=== PATIENT | male | born 1970 | race Caucasian/White ===

== ENCOUNTER 2017-05-27 19:12 | Emergency (ER) | payer OTHER ==
[2017-05-27 19:51] VITALS: BMI 44.9
--- NOTE | 2017-05-27 20:15 | PDOC ---
History of Present Illness - General History Source: Care Provider Exam Limitations: No Limitations - History of Present Illness Initial Comments: 05/27/17 23:15 The patient is a 46 year old male (patient from [facility]), with a significant past medical history of Profound MR, Cerebral palsy spastic quadriplegia, Epilepsy, G tube, GERD, Paraesophageal hernia, Diabetes Insipidus , Asthma who presents to the emergency department with L wrist and L hand blister. Patient brought in by hand packer/packager who states she noticed the blister today when bathing the patient. Patients hand packer/packager is unsure when the blister began and presents to the ED for further evaluation. Allergies: NKA Past surgical history: g tube Social history: None <Alina Hodges - Last Filed: 05/27/17 23:15> - General History Source: Care Provider, Group Home Records Exam Limitations: Clinical Condition, Physical Impairment - History of Present Illness Initial Comments: 05/27/17 21:45 EXAMINATION CONSTITUTIONAL: Awake; nonverbal; in no apparent distress HEAD: Microcephalic, atraumatic EYES: PERRL; ENMT: + Dysmorphic features NECK: Supple; + torticollis CARD: Normal S1, S2; no murmurs, rubs, or gallops RESP: Shallow chest excursion with respiration; breath sounds coarse and equal bilaterally; ABD: Soft, non-distended; non-tender; G-tube in place; no palpable organomegaly , no palpable hernias EXT: Upper and lower extremities are noted to be in flexion contraction; distal pulses intact SKIN: Warm, several large areas of well-demarcated erythema and denuded skin to the dorsolateral and dorsomedial aspect of the left forearm with several small fluid-filled vesicles to the dorsum of the left hand, and a large fluid-filled vesicle to the volar aspect of the wrist overlying the wrist joint. Painless extension of the MCP joints of the left hand; there is no enlarged proximal lymphadenopathy. Patient is wheelchair-bound. <Justino Adler - Last Filed: 05/28/17 02:24> - General Chief Complaint: Wound Infection Stated Complaint: SWOLLEN ARM, BITE Time Seen by Provider: 05/27/17 20:14 Past History <Alina Hodges - Last Filed: 05/27/17 23:15> - Past Medical History Seizures: Yes Other medical history: profound MR - Surgical History Abdominal Surgery: Yes (gtube) - Immunization History Immunization Up to Date: Yes - Psycho/Social/Smoking Cessation Hx Anxiety: (n/a) Suicidal Ideation: No Smoking History: Never smoked Have you smoked in the past 12 months: No Number of Cigarettes Smoked Daily: 0 Hx Alcohol Use: No Drug/Substance Use Hx: No Substance Use Type: None <Justino Adler - Last Filed: 05/28/17 02:24> - Past Medical History Allergies/Adverse Reactions: Allergies Allergy/AdvReac Type Severity Reaction Status Date / Time No Known Allergies Allergy Verified 05/27/17 19:38 Home Medications: Ambulatory Orders Albuterol 0.083% Nebulizer Margarita [Ventolin 0.083% Nebulizer Soln -] 1 neb NEB BID 03/16/15 Ascorbic Acid [Vitamin C Oral Solution -] 500 mg GT BID 03/16/15 Lactose-Reduced Food/Fiber [Jevity 1.5 Nabor Liquid] 800 ml GT BID 03/16/15 Levetiracetam [Keppra Oral Solution -] 250 mg GT BID 03/16/15 Magnesium Hydroxide [Milk of Magnesia] 30 ml GT DAILY 03/16/15 Multivitamins *Pediatric Liq* [Poly--Margarita Drops -] 15 ml GT DAILY 03/16/15 Phenobarbital 16.2 mg GT BID 03/16/15 Phenobarbital 64.8 mg GT BID 03/16/15 Ranitidine HCl [Deprizine] 150 mg GT BID 03/16/15 Bisacodyl Suppository [Dulcolax Suppository -] 10 mg RC ASDIR PRN 05/27/17 Calcium Citrate/Vitamin D3 [Calcium Cit 200-Vit D3 250 Tab] 2 tab GT BID Diazepam [Diastat] 2.5 mg RC ASDIR PRN 05/27/17 Diphenhydramine [Benadryl Capsule -] 50 mg GT ONCE 05/27/17 Silver Sulfadiazine 1% Top Cr [Silvadene -] 1 applic TP BID #1 jar 05/27/17 Teriparatide [Forteo] 2.4 ml SQ DAILY 05/27/17 Review of Systems - Review of Systems Able to Perform ROS?: Yes Comments:: 05/27/17 23:15 Unable to obtain ROS due to patients clinical condition. <Alina Hodges - Last Filed: 05/27/17 23:15> *Physical Exam - Vital Signs Last Vital Signs Temp Pulse Resp BP Pulse Ox 114 H 22 119/84 95 05/27/17 19:45 05/27/17 19:45 05/27/17 19:45 05/27/17 19:45 <Alina Hodges - Last Filed: 05/27/17 23:15> - Vital Signs Last Vital Signs Temp Pulse Resp BP Pulse Ox 114 H 22 119/84 95 05/27/17 19:45 05/27/17 19:45 05/27/17 19:45 05/27/17 19:45 <Justino Adler - Last Filed: 05/28/17 02:24> ED Treatment Course - LABORATORY CBC & Chemistry Diagram: 05/27/17 21:28 05/27/17 21:28 - ADDITIONAL ORDERS Additional order review: Laboratory Results 05/27/17 05/27/17 05/27/17 21:28 21:28 21:00 INR 1.07 Sodium 133 L Potassium 4.5 Chloride 99 Carbon Dioxide 26 Anion Gap 8 BUN 15 Creatinine 0.5 L Creat Clearance w eGFR > 60 Random Glucose 93 Calcium 8.8 Total Bilirubin < 0.1 L D AST 90 H D ALT 54 D Alkaline Phosphatase 157 H C-Reactive Protein 9.0 H Total Protein 7.8 Albumin 3.0 L Phenobarbital 33.9 05/27/17 21:28 RBC 4.80 MCV 101.5 H MCHC 34.2 RDW 13.4 MPV 8.6 Neutrophils % 70.7 Lymphocytes % 12.2 D Monocytes % 15.8 H Eosinophils % 0.7 D Basophils % 0.6 <Alina Hodges - Last Filed: 05/27/17 23:15> - LABORATORY CBC & Chemistry Diagram: 05/27/17 21:28 05/27/17 21:28 <Justino Adler - Last Filed: 05/28/17 02:24> Medical Decision Making - Medical Decision Making 05/27/17 23:31 Patient is a 46-year-old male with history of severe MR, spastic CP, seizure disorder who presents to the ER with several large fluid-filled bullae and well demarcated areas of erythema to the left wrist and hand which were noticed by the staff members on the day of arrival. Patient's had similar episodes in the past treated with topical bacitracin. In the ER, patient is awake and alert, afebrile, in no distress. Patient is nonverbal, wheelchair bound with flexion contraction of upper and lower extremities. Evaluation of the upper extremity reveals several well-demarcated areas of erythema and denuded skin consistent with recently ruptured fluid-filled bullae; there is a large approximately 4 cm fluid-filled bullae to the volar aspect of the wrist over the distal wrist crease. Differential diagnoses includes phenobarbital rash versus bullous pemphigus versus pemphigus vulgaris. CBC is within normal limit. CMP reveals moderately elevated CRP of 9. I discussed the case with Dr. Bolivar from [facility]. Will apply topical Silvadene at this time with a bulky gauze dressing. Patient will follow-up with dermatology for a possible biopsy and steroid treatment as needed. Phenobarbital rash is unlikely given the patient's had it before and it has been limited to the left wrist only. Silvadene and a bulky gauze dressing applied. We'll discharge. <Justino Adler - Last Filed: 05/28/17 02:24> *DC/Admit/Observation/Transfer - Attestations Scribe Attestion: 05/27/17 23:15 Documentation prepared by Alina Hodges, acting as medical records analyst for Justino Adler MD <Alina Hodges - Last Filed: 05/27/17 23:15> - Attestations Physician Attestion: 05/27/17 23:31 The documentation was prepared by the scribe under my direct supervision. I have reviewed the documentation which correctly represents the findings, medical decision-making and critical action taken by me. <Justino Adler - Last Filed: 05/28/17 02:24> Diagnosis at time of Disposition: Bullous dermatitis - Discharge Dispostion Disposition: HOME Condition at time of disposition: Stable - Prescriptions Prescriptions: Silver Sulfadiazine 1% Top Cr [Silvadene -] 1 applic TP BID #1 jar - Referrals Referrals: Dominique Abraham MD [Staff Physician] - - Patient Instructions Printed Discharge Instructions: Blisters
[2017-05-27 21:38] LABS: BASOPHIL 0.6 % (0-2.0); EOSINOPHIL 0.7 % (0-4.5); MCH 34.7 pg (25.7-33.7); MCHC 34.2 g/dl (32.0-35.9); MEAN CELL VOLUME 101.5 fl (80-96); MEAN PLT VOLUME 8.6 fl (7.5-11.1); NEUTROPHILS 70.7 % (42.8-82.8); PLATELET COUNT 447 K/MM3 (134-434); RDW 13.4 % (11.9-15.9); WHITE BLOOD COUNT 11.9 K/mm3 (4.0-10.0)
[2017-05-27 22:01] LABS: PLATELET ESTIMATE SLT INCREASED (NORMAL)
[2017-05-27 22:02] LABS: ALK PHOS 157 U/L (45-117); ANION GAP 8 (8-16); BILIRUBIN,TOTAL < 0.1 mg/dL (0.2-1.0); CALCIUM 8.8 mg/dL (8.5-10.1); CO2 26 mmol/L (21-32); CREATININE 0.5 mg/dL (0.7-1.3); GLUCOSE,RANDOM 93 mg/dL (74-106); SGOT/AST 90 U/L (15-37); SGPT/ALT 54 U/L (12-78); TOT PROT 7.8 g/dl (6.4-8.2)
[2017-05-27] MEDS ORDERED: SILVER SULFADIAZINE 1% TOP CREAM 50 GM JAR TP ONE (22:30)
[2017-05-27 22:36] LABS: INR 1.07 (0.82-1.09); PROTHROMBIN TIME (PATIENT) 11.8 SEC (9.98-11.88)
[2017-05-27 23:20] VITALS: BP 137/108; PULSE 100
[2017-05-27 23:25] LABS: ERYTHROCYTE SEDIMENTATION RATE 35 mm/hr (0-10)
== END 2017-05-27 23:44 | disposition home or self-care (01) ==
LOC: JER 19:12
DX: L13.9 Bullous disorder, unspecified (principal); F73 Profound intellectual disabilities; G80.0 Spastic quadriplegic cerebral palsy; G40.909 Epilepsy, unspecified, not intractable, without status epilepticus; Z99.3 Dependence on wheelchair; E23.2 Diabetes insipidus; J45.909 Unspecified asthma, uncomplicated; K21.9 Gastro-esophageal reflux disease without esophagitis
CPT/HCPCS: 36415; 80053; 80184; 85025; 85610; 85651; 86140; 99282-25

== ENCOUNTER 2019-10-12 16:21 | Inpatient (IN) | payer OTHER ==
--- NOTE | 2019-10-12 17:02 | PDOC ---
History of Present Illness - General Chief Complaint: Respiratory Distress Stated Complaint: RESPIRATORY DISTRESS Time Seen by Provider: 10/12/19 17:02 History Source: Correction Records Exam Limitations: Language Barrier - History of Present Illness Initial Comments: 10/12/19 17:21 49yM w PMHx multiple intellectual disabilities, seizure, cerebral palsy, asthma , diaphragmatic hernia, diabetes insipidus, gastrostomy tube presenting from [facility] w hypoxia. Pt cannot communicate at baseline. Earlier today, nurses endorsed pt having increased secretions, productive cough, hypoxia on RA, and increasing lethargy. Past History - Past Medical History Allergies/Adverse Reactions: Allergies Allergy/AdvReac Type Severity Reaction Status Date / Time No Known Allergies Allergy Verified 05/27/17 19:38 Home Medications: Ambulatory Orders Albuterol 0.083% Nebulizer Margarita [Ventolin 0.083% Nebulizer Soln -] 1 neb NEB BID 03/16/15 Lactose-Reduced Food/Fiber [Jevity 1.5 Nabor Liquid] 80 ml GT BID 03/16/15 Magnesium Hydroxide [Milk of Magnesia] 30 ml GT DAILY 03/16/15 Phenobarbital 16.2 mg GT BID 03/16/15 Phenobarbital 64.8 mg GT BID 03/16/15 levETIRAcetam [Keppra Oral Solution -] 2.5 ml GT BID 03/16/15 Calcium Citrate/Vitamin D3 [Calcium Cit 200-Vit D3 250 Tab] 2 tab GT BID Diazepam [Diastat] 10 mg RC ASDIR PRN 05/27/17 Amox-Tr/K Cl [Augmentin 875-125mg Tablet -] 1 tab GT BID 08/23/19 Famotidine [Pepcid] 40 mg GT HS 08/23/19 Multivitamin/Iron/Folic Acid [Centrum Adults Tablet] 1 tab GT DAILY 08/23/19 Amoxicillin/Potassium Clav [Augmentin 875-125 Tablet] 1 each GT BID 10/12/19 Asthma: Yes Diabetes: Yes (Diabetes Insipidus) GI Disorders: Yes (G-Tube in place) Seizures: Yes - Surgical History Abdominal Surgery: Yes (gtube) - Immunization History Immunization Up to Date: Yes - Psycho Social/Smoking Cessation Hx Smoking History: Never smoked Have you smoked in the past 12 months: No Number of Cigarettes Smoked Daily: 0 Hx Alcohol Use: No Drug/Substance Use Hx: No Substance Use Type: None Review of Systems - Review of Systems Able to Perform ROS?: No (pt non verbal) *Physical Exam - Physical Exam General Appearance: Yes: Nourished, Appropriately Dressed. No: Apparent Distress HEENT: positive: OLLIE (opens eyes intermittedly). negative: Normal Voice, Scleral Icterus (R), Scleral Icterus (L), Nasal Congestion Respiratory/Chest: positive: Rhonchi. negative: Chest Tender, Respiratory Distress, Accessory Muscle Use, Labored Respiration, Wheezing Cardiovascular: positive: Regular Rhythm, S1, S2, Tachycardia. negative: Edema , Murmur Gastrointestinal/Abdominal: positive: Normal Bowel Sounds, Flat, Soft. negative : Tender, Organomegaly Musculoskeletal: positive: Other (curved spine, cerebral palsy extremity deformities) Integumentary: positive: Normal Color, Dry Neurologic: positive: Respond to painful stimul. negative: rip tailer II-XII NML intact (unable to assess), Alert, Facial Droop ED Treatment Course - LABORATORY CBC & Chemistry Diagram: 10/12/19 17:57 10/12/19 17:57 Medical Decision Making - Medical Decision Making 10/12/19 19:53 Sepsis labs 30mL/kg NS, vancomycin, zosyn --- 49yM w PMHx multiple intellectual disabilities, seizure, cerebral palsy, asthma , diaphragmatic hernia, diabetes insipidus, gastrostomy tube presenting from [facility] hypoxia d/t sepsis Sepsis may be 2/2 PNA (crackles, hypoxic) vs UTI (needs straight cath). Low concern for asthma (no wheezing on exam) On non rebreather O2. Pending sepsis labs/CXR/EKG. Given 30mL/kg NS, vancomycin , zosyn, rosa maria hugger for hypothermia Signed out to night team - pending workup - anticipate admit for sepsis Discharge - Discharge Information Problems reviewed: Yes Clinical Impression/Diagnosis: Sepsis Qualifiers: Sepsis type: sepsis due to unspecified organism Sepsis acute organ dysfunction status: unspecified Qualified Code(s): A41.9 - Sepsis, unspecified organism Condition: Stable - Follow up/Referral - Patient Discharge Instructions - Post Discharge Activity
[2019-10-12 17:13] VITALS: BMI 26.2
[2019-10-12] MEDS ORDERED: SODIUM CHLORIDE 1,429 ML IV ONE (17:14)
[2019-10-12] MEDS ORDERED: VANCOMYCIN 1 GM in D5W (PRE-DOCKED) 1,000 MG/250 ML IVPB ONE (17:48)
[2019-10-12] MEDS ORDERED: PIPERACILLIN/TAZOB 4.5 GM 4.5 GM in DEXTROSE 5%-WATER 100 ML IVPB ONE (17:48)
[2019-10-12 18:09] LABS: BASO % 0.3 % (0-2.0); EOS % 2.1 % (0-4.5); HEMOGLOBIN 15.5 GM/dL (11.7-16.9); LYMPH % 7.9 % (8-40); MCH 35.6 pg (25.7-33.7); MCHC 33.7 g/dl (32.0-35.9); MEAN CELL VOLUME 105.6 fl (80-96); MEAN PLT VOLUME 10.9 fl (7.5-11.1); MONO % 6.7 % (3.8-10.2); RBC 4.35 M/mm3 (4.00-5.60); RDW 14.4 % (11.9-15.9); WHITE BLOOD COUNT 19.2 K/mm3 (4.0-10.0)
[2019-10-12 18:40] LABS: ALBUMIN 3.2 g/dl (3.4-5.0); ALK PHOS 155 U/L (45-117); ANION GAP 6 MMOL/L (8-16); BILIRUBIN,TOTAL < 0.1 mg/dL (0.2-1); BLOOD UREA NITROGEN 13.9 mg/dL (7-18); CALCIUM 9.1 mg/dL (8.5-10.1); CHLORIDE 104 mmol/L (98-107); CO2 25 mmol/L (21-32); CREATININE 0.4 mg/dL (0.55-1.3); GLUCOSE,RANDOM 86 mg/dL (74-106); POTASSIUM 4.8 mmol/L (3.5-5.1); SGOT/AST 20 U/L (15-37); SGPT/ALT 35 U/L (13-61); SODIUM 135 mmol/L (136-145); TOT PROT 7.3 g/dl (6.4-8.2)
--- NOTE | 2019-10-12 19:03 | PDOC ---
Documentation entered by Noreen Bravo SCRIBE, acting as scribe for Nicho Valdes MD. Nicho Valdes MD: This documentation has been prepared by the Lawrence smith Xhesika, SCRIBE, under my direction and personally reviewed by me in its entirety. I confirm that the documentation accurately reflects all work, treatment, procedures, and medical decision making performed by me. Attending Attestation - Resident Resident Name: Luigi Ritter - ED Attending Attestation I have performed the following: I have examined & evaluated the patient, The case was reviewed & discussed with the resident, I agree w/resident's findings & plan, Exceptions are as noted - HPI HPI: 10/12/19 17:20 The patient is a 49 year old male with a significant PMH of Profound MR, Cerebral palsy spastic quadriplegia, Epilepsy, G tube, GERD, Paraesophageal hernia, Diabetes Insipidus, Asthma who presents to the emergency department [facility] for Hypoxia, respiratory distress and lethargy. Pt is unable to contribute to history due to his condition. Allergies: NKDA Past surgical history: g tube - Physicial Exam PE: 10/12/19 17:24 See resident exam - Medical Decision Making 10/12/19 19:04 49 M with respiratory distress and lethargy. Has h/o PNA. - Labs - CXR - Abx
[2019-10-12 19:08] LABS: MACROCYTOSIS 1+; PLATELET ESTIMATE ADEQUATE; TARGET CELLS 1+; TEAR DROP CELLS 1+
[2019-10-12 19:24] LABS: VENOUS PH 7.36 (7.31-7.41); VENOUS PO2 54.1 mmHg (28-48)
--- NOTE | 2019-10-12 19:30 | PDOC ---
*Physical Exam - Vital Signs Last Vital Signs Temp Pulse Resp BP Pulse Ox 96.4 F L 93 H 18 131/81 100 10/12/19 17:00 10/12/19 17:14 10/12/19 17:00 10/12/19 17:00 10/12/19 17:14 ED Treatment Course - LABORATORY CBC & Chemistry Diagram: 10/14/19 07:52 10/14/19 06:40 - ADDITIONAL ORDERS Additional order review: Laboratory Results 10/12/19 17:57 Sodium 135 L Potassium 4.8 Chloride 104 Carbon Dioxide 25 Anion Gap 6 L BUN 13.9 Creatinine 0.4 L Est GFR (CKD-EPI)AfAm 162.79 Est GFR (CKD-EPI)NonAf 140.45 Random Glucose 86 Calcium 9.1 Total Bilirubin < 0.1 L AST 20 ALT 35 Alkaline Phosphatase 155 H Troponin I < 0.02 Total Protein 7.3 Albumin 3.2 L 10/12/19 17:57 RBC 4.35 MCV 105.6 H MCHC 33.7 RDW 14.4 MPV 10.9 D Neutrophils % 83.0 H Lymphocytes % 7.9 L D Monocytes % 6.7 Eosinophils % 2.1 D Basophils % 0.3 - Medications Given in the ED: ED Medications Discontinued Medications Generic Name Dose Route Start Last Admin Trade Name Freq PRN Reason Stop Dose Admin Sodium Chloride 1,429 mls @ 714.5 mls/hr 10/12/19 17:14 10/12/19 18:59 Normal Saline - 30 ml/kg infuse over 2 hr (1429 ml) 10/12/19 19:13 714.5 mls/hr IV Administration ONCE ONE Medical Decision Making - Medical Decision Making 10/12/19 19:29 - Admission for sepsis with likely pulmonary source - Hypoxic, secretions, lethargy, rhonchi, cough - NRB, nonverbal at baseline - Vanc / Zosyn / Fluids ordered - UA pending s/p straight cath - F/u CXR, labs Dispo: Admission Med/Surg 10/12/19 20:22 - Leukocytosis 19.2 - Pt hypothermic, Cuco hugger ordered - No anemia, mild hyponatremia, negative troponin - 7.36 VBG pH - PT/INR wnl - CXR extremely poor quality film, difficult to assess, clinical correlation appears as a PNA picture 10/12/19 22:32 - Still no straight catheters available in the ED, 4x calls to central supply, admit for PNA sepsis, coverage adequate for possible concurrent UTI - S/p sepsis IVF, Vanc / Zosyn - MBMD sent for Med/Surg admission 10/12/19 23:37 -Sign-out given, admitted med/surg under Dr. Rodas Discharge - Discharge Information Problems reviewed: Yes Clinical Impression/Diagnosis: Sepsis Qualifiers: Sepsis type: sepsis due to unspecified organism Sepsis acute organ dysfunction status: unspecified Qualified Code(s): A41.9 - Sepsis, unspecified organism Condition: Stable - Follow up/Referral - Patient Discharge Instructions - Post Discharge Activity
[2019-10-12 19:34] LABS: INR 0.97 (0.83-1.09); PROTHROMBIN TIME (PATIENT) 11.4 SEC (9.7-13.0)
[2019-10-12 19:36] LABS: ACTIVATED PTT 43.7 SECONDS (25.2-36.5)
[2019-10-12] MEDS ORDERED: PIPERACILLIN/TAZOB 4.5 GM 4.5 GM/100 ML BAG IVPB ONE (20:10)
[2019-10-12] MEDS ORDERED: VANCOMYCIN 1 GRAM (PRE-DOCKED) 1,000 MG/250 ML BAG IVPB ONE (20:10)
[2019-10-12 23:11] LABS: EPI CELLS 1.3 /HPF (0-5/HPF); HYALINE CASTS 1 /lpf (0-8); PH,URINE >= 9.0 (5.0-8.0); URINE APPEARANCE CLOUDY; URINE BACTERIA 5.3 /hpf (NEGATIVE); URINE BILIRUBIN NEGATIVE (NEGATIVE); URINE COLOR YELLOW; URINE GLUCOSE (UA) NEGATIVE (NEGATIVE); URINE KETONE TRACE (NEGATIVE); URINE LEUK ESTERASE TRACE (NEGATIVE); URINE NITRITE NEGATIVE (NEGATIVE); URINE PROTEIN NEGATIVE (NEGATIVE); URINE RBC 2 /hpf (0-4); URINE UROBILINOGEN 0.2 mg/dL (0.2-1.0); URINE WBC 1 /hpf (0-5)
--- NOTE | 2019-10-12 23:41 | PN ---
<Kaitlin Rodas - Last Filed: 10/13/19 00:48> Teaching Attending Note Name of Resident: Mariely Toledo ATTENDING PHYSICIAN STATEMENT I saw and evaluated the patient. I reviewed the resident's note and discussed the case with the resident. I agree with the resident's findings and plan as documented. SUBJECTIVE: Patient is a 49 year old man with a PMH of Profound Mental retardation, Cerebral palsy, Spastic quadriplegia, Epilepsy, G tube placement, GERD, Paraesophageal hernia, Diabetes insipidus and Asthma who presents to the ER from [place] for hypoxia, respiratory distress and lethargy. Patient is unable to contribute to history due to his condition. Patient is nonverbal at baseline. Reportedly was having increased secretions, productive cough, hypoxia on RA and increasing lethargy. No history of tobacco, alcohol or illicit drug use. Was noted to be hypothermic and tachycardic on arrival in the ER. OBJECTIVE: Lethargic Vital Signs Period Temp Pulse Resp BP Sys/Harrison Pulse Ox Last 24 Hr 96.4 F-96.8 F 93-93 18 131/81 100-100 HEENT: No Jaundice, eye redness or discharge, PERRLA, Normocephalic, atraumatic. External ears are normal. No nasal discharge. Neck: Supple, nontender. No palpable adenopathy or thyromegaly. No JVD Chest: Good effort. Clear to auscultation and percussion. Heart: Regular. No S3, rub or murmur Abdomen: Not distended, soft, nontender and no HSM. G tube in place. No rebound or guarding. Normal bowel sounds. Ext: Peripheral pulses intact. No leg edema. Limb contracture with elbow patches. Skin: Warm and dry. No petechiae, rash or ecchymosis. Neuro: Lethargic. Nonverbal. Severe limb contractures. Psych: Unable to assess. Home Medications Medication Instructions Recorded Albuterol 0.083% Nebulizer Margarita 1 neb NEB BID 03/16/15 [Ventolin 0.083% Nebulizer Soln -] Lactose-Reduced Food/Fiber [Jevity 80 ml GT BID 03/16/15 1.5 Nabor Liquid] Magnesium Hydroxide [Milk of 30 ml GT DAILY 03/16/15 Magnesia] Phenobarbital 16.2 mg GT BID 03/16/15 Phenobarbital 64.8 mg GT BID 03/16/15 levETIRAcetam [Keppra Oral 2.5 ml GT BID 03/16/15 Solution -] Calcium Citrate/Vitamin D3 2 tab GT BID 05/27/17 [Calcium Cit 200-Vit D3 250 Tab] Diazepam [Diastat] 10 mg RC ASDIR PRN 05/27/17 Amox-Tr/K Cl [Augmentin 875-125mg 1 tab GT BID 08/23/19 Tablet -] Famotidine [Pepcid] 40 mg GT HS 08/23/19 Multivitamin/Iron/Folic Acid 1 tab GT DAILY 08/23/19 [Centrum Adults Tablet] Amoxicillin/Potassium Clav 1 each GT BID 10/12/19 [Augmentin 875-125 Tablet] Abnormal Lab Results 10/12/19 10/12/19 10/12/19 17:57 17:57 18:50 WBC 19.2 H MCV 105.6 H MCH 35.6 H Absolute Neuts (auto) 16.0 H Neutrophils % 83.0 H Lymphocytes % 7.9 L D PTT (Actin FS) 43.7 H POC VBG pO2 VBG O2 Sat (Lauren) Sodium 135 L Anion Gap 6 L Creatinine 0.4 L Total Bilirubin < 0.1 L Alkaline Phosphatase 155 H Albumin 3.2 L Urine pH Urine Ketones 10/12/19 10/12/19 18:50 23:00 WBC MCV MCH Absolute Neuts (auto) Neutrophils % Lymphocytes % PTT (Actin FS) POC VBG pO2 54.1 H VBG O2 Sat (Lauren) 85.9 H Sodium Anion Gap Creatinine Total Bilirubin Alkaline Phosphatase Albumin Urine pH >= 9.0 H Urine Ketones Trace H ASSESSMENT AND PLAN: 1. Sepsis likely due to chest infection - CXR is poor quality with scoliosis and rotation - no obvious infiltrate noted. Will get chest CT. Sepsis workup done and will continue IV vancomycin and zosyn, IV NS according to sepsis protocol, hold G-tube feeding, consult ID and Pulmonary. EKG shows NSR with no significant ST-T wave changes. Implement seizure and aspiration precautions. Macrocytosis likely due to platelet clumping. Continue warming blanket. Will continue comprehensive care for all of patients comorbid conditions including frequent repositioning to prevent decubitus ulcers. 2. Hypoalbuminemia - Possibly due to combined effects of malnutrition and inflammation associated with comorbid chronic conditions. Will ensure adequate dietary protein intake and also consult plasterer spray gun. 3. DVT prophylaxis - Lovenox 40 mg SQ q 24 hours. 4. Advance directives - Full code <Fatmata Willis - Last Filed: 10/13/19 03:19> Teaching Attending Note ATTENDING PHYSICIAN STATEMENT I saw and evaluated the patient. I reviewed the resident's note and discussed the case with the resident. I agree with the resident's findings and plan as documented. SUBJECTIVE: OBJECTIVE: ASSESSMENT AND PLAN:
[2019-10-13] MEDS ORDERED: SODIUM CHLORIDE 1,000 ML IV SCH (00:45)
[2019-10-13] MEDS ORDERED: PIPERACILLIN/TAZOB 3.375 GM 3.375 GM/50 ML BAG IVPB ONE ×3 (02:13→19:10)
[2019-10-13] MEDS: PIPERACILLIN/TAZOB 3.375 GM 3.375 GM in DEXTROSE 5%-WATER - 50 ML IVPB SCH ×4 (02:24→21:56)
--- NOTE | 2019-10-13 03:33 | HP ---
CHIEF COMPLAINT: HISTORY OF PRESENT ILLNESS: 49 y/o/m with PMHx of multiple intellectual disabilities, seizure, cerebral palsy, asthma, diaphragmatic hernia, diabetes insipidus, gastrostomy tube presenting from [facility] with hypoxia. Earlier today patient was noted to have increased secretions and a productive cough. Patient nonverbal at baseline , aide at bedside stating that he does not know anything about the patient. Patient tracks movement in room, unable to follow commands. ER course was notable for: (1) Leukocytosis 19.2 (2) UA negative for UTI Recent Travel: none PAST MEDICAL HISTORY: multiple intellectual disabilities, seizure, cerebral palsy, asthma, diaphragmatic hernia, diabetes insipidus, gastrostomy tube PAST SURGICAL HISTORY: PEG tube Social History: Smoking: no Alcohol: no Drugs: no Allergies No Known Allergies Allergy (Verified 05/27/17 19:38) HOME MEDICATIONS: Home Medications Medication Instructions Recorded Albuterol 0.083% Nebulizer Margarita 1 neb NEB BID 03/16/15 [Ventolin 0.083% Nebulizer Soln -] Lactose-Reduced Food/Fiber [Jevity 80 ml GT BID 03/16/15 1.5 Nabor Liquid] Magnesium Hydroxide [Milk of 30 ml GT DAILY 03/16/15 Magnesia] Phenobarbital 16.2 mg GT BID 03/16/15 Phenobarbital 64.8 mg GT BID 03/16/15 levETIRAcetam [Keppra Oral 2.5 ml GT BID 03/16/15 Solution -] Calcium Citrate/Vitamin D3 2 tab GT BID 05/27/17 [Calcium Cit 200-Vit D3 250 Tab] Diazepam [Diastat] 10 mg RC ASDIR PRN 05/27/17 Amox-Tr/K Cl [Augmentin 875-125mg 1 tab GT BID 08/23/19 Tablet -] Famotidine [Pepcid] 40 mg GT HS 08/23/19 Multivitamin/Iron/Folic Acid 1 tab GT DAILY 08/23/19 [Centrum Adults Tablet] Amoxicillin/Potassium Clav 1 each GT BID 10/12/19 [Augmentin 875-125 Tablet] REVIEW OF SYSTEMS unable to assess PHYSICAL EXAMINATION Vital Signs - 24 hr 10/12/19 10/12/19 10/12/19 17:00 17:14 23:02 Temperature 96.4 F L 96.8 F L Pulse Rate 93 H 93 H Pulse Rate [ Radial] Respiratory 18 Rate Blood Pressure 131/81 Blood Pressure [Left Arm] O2 Sat by Pulse 100 100 Oximetry (%) 10/13/19 10/13/19 00:39 01:41 Temperature 96.8 F L Pulse Rate Pulse Rate [ 88 Radial] Respiratory 18 Rate Blood Pressure Blood Pressure 132/80 [Left Arm] O2 Sat by Pulse 100 100 Oximetry (%) GENERAL: lethargic, arousable to verbal stimuli HEAD: Normal with no signs of trauma. EYES: PERRL, EOMI, no scleral icterus EARS, NOSE, THROAT: Dry mucous membranes NECK: supple. trachea midline LUNGS: crackles at the bases bilaterally, no accessory muscle use HEART: Regular rate and rhythm, normal S1 and S2 without murmur, rub or gallop. ABDOMEN: Soft, nontender, not distended, normoactive bowel sounds. PEG tube in place with dressing covering opening MUSCULOSKELETAL: contracted upper and lower extremities EXTREMITIES: 2+ pulses, warm, well-perfused. No calf tenderness. No peripheral edema. NEUROLOGICAL: arousable to verbal stimuli, does not follow commands SKIN: Warm, dry Laboratory Results - last 24 hr 10/12/19 10/12/19 10/12/19 17:57 17:57 18:50 WBC 19.2 H RBC 4.35 Hgb 15.5 Hct 46.0 MCV 105.6 H MCH 35.6 H MCHC 33.7 RDW 14.4 Plt Count No Result Required. MPV 10.9 D Absolute Neuts (auto) 16.0 H Neutrophils % 83.0 H Lymphocytes % 7.9 L D Monocytes % 6.7 Eosinophils % 2.1 D Basophils % 0.3 Nucleated RBC % 0 Platelet Estimate Adequate Platelet Comment Slt plt clumping Poikilocytosis 1+ Macrocytosis 1+ Target Cells 1+ Tear Drop Cells 1+ PT with INR 11.40 INR 0.97 PTT (Actin FS) 43.7 H VBG pH POC VBG pCO2 POC VBG pO2 VBG HCO3 VBG O2 Sat (Lauren) VBG Base Excess Sodium 135 L Potassium 4.8 Chloride 104 Carbon Dioxide 25 Anion Gap 6 L BUN 13.9 Creatinine 0.4 L Est GFR (CKD-EPI)AfAm 162.79 Est GFR (CKD-EPI)NonAf 140.45 Random Glucose 86 Lactic Acid Calcium 9.1 Total Bilirubin < 0.1 L AST 20 ALT 35 Alkaline Phosphatase 155 H Troponin I < 0.02 Total Protein 7.3 Albumin 3.2 L Urine Color Urine Appearance Urine pH Ur Specific [place] Urine Protein Urine Glucose (UA) Urine Ketones Urine Blood Urine Nitrite Urine Bilirubin Urine Urobilinogen Ur Leukocyte Esterase Urine WBC (Auto) Urine RBC (Auto) Urine Casts (Auto) U Epithel Cells (Auto) Urine Bacteria (Auto) Influenza A (Rapid) Influenza B (Rapid) 10/12/19 10/12/19 10/12/19 18:50 18:50 23:00 WBC RBC Hgb Hct MCV MCH MCHC RDW Plt Count MPV Absolute Neuts (auto) Neutrophils % Lymphocytes % Monocytes % Eosinophils % Basophils % Nucleated RBC % Platelet Estimate Platelet Comment Poikilocytosis Macrocytosis Target Cells Tear Drop Cells PT with INR INR PTT (Actin FS) VBG pH 7.36 POC VBG pCO2 48.0 POC VBG pO2 54.1 H VBG HCO3 26.6 VBG O2 Sat (Lauren) 85.9 H VBG Base Excess 1.0 Sodium Potassium Chloride Carbon Dioxide Anion Gap BUN Creatinine Est GFR (CKD-EPI)AfAm Est GFR (CKD-EPI)NonAf Random Glucose Lactic Acid 1.3 Calcium Total Bilirubin AST ALT Alkaline Phosphatase Troponin I Total Protein Albumin Urine Color Yellow Urine Appearance Cloudy Urine pH >= 9.0 H Ur Specific [place] 1.017 Urine Protein Negative Urine Glucose (UA) Negative Urine Ketones Trace H Urine Blood Negative Urine Nitrite Negative Urine Bilirubin Negative Urine Urobilinogen 0.2 Ur Leukocyte Esterase Trace Urine WBC (Auto) 1 Urine RBC (Auto) 2 Urine Casts (Auto) 1 U Epithel Cells (Auto) 1.3 Urine Bacteria (Auto) 5.3 Influenza A (Rapid) Influenza B (Rapid) 10/13/19 00:15 WBC RBC Hgb Hct MCV MCH MCHC RDW Plt Count MPV Absolute Neuts (auto) Neutrophils % Lymphocytes % Monocytes % Eosinophils % Basophils % Nucleated RBC % Platelet Estimate Platelet Comment Poikilocytosis Macrocytosis Target Cells Tear Drop Cells PT with INR INR PTT (Actin FS) VBG pH POC VBG pCO2 POC VBG pO2 VBG HCO3 VBG O2 Sat (Lauren) VBG Base Excess Sodium Potassium Chloride Carbon Dioxide Anion Gap BUN Creatinine Est GFR (CKD-EPI)AfAm Est GFR (CKD-EPI)NonAf Random Glucose Lactic Acid Calcium Total Bilirubin AST ALT Alkaline Phosphatase Troponin I Total Protein Albumin Urine Color Urine Appearance Urine pH Ur Specific [place] Urine Protein Urine Glucose (UA) Urine Ketones Urine Blood Urine Nitrite Urine Bilirubin Urine Urobilinogen Ur Leukocyte Esterase Urine WBC (Auto) Urine RBC (Auto) Urine Casts (Auto) U Epithel Cells (Auto) Urine Bacteria (Auto) Influenza A (Rapid) Negative Influenza B (Rapid) Negative ASSESSMENT/PLAN: 49 y/o/m with PMHx of multiple intellectual disabilities, seizure, cerebral palsy, asthma, diaphragmatic hernia, diabetes insipidus, gastrostomy tube presenting from [facility] with hypoxia. Admitted for sepsis likely 2/2 pneumonia. #Sepsis 2/2 PNA - concern for aspiration pnuemonia - Leukocytosis at 19.2. continue to monitor - CXR film poor quality, difficulty to interpret - CT chest ordered for better assessment of possible PNA - Vanc, Zosyn given in ED - Continue Vanc/Zosyn - Tylenol for fevers as needed - IVF - NPO due to concern for aspiration #Hypothermic 2/2 sepsis - continue warm blanket as needed until temperature improvees #Hypoalbuminemia likely 2/2 malnutrition - Patient with PEG tube in place - consult Dietary for proper feeding recommendations #Prophylaxis - Heparin #FEN - monitor and replace fluids as needed - NS @100mls/hr - NPO for now #Disposition - admitted to med surg Visit type - Emergency Visit Emergency Visit: Yes ED Registration Date: 10/12/19 Care time: The patient presented to the Emergency Department on the above date and was hospitalized for further evaluation of their emergent condition. - New Patient This patient is new to me today: Yes Date on this admission: 10/13/19 - Critical Care Critical Care patient: No ATTENDING PHYSICIAN STATEMENT I saw and evaluated the patient. I reviewed the resident's note and discussed the case with the resident. I agree with the resident's findings and plan as documented. SUBJECTIVE: OBJECTIVE: ASSESSMENT AND PLAN:
[2019-10-13 06:12] LABS: HEMATOCRIT 40.8 % (35.4-49); HEMOGLOBIN 13.5 GM/dL (11.7-16.9); MCH 34.7 pg (25.7-33.7); MCHC 33.2 g/dl (32.0-35.9); MEAN CELL VOLUME 104.5 fl (80-96); PLATELET COUNT 320 K/MM3 (134-434); RDW 14.3 % (11.9-15.9)
[2019-10-13 06:46] LABS: BLOOD UREA NITROGEN 12.5 mg/dL (7-18); CALCIUM 8.5 mg/dL (8.5-10.1); CREATININE 0.4 mg/dL (0.55-1.3); PHOSPHOROUS 2.8 mg/dL (2.5-4.9); POTASSIUM 4.7 mmol/L (3.5-5.1)
[2019-10-13] MEDS ORDERED: HEPARIN NA (PORCINE) 5,000 UNITS/ML 1ML VIAL ONE (06:49)
[2019-10-13] MEDS: HEPARIN NA (PORCINE) 5,000 UNITS/ML 1ML VIAL SQ SCH ×3 (06:50→23:09)
[2019-10-13] MEDS ORDERED: VANCOMYCIN 1 GRAM (PRE-DOCKED) 1,000 MG/250 ML BAG IVPB ONE ×2 (09:28→10:00)
[2019-10-13] MEDS ORDERED: VANCOMYCIN 1 GM in D5W (PRE-DOCKED) 1,000 MG/250 ML IVPB SCH (10:00)
--- NOTE | 2019-10-13 13:54 | CON.PULM ---
Consult Consult Specialty:: PULMONARY Referred by:: Dr Mejia Reason for Consultation:: pneumonia - History of Present Illness Chief Complaint: hypoxia History of Present Illness: 49yo male with h/o cerebral palsy, mental retardation, seizure disorder who was admitted from [facility] for hypoxia. Pt unable to provide further history at this time but per chart, was noted to have increased secretions and a productive cough. CXR and CT chest showing a right sided infiltrate. Initially hypothermic and hypoxic in the ER. - History Source History Provided By: Medical Record Limitations to Obtaining History: Clinical Condition - Past Medical History [employer]INE [employer]ATOR: Yes: Seizure, Other (profound mental retardation, cerebral palsy, spastic quadraparesis) Pulmonary: Yes: Asthma Gastrointestinal: Yes: Hiatal Hernia (paraesphageal hernia) Endocrine: Yes: Diabetes Insipidus - Alcohol/Substance Use Hx Alcohol Use: No History of Substance Use: reports: None - Smoking History Smoking history: Never smoked Have you smoked in the past 12 months: No Aproximately how many cigarettes per day: 0 - Social History ADL: Support Services Home Medications - Allergies Allergies/Adverse Reactions: Allergies Allergy/AdvReac Type Severity Reaction Status Date / Time No Known Allergies Allergy Verified 05/27/17 19:38 - Home Medications Home Medications: Ambulatory Orders Albuterol 0.083% Nebulizer Margarita [Ventolin 0.083% Nebulizer Soln -] 1 neb NEB BID 03/16/15 Lactose-Reduced Food/Fiber [Jevity 1.5 Nabor Liquid] 80 ml GT BID 03/16/15 Magnesium Hydroxide [Milk of Magnesia] 30 ml GT DAILY 03/16/15 Phenobarbital 16.2 mg GT BID 03/16/15 Phenobarbital 64.8 mg GT BID 03/16/15 levETIRAcetam [Keppra Oral Solution -] 2.5 ml GT BID 03/16/15 Calcium Citrate/Vitamin D3 [Calcium Cit 200-Vit D3 250 Tab] 2 tab GT BID Diazepam [Diastat] 10 mg RC ASDIR PRN 05/27/17 Amox-Tr/K Cl [Augmentin 875-125mg Tablet -] 1 tab GT BID 08/23/19 Famotidine [Pepcid] 40 mg GT HS 08/23/19 Multivitamin/Iron/Folic Acid [Centrum Adults Tablet] 1 tab GT DAILY 08/23/19 Amoxicillin/Potassium Clav [Augmentin 875-125 Tablet] 1 each GT BID 10/12/19 Review of Systems Unable to obtain ROS, reason: pt nonverbal Physical Exam Vital Sings: Vital Signs Temperature 99 F 10/13/19 13:42 Pulse Rate 75 10/13/19 13:42 Respiratory Rate 18 10/13/19 13:42 Blood Pressure 137/81 10/13/19 13:42 O2 Sat by Pulse Oximetry (%) 94 L 10/13/19 13:42 Constitutional: Yes: Calm Eyes: Yes: Conjunctiva Clear, EOM Intact HENT: Yes: Atraumatic, Normocephalic Neck: Yes: Supple, Trachea Midline Cardiovascular: Yes: Regular Rate and Rhythm Respiratory: Yes: Rhonchi ...Clubbing: No Gastrointestinal: Yes: Normal Bowel Sounds, Soft. No: Tenderness Edema: No Labs: CBC, BMP 10/13/19 05:25 10/13/19 05:25 Imaging - Results Chest X-ray: Report Reviewed, Image Reviewed Cat Scan: Report Reviewed, Image Reviewed (right sided infiltrates) Problem List - Problems (1) Pneumonia Code(s): J18.9 - PNEUMONIA, UNSPECIFIED ORGANISM Assessment/Plan Acute Hypoxic Respiratory Failure Pneumonia likely Aspiration Asthma Cerebral Palsy Mental Retardation Seizure Disorder - IV antibiotics - f/u cultures - O2 to keep SpO2 >90% - inhaled bronchodilators - short course of medrol - aspiration precautions - DVT prophylaxis Thank you for this consult Edu Novak MD
[2019-10-13] MEDS: ALBUTEROL SO4 2.5/IPRATROPIUM 0.5 INH SOL 3 ML VIAL.NEB. NEB SCH (14:22)
[2019-10-13] MEDS: methylPREDNISolone NA SUCC 40 MG/1 ML VIAL IVPUSH SCH ×2 (14:23→19:19)
--- NOTE | 2019-10-13 18:06 | PN ---
Physical Exam: SUBJECTIVE: Patient seen and examined, non verbal, unable to do ROS. OBJECTIVE: Vital Signs Period Temp Pulse Resp BP Sys/Harrison Pulse Ox Last 24 Hr 96.8 F-99 F 75-104 17-18 114-137/74-114 87-100 Intake & Output 10/10/19 10/11/19 10/12/19 10/13/19 23:59 23:59 23:59 23:59 Weight 105 lb GENERAL: lying in bed, on VM, no use of accessory muscles noted Neck contracted Chest: limited exam due to lack of co-operation, scattered rales R>L, occasional scattered wheezing Abdomen:PEG In place, soft, No guarding or rigidity Extremities: contracts CVS:S1S2 regular Laboratory Results - last 24 hr 10/12/19 10/12/19 10/12/19 17:57 17:57 18:50 WBC 19.2 H RBC 4.35 Hgb 15.5 Hct 46.0 MCV 105.6 H MCH 35.6 H MCHC 33.7 RDW 14.4 Plt Count No Result Required. MPV 10.9 D Absolute Neuts (auto) 16.0 H Neutrophils % 83.0 H Lymphocytes % 7.9 L D Monocytes % 6.7 Eosinophils % 2.1 D Basophils % 0.3 Nucleated RBC % 0 Platelet Estimate Adequate Platelet Comment Slt plt clumping Poikilocytosis 1+ Macrocytosis 1+ Target Cells 1+ Tear Drop Cells 1+ PT with INR 11.40 INR 0.97 PTT (Actin FS) 43.7 H VBG pH POC VBG pCO2 POC VBG pO2 VBG HCO3 VBG O2 Sat (Lauren) VBG Base Excess Sodium 135 L Potassium 4.8 Chloride 104 Carbon Dioxide 25 Anion Gap 6 L BUN 13.9 Creatinine 0.4 L Est GFR (CKD-EPI)AfAm 162.79 Est GFR (CKD-EPI)NonAf 140.45 Random Glucose 86 Lactic Acid Calcium 9.1 Phosphorus Total Bilirubin < 0.1 L AST 20 ALT 35 Alkaline Phosphatase 155 H Troponin I < 0.02 Total Protein 7.3 Albumin 3.2 L Urine Color Urine Appearance Urine pH Ur Specific [place] Urine Protein Urine Glucose (UA) Urine Ketones Urine Blood Urine Nitrite Urine Bilirubin Urine Urobilinogen Ur Leukocyte Esterase Urine WBC (Auto) Urine RBC (Auto) Urine Casts (Auto) U Epithel Cells (Auto) Urine Bacteria (Auto) Influenza A (Rapid) Influenza B (Rapid) 10/12/19 10/12/19 10/12/19 18:50 18:50 23:00 WBC RBC Hgb Hct MCV MCH MCHC RDW Plt Count MPV Absolute Neuts (auto) Neutrophils % Lymphocytes % Monocytes % Eosinophils % Basophils % Nucleated RBC % Platelet Estimate Platelet Comment Poikilocytosis Macrocytosis Target Cells Tear Drop Cells PT with INR INR PTT (Actin FS) VBG pH 7.36 POC VBG pCO2 48.0 POC VBG pO2 54.1 H VBG HCO3 26.6 VBG O2 Sat (Lauren) 85.9 H VBG Base Excess 1.0 Sodium Potassium Chloride Carbon Dioxide Anion Gap BUN Creatinine Est GFR (CKD-EPI)AfAm Est GFR (CKD-EPI)NonAf Random Glucose Lactic Acid 1.3 Calcium Phosphorus Total Bilirubin AST ALT Alkaline Phosphatase Troponin I Total Protein Albumin Urine Color Yellow Urine Appearance Cloudy Urine pH >= 9.0 H Ur Specific [place] 1.017 Urine Protein Negative Urine Glucose (UA) Negative Urine Ketones Trace H Urine Blood Negative Urine Nitrite Negative Urine Bilirubin Negative Urine Urobilinogen 0.2 Ur Leukocyte Esterase Trace Urine WBC (Auto) 1 Urine RBC (Auto) 2 Urine Casts (Auto) 1 U Epithel Cells (Auto) 1.3 Urine Bacteria (Auto) 5.3 Influenza A (Rapid) Influenza B (Rapid) 10/13/19 10/13/19 10/13/19 00:15 05:25 05:25 WBC 12.0 H RBC 3.90 L Hgb 13.5 Hct 40.8 MCV 104.5 H MCH 34.7 H MCHC 33.2 RDW 14.3 Plt Count 320 D MPV 10.0 Absolute Neuts (auto) Neutrophils % Lymphocytes % Monocytes % Eosinophils % Basophils % Nucleated RBC % Platelet Estimate Platelet Comment Poikilocytosis Macrocytosis Target Cells Tear Drop Cells PT with INR INR PTT (Actin FS) VBG pH POC VBG pCO2 POC VBG pO2 VBG HCO3 VBG O2 Sat (Lauren) VBG Base Excess Sodium 136 Potassium 4.7 Chloride 106 Carbon Dioxide 22 Anion Gap 7 L BUN 12.5 Creatinine 0.4 L Est GFR (CKD-EPI)AfAm 162.79 Est GFR (CKD-EPI)NonAf 140.45 Random Glucose 84 Lactic Acid Calcium 8.5 Phosphorus 2.8 Total Bilirubin AST ALT Alkaline Phosphatase Troponin I Total Protein Albumin Urine Color Urine Appearance Urine pH Ur Specific [place] Urine Protein Urine Glucose (UA) Urine Ketones Urine Blood Urine Nitrite Urine Bilirubin Urine Urobilinogen Ur Leukocyte Esterase Urine WBC (Auto) Urine RBC (Auto) Urine Casts (Auto) U Epithel Cells (Auto) Urine Bacteria (Auto) Influenza A (Rapid) Negative Influenza B (Rapid) Negative 10/13/19 05:33 WBC RBC Hgb Hct MCV MCH MCHC RDW Plt Count MPV Absolute Neuts (auto) Neutrophils % Lymphocytes % Monocytes % Eosinophils % Basophils % Nucleated RBC % Platelet Estimate Platelet Comment Poikilocytosis Macrocytosis Target Cells Tear Drop Cells PT with INR INR PTT (Actin FS) VBG pH POC VBG pCO2 POC VBG pO2 VBG HCO3 VBG O2 Sat (Lauren) VBG Base Excess Sodium Potassium Chloride Carbon Dioxide Anion Gap BUN Creatinine Est GFR (CKD-EPI)AfAm Est GFR (CKD-EPI)NonAf Random Glucose Lactic Acid 0.6 Calcium Phosphorus Total Bilirubin AST ALT Alkaline Phosphatase Troponin I Total Protein Albumin Urine Color Urine Appearance Urine pH Ur Specific [place] Urine Protein Urine Glucose (UA) Urine Ketones Urine Blood Urine Nitrite Urine Bilirubin Urine Urobilinogen Ur Leukocyte Esterase Urine WBC (Auto) Urine RBC (Auto) Urine Casts (Auto) U Epithel Cells (Auto) Urine Bacteria (Auto) Influenza A (Rapid) Influenza B (Rapid) Active Medications Generic Name Dose Route Start Last Admin Trade Name Freq PRN Reason Stop Dose Admin Albuterol/Ipratropium 1 amp 10/13/19 14:00 10/13/19 14:22 Duoneb - NEB 1 amp RTID JOSE ENRIQUE Administration Heparin Sodium (Porcine) 5,000 unit 10/13/19 06:00 10/13/19 14:23 Heparin - SQ 5,000 unit TID JOSE ENRIQUE Administration Piperacillin Sod/Tazobactam 50 mls @ 100 mls/hr 10/13/19 02:00 Sod 3.375 gm/ Dextrose IVPB Q8H-IV JOSE ENRIQUE Protocol Piperacillin Sod/Tazobactam 50 mls @ 100 mls/hr 10/13/19 02:00 10/13/19 09:35 Sod 3.375 gm/ Dextrose IVPB 10/13/19 18:29 100 mls/hr Q8H-IV JOSE ENRIQUE Administration Dextrose/Sodium Chloride 1,000 mls @ 100 mls/hr 10/13/19 18:15 D5-Ns - IV ASDIR JOSE ENRIQUE Methylprednisolone Sodium Succinate 40 mg 10/13/19 14:00 10/13/19 14:23 Solu-Medrol - IVPUSH 10/15/19 02:01 40 mg Q8H-IV JOSE ENRIQUE Administration Vancomycin HCl 1,000 mg 10/13/19 10:00 Vancomycin (Pre-Docked) IVPB DAILY JOSE ENRIQUE Protocol CT chest prelim result reviewed ASSESSMENT/PLAN: 49 yom with PMHx of multiple intellectual disabilities, seizure, cerebral palsy , asthma, diaphragmatic hernia, diabetes insipidus, gastrostomy tube admitted with right multifocal pna and sepsis -Acute Right multifocal Pneumonia, suspect aspiration -Acute hypoxic respiratory failure -Sepsis -Cerebral palsy -Seizure disorder -Asthma -Diaphragmatic hernia -Diabetes Insipidus Plan: zosyn/vancomcyin, Blood cx. ID input Pulmonary input noted. IV solumedrol,. Standing and prn nebs. Hold tube feeds. Change IVF to D5-NS at 100 ml/hr. Monitor Na levels Aspiration precautions, frequent suctioning. Seizure precautions. resume home keppra/phenobarbital. DVTPPX heparin dispo pending clinical improvement. Visit type - Emergency Visit Emergency Visit: Yes ED Registration Date: 10/12/19 Care time: The patient presented to the Emergency Department on the above date and was hospitalized for further evaluation of their emergent condition. - New Patient This patient is new to me today: Yes Date on this admission: 10/13/19 - Critical Care Critical Care patient: No - Discharge Referral Referred to [facility] Med [facility] No
--- NOTE | 2019-10-13 18:35 | EKG ---
Test Reason : Blood Pressure : / mmHG Vent. Rate : 067 BPM Atrial Rate : 067 BPM P-R Int : 168 ms QRS Dur : 066 ms QT Int : 376 ms P-R-T Axes : 018 013 017 degrees QTc Int : 397 ms NORMAL SINUS RHYTHM NONSPECIFIC ST AND T WAVE ABNORMALITY NO PREVIOUS ECGS AVAILABLE Confirmed by RACHEL PATTERSON MD ([id number]) on 10/13/2019 6:35:03 PM Referred By: Confirmed By:RACHEL PATTERSON MD
[2019-10-13] MEDS ORDERED: methylPREDNISolone NA SUCC 40 MG/1 ML VIAL ONE (19:10)
[2019-10-13] MEDS: DEXTROSE 5%-NORMAL SALINE 1,000 ML IV SCH (19:19)
[2019-10-13] MEDS: PHENobarbital 30 MG TABLET GT SCH ×2 (23:08→23:09)
[2019-10-13] MEDS: levETIRAcetam 500 MG/5 ML ORAL SOLUTION (UNIT-DOSE CUPS) GT SCH (23:09)
[2019-10-13] MEDS: SCOPOLAMINE HYDROBROMIDE 1 PATCH PATCH.TD72 TD SCH (23:11)
[2019-10-13] MEDS: FAMOTIDINE 40 MG/5 ML ORAL SUSPENSION PEG SCH (23:11)
[2019-10-14] MEDS: ALBUTEROL SO4 2.5/IPRATROPIUM 0.5 INH SOL 3 ML VIAL.NEB. NEB SCH ×4 (00:37→20:30)
[2019-10-14] MEDS ORDERED: PIPERACILLIN/TAZOBACTAM 3.375 GM VIAL IVPB ONE ×3 (01:41→18:49)
[2019-10-14] MEDS ORDERED: DEXTROSE 5%-WATER - 50 ML IVPB ONE ×3 (01:41→18:49)
[2019-10-14] MEDS: PIPERACILLIN/TAZOB 3.375 GM 3.375 GM in DEXTROSE 5%-WATER - 50 ML IVPB SCH ×3 (01:53→18:58)
[2019-10-14] MEDS: methylPREDNISolone NA SUCC 40 MG/1 ML VIAL IVPUSH SCH ×3 (01:54→21:42)
[2019-10-14] MEDS: HEPARIN NA (PORCINE) 5,000 UNITS/ML 1ML VIAL SQ SCH ×3 (05:40→21:43)
[2019-10-14] MEDS: DEXTROSE 5%-NORMAL SALINE 1,000 ML IV SCH ×2 (05:40→18:58)
[2019-10-14 08:12] LABS: HEMATOCRIT 42.2 % (35.4-49); HEMOGLOBIN 14.3 GM/dL (11.7-16.9); MCH 35.5 pg (25.7-33.7); MEAN CELL VOLUME 104.4 fl (80-96); MEAN PLT VOLUME 9.6 fl (7.5-11.1); PLATELET COUNT 327 K/MM3 (134-434); RBC 4.04 M/mm3 (4.00-5.60); RDW 14.6 % (11.9-15.9); WHITE BLOOD COUNT 7.9 K/mm3 (4.0-10.0)
[2019-10-14 08:30] LABS: BLOOD UREA NITROGEN 14.1 mg/dL (7-18); CALCIUM 8.6 mg/dL (8.5-10.1); CREATININE 0.5 mg/dL (0.55-1.3); POTASSIUM 4.6 mmol/L (3.5-5.1)
--- NOTE | 2019-10-14 10:21 | PN ---
Teaching Attending Note Name of Resident: Fatmata Willis ATTENDING PHYSICIAN STATEMENT I saw and evaluated the patient. I reviewed the resident's note and discussed the case with the resident. I agree with the resident's findings and plan as documented with exceptions below. SUBJECTIVE: Patient seen and examined. nonverbal, unable to do ROS. OBJECTIVE: Vital Signs Period Temp Pulse Resp BP Sys/Harrison Pulse Ox Last 24 Hr 98.0 F-99 F 56-95 17-22 107-140/50-87 91-96 Intake & Output 10/11/19 10/12/19 10/13/19 10/14/19 23:59 23:59 23:59 23:59 Intake Total 610 700 Balance 610 700 Weight 105 lb 105 lb General: lying in bed, comfortable, more awake today, no acute distress Neck: soft Chest: limited exam, bilteral coarse rales R>L, occasional wheezing, pos air entry Abdomen;soft, PEG in place, no guarding or rigidity, pos bowel sounds Extremities: contractures Home Medications Medication Instructions Recorded Albuterol 0.083% Nebulizer Margarita 1 neb NEB BID 10/13/19 [Ventolin 0.083%] Albuterol 2.5/Ipratropium 0.5 1 neb NEB Q4H 10/13/19 [Duoneb -] Bisacodyl Suppository [Dulcolax 10 mg RC PRN PRN 10/13/19 Suppository -] Calcium Citrate/Vitamin D3 2 tab GT BID 10/13/19 [Calcium Cit 315-Vit D3 250 Cpt] Clotrimazole [Lotrimin 1% Solution 1 applic TP BID 10/13/19 -] Diazepam Rectal Gel [Diastat 10 mg RC PRN PRN 10/13/19 *Rectal Gel*] Famotidine [Pepcid -] 40 mg PO HS 10/13/19 Magnesium Hydrox 2400MG/30Ml [Milk 30 ml PO ACDIN 10/13/19 of Magnesia -] Multivit-Min/Ferrous Gluconate 15 ml GT DAILY 10/13/19 [Centrum Multivit-Mineral Liq] Phenobarbital 16.2 mg GT BID 10/13/19 Phenobarbital 64.8 mg GT BID 10/13/19 Selenium Sulfide/Aloe Vera [Selsun 207 ml TP WEEKLY 10/13/19 Blue Moist 1% Shampoo] levETIRAcetam [levETIRAcetam ORAL 2.5 ml GT BID 10/13/19 SUSPENSION] Active Medications Albuterol/Ipratropium (Duoneb -) 1 amp NEB RTID [facility] Last Admin: 10/14/19 07:25 Dose: 1 amp Calcium Carbonate/Cholecalciferol (Os-Nabor 500+D -) 1 tab PO BID [facility] Famotidine (Pepcid) 40 mg PEG HS [facility] Last Admin: 10/13/19 23:11 Dose: 40 mg Heparin Sodium (Porcine) (Heparin -) 5,000 unit SQ TID [facility] Last Admin: 10/14/19 05:40 Dose: 5,000 unit Dextrose/Sodium Chloride (D5-Ns -) 1,000 mls @ 100 mls/hr IV ASDIR [facility] Last Admin: 10/14/19 05:40 Dose: 100 mls/hr Piperacillin Sod/Tazobactam (Sod 3.375 gm/ Dextrose) 50 mls @ 100 mls/hr IVPB Q8H-IV JOSE ENRIQUE; Protocol Last Admin: 10/14/19 01:53 Dose: 100 mls/hr Vancomycin HCl (Vancomycin (Pre-Docked)) 1,000 mg in 250 mls @ 166.667 mls/hr IVPB Q24H [facility]; Protocol Levetiracetam (Keppra Oral Solution -) 250 mg GT BID [facility] Last Admin: 10/13/19 23:09 Dose: 250 mg Magnesium Hydroxide (Milk Of Magnesia -) 30 ml GT DAILY [facility] Methylprednisolone Sodium Succinate (Solu-Medrol -) 40 mg IVPUSH Q12H [facility] Stop: 10/15/19 09:01 Phenobarbital (Phenobarbital -) 15 mg GT BID [facility] Last Admin: 10/13/19 23:08 Dose: 15 mg Phenobarbital (Phenobarbital -) 60 mg GT BID [facility] Last Admin: 10/13/19 23:09 Dose: 60 mg Scopolamine HBr (Transderm-Scop -) 1 patch TD Q72H [facility] Last Admin: 10/13/19 23:11 Dose: 1 patch Laboratory Results - last 24 hr 10/14/19 10/14/19 10/14/19 00:55 05:49 06:40 WBC RBC Hgb Hct MCV MCH MCHC RDW Plt Count MPV Sodium 138 Potassium 4.6 Chloride 107 Carbon Dioxide 23 Anion Gap 9 BUN 14.1 Creatinine 0.5 L Est GFR (CKD-EPI)AfAm 148.52 Est GFR (CKD-EPI)NonAf 128.14 POC Glucometer 139 142 Random Glucose 139 H Calcium 8.6 10/14/19 07:52 WBC 7.9 RBC 4.04 Hgb 14.3 Hct 42.2 MCV 104.4 H MCH 35.5 H MCHC 34.0 RDW 14.6 Plt Count 327 MPV 9.6 Sodium Potassium Chloride Carbon Dioxide Anion Gap BUN Creatinine Est GFR (CKD-EPI)AfAm Est GFR (CKD-EPI)NonAf POC Glucometer Random Glucose Calcium Microbiology 10/12/19 17:17 Blood - Peripheral Venous Blood Culture - Preliminary Staphylococcus Coagulase Neg 10/12/19 23:00 Urine - Urine Clean Catch Urine Culture - Final NO GROWTH OBTAINED 10/12/19 17:57 Blood - Peripheral Venous Blood Culture - Preliminary NO GROWTH OBTAINED AFTER 24 HOURS, INCUBATION TO CONTINUE FOR 4 DAYS. ASSESSMENT AND PLAN: 49 yom with PMHx of multiple intellectual disabilities, seizure, cerebral palsy , asthma, diaphragmatic hernia, diabetes insipidus, gastrostomy tube admitted with right multifocal pna and sepsis -Acute Right multifocal Pneumonia, suspect aspiration -Acute hypoxic respiratory failure -Sepsis -Cerebral palsy -Seizure disorder -Asthma -Diaphragmatic hernia -Diabetes Insipidus Plan: Clinically improved, Afebrile. ID/Pulmonary input noted. Blood cx noted, suspect contaminant, send repeat blood cx. Zosyn/vancomycin day 2, taper in 24 hours based on clinical course Taper solumedrol, standing nebs. Chest PT as able. Frequent suctioning, aspiration precautions. resume tube feeds in 24 hours if continues to improve. D5NS. Monitor Na levels. Seizure precautions. Continue home keppra/phenobarbital. DVTPPX heparin dispo back to [place] in 3-4 days if continues to improve.
--- NOTE | 2019-10-14 11:01 | CONSULT ---
Admitting History and Physical - Primary Care Physician PCP: Adryan Mejia - Admission History of Present Illness: 49yo male with PMH of Profound MR, Cerebral palsy spastic quadriplegia, Epilepsy, G tube, GERD, Paraesophageal hernia, Diabetes Insipidu who was admitted from [place] for hypoxia, increased secretions and a productive cough, hypothermic and hypoxic. CXR and CT chest showing a right sided infiltrate. Chart reviewed and pt examined History Source: Medical Record - Past Medical History [employer]: Yes: Seizure, Other (profound mental retardation, cerebral palsy, spastic quadraparesis) Pulmonary: Yes: Asthma Gastrointestinal: Yes: Hiatal Hernia (paraesphageal hernia) Endocrine: Yes: Diabetes Insipidus - Smoking History Smoking history: Never smoked Have you smoked in the past 12 months: No Aproximately how many cigarettes per day: 0 - Alcohol/Substance Use Hx Alcohol Use: No History of Substance Use: reports: None - Social History ADL: Support Services History - Admission Reason For Visit: SEPSIS - Diagnostics X-ray: Report Reviewed CT Scan: Report Reviewed - General Mental Status: Confused (baseline cognitive deficits with dx of profound MR) Attention: Intact (visually tracts) Ability to Follow Directions: Poor (seemed to swallow upon command and raise/ lower left arm upon command? reflexive only vs some auditory comprehension?) Head/Neck Control: Poor (head extended, adversely affects swallow function) Speech Evaluation - Communication Primary Language: CHADIAN (non communicative) Communication: Yes: Non-Communicable Oral Expression Ability: Yes: Non-Verbal, Non-Vocal - Speech Production Able to Make Needs Known: Yes: Severely Impaired - Language/Verbal Expression Functional Communication Status: Yes: Severely Impaired - Swallow Evaluation/Bedside Assessment Current Nutritional Intake: NPO, G Tube Oral Secretions: Yes: WFL (audible upper airway secretions, head extended) Recommendations - Speech Evaluation, Impression/Plan Impression: baseline cognitive deficits with dx of profound MR. Visually tracts , establishes/maintains eye contact-. seemed to swallow upon command and raise/ lower left arm upon command? reflexive only vs some auditory comprehension? Call placed to [employer] [employer] at [place] regarding previous w/u. audible upper airway secretions,. Pt did swallow, labored especially with head extended. NPO/GT feedings. Likely aspirating on secretions - [facility]position [facility] - Dysphagia Impressions/Plan Swallowing Skills: Impaired *Silent aspiration: cannot be R/O at bedside Dysphagia Treatment Plan: Elevate HOB during feed (HOB elevated at all times) - Recommendations Diet Consistency: NPO
--- NOTE | 2019-10-14 11:30 | PN ---
Progress Note (short form) - Note Progress Note: NAD on RA. Breathing is non-labored. Afebrile. No acute events overnight. Intake & Output 10/11/19 10/12/19 10/13/19 10/14/19 23:59 23:59 23:59 23:59 Intake Total 610 700 Balance 610 700 Weight 105 lb 105 lb Last Vital Signs Temp Pulse Resp BP Pulse Ox 98.0 F 56 L 22 H 107/50 L 96 10/14/19 06:00 10/14/19 06:00 10/14/19 06:00 10/14/19 06:00 10/13/19 22:00 Active Medications Albuterol/Ipratropium (Duoneb -) 1 amp NEB RTID [facility] Last Admin: 10/14/19 07:25 Dose: 1 amp Calcium Carbonate/Cholecalciferol (Os-Nabor 500+D -) 1 tab PO BID [facility] Famotidine (Pepcid) 40 mg PEG HS JOSE ENRIQUE Last Admin: 10/13/19 23:11 Dose: 40 mg Heparin Sodium (Porcine) (Heparin -) 5,000 unit SQ TID JOSE ENRIQUE Last Admin: 10/14/19 05:40 Dose: 5,000 unit Dextrose/Sodium Chloride (D5-Ns -) 1,000 mls @ 100 mls/hr IV ASDIR [facility]SE ENRIQUE Last Admin: 10/14/19 05:40 Dose: 100 mls/hr Piperacillin Sod/Tazobactam (Sod 3.375 gm/ Dextrose) 50 mls @ 100 mls/hr IVPB Q8H-IV JOSE ENRIQUE; Protocol Last Admin: 10/14/19 01:53 Dose: 100 mls/hr Vancomycin HCl (Vancomycin (Pre-Docked)) 1,000 mg in 250 mls @ 166.667 mls/hr IVPB Q24H JOSE ENRIQUE; Protocol Levetiracetam (Keppra Oral Solution -) 250 mg GT BID [facility]SE EN[facility] Last Admin: 10/13/19 23:09 Dose: 250 mg Magnesium Hydroxide (Milk Of Magnesia -) 30 ml GT DAILY [facility] Methylprednisolone Sodium Succinate (Solu-Medrol -) 40 mg IVPUSH Q12H JOSE ENRIQUE Stop: 10/15/19 09:01 Phenobarbital (Phenobarbital -) 15 mg GT BID [facility] Last Admin: 10/13/19 23:08 Dose: 15 mg Phenobarbital (Phenobarbital -) 60 mg GT BID [facility] Last Admin: 10/13/19 23:09 Dose: 60 mg Scopolamine HBr (Transderm-Scop -) 1 patch TD Q72H [facility] Last Admin: 10/13/19 23:11 Dose: 1 patch Constitutional: Yes: NAD Eyes: Yes: Conjunctiva Clear, EOM Intact HENT: Yes: Atraumatic, Normocephalic Neck: Yes: Supple, Trachea Midline Cardiovascular: Yes: Regular Rate and Rhythm Respiratory: Yes: Scattered bilateral rhonchi ...Clubbing: No Gastrointestinal: Yes: Normal Bowel Sounds, Soft. No: Tenderness Edema: No Labs: Laboratory Results - last 24 hr 10/14/19 10/14/19 10/14/19 00:55 05:49 06:40 WBC RBC Hgb Hct MCV MCH MCHC RDW Plt Count MPV Sodium 138 Potassium 4.6 Chloride 107 Carbon Dioxide 23 Anion Gap 9 BUN 14.1 Creatinine 0.5 L Est GFR (CKD-EPI)AfAm 148.52 Est GFR (CKD-EPI)NonAf 128.14 POC Glucometer 139 142 Random Glucose 139 H Calcium 8.6 10/14/19 07:52 WBC 7.9 RBC 4.04 Hgb 14.3 Hct 42.2 MCV 104.4 H MCH 35.5 H MCHC 34.0 RDW 14.6 Plt Count 327 MPV 9.6 Sodium Potassium Chloride Carbon Dioxide Anion Gap BUN Creatinine Est GFR (CKD-EPI)AfAm Est GFR (CKD-EPI)NonAf POC Glucometer Random Glucose Calcium Problem List - Problems (1) Pneumonia Code(s): J18.9 - PNEUMONIA, UNSPECIFIED ORGANISM Assessment/Plan Acute Hypoxic Respiratory Failure Pneumonia likely Aspiration Asthma Cerebral Palsy Mental Retardation Seizure Disorder - Antibiotics per ID - f/u cultures - O2 to keep SpO2 >90% - inhaled bronchodilators - short course of medrol - aspiration precautions - DVT prophylaxis Dr Alejandra
[2019-10-14] MEDS: CALCIUM 500MG/VIT-D 200 UNITS COMBO TABLET (FP) PO SCH ×2 (11:35→21:43)
[2019-10-14] MEDS: levETIRAcetam 500 MG/5 ML ORAL SOLUTION (UNIT-DOSE CUPS) GT SCH ×2 (11:35→21:43)
[2019-10-14] MEDS: MAGNESIUM HYDROX 2400MG/30ML ORAL SUSPENSION 30 ML CUP GT SCH (11:35)
[2019-10-14] MEDS: VANCOMYCIN 1 GRAM (PRE-DOCKED) 1,000 MG/250 ML BAG IVPB SCH (11:36)
[2019-10-14] MEDS: PHENobarbital 30 MG TABLET GT SCH ×4 (11:36→21:42)
--- NOTE | 2019-10-14 11:58 | PN ---
Physical Exam: SUBJECTIVE: Patient seen and examined. More alert and awake today. No acute events overnight. OBJECTIVE: Vital Signs Period Temp Pulse Resp BP Sys/Harrison Pulse Ox Last 24 Hr 98.0 F-99 F 56-75 17-22 107-140/50-87 94-96 GENERAL: awake, alert HEAD: Normal with no signs of trauma. EYES: PERRL, EOMI, no scleral icterus EARS, NOSE, THROAT: Dry mucous membranes NECK: supple. trachea midline, no cervical lymphadenopathy LUNGS: diffuse rales, no accessory muscle use HEART: Regular rate and rhythm, normal S1 and S2 without murmur, rub or gallop. ABDOMEN: Soft, nontender, not distended, normoactive bowel sounds. PEG tube in place with dressing covering opening MUSCULOSKELETAL: contracted upper and lower extremities EXTREMITIES: 2+ pulses, warm, well-perfused. No peripheral edema. SKIN: Warm, dry Laboratory Results - last 24 hr 10/14/19 10/14/19 10/14/19 00:55 05:49 06:40 WBC RBC Hgb Hct MCV MCH MCHC RDW Plt Count MPV Sodium 138 Potassium 4.6 Chloride 107 Carbon Dioxide 23 Anion Gap 9 BUN 14.1 Creatinine 0.5 L Est GFR (CKD-EPI)AfAm 148.52 Est GFR (CKD-EPI)NonAf 128.14 POC Glucometer 139 142 Random Glucose 139 H Calcium 8.6 10/14/19 07:52 WBC 7.9 RBC 4.04 Hgb 14.3 Hct 42.2 MCV 104.4 H MCH 35.5 H MCHC 34.0 RDW 14.6 Plt Count 327 MPV 9.6 Sodium Potassium Chloride Carbon Dioxide Anion Gap BUN Creatinine Est GFR (CKD-EPI)AfAm Est GFR (CKD-EPI)NonAf POC Glucometer Random Glucose Calcium Active Medications Generic Name Dose Route Start Last Admin Trade Name Freq PRN Reason Stop Dose Admin Albuterol/Ipratropium 1 amp 10/13/19 14:00 10/14/19 07:25 Duoneb - NEB 1 amp RTID JOSE ENRIQUE Administration Calcium Carbonate/Cholecalciferol 1 tab 10/14/19 10:00 Os-Nabor 500+D - PO BID JOSE ENRIQUE Famotidine 40 mg 10/13/19 22:00 10/13/19 23:11 Pepcid PEG 40 mg HS JOSE ENRIQUE Administration Heparin Sodium (Porcine) 5,000 unit 10/13/19 06:00 10/14/19 05:40 Heparin - SQ 5,000 unit TID JOSE ENRIQUE Administration Dextrose/Sodium Chloride 1,000 mls @ 100 mls/hr 10/13/19 18:15 10/14/19 05:40 D5-Ns - IV 100 mls/hr ASDIR JOSE ENRIQUE Administration Piperacillin Sod/Tazobactam 50 mls @ 100 mls/hr 10/14/19 02:00 10/14/19 01:53 Sod 3.375 gm/ Dextrose IVPB 100 mls/hr Q8H-IV JOSE ENRIQUE Administration Protocol Vancomycin HCl 1,000 mg in 250 mls @ 166.667 mls/hr 10/14/19 10:00 Vancomycin (Pre-Docked) IVPB Q24H JOSE ENRIQUE Protocol Levetiracetam 250 mg 10/13/19 22:00 10/13/19 23:09 Keppra Oral Solution - GT 250 mg BID JOSE ENRIQUE Administration Magnesium Hydroxide 30 ml 10/14/19 10:00 Milk Of Magnesia - GT DAILY [facility] Methylprednisolone Sodium Succinate 40 mg 10/14/19 09:00 Solu-Medrol - IVPUSH 10/15/19 09:01 Q12H JOSE ENRIQUE Phenobarbital 15 mg 10/13/19 22:00 10/13/19 23:08 Phenobarbital - GT 15 mg BID JOSE ENRIQUE Administration Phenobarbital 60 mg 10/13/19 22:00 10/13/19 23:09 Phenobarbital - GT 60 mg BID JOSE ENRIQUE Administration Scopolamine HBr 1 patch 10/13/19 22:00 10/13/19 23:11 Transderm-Scop - TD 1 patch Q72H JOSE ENRIQUE Administration ASSESSMENT/PLAN: 49 y/o/m with PMHx of multiple intellectual disabilities, seizure, cerebral palsy, asthma, diaphragmatic hernia, diabetes insipidus, gastrostomy tube presenting from [facility] with hypoxia. Admitted for sepsis likely 2/2 pneumonia. #Sepsis 2/2 aspiration PNA - concern for aspiration pnuemonia - Leukocytosis resolved. WBC now at 7.9 - Chest CT showing patchy infiltrate in right lung suggestive of aspiration pneumonia - Vanc, Zosyn given in ED - Continue Vanc/Zosyn - ID consulted - Tylenol for fevers as needed - IVF - Solu-medrol 40mg IV Q12 - Duonebs RTID - Chest PT, frequent suctioning ordered - patient likely aspirating on secretions as per Speech/Swallow eval #Hypothermic 2/2 sepsis - resolved #Hypoalbuminemia likely 2/2 malnutrition - Patient with PEG tube in place - consult Dietary for proper feeding recommendations #Hx of Seizures - Continue Keppra, phenobarbital #Prophylaxis - Heparin #FEN - monitor and replace electrolytes as needed - D5 NS @100mls/hr - NPO for now, pending dietary recs #Disposition - continue treatment, D/C back to [place] in next few days pending further improvement Visit type - Emergency Visit Emergency Visit: Yes ED Registration Date: 10/12/19 Care time: The patient presented to the Emergency Department on the above date and was hospitalized for further evaluation of their emergent condition. - New Patient This patient is new to me today: No - Critical Care Critical Care patient: No ATTENDING PHYSICIAN STATEMENT I saw and evaluated the patient. I reviewed the resident's note and discussed the case with the resident. I agree with the resident's findings and plan as documented. SUBJECTIVE: OBJECTIVE: ASSESSMENT AND PLAN:
--- NOTE | 2019-10-14 18:36 | PN ---
Progress Note (short form) - Note Progress Note: ID CONSULT DICTATED PROBABLE ASPIRATION PNEUMONIA R/O SEPSIS SECONDARY TO PNEUMONIA CP/MR AWAIT C/S EMPIRIC ZOSYN/ VANCOMYCIN
[2019-10-14] MEDS ORDERED: PT OWN MED DRAWER 7, Y5N ONE (21:06)
[2019-10-14] MEDS: FAMOTIDINE 40 MG/5 ML ORAL SUSPENSION PEG SCH (21:43)
[2019-10-15] MEDS ORDERED: PIPERACILLIN/TAZOBACTAM 3.375 GM VIAL IVPB ONE ×3 (01:09→17:18)
[2019-10-15] MEDS ORDERED: DEXTROSE 5%-WATER - 50 ML IVPB ONE ×3 (01:10→17:18)
[2019-10-15] MEDS: PIPERACILLIN/TAZOB 3.375 GM 3.375 GM in DEXTROSE 5%-WATER - 50 ML IVPB SCH ×3 (01:17→17:38)
[2019-10-15] MEDS: HEPARIN NA (PORCINE) 5,000 UNITS/ML 1ML VIAL SQ SCH ×3 (05:30→21:26)
[2019-10-15] MEDS: DEXTROSE 5%-NORMAL SALINE 1,000 ML IV SCH (05:30)
[2019-10-15] MEDS: ALBUTEROL SO4 2.5/IPRATROPIUM 0.5 INH SOL 3 ML VIAL.NEB. NEB SCH ×3 (08:12→20:38)
[2019-10-15 08:33] LABS: HEMATOCRIT 41.7 % (35.4-49); HEMOGLOBIN 13.8 GM/dL (11.7-16.9); MCH 35.2 pg (25.7-33.7); MEAN CELL VOLUME 106.4 fl (80-96); MEAN PLT VOLUME 9.3 fl (7.5-11.1); PLATELET COUNT 341 K/MM3 (134-434); RBC 3.92 M/mm3 (4.00-5.60); RDW 14.6 % (11.9-15.9); WHITE BLOOD COUNT 8.8 K/mm3 (4.0-10.0)
[2019-10-15 09:10] LABS: BLOOD UREA NITROGEN 10.7 mg/dL (7-18); CALCIUM 8.3 mg/dL (8.5-10.1); CREATININE 0.5 mg/dL (0.55-1.3); POTASSIUM 4.9 mmol/L (3.5-5.1)
[2019-10-15] MEDS ORDERED: PT OWN MED DRAWER 7, Y5N ONE ×3 (10:02→21:06)
--- NOTE | 2019-10-15 10:05 | PN ---
Progress Note, Physician History of Present Illness: PULMONARY AWAKE,NON-VERBAL,LESS CONGESTED - Current Medication List Current Medications: Active Medications Albuterol/Ipratropium (Duoneb -) 1 amp NEB RTID [facility] Last Admin: 10/15/19 08:12 Dose: 1 amp Calcium Carbonate/Cholecalciferol (Os-Nabor 500+D -) 1 tab PO BID [facility] Last Admin: 10/14/19 21:43 Dose: 1 tab Famotidine (Pepcid) 40 mg PEG HS [facility]SE ENRIQUE Last Admin: 10/14/19 21:43 Dose: 40 mg Heparin Sodium (Porcine) (Heparin -) 5,000 unit SQ TID [facility] Last Admin: 10/15/19 05:30 Dose: 5,000 unit Dextrose/Sodium Chloride (D5-Ns -) 1,000 mls @ 100 mls/hr IV ASDIR [facility]SE ENRIQUE Last Admin: 10/15/19 05:30 Dose: 100 mls/hr Piperacillin Sod/Tazobactam (Sod 3.375 gm/ Dextrose) 50 mls @ 100 mls/hr IVPB Q8H-IV JOSE ENRIQUE; Protocol Last Admin: 10/15/19 01:17 Dose: 100 mls/hr Vancomycin HCl (Vancomycin (Pre-Docked)) 1,000 mg in 250 mls @ 166.667 mls/hr IVPB Q24H JOSE ENRIQUE; Protocol Last Admin: 10/14/19 11:36 Dose: 166.667 mls/hr Levetiracetam (Keppra Oral Solution -) 250 mg GT BID [facility] Last Admin: 10/14/19 21:43 Dose: 250 mg Magnesium Hydroxide (Milk Of Magnesia -) 30 ml GT DAILY [facility] Last Admin: 10/14/19 11:35 Dose: 30 ml Phenobarbital (Phenobarbital -) 15 mg GT BID [facility] Last Admin: 10/14/19 21:42 Dose: 15 mg Phenobarbital (Phenobarbital -) 60 mg GT BID [facility] Last Admin: 10/14/19 21:42 Dose: 60 mg Scopolamine HBr (Transderm-Scop -) 1 patch TD Q72H [facility] Last Admin: 10/13/19 23:11 Dose: 1 patch - Objective Vital Signs: Vital Signs Temperature 97.1 F L 10/15/19 06:00 Pulse Rate 50 L 10/15/19 06:00 Respiratory Rate 20 10/15/19 06:00 Blood Pressure 137/85 10/15/19 06:00 O2 Sat by Pulse Oximetry (%) 94 L 10/14/19 21:00 Constitutional: Yes: Well Nourished, Calm Eyes: Yes: WNL HENT: Yes: WNL Neck: Yes: WNL Cardiovascular: Yes: Regular Rate and Rhythm, S1, S2 Respiratory: Yes: Rhonchi (SCATTERED RHONCHI) Gastrointestinal: Yes: Normal Bowel Sounds, Soft Extremities: Yes: Other (CONTRACTED) Labs: CBC, BMP 10/15/19 08:05 10/15/19 08:05 INR, PTT INR 0.97 (0.83-1.09) 10/12/19 18:50 Problem List - Problems (1) Acute hypoxemic respiratory failure Code(s): J96.01 - ACUTE RESPIRATORY FAILURE WITH HYPOXIA (2) Pneumonia Code(s): J18.9 - PNEUMONIA, UNSPECIFIED ORGANISM (3) Sepsis Code(s): A41.9 - SEPSIS, UNSPECIFIED ORGANISM Qualifiers: Sepsis type: sepsis due to unspecified organism Sepsis acute organ dysfunction status: unspecified Qualified Code(s): A41.9 - Sepsis, unspecified organism (4) Asthma Code(s): J45.909 - UNSPECIFIED ASTHMA, UNCOMPLICATED (5) Cerebral palsy Code(s): G80.9 - CEREBRAL PALSY, UNSPECIFIED Assessment/Plan Problem List - Problems (1) Pneumonia Code(s): J18.9 - PNEUMONIA, UNSPECIFIED ORGANISM Assessment/Plan Acute Hypoxic Respiratory Failure Pneumonia likely Aspiration Asthma Cerebral Palsy Mental Retardation Seizure Disorder - Antibiotics per ID - O2 to keep SpO2 >90% - inhaled bronchodilators - aspiration precautions - DVT prophylaxis DR NARVAEZ
[2019-10-15] MEDS: methylPREDNISolone NA SUCC 40 MG/1 ML VIAL IVPUSH SCH (10:06)
[2019-10-15] MEDS: PHENobarbital 30 MG TABLET GT SCH ×4 (10:18→21:25)
[2019-10-15] MEDS: CALCIUM 500MG/VIT-D 200 UNITS COMBO TABLET (FP) PO SCH ×2 (10:19→21:25)
[2019-10-15] MEDS: levETIRAcetam 500 MG/5 ML ORAL SOLUTION (UNIT-DOSE CUPS) GT SCH ×2 (10:20→21:26)
[2019-10-15] MEDS: MAGNESIUM HYDROX 2400MG/30ML ORAL SUSPENSION 30 ML CUP GT SCH (10:20)
[2019-10-15] MEDS: VANCOMYCIN 1 GRAM (PRE-DOCKED) 1,000 MG/250 ML BAG IVPB SCH (11:38)
--- NOTE | 2019-10-15 15:03 | PN ---
Physical Exam: SUBJECTIVE: Patient seen and examined. No acute events overnight. No changes in appearance since yesterday. Still with large amount of secretions. OBJECTIVE: Vital Signs Period Temp Pulse Resp BP Sys/Harrison Pulse Ox Last 24 Hr 97.0 F-97.3 F 50-61 20-22 108-137/55-85 94-97 GENERAL: awake, alert HEAD: Normal with no signs of trauma. EYES: PERRL, EOMI, no scleral icterus EARS, NOSE, THROAT: Dry mucous membranes, thick secretions NECK: supple. trachea midline, no cervical lymphadenopathy LUNGS: diffuse rales, no accessory muscle use HEART: Regular rate and rhythm, normal S1 and S2 without murmur, rub or gallop. ABDOMEN: Soft, nontender, not distended, normoactive bowel sounds. PEG tube in place with dressing covering opening MUSCULOSKELETAL: contracted upper and lower extremities EXTREMITIES: 2+ pulses, warm, well-perfused. No peripheral edema. SKIN: Warm, dry Laboratory Results - last 24 hr 10/14/19 10/14/19 10/15/19 19:04 23:50 05:37 WBC RBC Hgb Hct MCV MCH MCHC RDW Plt Count MPV Sodium Potassium Chloride Carbon Dioxide Anion Gap BUN Creatinine Est GFR (CKD-EPI)AfAm Est GFR (CKD-EPI)NonAf POC Glucometer 125 161 111 Random Glucose Calcium 10/15/19 10/15/19 10/15/19 08:05 08:05 11:55 WBC 8.8 RBC 3.92 L Hgb 13.8 Hct 41.7 MCV 106.4 H MCH 35.2 H MCHC 33.0 RDW 14.6 Plt Count 341 MPV 9.3 Sodium 138 Potassium 4.9 Chloride 107 Carbon Dioxide 26 Anion Gap 6 L BUN 10.7 Creatinine 0.5 L Est GFR (CKD-EPI)AfAm 148.52 Est GFR (CKD-EPI)NonAf 128.14 POC Glucometer 131 Random Glucose 124 H Calcium 8.3 L Active Medications Generic Name Dose Route Start Last Admin Trade Name Freq PRN Reason Stop Dose Admin Albuterol/Ipratropium 1 amp 10/13/19 14:00 10/15/19 14:49 Duoneb - NEB 1 amp RTID JOSE ENRIQUE Administration Calcium Carbonate/Cholecalciferol 1 tab 10/14/19 10:00 10/15/19 10:19 Os-Nabor 500+D - PO 1 tab BID JOSE ENRIQUE Administration Famotidine 40 mg 10/13/19 22:00 10/14/19 21:43 Pepcid PEG 40 mg HS JOSE ENRIQUE Administration Heparin Sodium (Porcine) 5,000 unit 10/13/19 06:00 10/15/19 14:18 Heparin - SQ 5,000 unit TID JOSE ENRIQUE Administration Dextrose/Sodium Chloride 1,000 mls @ 100 mls/hr 10/13/19 18:15 10/15/19 05:30 D5-Ns - IV 100 mls/hr ASDIR JOSE ENRIQUE Administration Piperacillin Sod/Tazobactam 50 mls @ 100 mls/hr 10/14/19 02:00 10/15/19 10:15 Sod 3.375 gm/ Dextrose IVPB 100 mls/hr Q8H-IV JOSE ENRIQUE Administration Protocol Vancomycin HCl 1,000 mg in 250 mls @ 166.667 mls/hr 10/14/19 10:00 10/15/19 11:38 Vancomycin (Pre-Docked) IVPB 166.667 mls/hr Q24H JOSE ENRIQUE Administration Protocol Levetiracetam 250 mg 10/13/19 22:00 10/15/19 10:20 Keppra Oral Solution - GT 250 mg BID JOSE ENRIQUE Administration Magnesium Hydroxide 30 ml 10/14/19 10:00 10/15/19 10:20 Milk Of Magnesia - GT 30 ml DAILY JOSE ENRIQUE Administration Phenobarbital 15 mg 10/13/19 22:00 10/15/19 10:18 Phenobarbital - GT 15 mg BID JOSE ENRIQUE Administration Phenobarbital 60 mg 10/13/19 22:00 10/15/19 10:19 Phenobarbital - GT 60 mg BID JOSE ENRIQUE Administration Scopolamine HBr 1 patch 10/13/19 22:00 10/13/19 23:11 Transderm-Scop - TD 1 patch Q72H JOSE ENRIQUE Administration Senna 8.8 mg 10/15/19 22:00 Senna Oral Solution - GT HS JOSE ENRIQUE ASSESSMENT/PLAN: 49 y/o/m with PMHx of multiple intellectual disabilities, seizure, cerebral palsy, asthma, diaphragmatic hernia, diabetes insipidus, gastrostomy tube presenting from [facility] with hypoxia. Admitted for sepsis 2/2 pneumonia. #Sepsis 2/2 aspiration PNA - Leukocytosis resolved. WBC now at 8.8 - Chest CT showing patchy infiltrate in right lung suggestive of aspiration pneumonia - Vanc, Zosyn given in ED - Continue Vanc/Zosyn - ID consulted - Tylenol for fevers as needed - IVF - Prednisone 40mg GT daily - Duonebs RTID - Chest PT, frequent suctioning ordered - patient likely aspirating on secretions as per Speech/Swallow eval #Hypothermia 2/2 sepsis - resolved #Hypoalbuminemia likely 2/2 malnutrition - Patient with PEG tube in place - holding feeds at this time as patient still aspirating, will re-consider tomorrow #Hx of Seizures - Continue Keppra, phenobarbital #Prophylaxis - Heparin #FEN - monitor and replace electrolytes as needed - D5 NS @100mls/hr - NPO for now, holding feeds as patient still aspirating #Disposition - continue treatment, D/C back to [place] in next few days pending further improvement Visit type - Emergency Visit Emergency Visit: Yes ED Registration Date: 10/12/19 Care time: The patient presented to the Emergency Department on the above date and was hospitalized for further evaluation of their emergent condition. - New Patient This patient is new to me today: No - Critical Care Critical Care patient: No ATTENDING PHYSICIAN STATEMENT I saw and evaluated the patient. I reviewed the resident's note and discussed the case with the resident. I agree with the resident's findings and plan as documented. SUBJECTIVE: OBJECTIVE: ASSESSMENT AND PLAN:
[2019-10-15] MEDS ORDERED: DEXTROSE 5%-NORMAL SALINE 1,000 ML IV SCH (15:35)
--- NOTE | 2019-10-15 15:41 | PN ---
Teaching Attending Note Name of Resident: Fatmata Willis ATTENDING PHYSICIAN STATEMENT I saw and evaluated the patient. I reviewed the resident's note and discussed the case with the resident. I agree with the resident's findings and plan as documented with exceptions below. SUBJECTIVE: Patient seen and examined. Non verbal. unable to assess for ROS. OBJECTIVE: Vital Signs Period Temp Pulse Resp BP Sys/Harrison Pulse Ox Last 24 Hr 97.0 F-97.3 F 50-61 20-22 108-137/55-85 94-97 Intake & Output 10/12/19 10/13/19 10/14/19 10/15/19 23:59 23:59 23:59 23:59 Intake Total 610 1420 750 Output Total 800 Balance 610 1420 -50 Weight 105 lb 105 lb 105 lb General; lying in bed, drooling saliva/secretions, HEENT: clear/white extensive secretions suctioned Neck: soft chest: coarse scattered rales Abdomen:soft, PEG in place Extremities: contractures Home Medications Medication Instructions Recorded Albuterol 0.083% Nebulizer Margarita 1 neb NEB BID 10/13/19 [Ventolin 0.083%] Albuterol 2.5/Ipratropium 0.5 1 neb NEB Q4H 10/13/19 [Duoneb -] Bisacodyl Suppository [Dulcolax 10 mg RC PRN PRN 10/13/19 Suppository -] Calcium Citrate/Vitamin D3 2 tab GT BID 10/13/19 [Calcium Cit 315-Vit D3 250 Cpt] Clotrimazole [Lotrimin 1% Solution 1 applic TP BID 10/13/19 -] Diazepam Rectal Gel [Diastat 10 mg RC PRN PRN 10/13/19 *Rectal Gel*] Famotidine [Pepcid -] 40 mg PO HS 10/13/19 Magnesium Hydrox 2400MG/30Ml [Milk 30 ml PO ACDIN 10/13/19 of Magnesia -] Multivit-Min/Ferrous Gluconate 15 ml GT DAILY 10/13/19 [Centrum Multivit-Mineral Liq] Phenobarbital 16.2 mg GT BID 10/13/19 Phenobarbital 64.8 mg GT BID 10/13/19 Selenium Sulfide/Aloe Vera [Selsun 207 ml TP WEEKLY 10/13/19 Blue Moist 1% Shampoo] levETIRAcetam [levETIRAcetam ORAL 2.5 ml GT BID 10/13/19 SUSPENSION] Active Medications Albuterol/Ipratropium (Duoneb -) 1 amp NEB RTID [facility] Last Admin: 10/15/19 14:49 Dose: 1 amp Calcium Carbonate/Cholecalciferol (Os-Nabor 500+D -) 1 tab PO BID JOSE ENRIQUE Last Admin: 10/15/19 10:19 Dose: 1 tab Famotidine (Pepcid) 40 mg PEG HS JOSE ENRIQUE Last Admin: 10/14/19 21:43 Dose: 40 mg Heparin Sodium (Porcine) (Heparin -) 5,000 unit SQ TID JOSE ENRIQUE Last Admin: 10/15/19 14:18 Dose: 5,000 unit Piperacillin Sod/Tazobactam (Sod 3.375 gm/ Dextrose) 50 mls @ 100 mls/hr IVPB Q8H-IV JOSE ENRIQUE; Protocol Last Admin: 10/15/19 10:15 Dose: 100 mls/hr Vancomycin HCl (Vancomycin (Pre-Docked)) 1,000 mg in 250 mls @ 166.667 mls/hr IVPB Q24H JOSE ENRIQUE; Protocol Last Admin: 10/15/19 11:38 Dose: 166.667 mls/hr Dextrose/Sodium Chloride (D5-Ns -) 1,000 mls @ 75 mls/hr IV ASDIR JOSE ENRIQUE Levetiracetam (Keppra Oral Solution -) 250 mg GT BID [facility] Last Admin: 10/15/19 10:20 Dose: 250 mg Magnesium Hydroxide (Milk Of Magnesia -) 30 ml GT DAILY [facility] Last Admin: 10/15/19 10:20 Dose: 30 ml Phenobarbital (Phenobarbital -) 15 mg GT BID [facility] Last Admin: 10/15/19 10:18 Dose: 15 mg Phenobarbital (Phenobarbital -) 60 mg GT BID [facility] Last Admin: 10/15/19 10:19 Dose: 60 mg Prednisone (Deltasone -) 40 mg GT DAILY [facility] Scopolamine HBr (Transderm-Scop -) 1 patch TD Q72H [facility] Last Admin: 10/13/19 23:11 Dose: 1 patch Senna (Senna Oral Solution -) 8.8 mg GT HS [facility] ASSESSMENT AND PLAN: 49 yom with PMHx of multiple intellectual disabilities, seizure, cerebral palsy , asthma, diaphragmatic hernia, diabetes insipidus, gastrostomy tube admitted with right multifocal pna and sepsis -Acute Right multifocal Pneumonia, suspect aspiration -Acute hypoxic respiratory failure -Sepsis -Cerebral palsy -Seizure disorder -Asthma -Diaphragmatic hernia -Diabetes Insipidus Plan: Afebrile, normal WBC However patient with significant ongoing coarse rales, copious secretions requiring frequent suctioning. Will hold off on tube feeds. Zosyn/vancomycin, add azithromycin. Frequent suctioning/aspiration precautions. Chest PT as able. prednisone 40 mg via GT daily. Clinically improved, Afebrile. ID/Pulmonary input noted. D5NS. Monitor Na levels. decrease IVF. Seizure precautions. Continue home keppra/phenobarbital. DVTPPX heparin dispo back to [place] when clinically improved.
[2019-10-15] MEDS: SENNOSIDES 8.8 MG/5 ML BULK BOTTLE GT SCH (21:25)
[2019-10-15] MEDS: FAMOTIDINE 40 MG/5 ML ORAL SUSPENSION PEG SCH (21:26)
[2019-10-16] MEDS ORDERED: PIPERACILLIN/TAZOBACTAM 3.375 GM VIAL IVPB ONE ×2 (02:29→09:54)
[2019-10-16] MEDS ORDERED: DEXTROSE 5%-WATER - 50 ML IVPB ONE ×2 (02:30→09:54)
[2019-10-16] MEDS: PIPERACILLIN/TAZOB 3.375 GM 3.375 GM in DEXTROSE 5%-WATER - 50 ML IVPB SCH ×3 (02:49→17:46)
[2019-10-16] MEDS: HEPARIN NA (PORCINE) 5,000 UNITS/ML 1ML VIAL SQ SCH ×3 (05:33→21:58)
[2019-10-16 08:22] LABS: HEMATOCRIT 39.7 % (35.4-49); HEMOGLOBIN 13.4 GM/dL (11.7-16.9); MCH 35.1 pg (25.7-33.7); MCHC 33.7 g/dl (32.0-35.9); MEAN CELL VOLUME 104.2 fl (80-96); MEAN PLT VOLUME 9.7 fl (7.5-11.1); PLATELET COUNT 323 K/MM3 (134-434); RBC 3.81 M/mm3 (4.00-5.60); RDW 14.3 % (11.9-15.9); WHITE BLOOD COUNT 8.4 K/mm3 (4.0-10.0)
[2019-10-16] MEDS: ALBUTEROL SO4 2.5/IPRATROPIUM 0.5 INH SOL 3 ML VIAL.NEB. NEB SCH ×4 (08:45→20:15)
[2019-10-16 09:01] LABS: BLOOD UREA NITROGEN 5.1 mg/dL (7-18); CALCIUM 7.9 mg/dL (8.5-10.1); CREATININE 0.3 mg/dL (0.55-1.3); POTASSIUM 3.9 mmol/L (3.5-5.1)
[2019-10-16] MEDS: levETIRAcetam 500 MG/5 ML ORAL SOLUTION (UNIT-DOSE CUPS) GT SCH ×2 (09:49→21:59)
[2019-10-16] MEDS: predniSONE 5 MG/5 ML ORAL SOLN- UNIT-DOSE CUP GT SCH (09:50)
--- NOTE | 2019-10-16 09:53 | PN ---
Progress Note, Physician History of Present Illness: PULMONARY AWAKE,MORE CONGESTED TODAY - Current Medication List Current Medications: Active Medications Albuterol/Ipratropium (Duoneb -) 1 amp NEB RTID [facility] Last Admin: 10/16/19 08:45 Dose: 1 amp Calcium Carbonate/Cholecalciferol (Os-Nabor 500+D -) 1 tab PO BID JOSE ENRIQUE Last Admin: 10/15/19 21:25 Dose: 1 tab Docusate Sodium (Colace Liquid -) 100 mg PO BID JOSE ENRIQUE Famotidine (Pepcid) 40 mg PEG HS [facility] Last Admin: 10/15/19 21:26 Dose: 40 mg Heparin Sodium (Porcine) (Heparin -) 5,000 unit SQ TID JOSE ENRIQUE Last Admin: 10/16/19 05:33 Dose: 5,000 unit Piperacillin Sod/Tazobactam (Sod 3.375 gm/ Dextrose) 50 mls @ 100 mls/hr IVPB Q8H-IV JOSE ENRIQUE; Protocol Last Admin: 10/16/19 02:49 Dose: 100 mls/hr Vancomycin HCl (Vancomycin (Pre-Docked)) 1,000 mg in 250 mls @ 166.667 mls/hr IVPB Q24H JOSE ENRIQUE; Protocol Last Admin: 10/15/19 11:38 Dose: 166.667 mls/hr Dextrose/Sodium Chloride (D5-Ns -) 1,000 mls @ 75 mls/hr IV ASDIR JOSE ENRIQUE Last Admin: 10/15/19 17:45 Dose: 75 mls/hr Levetiracetam (Keppra Oral Solution -) 250 mg GT BID [facility] Last Admin: 10/15/19 21:26 Dose: 250 mg Magnesium Hydroxide (Milk Of Magnesia -) 30 ml GT DAILY [facility] Last Admin: 10/15/19 10:20 Dose: 30 ml Phenobarbital (Phenobarbital -) 15 mg GT BID [facility] Last Admin: 10/15/19 21:23 Dose: 15 mg Phenobarbital (Phenobarbital -) 60 mg GT BID [facility] Last Admin: 10/15/19 21:25 Dose: 60 mg Prednisone (Deltasone -) 40 mg GT DAILY [facility] Scopolamine HBr (Transderm-Scop -) 1 patch TD Q72H JOSE ENRIQUE Last Admin: 10/13/19 23:11 Dose: 1 patch Senna (Senna Oral Solution -) 8.8 mg GT HS [facility] Last Admin: 10/15/19 21:25 Dose: 8.8 mg - Objective Vital Signs: Vital Signs Temperature 97.5 F L 10/16/19 09:48 Pulse Rate 61 10/16/19 09:48 Respiratory Rate 19 10/16/19 09:48 Blood Pressure 126/97 10/16/19 09:48 O2 Sat by Pulse Oximetry (%) 95 10/15/19 20:48 Constitutional: Yes: Well Nourished, Calm Eyes: Yes: WNL HENT: Yes: WNL Neck: Yes: WNL Cardiovascular: Yes: Regular Rate and Rhythm, S1, S2 Respiratory: Yes: Rhonchi (BILATERAL RHONCHI) Gastrointestinal: Yes: Normal Bowel Sounds, Soft Extremities: Yes: Shortened, Other (CONTRACTED) Edema: No Labs: CBC, BMP 10/16/19 07:49 10/16/19 07:49 INR, PTT INR 0.97 (0.83-1.09) 10/12/19 18:50 Problem List - Problems (1) Acute hypoxemic respiratory failure Code(s): J96.01 - ACUTE RESPIRATORY FAILURE WITH HYPOXIA (2) Pneumonia Code(s): J18.9 - PNEUMONIA, UNSPECIFIED ORGANISM (3) Sepsis Code(s): A41.9 - SEPSIS, UNSPECIFIED ORGANISM Qualifiers: Sepsis type: sepsis due to unspecified organism Sepsis acute organ dysfunction status: unspecified Qualified Code(s): A41.9 - Sepsis, unspecified organism (4) Asthma Code(s): J45.909 - UNSPECIFIED ASTHMA, UNCOMPLICATED (5) Cerebral palsy Code(s): G80.9 - CEREBRAL PALSY, UNSPECIFIED Assessment/Plan Problem List - Problems (1) Pneumonia Code(s): J18.9 - PNEUMONIA, UNSPECIFIED ORGANISM Assessment/Plan Acute Hypoxic Respiratory Failure Pneumonia likely Aspiration Asthma Cerebral Palsy Mental Retardation Seizure Disorder - Antibiotics per ID - O2 to keep SpO2 >90% - inhaled bronchodilators - aspiration precautions - DVT prophylaxis - steroids - chest x-ray today DR NARVAEZ
[2019-10-16] MEDS: DOCUSATE NA 100 MG/10 ML UNIT-DOSE CUPS PO SCH ×2 (09:55→21:58)
[2019-10-16] MEDS: PHENobarbital 30 MG TABLET GT SCH ×4 (09:56→21:59)
[2019-10-16] MEDS: CALCIUM 500MG/VIT-D 200 UNITS COMBO TABLET (FP) PO SCH ×2 (09:56→21:58)
[2019-10-16] MEDS: MAGNESIUM HYDROX 2400MG/30ML ORAL SUSPENSION 30 ML CUP GT SCH (09:56)
--- NOTE | 2019-10-16 10:24 | PN ---
Teaching Attending Note Name of Resident: Fatmata Willis ATTENDING PHYSICIAN STATEMENT I saw and evaluated the patient. I reviewed the resident's note and discussed the case with the resident. I agree with the resident's findings and plan as documented with exceptions below. SUBJECTIVE: Patient seen and examined, opens eyes to voice, unable to assess for ROS. OBJECTIVE: Vital Signs Period Temp Pulse Resp BP Sys/Harrison Pulse Ox Last 24 Hr 97.2 F-98.7 F 55-124 18-20 126-153/54-97 95 Intake & Output 10/13/19 10/14/19 10/15/19 10/16/19 23:59 23:59 23:59 23:59 Intake Total 610 1420 1860 500 Output Total 2100 Balance 610 1420 -240 500 Weight 105 lb 105 lb General: lying in bed, contracted, no acute distress or tachypnea noted HEENT; no drooling or secretions noted Chest; markedly improved coarse rales and air entry Abdomen:soft, PEG in place Extremities: contractures Home Medications Medication Instructions Recorded Albuterol 0.083% Nebulizer Margarita 1 neb NEB BID 10/13/19 [Ventolin 0.083%] Albuterol 2.5/Ipratropium 0.5 1 neb NEB Q4H 10/13/19 [Duoneb -] Bisacodyl Suppository [Dulcolax 10 mg RC PRN PRN 10/13/19 Suppository -] Calcium Citrate/Vitamin D3 2 tab GT BID 10/13/19 [Calcium Cit 315-Vit D3 250 Cpt] Clotrimazole [Lotrimin 1% Solution 1 applic TP BID 10/13/19 -] Diazepam Rectal Gel [Diastat 10 mg RC PRN PRN 10/13/19 *Rectal Gel*] Famotidine [Pepcid -] 40 mg PO HS 10/13/19 Magnesium Hydrox 2400MG/30Ml [Milk 30 ml PO ACDIN 10/13/19 of Magnesia -] Multivit-Min/Ferrous Gluconate 15 ml GT DAILY 10/13/19 [Centrum Multivit-Mineral Liq] Phenobarbital 16.2 mg GT BID 10/13/19 Phenobarbital 64.8 mg GT BID 10/13/19 Selenium Sulfide/Aloe Vera [Selsun 207 ml TP WEEKLY 10/13/19 Blue Moist 1% Shampoo] levETIRAcetam [levETIRAcetam ORAL 2.5 ml GT BID 10/13/19 SUSPENSION] Active Medications Albuterol/Ipratropium (Duoneb -) 1 amp NEB RTID [facility] Last Admin: 10/16/19 08:45 Dose: 1 amp Calcium Carbonate/Cholecalciferol (Os-Nabor 500+D -) 1 tab PO BID [facility] Last Admin: 10/16/19 09:56 Dose: 1 tab Docusate Sodium (Colace Liquid -) 100 mg PO BID [facility] Last Admin: 10/16/19 09:55 Dose: 100 mg Famotidine (Pepcid) 40 mg PEG HS [facility] Last Admin: 10/15/19 21:26 Dose: 40 mg Heparin Sodium (Porcine) (Heparin -) 5,000 unit SQ TID [facility] Last Admin: 10/16/19 05:33 Dose: 5,000 unit Piperacillin Sod/Tazobactam (Sod 3.375 gm/ Dextrose) 50 mls @ 100 mls/hr IVPB Q8H-IV JOSE ENRIQUE; Protocol Last Admin: 10/16/19 09:56 Dose: 100 mls/hr Vancomycin HCl (Vancomycin (Pre-Docked)) 1,000 mg in 250 mls @ 166.667 mls/hr IVPB Q24H [facility]; Protocol Last Admin: 10/15/19 11:38 Dose: 166.667 mls/hr Dextrose/Sodium Chloride (D5-Ns -) 1,000 mls @ 75 mls/hr IV ASDIR [facility] Last Admin: 10/15/19 17:45 Dose: 75 mls/hr Levetiracetam (Keppra Oral Solution -) 250 mg GT BID [facility] Last Admin: 10/16/19 09:49 Dose: 250 mg Magnesium Hydroxide (Milk Of Magnesia -) 30 ml GT DAILY [facility] Last Admin: 10/16/19 09:56 Dose: 30 ml Phenobarbital (Phenobarbital -) 15 mg GT BID [facility] Last Admin: 10/16/19 09:56 Dose: 15 mg Phenobarbital (Phenobarbital -) 60 mg GT BID [facility] Last Admin: 10/16/19 09:56 Dose: 60 mg Prednisone (Deltasone -) 40 mg GT DAILY [facility] Last Admin: 10/16/19 09:50 Dose: 40 mg Scopolamine HBr (Transderm-Scop -) 1 patch TD Q72H JOSE ENRIQUE Last Admin: 10/13/19 23:11 Dose: 1 patch Senna (Senna Oral Solution -) 8.8 mg GT HS JOSE ENRIQUE Last Admin: 10/15/19 21:25 Dose: 8.8 mg Laboratory Results - last 24 hr 10/15/19 10/15/19 10/16/19 11:55 18:34 02:51 WBC RBC Hgb Hct MCV MCH MCHC RDW Plt Count MPV Sodium Potassium Chloride Carbon Dioxide Anion Gap BUN Creatinine Est GFR (CKD-EPI)AfAm Est GFR (CKD-EPI)NonAf POC Glucometer 131 143 128 Random Glucose Calcium 10/16/19 10/16/19 10/16/19 05:30 07:49 07:49 WBC 8.4 RBC 3.81 L Hgb 13.4 Hct 39.7 MCV 104.2 H MCH 35.1 H MCHC 33.7 RDW 14.3 Plt Count 323 MPV 9.7 Sodium 138 Potassium 3.9 Chloride 109 H Carbon Dioxide 20 L Anion Gap 9 BUN 5.1 L Creatinine 0.3 L Est GFR (CKD-EPI)AfAm 183.22 Est GFR (CKD-EPI)NonAf 158.08 POC Glucometer 107 Random Glucose 95 Calcium 7.9 L Microbiology 10/15/19 08:22 Sputum - Oropharynx Suctioned Sputum Gram Stain - Final 10/15/19 08:22 Sputum - Oropharynx Suctioned Sputum Sputum Culture - Preliminary Non Lactose Fermenting Gnb Lactose Fermenting Neg Bacilli 10/12/19 17:57 Blood - Peripheral Venous Blood Culture - Preliminary NO GROWTH OBTAINED AFTER 72 HOURS, INCUBATION TO CONTINUE FOR 2 DAYS. 10/12/19 17:17 Blood - Peripheral Venous Blood Culture - Preliminary Staphylococcus Coagulase Neg 10/15/19 04:00 Urine For Antigen Detection Legionella Antigen - Final 10/15/19 04:00 Urine For Antigen Detection Streptococcus pneumoniae Antigen (M - Final 10/14/19 12:40 Blood - Peripheral Venous Blood Culture - Preliminary NO GROWTH OBTAINED AFTER 24 HOURS, INCUBATION TO CONTINUE FOR 4 DAYS. 10/14/19 12:54 Blood - Peripheral Venous Blood Culture - Preliminary NO GROWTH OBTAINED AFTER 24 HOURS, INCUBATION TO CONTINUE FOR 4 DAYS. 10/12/19 23:00 Urine - Urine Clean Catch Urine Culture - Final NO GROWTH OBTAINED ASSESSMENT AND PLAN: 49 yom with PMHx of multiple intellectual disabilities, seizure, cerebral palsy , asthma, diaphragmatic hernia, diabetes insipidus, gastrostomy tube admitted with right multifocal pna and sepsis -Acute Right multifocal Pneumonia, suspect aspiration -Acute hypoxic respiratory failure -Sepsis -Acute urinary retention -constipation -Coag neg staph bacteremia 1/2, suspect contamination -Cerebral palsy -Seizure disorder -Asthma -Diaphragmatic hernia -Diabetes Insipidus Plan: Afebrile, normal WBC Respiratory status improved. Short course of PO prednisone Sputum cx noted. discuss with ID to dc vancomycin. taper zosyn in 24-48 hours as improves. repeat blood cx neg. Pulmonary input noted. Scopolamine patch. Frequent suctioning/aspiration precautions. Chest PT as able. Resume tube feeds at 20 ml/hr with no titration x 24 hours, advance tomorrow if no concerns. Decrease ivf, change to NS. Overnight events noted, hoffman placed. Aggressive bowel regimen, enema x 1, voiding trial in 24 hours. Seizure precautions. Continue home keppra/phenobarbital. DVTPPX heparin dispo back to [facility] later this week if improves and no new concerns. discussed with nursing.
--- NOTE | 2019-10-16 11:07 | PN ---
Physical Exam: SUBJECTIVE: Patient seen and examined. Patient sleeping but responsive to physical stimuli. OBJECTIVE: Vital Signs Period Temp Pulse Resp BP Sys/Harrison Pulse Ox Last 24 Hr 97.2 F-98.7 F 55-124 18-20 126-153/54-97 95 GENERAL: awake, alert HEAD: Normal with no signs of trauma. EYES: PERRL, EOMI, no scleral icterus EARS, NOSE, THROAT: Dry mucous membranes, thick secretions NECK: supple. trachea midline, no cervical lymphadenopathy LUNGS: diffuse rales, no accessory muscle use HEART: Regular rate and rhythm, normal S1 and S2 without murmur, rub or gallop. ABDOMEN: Soft, nontender, not distended, normoactive bowel sounds. PEG tube in place with dressing covering opening MUSCULOSKELETAL: contracted upper and lower extremities EXTREMITIES: 2+ pulses, warm, well-perfused. No peripheral edema. SKIN: Warm, dry Laboratory Results - last 24 hr 10/15/19 10/15/19 10/16/19 11:55 18:34 02:51 WBC RBC Hgb Hct MCV MCH MCHC RDW Plt Count MPV Sodium Potassium Chloride Carbon Dioxide Anion Gap BUN Creatinine Est GFR (CKD-EPI)AfAm Est GFR (CKD-EPI)NonAf POC Glucometer 131 143 128 Random Glucose Calcium 10/16/19 10/16/19 10/16/19 05:30 07:49 07:49 WBC 8.4 RBC 3.81 L Hgb 13.4 Hct 39.7 MCV 104.2 H MCH 35.1 H MCHC 33.7 RDW 14.3 Plt Count 323 MPV 9.7 Sodium 138 Potassium 3.9 Chloride 109 H Carbon Dioxide 20 L Anion Gap 9 BUN 5.1 L Creatinine 0.3 L Est GFR (CKD-EPI)AfAm 183.22 Est GFR (CKD-EPI)NonAf 158.08 POC Glucometer 107 Random Glucose 95 Calcium 7.9 L Active Medications Generic Name Dose Route Start Last Admin Trade Name Freq PRN Reason Stop Dose Admin Albuterol/Ipratropium 1 amp 10/13/19 14:00 10/16/19 08:45 Duoneb - NEB 1 amp RTID JOSE ENRIQUE Administration Calcium Carbonate/Cholecalciferol 1 tab 10/14/19 10:00 10/16/19 09:56 Os-Nabor 500+D - PO 1 tab BID JOSE ENRIQUE Administration Docusate Sodium 100 mg 10/16/19 10:00 10/16/19 09:55 Colace Liquid - PO 100 mg BID JOSE ENRIQUE Administration Famotidine 40 mg 10/13/19 22:00 10/15/19 21:26 Pepcid PEG 40 mg HS JOSE ENRIQUE Administration Heparin Sodium (Porcine) 5,000 unit 10/13/19 06:00 10/16/19 05:33 Heparin - SQ 5,000 unit TID JOSE ENRIQUE Administration Piperacillin Sod/Tazobactam 50 mls @ 100 mls/hr 10/14/19 02:00 10/16/19 09:56 Sod 3.375 gm/ Dextrose IVPB 100 mls/hr Q8H-IV JOSE ENRIQUE Administration Protocol Vancomycin HCl 1,000 mg in 250 mls @ 166.667 mls/hr 10/14/19 10:00 10/15/19 11:38 Vancomycin (Pre-Docked) IVPB 166.667 mls/hr Q24H JOSE ENRIQUE Administration Protocol Sodium Chloride 1,000 mls @ 42 mls/hr 10/16/19 10:30 Normal Saline - IV ASDIR JOSE ENRIQUE Levetiracetam 250 mg 10/13/19 22:00 10/16/19 09:49 Keppra Oral Solution - GT 250 mg BID JOSE ENRIQUE Administration Magnesium Hydroxide 30 ml 10/14/19 10:00 10/16/19 09:56 Milk Of Magnesia - GT 30 ml DAILY JOSE ENRIQUE Administration Phenobarbital 15 mg 10/13/19 22:00 10/16/19 09:56 Phenobarbital - GT 15 mg BID JOSE ENRIQUE Administration Phenobarbital 60 mg 10/13/19 22:00 10/16/19 09:56 Phenobarbital - GT 60 mg BID JOSE ENRIQUE Administration Prednisone 40 mg 10/16/19 10:00 10/16/19 09:50 Deltasone - GT 40 mg DAILY JOSE ENRIQUE Administration Scopolamine HBr 1 patch 10/13/19 22:00 10/13/19 23:11 Transderm-Scop - TD 1 patch Q72H JOSE NERIQUE Administration Senna 8.8 mg 10/15/19 22:00 10/15/19 21:25 Senna Oral Solution - GT 8.8 mg HS JOSE ENRIQUE Administration ASSESSMENT/PLAN: 49 y/o/m with PMHx of multiple intellectual disabilities, seizure, cerebral palsy, asthma, diaphragmatic hernia, diabetes insipidus, gastrostomy tube presenting from [facility] with hypoxia. Admitted for sepsis 2/2 pneumonia. #Sepsis 2/2 aspiration PNA - Leukocytosis resolved. WBC now at 8.8 - Chest CT showing patchy infiltrate in right lung suggestive of aspiration pneumonia - Sputum Cx - non lactose fermenting GNB, lactose fermenting neg bacilli - Continue Zosyn (started on 09/13) - Discontinue Vancomycin - ID consulted - Tylenol for fevers as needed - IVF - Prednisone 40mg GT daily - Duonebs RTID - Chest PT, frequent suctioning ordered - patient likely aspirating on secretions as per Speech/Swallow eval - repeat Blood cx negative, legionella antigen negative - retaining urine, hoffman ordered. will do TOV tomorrow #Hypothermia 2/2 sepsis - resolved #Hypoalbuminemia likely 2/2 malnutrition - Patient with PEG tube in place - started feeds at low dose. will titrate starting tomorrow if tolerating well #Hx of Seizures - Continue Keppra, phenobarbital #Prophylaxis - Heparin #FEN - monitor and replace electrolytes as needed - D5 NS @42mls/hr - Feeds started as low dose. will advance as tolerated #Disposition - continue treatment, D/C back to [place] in next few days pending further improvement Visit type - Emergency Visit Emergency Visit: Yes ED Registration Date: 10/12/19 Care time: The patient presented to the Emergency Department on the above date and was hospitalized for further evaluation of their emergent condition. - New Patient This patient is new to me today: No - Critical Care Critical Care patient: No ATTENDING PHYSICIAN STATEMENT I saw and evaluated the patient. I reviewed the resident's note and discussed the case with the resident. I agree with the resident's findings and plan as documented. SUBJECTIVE: OBJECTIVE: ASSESSMENT AND PLAN:
[2019-10-16] MEDS: SODIUM CHLORIDE 1,000 ML IV SCH (11:13)
[2019-10-16] MEDS: VANCOMYCIN 1 GRAM (PRE-DOCKED) 1,000 MG/250 ML BAG IVPB SCH (11:26)
[2019-10-16] MEDS ORDERED: BACITRACIN 15 GM TUBE TOPICAL OINTMENT TP ONE (19:00)
[2019-10-16] MEDS: FAMOTIDINE 40 MG/5 ML ORAL SUSPENSION PEG SCH (21:59)
[2019-10-16] MEDS: SENNOSIDES 8.8 MG/5 ML BULK BOTTLE GT SCH (21:59)
[2019-10-16] MEDS: SCOPOLAMINE HYDROBROMIDE 1 PATCH PATCH.TD72 TD SCH (22:00)
[2019-10-17] MEDS ORDERED: PIPERACILLIN/TAZOBACTAM 3.375 GM VIAL IVPB ONE ×3 (01:14→17:06)
[2019-10-17] MEDS ORDERED: DEXTROSE 5%-WATER - 50 ML IVPB ONE ×3 (01:15→17:07)
[2019-10-17] MEDS: PIPERACILLIN/TAZOB 3.375 GM 3.375 GM in DEXTROSE 5%-WATER - 50 ML IVPB SCH ×3 (02:41→17:15)
[2019-10-17] MEDS: HEPARIN NA (PORCINE) 5,000 UNITS/ML 1ML VIAL SQ SCH ×3 (05:44→22:36)
[2019-10-17 06:46] LABS: HEMATOCRIT 37.4 % (35.4-49); HEMOGLOBIN 12.7 GM/dL (11.7-16.9); MCH 35.1 pg (25.7-33.7); MEAN CELL VOLUME 103.3 fl (80-96); MEAN PLT VOLUME 9.7 fl (7.5-11.1); PLATELET COUNT 299 K/MM3 (134-434); RBC 3.62 M/mm3 (4.00-5.60); RDW 14.4 % (11.9-15.9); WHITE BLOOD COUNT 7.1 K/mm3 (4.0-10.0)
[2019-10-17 07:12] LABS: ALBUMIN 2.6 g/dl (3.4-5.0); BILIRUBIN,TOTAL 0.2 mg/dL (0.2-1); BLOOD UREA NITROGEN 6.4 mg/dL (7-18); CALCIUM 7.7 mg/dL (8.5-10.1); CREATININE 0.4 mg/dL (0.55-1.3); POTASSIUM 3.9 mmol/L (3.5-5.1); TOT PROT 6.3 g/dl (6.4-8.2)
[2019-10-17] MEDS: ALBUTEROL SO4 2.5/IPRATROPIUM 0.5 INH SOL 3 ML VIAL.NEB. NEB SCH ×4 (08:19→21:19)
--- NOTE | 2019-10-17 09:37 | PN ---
Progress Note (short form) - Note Progress Note: NAD on RA. Breathing is non-labored. Afebrile. No acute events overnight. Intake & Output 10/14/19 10/15/19 10/16/19 10/17/19 23:59 23:59 23:59 23:59 Intake Total 1420 1860 1285 842 Output Total 2100 2800 300 Balance 1420 -240 -1515 542 Weight 105 lb Last Vital Signs Temp Pulse Resp BP Pulse Ox 99.0 F 86 18 106/80 96 10/17/19 08:19 10/17/19 08:19 10/17/19 08:19 10/17/19 08:19 10/16/19 21:00 Active Medications Albuterol/Ipratropium (Duoneb -) 1 amp NEB RQID [facility] Last Admin: 10/17/19 08:19 Dose: 1 amp Bisacodyl (Dulcolax Suppository -) 10 mg RC ONCE ONE Stop: 10/17/19 10:01 Calcium Carbonate/Cholecalciferol (Os-Nabor 500+D -) 1 tab PO BID [facility] Last Admin: 10/16/19 21:58 Dose: 1 tab Docusate Sodium (Colace Liquid -) 100 mg PO BID [facility] Last Admin: 10/16/19 21:58 Dose: 100 mg Famotidine (Pepcid) 40 mg PEG HS [facility] Last Admin: 10/16/19 21:59 Dose: 40 mg Heparin Sodium (Porcine) (Heparin -) 5,000 unit SQ TID [facility] Last Admin: 10/17/19 05:44 Dose: 5,000 unit Piperacillin Sod/Tazobactam (Sod 3.375 gm/ Dextrose) 50 mls @ 100 mls/hr IVPB Q8H-IV JOSE ENRIQUE; Protocol Last Admin: 10/17/19 02:41 Dose: 100 mls/hr Sodium Chloride (Normal Saline -) 1,000 mls @ 42 mls/hr IV ASDIR [facility] Last Admin: 10/16/19 11:13 Dose: 42 mls/hr Levetiracetam (Keppra Oral Solution -) 250 mg GT BID [facility] Last Admin: 10/16/19 21:59 Dose: 250 mg Magnesium Hydroxide (Milk Of Magnesia -) 30 ml GT DAILY [facility] Last Admin: 10/16/19 09:56 Dose: 30 ml Phenobarbital (Phenobarbital -) 15 mg GT BID [facility] Last Admin: 10/16/19 21:59 Dose: 15 mg Phenobarbital (Phenobarbital -) 60 mg GT BID [facility] Last Admin: 10/16/19 21:58 Dose: 60 mg Prednisone (Deltasone -) 40 mg GT DAILY [facility] Last Admin: 10/16/19 09:50 Dose: 40 mg Scopolamine HBr (Transderm-Scop -) 1 patch TD Q72H [facility] Last Admin: 10/16/19 22:00 Dose: 1 patch Senna (Senna Oral Solution -) 8.8 mg GT HS [facility] Last Admin: 10/16/19 21:59 Dose: 8.8 mg Constitutional: Yes: NAD Eyes: Yes: Conjunctiva Clear, EOM Intact HENT: Yes: Atraumatic, Normocephalic Neck: Yes: Supple, Trachea Midline Cardiovascular: Yes: Regular Rate and Rhythm Respiratory: Yes: Scattered bilateral rhonchi ...Clubbing: No Gastrointestinal: Yes: Normal Bowel Sounds, Soft. No: Tenderness Edema: No Labs: Laboratory Results - last 24 hr 10/16/19 10/16/19 10/17/19 12:16 17:49 02:38 WBC RBC Hgb Hct MCV MCH MCHC RDW Plt Count MPV Sodium Potassium Chloride Carbon Dioxide Anion Gap BUN Creatinine Est GFR (CKD-EPI)AfAm Est GFR (CKD-EPI)NonAf POC Glucometer 142 127 90 Random Glucose Calcium Total Bilirubin AST ALT Alkaline Phosphatase Total Protein Albumin 10/17/19 10/17/19 10/17/19 05:35 05:35 08:03 WBC 7.1 RBC 3.62 L Hgb 12.7 Hct 37.4 MCV 103.3 H MCH 35.1 H MCHC 34.0 RDW 14.4 Plt Count 299 MPV 9.7 Sodium 141 Potassium 3.9 Chloride 110 H Carbon Dioxide 25 Anion Gap 6 L BUN 6.4 L Creatinine 0.4 L Est GFR (CKD-EPI)AfAm 162.79 Est GFR (CKD-EPI)NonAf 140.45 POC Glucometer 78 Random Glucose 68 L Calcium 7.7 L Total Bilirubin 0.2 AST 35 ALT 60 Alkaline Phosphatase 122 H Total Protein 6.3 L Albumin 2.6 L Problem List - Problems (1) Pneumonia Code(s): J18.9 - PNEUMONIA, UNSPECIFIED ORGANISM Assessment/Plan Acute Hypoxic Respiratory Failure Pneumonia likely Aspiration Asthma Cerebral Palsy Mental Retardation Seizure Disorder - Antibiotics per ID - Supplemental O2 only as needed in to avoid drying the airway - inhaled bronchodilators - aspiration precautions - DVT prophylaxis - Noted Prednisone Dr Alejandra
[2019-10-17] MEDS ORDERED: BISACODYL 10 MG SUPP.RECT RC ONE (10:00)
[2019-10-17] MEDS ORDERED: PT OWN MED DRAWER 7, Y5N ONE ×3 (10:22→21:40)
[2019-10-17] MEDS: CALCIUM 500MG/VIT-D 200 UNITS COMBO TABLET (FP) PO SCH ×2 (10:31→22:37)
[2019-10-17] MEDS: MAGNESIUM HYDROX 2400MG/30ML ORAL SUSPENSION 30 ML CUP GT SCH (10:31)
[2019-10-17] MEDS: levETIRAcetam 500 MG/5 ML ORAL SOLUTION (UNIT-DOSE CUPS) GT SCH ×2 (10:31→22:36)
[2019-10-17] MEDS: DOCUSATE NA 100 MG/10 ML UNIT-DOSE CUPS PO SCH ×2 (10:31→22:36)
[2019-10-17] MEDS: PHENobarbital 30 MG TABLET GT SCH ×4 (10:33→22:37)
[2019-10-17] MEDS: predniSONE 5 MG/5 ML ORAL SOLN- UNIT-DOSE CUP GT SCH (10:34)
--- NOTE | 2019-10-17 11:16 | PN ---
Teaching Attending Note Name of Resident: Fatmata Willis ATTENDING PHYSICIAN STATEMENT I saw and evaluated the patient. I reviewed the resident's note and discussed the case with the resident. I agree with the resident's findings and plan as documented with exceptions below. SUBJECTIVE: Patient seen and examined, non verbal, responds to voice. Unable to assess for ROS. OBJECTIVE: Vital Signs Period Temp Pulse Resp BP Sys/Harrison Pulse Ox Last 24 Hr 96.8 F-99.0 F 69-93 18-20 106-120/67-80 96 Intake & Output 10/14/19 10/15/19 10/16/19 10/17/19 23:59 23:59 23:59 23:59 Intake Total 1420 1860 1285 842 Output Total 2100 2800 300 Balance 1420 -240 -1515 542 Weight 105 lb General: lying in bed, awake, more interactive, responds to voice Chest: markedly improved rales, no wheezing Abdomen: soft, PEG in place, no voluntary or involuntary guarding or rigidity Extremities: contractures, no edema Home Medications Medication Instructions Recorded Albuterol 0.083% Nebulizer Margarita 1 neb NEB BID 10/13/19 [Ventolin 0.083%] Albuterol 2.5/Ipratropium 0.5 1 neb NEB Q4H 10/13/19 [Duoneb -] Bisacodyl Suppository [Dulcolax 10 mg RC PRN PRN 10/13/19 Suppository -] Calcium Citrate/Vitamin D3 2 tab GT BID 10/13/19 [Calcium Cit 315-Vit D3 250 Cpt] Clotrimazole [Lotrimin 1% Solution 1 applic TP BID 10/13/19 -] Diazepam Rectal Gel [Diastat 10 mg RC PRN PRN 10/13/19 *Rectal Gel*] Famotidine [Pepcid -] 40 mg PO HS 10/13/19 Magnesium Hydrox 2400MG/30Ml [Milk 30 ml PO ACDIN 10/13/19 of Magnesia -] Multivit-Min/Ferrous Gluconate 15 ml GT DAILY 10/13/19 [Centrum Multivit-Mineral Liq] Phenobarbital 16.2 mg GT BID 10/13/19 Phenobarbital 64.8 mg GT BID 10/13/19 Selenium Sulfide/Aloe Vera [Selsun 207 ml TP WEEKLY 10/13/19 Blue Moist 1% Shampoo] levETIRAcetam [levETIRAcetam ORAL 2.5 ml GT BID 10/13/19 SUSPENSION] Active Medications Albuterol/Ipratropium (Duoneb -) 1 amp NEB RQID [facility] Last Admin: 10/17/19 08:19 Dose: 1 amp Calcium Carbonate/Cholecalciferol (Os-Nabor 500+D -) 1 tab PO BID [facility] Last Admin: 10/17/19 10:31 Dose: 1 tab Docusate Sodium (Colace Liquid -) 100 mg PO BID [facility] Last Admin: 10/17/19 10:31 Dose: 100 mg Famotidine (Pepcid) 40 mg PEG HS [facility] Last Admin: 10/16/19 21:59 Dose: 40 mg Heparin Sodium (Porcine) (Heparin -) 5,000 unit SQ TID [facility] Last Admin: 10/17/19 05:44 Dose: 5,000 unit Piperacillin Sod/Tazobactam (Sod 3.375 gm/ Dextrose) 50 mls @ 100 mls/hr IVPB Q8H-IV [facility]; Protocol Last Admin: 10/17/19 10:30 Dose: 100 mls/hr Sodium Chloride (Normal Saline -) 1,000 mls @ 42 mls/hr IV ASDIR [facility] Last Admin: 10/16/19 11:13 Dose: 42 mls/hr Levetiracetam (Keppra Oral Solution -) 250 mg GT BID [facility] Last Admin: 10/17/19 10:31 Dose: 250 mg Magnesium Hydroxide (Milk Of Magnesia -) 30 ml GT DAILY [facility] Last Admin: 10/17/19 10:31 Dose: 30 ml Phenobarbital (Phenobarbital -) 15 mg GT BID [facility] Last Admin: 10/17/19 10:33 Dose: 15 mg Phenobarbital (Phenobarbital -) 60 mg GT BID [facility] Last Admin: 10/17/19 10:33 Dose: 60 mg Prednisone (Deltasone -) 40 mg GT DAILY [facility] Last Admin: 10/17/19 10:34 Dose: 40 mg Scopolamine HBr (Transderm-Scop -) 1 patch TD Q72H [facility] Last Admin: 10/16/19 22:00 Dose: 1 patch Senna (Senna Oral Solution -) 8.8 mg GT HS [facility] Last Admin: 10/16/19 21:59 Dose: 8.8 mg Laboratory Results - last 24 hr 10/16/19 10/16/19 10/17/19 12:16 17:49 02:38 WBC RBC Hgb Hct MCV MCH MCHC RDW Plt Count MPV Sodium Potassium Chloride Carbon Dioxide Anion Gap BUN Creatinine Est GFR (CKD-EPI)AfAm Est GFR (CKD-EPI)NonAf POC Glucometer 142 127 90 Random Glucose Calcium Total Bilirubin AST ALT Alkaline Phosphatase Total Protein Albumin 10/17/19 10/17/19 10/17/19 05:35 05:35 08:03 WBC 7.1 RBC 3.62 L Hgb 12.7 Hct 37.4 MCV 103.3 H MCH 35.1 H MCHC 34.0 RDW 14.4 Plt Count 299 MPV 9.7 Sodium 141 Potassium 3.9 Chloride 110 H Carbon Dioxide 25 Anion Gap 6 L BUN 6.4 L Creatinine 0.4 L Est GFR (CKD-EPI)AfAm 162.79 Est GFR (CKD-EPI)NonAf 140.45 POC Glucometer 78 Random Glucose 68 L Calcium 7.7 L Total Bilirubin 0.2 AST 35 ALT 60 Alkaline Phosphatase 122 H Total Protein 6.3 L Albumin 2.6 L Laboratory Results - last 24 hr 10/16/19 10/16/19 10/17/19 12:16 17:49 02:38 WBC RBC Hgb Hct MCV MCH MCHC RDW Plt Count MPV Sodium Potassium Chloride Carbon Dioxide Anion Gap BUN Creatinine Est GFR (CKD-EPI)AfAm Est GFR (CKD-EPI)NonAf POC Glucometer 142 127 90 Random Glucose Calcium Total Bilirubin AST ALT Alkaline Phosphatase Total Protein Albumin 10/17/19 10/17/19 10/17/19 05:35 05:35 08:03 WBC 7.1 RBC 3.62 L Hgb 12.7 Hct 37.4 MCV 103.3 H MCH 35.1 H MCHC 34.0 RDW 14.4 Plt Count 299 MPV 9.7 Sodium 141 Potassium 3.9 Chloride 110 H Carbon Dioxide 25 Anion Gap 6 L BUN 6.4 L Creatinine 0.4 L Est GFR (CKD-EPI)AfAm 162.79 Est GFR (CKD-EPI)NonAf 140.45 POC Glucometer 78 Random Glucose 68 L Calcium 7.7 L Total Bilirubin 0.2 AST 35 ALT 60 Alkaline Phosphatase 122 H Total Protein 6.3 L Albumin 2.6 L Microbiology 12/24/19 08:22 Sputum - Oropharynx Suctioned Sputum Gram Stain - Final 10/15/19 08:22 Sputum - Oropharynx Suctioned Sputum Sputum Culture - Preliminary Non Lactose Fermenting Gnb Lactose Fermenting Neg Bacilli Pseudomonas Species 10/12/19 17:57 Blood - Peripheral Venous Blood Culture - Preliminary NO GROWTH OBTAINED AFTER 96 HOURS, INCUBATION TO CONTINUE FOR 1 DAYS. 10/12/19 17:17 Blood - Peripheral Venous Blood Culture - Preliminary Staph Hominis Sub Sp Hominis 10/14/19 12:40 Blood - Peripheral Venous Blood Culture - Preliminary NO GROWTH OBTAINED AFTER 48 HOURS, INCUBATION TO CONTINUE FOR 3 DAYS. 10/14/19 12:54 Blood - Peripheral Venous Blood Culture - Preliminary NO GROWTH OBTAINED AFTER 48 HOURS, INCUBATION TO CONTINUE FOR 3 DAYS. 10/15/19 04:00 Urine For Antigen Detection Legionella Antigen - Final 10/15/19 04:00 Urine For Antigen Detection Streptococcus pneumoniae Antigen (M - Final 10/12/19 23:00 Urine - Urine Clean Catch Urine Culture - Final NO GROWTH OBTAINED CXR from 10/16 results and images reviewed ASSESSMENT AND PLAN: 49 yom with PMHx of multiple intellectual disabilities, seizure, cerebral palsy , asthma, diaphragmatic hernia, diabetes insipidus, gastrostomy tube admitted with right multifocal pna and sepsis -Acute Right multifocal Pneumonia, suspect aspiration -Acute hypoxic respiratory failure -Sepsis -Acute urinary retention -constipation -Coag neg staph bacteremia 1/2, suspect contamination -Cerebral palsy -Seizure disorder -Asthma -Diaphragmatic hernia -Diabetes Insipidus Plan: Afebrile, normal WBC Respiratory status improved. short steroid course. Sputum cx noted. Off vancomycin. Zosyn day 4. taper zosyn in 24-48 hours as improves based on cultures. repeat blood cx neg. Pulmonary input noted. Scopolamine patch. Frequent suctioning/aspiration precautions. Chest PT as able. Oxygen prn Advance tube feeds to goal as tolerated. Aspiration precautions. dc IVF. Bowel regimen. Dc hoffman for voiding trial today. Seizure precautions. Continue home keppra/phenobarbital. DVTPPX heparin dispo back to [place] in 1-2 days if continues to improve and no concerns.
[2019-10-17] MEDS: SODIUM CHLORIDE 1,000 ML IV SCH (11:46)
--- NOTE | 2019-10-17 12:23 | PN ---
Physical Exam: SUBJECTIVE: Patient seen and examined. Patient non verbal, sleepy during exam. No acute events overnight. Hoffman in place. OBJECTIVE: Vital Signs Period Temp Pulse Resp BP Sys/Harrison Pulse Ox Last 24 Hr 96.8 F-99.6 F 69-93 18-20 106-120/67-80 96 GENERAL: arousable to verbal and physical stimuli HEAD: Normal with no signs of trauma. EYES: PERRL, EOMI, no scleral icterus EARS, NOSE, THROAT: Dry mucous membranes, less secretions than before NECK: supple. trachea midline, no cervical lymphadenopathy LUNGS: mild scattered rales, no accessory muscle use HEART: Regular rate and rhythm, normal S1 and S2 without murmur, rub or gallop. ABDOMEN: Soft, nontender, not distended, normoactive bowel sounds. PEG tube in place with some surrounding erythema MUSCULOSKELETAL: contracted upper and lower extremities EXTREMITIES: 2+ pulses, warm, well-perfused. No peripheral edema. SKIN: Warm, dry Laboratory Results - last 24 hr 10/16/19 10/16/19 10/17/19 12:16 17:49 02:38 WBC RBC Hgb Hct MCV MCH MCHC RDW Plt Count MPV Sodium Potassium Chloride Carbon Dioxide Anion Gap BUN Creatinine Est GFR (CKD-EPI)AfAm Est GFR (CKD-EPI)NonAf POC Glucometer 142 127 90 Random Glucose Calcium Total Bilirubin AST ALT Alkaline Phosphatase Total Protein Albumin 10/17/19 10/17/19 10/17/19 05:35 05:35 08:03 WBC 7.1 RBC 3.62 L Hgb 12.7 Hct 37.4 MCV 103.3 H MCH 35.1 H MCHC 34.0 RDW 14.4 Plt Count 299 MPV 9.7 Sodium 141 Potassium 3.9 Chloride 110 H Carbon Dioxide 25 Anion Gap 6 L BUN 6.4 L Creatinine 0.4 L Est GFR (CKD-EPI)AfAm 162.79 Est GFR (CKD-EPI)NonAf 140.45 POC Glucometer 78 Random Glucose 68 L Calcium 7.7 L Total Bilirubin 0.2 AST 35 ALT 60 Alkaline Phosphatase 122 H Total Protein 6.3 L Albumin 2.6 L Active Medications Generic Name Dose Route Start Last Admin Trade Name Freq PRN Reason Stop Dose Admin Albuterol/Ipratropium 1 amp 10/16/19 12:00 10/17/19 08:19 Duoneb - NEB 1 amp RQID [facility] ENRIQUE Administration Calcium Carbonate/Cholecalciferol 1 tab 10/14/19 10:00 10/17/19 10:31 Os-Nabor 500+D - PO 1 tab BID JOSE ENRIQUE Administration Docusate Sodium 100 mg 10/16/19 10:00 10/17/19 10:31 Colace Liquid - PO 100 mg BID JOSE ENRIQUE Administration Famotidine 40 mg 10/13/19 22:00 10/16/19 21:59 Pepcid PEG 40 mg HS JOSE ENRIQUE Administration Heparin Sodium (Porcine) 5,000 unit 10/13/19 06:00 10/17/19 05:44 Heparin - SQ 5,000 unit TID JOSE ENRIQUE Administration Piperacillin Sod/Tazobactam 50 mls @ 100 mls/hr 10/14/19 02:00 10/17/19 10:30 Sod 3.375 gm/ Dextrose IVPB 100 mls/hr Q8H-IV JOSE ENRIQUE Administration Protocol Levetiracetam 250 mg 10/13/19 22:00 10/17/19 10:31 Keppra Oral Solution - GT 250 mg BID JOSE ENRIQUE Administration Magnesium Hydroxide 30 ml 10/14/19 10:00 10/17/19 10:31 Milk Of Magnesia - GT 30 ml DAILY JOSE ENRIQUE Administration Phenobarbital 15 mg 10/13/19 22:00 10/17/19 10:33 Phenobarbital - GT 15 mg BID JOSE ENRIQUE Administration Phenobarbital 60 mg 10/13/19 22:00 10/17/19 10:33 Phenobarbital - GT 60 mg BID JOSE ENRIQUE Administration Prednisone 40 mg 10/16/19 10:00 10/17/19 10:34 Deltasone - GT 40 mg DAILY JOSE ENRIQUE Administration Scopolamine HBr 1 patch 10/13/19 22:00 10/16/19 22:00 Transderm-Scop - TD 1 patch Q72H JOSE ENRIQUE Administration Senna 8.8 mg 10/15/19 22:00 10/16/19 21:59 Senna Oral Solution - GT 8.8 mg HS JOSE ENRIQUE Administration ASSESSMENT/PLAN: 49 y/o/m with PMHx of multiple intellectual disabilities, seizure, cerebral palsy, asthma, diaphragmatic hernia, diabetes insipidus, gastrostomy tube presenting from [facility] [place] with hypoxia. Admitted for sepsis 2/2 pneumonia. #Sepsis 2/2 aspiration PNA - Leukocytosis resolved. WBC now at 7.1 - Chest CT showing patchy infiltrate in right lung suggestive of aspiration pneumonia - Sputum Cx - non lactose fermenting GNB, lactose fermenting neg bacilli - Continue Zosyn (started on 09/13) - Discontinued Vancomycin - ID consulted - Tylenol for fevers as needed - IVF - Prednisone 40mg GT daily - Duonebs RTID - Chest PT, frequent suctioning ordered - patient likely aspirating on secretions as per Speech/Swallow eval - repeat Blood cx negative, legionella antigen negative - discontinue hoffman for TOV - patient with BM, added dulcolax to bowel regiment #Hypothermia 2/2 sepsis - resolved #Hypoalbuminemia likely 2/2 malnutrition - Patient with PEG tube in place - advance feeds to goal #Hx of Seizures - Continue Keppra, phenobarbital #Prophylaxis - Heparin #FEN - monitor and replace electrolytes as needed - D5 NS @42mls/hr - advance feeds to goal #Disposition - continue treatment, D/C back to [place] in next few days pending further improvement Visit type - Emergency Visit Emergency Visit: Yes ED Registration Date: 10/12/19 Care time: The patient presented to the Emergency Department on the above date and was hospitalized for further evaluation of their emergent condition. - New Patient This patient is new to me today: No - Critical Care Critical Care patient: No ATTENDING PHYSICIAN STATEMENT I saw and evaluated the patient. I reviewed the resident's note and discussed the case with the resident. I agree with the resident's findings and plan as documented. SUBJECTIVE: OBJECTIVE: ASSESSMENT AND PLAN:
[2019-10-17] MEDS: SENNOSIDES 8.8 MG/5 ML BULK BOTTLE GT SCH (22:38)
[2019-10-17] MEDS: FAMOTIDINE 40 MG/5 ML ORAL SUSPENSION PEG SCH (22:45)
[2019-10-18] MEDS ORDERED: PIPERACILLIN/TAZOBACTAM 3.375 GM VIAL IVPB ONE ×3 (01:54→17:20)
[2019-10-18] MEDS ORDERED: DEXTROSE 5%-WATER - 50 ML IVPB ONE ×3 (01:54→17:20)
[2019-10-18] MEDS: PIPERACILLIN/TAZOB 3.375 GM 3.375 GM in DEXTROSE 5%-WATER - 50 ML IVPB SCH ×3 (02:04→17:31)
[2019-10-18] MEDS: HEPARIN NA (PORCINE) 5,000 UNITS/ML 1ML VIAL SQ SCH ×3 (05:16→22:16)
[2019-10-18 08:10] LABS: BASO % 0.4 % (0-2.0); EOS % 2.7 % (0-4.5); HEMATOCRIT 39.6 % (35.4-49); HEMOGLOBIN 13.3 GM/dL (11.7-16.9); LYMPH % 44.9 % (8-40); MCH 34.7 pg (25.7-33.7); MCHC 33.6 g/dl (32.0-35.9); MEAN CELL VOLUME 103.3 fl (80-96); MEAN PLT VOLUME 9.9 fl (7.5-11.1); MONO % 13.7 % (3.8-10.2); NEUT % 38.3 % (42.8-82.8); PLATELET COUNT 328 K/MM3 (134-434); RBC 3.84 M/mm3 (4.00-5.60); RDW 14.7 % (11.9-15.9); WHITE BLOOD COUNT 8.7 K/mm3 (4.0-10.0)
[2019-10-18] MEDS: ALBUTEROL SO4 2.5/IPRATROPIUM 0.5 INH SOL 3 ML VIAL.NEB. NEB SCH ×4 (08:12→20:37)
[2019-10-18] MEDS ORDERED: TAMSULOSIN HCL 0.4 MG CAP PO SCH (08:30)
[2019-10-18 08:42] LABS: BLOOD UREA NITROGEN 9.6 mg/dL (7-18); CALCIUM 8.4 mg/dL (8.5-10.1); CREATININE 0.4 mg/dL (0.55-1.3); POTASSIUM 3.8 mmol/L (3.5-5.1)
[2019-10-18] MEDS ORDERED: PT OWN MED DRAWER 7, Y5N ONE (09:18)
[2019-10-18] MEDS: DOCUSATE NA 100 MG/10 ML UNIT-DOSE CUPS PO SCH ×2 (10:00→22:16)
[2019-10-18] MEDS: MAGNESIUM HYDROX 2400MG/30ML ORAL SUSPENSION 30 ML CUP GT SCH (10:00)
[2019-10-18] MEDS: PHENobarbital 30 MG TABLET GT SCH ×4 (10:01→22:15)
[2019-10-18] MEDS: predniSONE 5 MG/5 ML ORAL SOLN- UNIT-DOSE CUP GT SCH (10:02)
[2019-10-18] MEDS: CALCIUM 500MG/VIT-D 200 UNITS COMBO TABLET (FP) PO SCH ×2 (10:02→22:14)
[2019-10-18] MEDS: levETIRAcetam 500 MG/5 ML ORAL SOLUTION (UNIT-DOSE CUPS) GT SCH ×2 (10:02→22:16)
--- NOTE | 2019-10-18 11:41 | PN ---
Teaching Attending Note Name of Resident: Fatmata Willis ATTENDING PHYSICIAN STATEMENT I saw and evaluated the patient. I reviewed the resident's note and discussed the case with the resident. I agree with the resident's findings and plan as documented with exceptions below. SUBJECTIVE: patient seen and examined, non verbal, opens eyes to voice, unable to assess ROS. OBJECTIVE: Vital Signs Period Temp Pulse Resp BP Sys/Harrison Pulse Ox Last 24 Hr 98.2 F-99.6 F 68-90 16-18 108-125/61-80 94-96 Intake & Output 10/15/19 10/16/19 10/17/19 10/18/19 23:59 23:59 23:59 23:59 Intake Total 1860 1285 1472 0 Output Total 2100 2800 300 Balance -240 -1515 1172 0 General: lying in bed, no acute distress Chest: coarse rales, improved, improved air entry, no wheezing HEENT: dried yellow secretions Abdomen:Soft, tube feeds leaking around PEG site, minimal surrounding erythema, no voluntary or involuntary guarding or rigidity, pos bowel sounds Extremities: contractures Home Medications Medication Instructions Recorded Albuterol 0.083% Nebulizer Margarita 1 neb NEB BID 10/13/19 [Ventolin 0.083%] Albuterol 2.5/Ipratropium 0.5 1 neb NEB Q4H 10/13/19 [Duoneb -] Bisacodyl Suppository [Dulcolax 10 mg RC PRN PRN 10/13/19 Suppository -] Calcium Citrate/Vitamin D3 2 tab GT BID 10/13/19 [Calcium Cit 315-Vit D3 250 Cpt] Clotrimazole [Lotrimin 1% Solution 1 applic TP BID 10/13/19 -] Diazepam Rectal Gel [Diastat 10 mg RC PRN PRN 10/13/19 *Rectal Gel*] Famotidine [Pepcid -] 40 mg PO HS 10/13/19 Magnesium Hydrox 2400MG/30Ml [Milk 30 ml PO ACDIN 10/13/19 of Magnesia -] Multivit-Min/Ferrous Gluconate 15 ml GT DAILY 10/13/19 [Centrum Multivit-Mineral Liq] Phenobarbital 16.2 mg GT BID 10/13/19 Phenobarbital 64.8 mg GT BID 10/13/19 Selenium Sulfide/Aloe Vera [Selsun 207 ml TP WEEKLY 10/13/19 Blue Moist 1% Shampoo] levETIRAcetam [levETIRAcetam ORAL 2.5 ml GT BID 10/13/19 SUSPENSION] Active Medications Albuterol/Ipratropium (Duoneb -) 1 amp NEB RQID [facility] Last Admin: 10/18/19 08:12 Dose: 1 amp Calcium Carbonate/Cholecalciferol (Os-Nabor 500+D -) 1 tab PO BID [facility] Last Admin: 10/18/19 10:02 Dose: 1 tab Docusate Sodium (Colace Liquid -) 100 mg PO BID [facility] Last Admin: 10/18/19 10:00 Dose: 100 mg Famotidine (Pepcid) 40 mg PEG HS [facility] Last Admin: 10/17/19 22:45 Dose: 40 mg Heparin Sodium (Porcine) (Heparin -) 5,000 unit SQ TID [facility] Last Admin: 10/18/19 05:16 Dose: 5,000 unit Piperacillin Sod/Tazobactam (Sod 3.375 gm/ Dextrose) 50 mls @ 100 mls/hr IVPB Q8H-IV [facility]; Protocol Last Admin: 10/18/19 10:00 Dose: 100 mls/hr Levetiracetam (Keppra Oral Solution -) 250 mg GT BID [facility] Last Admin: 10/18/19 10:02 Dose: 250 mg Magnesium Hydroxide (Milk Of Magnesia -) 30 ml GT DAILY [facility] Last Admin: 10/18/19 10:00 Dose: 30 ml Phenobarbital (Phenobarbital -) 15 mg GT BID [facility] Last Admin: 10/18/19 10:01 Dose: 15 mg Phenobarbital (Phenobarbital -) 60 mg GT BID [facility] Last Admin: 10/18/19 10:01 Dose: 60 mg Prednisone (Deltasone -) 40 mg GT DAILY [facility] Last Admin: 10/18/19 10:02 Dose: 40 mg Scopolamine HBr (Transderm-Scop -) 1 patch TD Q72H [facility] Last Admin: 10/16/19 22:00 Dose: 1 patch Senna (Senna Oral Solution -) 8.8 mg GT HS [facility] Last Admin: 10/17/19 22:38 Dose: 8.8 mg Tamsulosin HCl (Flomax -) 0.4 mg PO DAILY@0830 [facility] Last Admin: 10/18/19 10:00 Dose: Not Given Laboratory Results - last 24 hr 10/17/19 10/17/19 10/18/19 16:19 21:20 01:57 WBC RBC Hgb Hct MCV MCH MCHC RDW Plt Count MPV Absolute Neuts (auto) Neutrophils % Lymphocytes % Monocytes % Eosinophils % Basophils % Nucleated RBC % Sodium Potassium Chloride Carbon Dioxide Anion Gap BUN Creatinine Est GFR (CKD-EPI)AfAm Est GFR (CKD-EPI)NonAf POC Glucometer 145 91 98 Random Glucose Calcium 10/18/19 10/18/19 06:50 06:50 WBC 8.7 RBC 3.84 L Hgb 13.3 Hct 39.6 MCV 103.3 H MCH 34.7 H MCHC 33.6 RDW 14.7 Plt Count 328 MPV 9.9 Absolute Neuts (auto) 3.3 Neutrophils % 38.3 L D Lymphocytes % 44.9 H D Monocytes % 13.7 H D Eosinophils % 2.7 Basophils % 0.4 Nucleated RBC % 0 Sodium 136 Potassium 3.8 Chloride 104 Carbon Dioxide 24 Anion Gap 7 L BUN 9.6 Creatinine 0.4 L Est GFR (CKD-EPI)AfAm 162.79 Est GFR (CKD-EPI)NonAf 140.45 POC Glucometer Random Glucose 97 Calcium 8.4 L Microbiology 10/15/19 08:22 Sputum - Oropharynx Suctioned Sputum Gram Stain - Final 10/15/19 08:22 Sputum - Oropharynx Suctioned Sputum Sputum Culture - Preliminary Non Lactose Fermenting Gnb Klebsiella Pneumoniae - Esbl Presumptive Pseudomonas Spec. 10/12/19 17:57 Blood - Peripheral Venous Blood Culture - Final NO GROWTH AFTER 5 DAYS INCUBATION 10/12/19 17:17 Blood - Peripheral Venous Blood Culture - Final Staph Hominis Sub Sp Hominis 10/14/19 12:40 Blood - Peripheral Venous Blood Culture - Preliminary NO GROWTH OBTAINED AFTER 72 HOURS, INCUBATION TO CONTINUE FOR 2 DAYS. 10/14/19 12:54 Blood - Peripheral Venous Blood Culture - Preliminary NO GROWTH OBTAINED AFTER 72 HOURS, INCUBATION TO CONTINUE FOR 2 DAYS. 10/15/19 04:00 Urine For Antigen Detection Legionella Antigen - Final 10/15/19 04:00 Urine For Antigen Detection Streptococcus pneumoniae Antigen (M - Final 10/12/19 23:00 Urine - Urine Clean Catch Urine Culture - Final NO GROWTH OBTAINED Bladder US results noted ASSESSMENT AND PLAN: 49 yom with PMHx of multiple intellectual disabilities, seizure, cerebral palsy , asthma, diaphragmatic hernia, diabetes insipidus, gastrostomy tube admitted with right multifocal pna and sepsis -Acute Right multifocal Pneumonia, suspect aspiration -Acute hypoxic respiratory failure -Sepsis -Acute urinary retention -constipation -Tube feed leak around PEG site -Coag neg staph bacteremia 1/2, suspect contamination -Cerebral palsy -Seizure disorder -Asthma -Diaphragmatic hernia -Diabetes Insipidus Plan: Afebrile, normal WBC Respiratory status improved. short steroid course, dc after today. Sputum cx noted. Zosyn day 5, off vancomycin, Discussed with ID, follow up recs. . Repeat blood cx neg. Pulmonary input noted. Scopolamine patch. Frequent suctioning/aspiration precautions. Chest PT as able. Oxygen prn Tolerating tube feeds, constipation resolved. Leakage around PEG site, GI consult. Failed voiding trial, bladder US noted. CT A/P to address obstructive uropathy, Urology consult, re-insert hoffman. Unable to give flomax via G tube. Off IVF. Bowel regimen. Seizure precautions. Continue home keppra/phenobarbital. DVTPPX heparin dispo hold off on dc back to [place] given ongoing concerns with urinary retention and PEG site.
--- NOTE | 2019-10-18 11:44 | PN ---
Progress Note (short form) - Note Progress Note: GI: Patient admitted for evaluation of sepsis. Being treated for PNA Asked by nurse to change gastrostomy tube becaise it is leaking On exam: External bolster was noted to be away from the abdominal wall. 24Fr. G-Tube in place. The external bolster was adjusted so that it was flush against the abdominal wall. The G-tube was flushed and there was no leakage. Imp: I suspect the external bolster migrates away from the abdominal wall due to respiratory motion, as it is placed high up just below the rib cage. ? if this was placed surgically given the abdominal scar Plan: Avoid excessive traction on PEG Keep external bolster flush against the abdominal wall and do not place dressings under it Aspiration precautions Recall as needed
--- NOTE | 2019-10-18 12:57 | PN ---
Progress Note, Physician History of Present Illness: PULMONARY AWAKE,NON-VERBAL,LESS CONGESTED - Current Medication List Current Medications: Active Medications Albuterol/Ipratropium (Duoneb -) 1 amp NEB RQID [facility] Last Admin: 10/18/19 11:20 Dose: 1 amp Calcium Carbonate/Cholecalciferol (Os-Nabor 500+D -) 1 tab PO BID [facility] Last Admin: 10/18/19 10:02 Dose: 1 tab Docusate Sodium (Colace Liquid -) 100 mg PO BID [facility] Last Admin: 10/18/19 10:00 Dose: 100 mg Famotidine (Pepcid) 40 mg PEG HS [facility] Last Admin: 10/17/19 22:45 Dose: 40 mg Heparin Sodium (Porcine) (Heparin -) 5,000 unit SQ TID [facility] Last Admin: 10/18/19 05:16 Dose: 5,000 unit Piperacillin Sod/Tazobactam (Sod 3.375 gm/ Dextrose) 50 mls @ 100 mls/hr IVPB Q8H-IV JO[facility] ENRIQUE; Protocol Last Admin: 10/18/19 10:00 Dose: 100 mls/hr Levetiracetam (Keppra Oral Solution -) 250 mg GT BID [facility] Last Admin: 10/18/19 10:02 Dose: 250 mg Magnesium Hydroxide (Milk Of Magnesia -) 30 ml GT DAILY [facility] Last Admin: 10/18/19 10:00 Dose: 30 ml Phenobarbital (Phenobarbital -) 15 mg GT BID [facility] Last Admin: 10/18/19 10:01 Dose: 15 mg Phenobarbital (Phenobarbital -) 60 mg GT BID [facility] Last Admin: 10/18/19 10:01 Dose: 60 mg Prednisone (Deltasone -) 40 mg GT DAILY [facility] Last Admin: 10/18/19 10:02 Dose: 40 mg Scopolamine HBr (Transderm-Scop -) 1 patch TD Q72H [facility] Last Admin: 10/16/19 22:00 Dose: 1 patch Senna (Senna Oral Solution -) 8.8 mg GT HS [facility] Last Admin: 10/17/19 22:38 Dose: 8.8 mg - Objective Vital Signs: Vital Signs Temperature 98.8 F 10/18/19 08:05 Pulse Rate 69 10/18/19 08:05 Respiratory Rate 18 10/18/19 08:05 Blood Pressure 123/74 10/18/19 08:05 O2 Sat by Pulse Oximetry (%) 100 10/18/19 09:00 Constitutional: Yes: Calm, Thin Eyes: Yes: WNL HENT: Yes: WNL Neck: Yes: WNL Cardiovascular: Yes: Regular Rate and Rhythm, S1, S2 Respiratory: Yes: Rhonchi (SCATTERED SRIKANTH RHONCHI) Gastrointestinal: Yes: Normal Bowel Sounds, Soft Extremities: Yes: Shortened, Other (CONTRACTED) Labs: CBC, BMP 10/18/19 06:50 10/18/19 06:50 INR, PTT INR 0.97 (0.83-1.09) 10/12/19 18:50 Problem List - Problems (1) Acute hypoxemic respiratory failure Code(s): J96.01 - ACUTE RESPIRATORY FAILURE WITH HYPOXIA (2) Pneumonia Code(s): J18.9 - PNEUMONIA, UNSPECIFIED ORGANISM (3) Sepsis Code(s): A41.9 - SEPSIS, UNSPECIFIED ORGANISM Qualifiers: Sepsis type: sepsis due to unspecified organism Sepsis acute organ dysfunction status: unspecified Qualified Code(s): A41.9 - Sepsis, unspecified organism (4) Asthma Code(s): J45.909 - UNSPECIFIED ASTHMA, UNCOMPLICATED (5) Cerebral palsy Code(s): G80.9 - CEREBRAL PALSY, UNSPECIFIED Assessment/Plan Problem List - Problems (1) Pneumonia Code(s): J18.9 - PNEUMONIA, UNSPECIFIED ORGANISM Assessment/Plan Acute Hypoxic Respiratory Failure improving Pneumonia likely Aspiration Asthma Cerebral Palsy Mental Retardation Seizure Disorder - Antibiotics per ID - O2 as needed - inhaled bronchodilators - aspiration precautions - DVT prophylaxis - steroids DR NARVAEZ
--- NOTE | 2019-10-18 14:13 | PN ---
Physical Exam: SUBJECTIVE: Patient seen and examined. No acute events overnight. Patient awake in bed, still with thick secretions. One BM overnight, one episode of incontinence. OBJECTIVE: Vital Signs Period Temp Pulse Resp BP Sys/Harrison Pulse Ox Last 24 Hr 98.2 F-99.0 F 68-90 16-18 108-125/61-80 94-100 GENERAL: awake HEAD: Normal with no signs of trauma. EYES: PERRL, EOMI, no scleral icterus EARS, NOSE, THROAT: Dry mucous membranes, thick secretions NECK: supple. trachea midline, no cervical lymphadenopathy LUNGS: coarse breath sounds bilaterally, no accessory muscle use HEART: Regular rate and rhythm, normal S1 and S2 without murmur, rub or gallop. ABDOMEN: Soft, nontender, not distended, normoactive bowel sounds. PEG tube in place with seepage noted and surrounding erythema MUSCULOSKELETAL: contracted upper and lower extremities EXTREMITIES: 2+ pulses, warm, well-perfused. No peripheral edema. SKIN: Warm, dry Laboratory Results - last 24 hr 10/17/19 10/17/19 10/18/19 16:19 21:20 01:57 WBC RBC Hgb Hct MCV MCH MCHC RDW Plt Count MPV Absolute Neuts (auto) Neutrophils % Lymphocytes % Monocytes % Eosinophils % Basophils % Nucleated RBC % Sodium Potassium Chloride Carbon Dioxide Anion Gap BUN Creatinine Est GFR (CKD-EPI)AfAm Est GFR (CKD-EPI)NonAf POC Glucometer 145 91 98 Random Glucose Calcium 10/18/19 10/18/19 06:50 06:50 WBC 8.7 RBC 3.84 L Hgb 13.3 Hct 39.6 MCV 103.3 H MCH 34.7 H MCHC 33.6 RDW 14.7 Plt Count 328 MPV 9.9 Absolute Neuts (auto) 3.3 Neutrophils % 38.3 L D Lymphocytes % 44.9 H D Monocytes % 13.7 H D Eosinophils % 2.7 Basophils % 0.4 Nucleated RBC % 0 Sodium 136 Potassium 3.8 Chloride 104 Carbon Dioxide 24 Anion Gap 7 L BUN 9.6 Creatinine 0.4 L Est GFR (CKD-EPI)AfAm 162.79 Est GFR (CKD-EPI)NonAf 140.45 POC Glucometer Random Glucose 97 Calcium 8.4 L Active Medications Generic Name Dose Route Start Last Admin Trade Name Freq PRN Reason Stop Dose Admin Albuterol/Ipratropium 1 amp 12/25/19 12:00 10/18/19 11:20 Duoneb - NEB 1 amp RQID JOSE ENRIQUE Administration Calcium Carbonate/Cholecalciferol 1 tab 10/14/19 10:00 10/18/19 10:02 Os-Nabor 500+D - PO 1 tab BID JOSE ENRIQUE Administration Docusate Sodium 100 mg 10/16/19 10:00 10/18/19 10:00 Colace Liquid - PO 100 mg BID JOSE ENRIQUE Administration Famotidine 40 mg 10/13/19 22:00 10/17/19 22:45 Pepcid PEG 40 mg HS JOSE ENRIQUE Administration Heparin Sodium (Porcine) 5,000 unit 10/13/19 06:00 10/18/19 05:16 Heparin - SQ 5,000 unit TID JOSE ENRIQUE Administration Piperacillin Sod/Tazobactam 50 mls @ 100 mls/hr 10/14/19 02:00 10/18/19 10:00 Sod 3.375 gm/ Dextrose IVPB 100 mls/hr Q8H-IV JOSE ENRIQUE Administration Protocol Levetiracetam 250 mg 10/13/19 22:00 10/18/19 10:02 Keppra Oral Solution - GT 250 mg BID JOSE ENRIQUE Administration Magnesium Hydroxide 30 ml 10/14/19 10:00 10/18/19 10:00 Milk Of Magnesia - GT 30 ml DAILY JOSE ENRIQUE Administration Phenobarbital 15 mg 10/13/19 22:00 10/18/19 10:01 Phenobarbital - GT 15 mg BID JOSE ENRIQUE Administration Phenobarbital 60 mg 10/13/19 22:00 10/18/19 10:01 Phenobarbital - GT 60 mg BID JOSE ENRIQUE Administration Prednisone 40 mg 10/16/19 10:00 10/18/19 10:02 Deltasone - GT 40 mg DAILY JOSE ENRIQUE Administration Scopolamine HBr 1 patch 10/13/19 22:00 10/16/19 22:00 Transderm-Scop - TD 1 patch Q72H JOSE ENRIQUE Administration Senna 8.8 mg 10/15/19 22:00 10/17/19 22:38 Senna Oral Solution - GT 8.8 mg HS JOSE ENRIQUE Administration ASSESSMENT/PLAN: 49 y/o/m with PMHx of multiple intellectual disabilities, seizure, cerebral palsy, asthma, diaphragmatic hernia, diabetes insipidus, gastrostomy tube presenting from [facility] with hypoxia. Admitted for sepsis 2/2 pneumonia. #Sepsis 2/2 aspiration PNA - Leukocytosis resolved - Chest CT showing patchy infiltrate in right lung suggestive of aspiration pneumonia - Sputum Cx - non lactose fermenting GNB, lactose fermenting neg bacilli, presumptive Pseudomonas spec. - Continue Zosyn (started on 09/13) - Discontinued Vancomycin - ID consulted - Tylenol for fevers as needed - IVF - Prednisone 40mg GT daily (started 10/16) - Duonebs RTID - Chest PT, frequent suctioning ordered - patient likely aspirating on secretions as per Speech/Swallow eval - repeat Blood cx negative, legionella antigen negative #Urinary retention - patient still retaining urine, hoffman catheter inserted - Urology consulted, appreciate recs - CT A/P to r/o obstruction #PEG tube leakage - leakage noted from PEG tube insertion site - GI consulted, patient has had similar issue in the past - PEG tube adjusted by GI #Hypothermia 2/2 sepsis - resolved #Hypoalbuminemia likely 2/2 malnutrition - Patient with PEG tube in place - continue feeds to goal #Hx of Seizures - Continue Keppra, phenobarbital #Prophylaxis - Heparin #FEN - monitor and replace electrolytes as needed - continue feeds to goal #Disposition - continue treatment, D/C back to [facility] in next few days pending further improvement Visit type - Emergency Visit Emergency Visit: Yes ED Registration Date: 10/12/19 Care time: The patient presented to the Emergency Department on the above date and was hospitalized for further evaluation of their emergent condition. - New Patient This patient is new to me today: No - Critical Care Critical Care patient: No ATTENDING PHYSICIAN STATEMENT I saw and evaluated the patient. I reviewed the resident's note and discussed the case with the resident. I agree with the resident's findings and plan as documented. SUBJECTIVE: OBJECTIVE: ASSESSMENT AND PLAN:
[2019-10-18] MEDS: FAMOTIDINE 40 MG/5 ML ORAL SUSPENSION PEG SCH (22:15)
[2019-10-18] MEDS: SENNOSIDES 8.8 MG/5 ML BULK BOTTLE GT SCH (22:16)
[2019-10-19] MEDS ORDERED: PIPERACILLIN/TAZOBACTAM 3.375 GM VIAL IVPB ONE (02:29)
[2019-10-19] MEDS ORDERED: DEXTROSE 5%-WATER - 50 ML IVPB ONE (02:30)
[2019-10-19] MEDS: PIPERACILLIN/TAZOB 3.375 GM 3.375 GM in DEXTROSE 5%-WATER - 50 ML IVPB SCH (02:41)
[2019-10-19] MEDS: ALBUTEROL SO4 2.5/IPRATROPIUM 0.5 INH SOL 3 ML VIAL.NEB. NEB SCH ×4 (08:17→20:05)
--- NOTE | 2019-10-19 08:24 | PN ---
Progress Note, Physician History of Present Illness: AWAKE, NON VERBAL AFEBRILE CULTURES NOTED - Current Medication List Current Medications: Active Medications Albuterol/Ipratropium (Duoneb -) 1 amp NEB RQID [facility] Last Admin: 10/19/19 08:17 Dose: 1 amp Calcium Carbonate/Cholecalciferol (Os-Nabor 500+D -) 1 tab PO BID [facility] Last Admin: 10/18/19 22:14 Dose: 1 tab Docusate Sodium (Colace Liquid -) 100 mg PO BID [facility] Last Admin: 10/18/19 22:16 Dose: 100 mg Famotidine (Pepcid) 40 mg PEG HS [facility] Last Admin: 10/18/19 22:15 Dose: 40 mg Heparin Sodium (Porcine) (Heparin -) 5,000 unit SQ TID [facility] Last Admin: 10/18/19 22:16 Dose: 5,000 unit Piperacillin Sod/Tazobactam (Sod 3.375 gm/ Dextrose) 50 mls @ 100 mls/hr IVPB Q8H-IV JOSE ENRIQUE; Protocol Last Admin: 10/19/19 02:41 Dose: 100 mls/hr Levetiracetam (Keppra Oral Solution -) 250 mg GT BID [facility] Last Admin: 10/18/19 22:16 Dose: 250 mg Magnesium Hydroxide (Milk Of Magnesia -) 30 ml GT DAILY [facility] Last Admin: 10/18/19 10:00 Dose: 30 ml Phenobarbital (Phenobarbital -) 15 mg GT BID [facility] Last Admin: 10/18/19 22:14 Dose: 15 mg Phenobarbital (Phenobarbital -) 60 mg GT BID [facility] Last Admin: 10/18/19 22:15 Dose: 60 mg Prednisone (Deltasone -) 40 mg GT DAILY [facility] Last Admin: 10/18/19 10:02 Dose: 40 mg Scopolamine HBr (Transderm-Scop -) 1 patch TD Q72H [facility] Last Admin: 10/16/19 22:00 Dose: 1 patch Senna (Senna Oral Solution -) 8.8 mg GT HS [facility] Last Admin: 10/18/19 22:16 Dose: 8.8 mg - Objective Vital Signs: Vital Signs Temperature 98.3 F 10/18/19 20:00 Pulse Rate 85 10/18/19 20:00 Respiratory Rate 18 10/18/19 21:00 Blood Pressure 112/72 10/18/19 20:00 O2 Sat by Pulse Oximetry (%) 100 10/18/19 21:00 Constitutional: Yes: No Distress Cardiovascular: Yes: Regular Rate and Rhythm, S1, S2 Respiratory: Yes: CTA Bilaterally Gastrointestinal: Yes: Normal Bowel Sounds, Soft Labs: CBC, BMP 10/18/19 06:50 10/18/19 06:50 INR, PTT INR 0.97 (0.83-1.09) 10/12/19 18:50 Assessment/Plan PROBABLE ASPIRATION CP/MR SUBSTITUTE L[facility]AQUIN MAY GIVE VIA GT WHEN READY FOR DISCHARGE
[2019-10-19] MEDS ORDERED: PT OWN MED DRAWER 7, Y5N ONE ×3 (10:04→20:58)
[2019-10-19] MEDS: PHENobarbital 30 MG TABLET GT SCH ×4 (10:06→21:04)
[2019-10-19] MEDS: CALCIUM 500MG/VIT-D 200 UNITS COMBO TABLET (FP) PO SCH ×2 (10:07→21:04)
[2019-10-19] MEDS: MAGNESIUM HYDROX 2400MG/30ML ORAL SUSPENSION 30 ML CUP GT SCH (10:07)
[2019-10-19] MEDS: DOCUSATE NA 100 MG/10 ML UNIT-DOSE CUPS PO SCH ×2 (10:07→21:04)
[2019-10-19] MEDS: levETIRAcetam 500 MG/5 ML ORAL SOLUTION (UNIT-DOSE CUPS) GT SCH ×2 (10:08→21:05)
[2019-10-19] MEDS: predniSONE 5 MG/5 ML ORAL SOLN- UNIT-DOSE CUP GT SCH (10:09)
--- NOTE | 2019-10-19 11:39 | PN ---
Progress Note, Physician History of Present Illness: pulmonary awake,less congested - Current Medication List Current Medications: Active Medications Albuterol/Ipratropium (Duoneb -) 1 amp NEB RQID [facility] Last Admin: 10/19/19 08:17 Dose: 1 amp Calcium Carbonate/Cholecalciferol (Os-Nabor 500+D -) 1 tab PO BID [facility] Last Admin: 10/19/19 10:07 Dose: 1 tab Docusate Sodium (Colace Liquid -) 100 mg PO BID [facility] Last Admin: 10/19/19 10:07 Dose: 100 mg Famotidine (Pepcid) 40 mg PEG HS [facility] Last Admin: 10/18/19 22:15 Dose: 40 mg Heparin Sodium (Porcine) (Heparin -) 5,000 unit SQ TID [facility] Last Admin: 10/18/19 22:16 Dose: 5,000 unit Levofloxacin (Levaquin 250 Mg Premixed Ivpb -) 250 mg in 50 mls @ 50 mls/hr IVPB DAILY [facility]; Protocol Last Admin: 10/19/19 10:07 Dose: 50 mls/hr Levetiracetam (Keppra Oral Solution -) 250 mg GT BID [facility] Last Admin: 10/19/19 10:08 Dose: 250 mg Magnesium Hydroxide (Milk Of Magnesia -) 30 ml GT DAILY [facility] Last Admin: 10/19/19 10:07 Dose: 30 ml Phenobarbital (Phenobarbital -) 15 mg GT BID [facility] Last Admin: 10/19/19 10:07 Dose: 15 mg Phenobarbital (Phenobarbital -) 60 mg GT BID [facility] Last Admin: 10/19/19 10:06 Dose: 60 mg Prednisone (Deltasone -) 40 mg GT DAILY [facility] Last Admin: 10/19/19 10:09 Dose: 40 mg Scopolamine HBr (Transderm-Scop -) 1 patch TD Q72H [facility] Last Admin: 10/16/19 22:00 Dose: 1 patch Senna (Senna Oral Solution -) 8.8 mg GT HS [facility] Last Admin: 10/18/19 22:16 Dose: 8.8 mg - Objective Vital Signs: Vital Signs Temperature 98.3 F 10/19/19 08:00 Pulse Rate 81 10/19/19 08:00 Respiratory Rate 18 10/19/19 09:00 Blood Pressure 130/71 10/19/19 08:00 O2 Sat by Pulse Oximetry (%) 100 10/19/19 09:00 Constitutional: Yes: Calm, Thin Eyes: Yes: WNL HENT: Yes: WNL Neck: Yes: WNL Cardiovascular: Yes: Regular Rate and Rhythm, S1, S2 Respiratory: Yes: Rhonchi (less rhonchi bilaterally) Gastrointestinal: Yes: Normal Bowel Sounds, Soft Extremities: Yes: Shortened, Other (contracted) Edema: No Labs: CBC, BMP Problem List - Problems (1) Acute hypoxemic respiratory failure Code(s): J96.01 - ACUTE RESPIRATORY FAILURE WITH HYPOXIA (2) Pneumonia Code(s): J18.9 - PNEUMONIA, UNSPECIFIED ORGANISM (3) Sepsis Code(s): A41.9 - SEPSIS, UNSPECIFIED ORGANISM Qualifiers: Sepsis type: sepsis due to unspecified organism Sepsis acute organ dysfunction status: unspecified Qualified Code(s): A41.9 - Sepsis, unspecified organism (4) Asthma Code(s): J45.909 - UNSPECIFIED ASTHMA, UNCOMPLICATED (5) Cerebral palsy Code(s): G80.9 - CEREBRAL PALSY, UNSPECIFIED Assessment/Plan Problem List - Problems (1) Pneumonia Code(s): J18.9 - PNEUMONIA, UNSPECIFIED ORGANISM Assessment/Plan Acute Hypoxic Respiratory Failure improving Pneumonia likely Aspiration Asthma Cerebral Palsy Mental Retardation Seizure Disorder - Antibiotics per ID - O2 as needed - inhaled bronchodilators - aspiration precautions - DVT prophylaxis - prednisone DR NARVAEZ
[2019-10-19] MEDS: HEPARIN NA (PORCINE) 5,000 UNITS/ML 1ML VIAL SQ SCH ×2 (14:50→19:12)
[2019-10-19] MEDS ORDERED: BISACODYL 10 MG SUPP.RECT PR ONE (15:22)
--- NOTE | 2019-10-19 15:24 | PN ---
Physical Exam: SUBJECTIVE: Patient seen and examined, more awake, breathing better, non verbal. OBJECTIVE: Vital Signs Period Temp Pulse Resp BP Sys/Harrison Pulse Ox Last 24 Hr 98.3 F-98.3 F 81-85 18-18 112-130/71-72 100-100 Intake & Output 10/16/19 10/17/19 10/18/19 10/19/19 23:59 23:59 23:59 23:59 Intake Total 1285 2074 690 7023 Output Total 2800 300 3500 250 Balance -1515 1172 -2578 804 General: lying in bed, no acute distress Chest: coarse rales, improved, improved air entry, no wheezing HEENT: dried yellow secretions Abdomen:Soft, tube feeds, leakage around PEG site resolved, external bolster, minimal surrounding erythema, no voluntary or involuntary guarding or rigidity, pos bowel sounds Extremities: contractures Laboratory Results - last 24 hr 10/19/19 10/19/19 10/19/19 00:10 06:41 11:18 POC Glucometer 96 90 109 Active Medications Generic Name Dose Route Start Last Admin Trade Name Freq PRN Reason Stop Dose Admin Albuterol/Ipratropium 1 amp 10/16/19 12:00 10/19/19 11:47 Duoneb - NEB 1 amp RQID JOSE ENRIQUE Administration Calcium Carbonate/Cholecalciferol 1 tab 10/14/19 10:00 10/19/19 10:07 Os-Nabor 500+D - PO 1 tab BID JOSE ENRIQUE Administration Docusate Sodium 100 mg 10/16/19 10:00 10/19/19 10:07 Colace Liquid - PO 100 mg BID JOSE ENRIQUE Administration Famotidine 40 mg 10/13/19 22:00 10/18/19 22:15 Pepcid PEG 40 mg HS JOSE ENRIQUE Administration Heparin Sodium (Porcine) 5,000 unit 10/13/19 06:00 10/18/19 22:16 Heparin - SQ 5,000 unit TID JOSE ENRIQUE Administration Levofloxacin 250 mg in 50 mls @ 50 mls/hr 10/19/19 10:00 10/19/19 10:07 Levaquin 250 Mg Premixed Ivpb - IVPB 50 mls/hr DAILY JOSE ENRIQUE Administration Protocol Levetiracetam 250 mg 10/13/19 22:00 10/19/19 10:08 Keppra Oral Solution - GT 250 mg BID JOSE ENRIQUE Administration Magnesium Hydroxide 30 ml 10/14/19 10:00 10/19/19 10:07 Milk Of Magnesia - GT 30 ml DAILY JOSE ENRIQUE Administration Phenobarbital 15 mg 10/13/19 22:00 10/19/19 10:07 Phenobarbital - GT 15 mg BID JOSE ENRIQUE Administration Phenobarbital 60 mg 10/13/19 22:00 10/19/19 10:06 Phenobarbital - GT 60 mg BID JOSE ENRIQUE Administration Scopolamine HBr 1 patch 10/13/19 22:00 10/16/19 22:00 Transderm-Scop - TD 1 patch Q72H JOSE ENRIQUE Administration Senna 8.8 mg 10/15/19 22:00 10/18/19 22:16 Senna Oral Solution - GT 8.8 mg HS JOSE ENRIQUE Administration ASSESSMENT/PLAN: 49 yom with PMHx of multiple intellectual disabilities, seizure, cerebral palsy , asthma, diaphragmatic hernia, diabetes insipidus, gastrostomy tube admitted with right multifocal pna and sepsis -Acute Right multifocal Pneumonia, suspect aspiration -Acute hypoxic respiratory failure -Sepsis -Acute urinary retention -constipation -Tube feed leak around PEG site -Coag neg staph bacteremia 1/2, suspect contamination -Cerebral palsy -Seizure disorder -Asthma -Diaphragmatic hernia -Diabetes Insipidus Plan: Afebrile, normal WBC Respiratory status improved. dc prednisone. Sputum cx noted. s/p 5 days of zosyn. levaquin for 5-7 days. Repeat blood cx neg. Pulmonary input noted. Scopolamine patch. Frequent suctioning/aspiration precautions. Chest PT as able. Oxygen prn Tolerating tube feeds, constipation resolved. Gi input noted. CT A/P noted. Aggressive bowel regimen. Unable to give flomax via G tube Await urology input. Off IVF. Seizure precautions. Continue home keppra/phenobarbital. DVTPPX heparin dispo dc back to [place] in 1-2 days if improved and urinary retention concerns resolved. Visit type - Emergency Visit Emergency Visit: Yes ED Registration Date: 10/12/19 Care time: The patient presented to the Emergency Department on the above date and was hospitalized for further evaluation of their emergent condition. - New Patient This patient is new to me today: No - Critical Care Critical Care patient: No - Discharge Referral Referred to [facility] Med [facility] No
[2019-10-19] MEDS: SENNOSIDES 8.8 MG/5 ML BULK BOTTLE GT SCH (21:04)
[2019-10-19] MEDS: SCOPOLAMINE HYDROBROMIDE 1 PATCH PATCH.TD72 TD SCH (21:05)
[2019-10-19] MEDS: FAMOTIDINE 40 MG/5 ML ORAL SUSPENSION PEG SCH (21:05)
--- NOTE | 2019-10-20 07:30 | PN ---
Teaching Attending Note Name of Resident: Fatmata Willis ATTENDING PHYSICIAN STATEMENT I saw and evaluated the patient. I reviewed the resident's note and discussed the case with the resident. I agree with the resident's findings and plan as documented with exceptions below. SUBJECTIVE: Patient seen and examined, non verbal, comfortable. OBJECTIVE: Vital Signs Period Temp Pulse Resp BP Sys/Harrison Pulse Ox Last 24 Hr 97.6 F-99.0 F 77-104 - 98-130/62-71 96-100 Intake & Output 10/17/19 10/18/19 10/19/19 10/20/19 23:59 23:59 23:59 23:59 Intake Total 4626 711 2758 504 Output Total 300 3500 1150 400 Balance 1172 -2578 1008 104 General: non vebral ,comfortable Neck: soft Chest: improved coarse rales, good air entry Abdomen:soft, PEG in place, minimal leakage with external bolster, no voluntary or involuntary guarding or rigidity, pos bowel sounds Extremities: contractures Home Medications Medication Instructions Recorded Albuterol 0.083% Nebulizer Margarita 1 neb NEB BID 10/13/19 [Ventolin 0.083%] Albuterol 2.5/Ipratropium 0.5 1 neb NEB Q4H 10/13/19 [Duoneb -] Bisacodyl Suppository [Dulcolax 10 mg RC PRN PRN 10/13/19 Suppository -] Calcium Citrate/Vitamin D3 2 tab GT BID 10/13/19 [Calcium Cit 315-Vit D3 250 Cpt] Clotrimazole [Lotrimin 1% Solution 1 applic TP BID 10/13/19 -] Diazepam Rectal Gel [Diastat 10 mg RC PRN PRN 10/13/19 *Rectal Gel*] Famotidine [Pepcid -] 40 mg PO HS 10/13/19 Magnesium Hydrox 2400MG/30Ml [Milk 30 ml PO ACDIN 10/13/19 of Magnesia -] Multivit-Min/Ferrous Gluconate 15 ml GT DAILY 10/13/19 [Centrum Multivit-Mineral Liq] Phenobarbital 16.2 mg GT BID 10/13/19 Phenobarbital 64.8 mg GT BID 10/13/19 Selenium Sulfide/Aloe Vera [Selsun 207 ml TP WEEKLY 10/13/19 Blue Moist 1% Shampoo] levETIRAcetam [levETIRAcetam ORAL 2.5 ml GT BID 10/13/19 SUSPENSION] Active Medications Albuterol/Ipratropium (Duoneb -) 1 amp NEB RQID [facility] Last Admin: 10/19/19 20:05 Dose: 1 amp Calcium Carbonate/Cholecalciferol (Os-Nabor 500+D -) 1 tab PO BID [facility] Last Admin: 10/19/19 21:04 Dose: 1 tab Docusate Sodium (Colace Liquid -) 100 mg PO BID [facility] Last Admin: 10/19/19 21:04 Dose: 100 mg Enoxaparin Sodium (Lovenox -) 40 mg SQ DAILY [facility] Famotidine (Pepcid) 40 mg PEG HS [facility] Last Admin: 10/19/19 21:05 Dose: 40 mg Levofloxacin (Levaquin 250 Mg Premixed Ivpb -) 250 mg in 50 mls @ 50 mls/hr IVPB DAILY [facility]; Protocol Last Admin: 10/19/19 10:07 Dose: 50 mls/hr Levetiracetam (Keppra Oral Solution -) 250 mg GT BID [facility] Last Admin: 10/19/19 21:05 Dose: 250 mg Magnesium Hydroxide (Milk Of Magnesia -) 30 ml GT DAILY [facility] Last Admin: 10/19/19 10:07 Dose: 30 ml Phenobarbital (Phenobarbital -) 15 mg GT BID [facility] Last Admin: 10/19/19 21:04 Dose: 15 mg Phenobarbital (Phenobarbital -) 60 mg GT BID [facility] Last Admin: 10/19/19 21:04 Dose: 60 mg Scopolamine HBr (Transderm-Scop -) 1 patch TD Q72H [facility] Last Admin: 10/19/19 21:05 Dose: 1 patch Senna (Senna Oral Solution -) 8.8 mg GT HS [facility] Last Admin: 10/19/19 21:04 Dose: 8.8 mg Laboratory Results - last 24 hr 10/19/19 10/19/19 10/19/19 11:18 16:00 23:29 POC Glucometer 109 220 64 10/19/19 10/20/19 10/20/19 23:37 01:18 05:41 POC Glucometer 73 92 127 Microbiology 10/14/19 12:40 Blood - Peripheral Venous Blood Culture - Final NO GROWTH AFTER 5 DAYS INCUBATION 10/14/19 12:54 Blood - Peripheral Venous Blood Culture - Final NO GROWTH AFTER 5 DAYS INCUBATION 10/15/19 08:22 Sputum - Oropharynx Suctioned Sputum Gram Stain - Final 10/15/19 08:22 Sputum - Oropharynx Suctioned Sputum Sputum Culture - Preliminary Non Lactose Fermenting Gnb Klebsiella Pneumoniae - Esbl Pseudomonas Aeruginosa 10/12/19 17:57 Blood - Peripheral Venous Blood Culture - Final NO GROWTH AFTER 5 DAYS INCUBATION 10/12/19 17:17 Blood - Peripheral Venous Blood Culture - Final Staph Hominis Sub Sp Hominis 10/15/19 04:00 Urine For Antigen Detection Legionella Antigen - Final 10/15/19 04:00 Urine For Antigen Detection Streptococcus pneumoniae Antigen (M - Final 10/12/19 23:00 Urine - Urine Clean Catch Urine Culture - Final NO GROWTH OBTAINED ASSESSMENT AND PLAN: 49 yom with PMHx of multiple intellectual disabilities, seizure, cerebral palsy , asthma, diaphragmatic hernia, diabetes insipidus, gastrostomy tube admitted with right multifocal pna and sepsis -Acute Right multifocal Pneumonia, suspect aspiration -Acute hypoxic respiratory failure -Sepsis -Acute urinary retention -constipation, resolved -Tube feed leak around PEG site -Coag neg staph bacteremia 1/2, suspect contamination -Cerebral palsy -Seizure disorder -Asthma -Diaphragmatic hernia -Diabetes Insipidus Plan: Afebrile, normal WBC Respiratory status improved. off prednisone. Sputum cx noted. s/p 5 days of zosyn. levaquin for 5-7 days. Repeat blood cx neg. Pulmonary input noted. Scopolamine patch. Frequent suctioning/aspiration precautions. Chest PT as able. Oxygen prn Tolerating tube feeds, constipation resolved. Gi input noted,external bolster and respositioning to avoid tube feed leak. CT A/P noted. Aggressive bowel regimen. Unable to give flomax via G tube Voiding trial today. Off IVF. Seizure precautions. Continue home keppra/phenobarbital. DVTPPX heparin dispo dc back to [place] in 1-2 days if improved and urinary retention concerns resolved. Discussed with nursing.
[2019-10-20] MEDS: ALBUTEROL SO4 2.5/IPRATROPIUM 0.5 INH SOL 3 ML VIAL.NEB. NEB SCH ×4 (08:08→20:10)
--- NOTE | 2019-10-20 08:13 | CONS ---
DATE OF CONSULTATION: 10/19/2019 Patient is a 49-year-old gentleman with severe MR who was admitted with a respiratory problem. Over the course of the stay in the hospital the patient had a Dean placed which was removed about a week ago and, while it seemed that he was voiding at one point after the Dean was out for a period of time, a bladder scan was performed and showed that he had 750 mL in the bladder at which point I was called and suggested that the patient have the catheter reinserted. Patient is unable to provide any history. Examination of the patient reveals a 49-year-old in no distress who, however, has severe contractures. While his prostate is not very large on rectal exam, patient does have quite a bit of stool in the rectum. Dean is in place and draining clear yellow urine. I think considering this patient's overall mental status and inability to communicate it is probably safest for him to remain on catheter drainage. If at all possible he can be maintained, particularly at the [facility] on intermittent catheterization rather than being left with an indwelling Dean. Placing a suprapubic tube in this patient would not be easy given his contractures. It is possible that once he has fully recovered and in his own environment that they might be able to give him another extended trial of voiding to see if in fact he does not get distended. He would need to be maintained on Flomax at that time. Unfortunately, the patient does not seem able to provide any assistance regarding his management or to report on whether or not he is uncomfortable or distended or having difficulty voiding. Again, at the present time the safest thing seems to be to leave him with an indwelling Dean. He can be placed on Flomax with the thought that after he returns to his facility, if he seems to have stabilized, they can give him another trial of voiding at that time. At the present time there are no plans for any intervention. MD NILS KAT/[id number]
[2019-10-20] MEDS: MAGNESIUM HYDROX 2400MG/30ML ORAL SUSPENSION 30 ML CUP GT SCH (09:56)
[2019-10-20] MEDS: ENOXAPARIN NA (PORCINE) 40 MG/0.4 ML DISP.SYRIN SQ SCH (09:56)
[2019-10-20] MEDS: DOCUSATE NA 100 MG/10 ML UNIT-DOSE CUPS PO SCH ×2 (09:57→21:25)
[2019-10-20] MEDS: CALCIUM 500MG/VIT-D 200 UNITS COMBO TABLET (FP) PO SCH ×2 (09:57→21:25)
[2019-10-20] MEDS: PHENobarbital 30 MG TABLET GT SCH ×4 (09:57→21:26)
[2019-10-20] MEDS: levETIRAcetam 500 MG/5 ML ORAL SOLUTION (UNIT-DOSE CUPS) GT SCH ×2 (09:58→21:26)
--- NOTE | 2019-10-20 11:38 | PN ---
Progress Note, Physician History of Present Illness: pulmonary awake,alert,comfortable,less congested,resp distress - Current Medication List Current Medications: Active Medications Albuterol/Ipratropium (Duoneb -) 1 amp NEB RQID [facility] Last Admin: 10/20/19 08:08 Dose: 1 amp Calcium Carbonate/Cholecalciferol (Os-Nabor 500+D -) 1 tab PO BID [facility] Last Admin: 10/20/19 09:57 Dose: 1 tab Docusate Sodium (Colace Liquid -) 100 mg PO BID [facility] Last Admin: 10/20/19 09:57 Dose: 100 mg Enoxaparin Sodium (Lovenox -) 40 mg SQ DAILY [facility] Last Admin: 10/20/19 09:56 Dose: 40 mg Famotidine (Pepcid) 40 mg PEG HS [facility] Last Admin: 10/19/19 21:05 Dose: 40 mg Levofloxacin (Levaquin 250 Mg Premixed Ivpb -) 250 mg in 50 mls @ 50 mls/hr IVPB DAILY [facility]; Protocol Last Admin: 10/20/19 09:57 Dose: 50 mls/hr Levetiracetam (Keppra Oral Solution -) 250 mg GT BID [facility] Last Admin: 10/20/19 09:58 Dose: 250 mg Magnesium Hydroxide (Milk Of Magnesia -) 30 ml GT DAILY [facility] Last Admin: 10/20/19 09:56 Dose: 30 ml Phenobarbital (Phenobarbital -) 15 mg GT BID [facility] Last Admin: 10/20/19 09:57 Dose: 15 mg Phenobarbital (Phenobarbital -) 60 mg GT BID [facility] Last Admin: 10/20/19 09:57 Dose: 60 mg Scopolamine HBr (Transderm-Scop -) 1 patch TD Q72H [facility] Last Admin: 10/19/19 21:05 Dose: 1 patch Senna (Senna Oral Solution -) 8.8 mg GT HS [facility] Last Admin: 10/19/19 21:04 Dose: 8.8 mg - Objective Vital Signs: Vital Signs Temperature 98.7 F 10/20/19 09:55 Pulse Rate 95 H 10/20/19 09:55 Respiratory Rate 20 10/20/19 09:55 Blood Pressure 101/62 10/20/19 09:55 O2 Sat by Pulse Oximetry (%) 97 10/20/19 11:09 Constitutional: Yes: Well Nourished, Calm Eyes: Yes: WNL HENT: Yes: WNL Neck: Yes: WNL Cardiovascular: Yes: Regular Rate and Rhythm, S1, S2 Respiratory: Yes: Rhonchi (few rhonchi) Gastrointestinal: Yes: Normal Bowel Sounds, Soft Extremities: Yes: Shortened, Other (contracted) Edema: No Labs: CBC, BMP Problem List - Problems (1) Acute hypoxemic respiratory failure Code(s): J96.01 - ACUTE RESPIRATORY FAILURE WITH HYPOXIA (2) Pneumonia Code(s): J18.9 - PNEUMONIA, UNSPECIFIED ORGANISM (3) Sepsis Code(s): A41.9 - SEPSIS, UNSPECIFIED ORGANISM Qualifiers: Sepsis type: sepsis due to unspecified organism Sepsis acute organ dysfunction status: unspecified Qualified Code(s): A41.9 - Sepsis, unspecified organism (4) Asthma Code(s): J45.909 - UNSPECIFIED ASTHMA, UNCOMPLICATED (5) Cerebral palsy Code(s): G80.9 - CEREBRAL PALSY, UNSPECIFIED Assessment/Plan Problem List - Problems (1) Pneumonia Code(s): J18.9 - PNEUMONIA, UNSPECIFIED ORGANISM Assessment/Plan Acute Hypoxic Respiratory Failure improved Pneumonia likely Aspiration Asthma Cerebral Palsy Mental Retardation Seizure Disorder - Antibiotics per ID - O2 as needed - inhaled bronchodilators - aspiration precautions - DVT prophylaxis DR NARVAEZ
[2019-10-20] MEDS ORDERED: PT OWN MED DRAWER 7, Y5N ONE ×2 (12:16→21:09)
--- NOTE | 2019-10-20 18:35 | PN ---
Physical Exam: SUBJECTIVE: Patient seen and examined. No acute events overnight. Patient had BM this morning. OBJECTIVE: Vital Signs Period Temp Pulse Resp BP Sys/Harrison Pulse Ox Last 24 Hr 98.6 F-99.0 F 77-95 18-22 101-117/62-67 96-100 GENERAL: awake HEAD: Normal with no signs of trauma. EYES: PERRL, EOMI, no scleral icterus EARS, NOSE, THROAT: Dry mucous membranes, thick secretions NECK: supple. trachea midline, no cervical lymphadenopathy LUNGS: coarse breath sounds bilaterally, no accessory muscle use HEART: Regular rate and rhythm, normal S1 and S2 without murmur, rub or gallop. ABDOMEN: Soft, nontender, not distended, normoactive bowel sounds. PEG tube in place with some seepage noted and surrounding erythema MUSCULOSKELETAL: contracted upper and lower extremities EXTREMITIES: 2+ pulses, warm, well-perfused. No peripheral edema. SKIN: Warm, dry Laboratory Results - last 24 hr 10/19/19 10/19/19 10/20/19 23:29 23:37 01:18 POC Glucometer 64 73 92 10/20/19 10/20/19 10/20/19 05:41 11:45 17:08 POC Glucometer 127 109 130 Active Medications Generic Name Dose Route Start Last Admin Trade Name Freq PRN Reason Stop Dose Admin Albuterol/Ipratropium 1 amp 10/16/19 12:00 10/20/19 16:32 Duoneb - NEB 1 amp RQID JO[facility] ENRIQUE Administration Calcium Carbonate/Cholecalciferol 1 tab 10/14/19 10:00 10/20/19 09:57 Os-Nabor 500+D - PO 1 tab BID JOSE ENRIQUE Administration Docusate Sodium 100 mg 10/16/19 10:00 10/20/19 09:57 Colace Liquid - PO 100 mg BID JOSE ENRIQUE Administration Enoxaparin Sodium 40 mg 10/20/19 10:00 10/20/19 09:56 Lovenox - SQ 40 mg DAILY JOSE ENRIQUE Administration Famotidine 40 mg 10/13/19 22:00 10/19/19 21:05 Pepcid PEG 40 mg HS JOSE ENRIQUE Administration Levofloxacin 250 mg in 50 mls @ 50 mls/hr 10/19/19 10:00 10/20/19 09:57 Levaquin 250 Mg Premixed Ivpb - IVPB 50 mls/hr DAILY JOSE ENRIQUE Administration Protocol Levetiracetam 250 mg 10/13/19 22:00 10/20/19 09:58 Keppra Oral Solution - GT 250 mg BID JOSE ENRIQUE Administration Magnesium Hydroxide 30 ml 10/14/19 10:00 10/20/19 09:56 Milk Of Magnesia - GT 30 ml DAILY JOSE ENRIQUE Administration Phenobarbital 15 mg 10/13/19 22:00 10/20/19 09:57 Phenobarbital - GT 15 mg BID JOSE ENRIQUE Administration Phenobarbital 60 mg 10/13/19 22:00 10/20/19 09:57 Phenobarbital - GT 60 mg BID JOSE ENRIQUE Administration Scopolamine HBr 1 patch 10/13/19 22:00 10/19/19 21:05 Transderm-Scop - TD 1 patch Q72H JOSE ENRIQUE Administration Senna 8.8 mg 10/15/19 22:00 10/19/19 21:04 Senna Oral Solution - GT 8.8 mg HS JOSE ENRIQUE Administration ASSESSMENT/PLAN: 49 y/o/m with PMHx of multiple intellectual disabilities, seizure, cerebral palsy, asthma, diaphragmatic hernia, diabetes insipidus, gastrostomy tube presenting from [facility] with hypoxia. Admitted for sepsis 2/2 pneumonia. #Sepsis 2/2 aspiration PNA - Leukocytosis resolved - Chest CT on admission showing patchy infiltrate in right lung suggestive of aspiration pneumonia - Sputum Cx - non lactose fermenting GNB, lactose fermenting neg bacilli, presumptive Pseudomonas spec. - Started on Levaquin (10/19) - Continue Zosyn (started on 09/13) - Discontinued Vancomycin - ID consulted - Tylenol for fevers as needed - IVF - Steroids discontinued - Duonebs RTID - Chest PT, frequent suctioning ordered - patient likely aspirating on secretions as per Speech/Swallow eval - repeat Blood cx negative, legionella antigen negative #Urinary retention - D/C [facility] hoffman today - Urology consulted, appreciate recs - CT A/P noted #PEG tube leakage - leakage noted from PEG tube insertion site - GI consulted, patient has had similar issue in the past - PEG tube adjusted by GI #Hypothermia 2/2 sepsis - resolved #Hypoalbuminemia likely 2/2 malnutrition - Patient with PEG tube in place - continue feeds to goal #Hx of Seizures - Continue Keppra, phenobarbital #Prophylaxis - Lovenox #FEN - monitor and replace electrolytes as needed - continue feeds to goal #Disposition - continue treatment, D/C back to [facility] in next few days pending further improvement Visit type - Emergency Visit Emergency Visit: Yes ED Registration Date: 10/12/19 Care time: The patient presented to the Emergency Department on the above date and was hospitalized for further evaluation of their emergent condition. - New Patient This patient is new to me today: No - Critical Care Critical Care patient: No ATTENDING PHYSICIAN STATEMENT I saw and evaluated the patient. I reviewed the resident's note and discussed the case with the resident. I agree with the resident's findings and plan as documented. SUBJECTIVE: OBJECTIVE: ASSESSMENT AND PLAN:
[2019-10-20] MEDS: FAMOTIDINE 40 MG/5 ML ORAL SUSPENSION PEG SCH (21:26)
[2019-10-20] MEDS: SENNOSIDES 8.8 MG/5 ML BULK BOTTLE GT SCH (21:26)
[2019-10-20] MEDS: NYSTATIN 500,000 UNITS/5 ML SUSPENSION PO SCH (23:15)
[2019-10-21] MEDS: NYSTATIN 500,000 UNITS/5 ML SUSPENSION PO SCH ×3 (05:18→17:40)
[2019-10-21 08:01] LABS: BLOOD UREA NITROGEN 17.3 mg/dL (7-18); CALCIUM 8.4 mg/dL (8.5-10.1); CREATININE 0.4 mg/dL (0.55-1.3); POTASSIUM 4.6 mmol/L (3.5-5.1)
[2019-10-21] MEDS: ALBUTEROL SO4 2.5/IPRATROPIUM 0.5 INH SOL 3 ML VIAL.NEB. NEB SCH ×3 (08:03→17:29)
[2019-10-21] MEDS ORDERED: PT OWN MED DRAWER 7, Y5N ONE (09:52)
[2019-10-21] MEDS: CALCIUM 500MG/VIT-D 200 UNITS COMBO TABLET (FP) PO SCH (10:25)
[2019-10-21] MEDS: DOCUSATE NA 100 MG/10 ML UNIT-DOSE CUPS PO SCH (10:25)
[2019-10-21] MEDS: PHENobarbital 30 MG TABLET GT SCH ×2 (10:25)
[2019-10-21] MEDS: MAGNESIUM HYDROX 2400MG/30ML ORAL SUSPENSION 30 ML CUP GT SCH (10:25)
[2019-10-21] MEDS: ENOXAPARIN NA (PORCINE) 40 MG/0.4 ML DISP.SYRIN SQ SCH (10:25)
[2019-10-21] MEDS: levETIRAcetam 500 MG/5 ML ORAL SOLUTION (UNIT-DOSE CUPS) GT SCH (10:26)
--- NOTE | 2019-10-21 10:44 | PN ---
Progress Note, Physician History of Present Illness: pulmonary awake,more congested today - Current Medication List Current Medications: Active Medications Albuterol/Ipratropium (Duoneb -) 1 amp NEB RQID [facility] Last Admin: 10/21/19 08:03 Dose: 1 amp Calcium Carbonate/Cholecalciferol (Os-Nabor 500+D -) 1 tab PO BID [facility] Last Admin: 10/20/19 21:25 Dose: 1 tab Docusate Sodium (Colace Liquid -) 100 mg PO BID [facility] Last Admin: 10/20/19 21:25 Dose: 100 mg Enoxaparin Sodium (Lovenox -) 40 mg SQ DAILY [facility] Last Admin: 10/20/19 09:56 Dose: 40 mg Famotidine (Pepcid) 40 mg PEG HS [facility] Last Admin: 10/20/19 21:26 Dose: 40 mg Levofloxacin (Levaquin 250 Mg Premixed Ivpb -) 250 mg in 50 mls @ 50 mls/hr IVPB DAILY [facility]; Protocol Last Admin: 10/20/19 09:57 Dose: 50 mls/hr Levetiracetam (Keppra Oral Solution -) 250 mg GT BID [facility] Last Admin: 10/20/19 21:26 Dose: 250 mg Magnesium Hydroxide (Milk Of Magnesia -) 30 ml GT DAILY [facility] Last Admin: 10/20/19 09:56 Dose: 30 ml Nystatin (Nystatin Oral Suspension -) 500,000 units PO Q6HPO [facility] Last Admin: 10/21/19 05:18 Dose: 500,000 units Phenobarbital (Phenobarbital -) 15 mg GT BID [facility] Last Admin: 10/20/19 21:25 Dose: 15 mg Phenobarbital (Phenobarbital -) 60 mg GT BID [facility] Last Admin: 10/20/19 21:26 Dose: 60 mg Scopolamine HBr (Transderm-Scop -) 1 patch TD Q72H [facility] Last Admin: 10/19/19 21:05 Dose: 1 patch Senna (Senna Oral Solution -) 8.8 mg GT HS [facility] Last Admin: 10/20/19 21:26 Dose: 8.8 mg - Objective Vital Signs: Vital Signs Temperature 98.2 F 10/21/19 10:06 Pulse Rate 79 10/21/19 10:06 Respiratory Rate 19 10/21/19 10:06 Blood Pressure 103/81 10/21/19 10:06 O2 Sat by Pulse Oximetry (%) 95 10/20/19 22:00 Constitutional: Yes: Calm, Thin Eyes: Yes: WNL HENT: Yes: WNL Neck: Yes: WNL Cardiovascular: Yes: Regular Rate and Rhythm, S1, S2 Respiratory: Yes: Rhonchi (increased damon rhonchi) Gastrointestinal: Yes: Normal Bowel Sounds, Soft Extremities: Yes: Shortened, Other (contracted) Labs: CBC, BMP 10/18/19 06:50 10/21/19 06:45 Problem List - Problems (1) Acute hypoxemic respiratory failure Code(s): J96.01 - ACUTE RESPIRATORY FAILURE WITH HYPOXIA (2) Pneumonia Code(s): J18.9 - PNEUMONIA, UNSPECIFIED ORGANISM (3) Sepsis Code(s): A41.9 - SEPSIS, UNSPECIFIED ORGANISM Qualifiers: Sepsis type: sepsis due to unspecified organism Sepsis acute organ dysfunction status: unspecified Qualified Code(s): A41.9 - Sepsis, unspecified organism (4) Asthma Code(s): J45.909 - UNSPECIFIED ASTHMA, UNCOMPLICATED (5) Cerebral palsy Code(s): G80.9 - CEREBRAL PALSY, UNSPECIFIED Assessment/Plan Problem List - Problems (1) Pneumonia Code(s): J18.9 - PNEUMONIA, UNSPECIFIED ORGANISM Assessment/Plan Acute Hypoxic Respiratory Failure improved Pneumonia likely Aspiration Asthma Cerebral Palsy Mental Retardation Seizure Disorder - Antibiotics per ID - O2 as needed - inhaled bronchodilators - aspiration precautions - DVT prophylaxis - prednisone - DR NARVAEZ
[2019-10-21] MEDS ORDERED: predniSONE 10 MG TABLET (UD) PO SCH (11:30)
--- NOTE | 2019-10-21 12:45 | PN ---
Teaching Attending Note Name of Resident: Fatmata Willis ATTENDING PHYSICIAN STATEMENT I saw and evaluated the patient. I reviewed the resident's note and discussed the case with the resident. I agree with the resident's findings and plan as documented with exceptions below. SUBJECTIVE: patient seen and examined. opens eyes, non verbal. OBJECTIVE: Vital Signs Period Temp Pulse Resp BP Sys/Harrison Pulse Ox Last 24 Hr 98.1 F-98.9 F 66-88 18-20 86-121/66-87 95-95 Intake & Output 10/18/19 10/19/19 10/20/19 10/21/19 23:59 23:59 23:59 23:59 Intake Total 922 2158 1856 504 Output Total 3500 1150 1200 0 Balance -2578 1008 656 504 General lying in bed, comfortable, no tachypnea or distress Neck: soft Chest: improved air entry, no rhonchi or rales appreciated Abdomen: soft, PEG site clean, no leakage around Extremities: contractures Home Medications Medication Instructions Recorded Albuterol 0.083% Nebulizer Margarita 1 neb NEB BID 10/13/19 [Ventolin 0.083%] Albuterol 2.5/Ipratropium 0.5 1 neb NEB Q4H 10/13/19 [Duoneb -] Bisacodyl Suppository [Dulcolax 10 mg RC PRN PRN 10/13/19 Suppository -] Calcium Citrate/Vitamin D3 2 tab GT BID 10/13/19 [Calcium Cit 315-Vit D3 250 Cpt] Clotrimazole [Lotrimin 1% Solution 1 applic TP BID 10/13/19 -] Diazepam Rectal Gel [Diastat 10 mg RC PRN PRN 10/13/19 *Rectal Gel*] Famotidine [Pepcid -] 40 mg PO HS 10/13/19 Magnesium Hydrox 2400MG/30Ml [Milk 30 ml PO ACDIN 10/13/19 of Magnesia -] Multivit-Min/Ferrous Gluconate 15 ml GT DAILY 10/13/19 [Centrum Multivit-Mineral Liq] Phenobarbital 16.2 mg GT BID 10/13/19 Phenobarbital 64.8 mg GT BID 10/13/19 Selenium Sulfide/Aloe Vera [Selsun 207 ml TP WEEKLY 10/13/19 Blue Moist 1% Shampoo] levETIRAcetam [levETIRAcetam ORAL 2.5 ml GT BID 10/13/19 SUSPENSION] Active Medications Albuterol/Ipratropium (Duoneb -) 1 amp NEB RQID [facility] Last Admin: 10/21/19 12:30 Dose: 1 amp Calcium Carbonate/Cholecalciferol (Os-Nabor 500+D -) 1 tab PO BID [facility] Last Admin: 10/21/19 10:25 Dose: 1 tab Docusate Sodium (Colace Liquid -) 100 mg PO BID [facility] Last Admin: 10/21/19 10:25 Dose: 100 mg Enoxaparin Sodium (Lovenox -) 40 mg SQ DAILY [facility] Last Admin: 10/21/19 10:25 Dose: 40 mg Famotidine (Pepcid) 40 mg PEG HS [facility] Last Admin: 10/20/19 21:26 Dose: 40 mg Levofloxacin (Levaquin 250 Mg Premixed Ivpb -) 250 mg in 50 mls @ 50 mls/hr IVPB DAILY [facility]; Protocol Last Admin: 10/21/19 10:26 Dose: 50 mls/hr Levetiracetam (Keppra Oral Solution -) 250 mg GT BID [facility] Last Admin: 10/21/19 10:26 Dose: 250 mg Magnesium Hydroxide (Milk Of Magnesia -) 30 ml GT DAILY [facility] Last Admin: 10/21/19 10:25 Dose: 30 ml Nystatin (Nystatin Oral Suspension -) 500,000 units PO Q6HPO [facility] Last Admin: 10/21/19 11:52 Dose: 500,000 units Phenobarbital (Phenobarbital -) 15 mg GT BID [facility] Last Admin: 10/21/19 10:25 Dose: 15 mg Phenobarbital (Phenobarbital -) 60 mg GT BID [facility] Last Admin: 10/21/19 10:25 Dose: 60 mg Prednisone (Deltasone -) 30 mg PO DAILY [facility] Last Admin: 10/21/19 11:52 Dose: 30 mg Scopolamine HBr (Transderm-Scop -) 1 patch TD Q72H [facility] Last Admin: 10/19/19 21:05 Dose: 1 patch Senna (Senna Oral Solution -) 8.8 mg GT HS [facility] Last Admin: 10/20/19 21:26 Dose: 8.8 mg Laboratory Results - last 24 hr 10/20/19 10/20/19 10/21/19 17:08 23:11 05:25 Sodium Potassium Chloride Carbon Dioxide Anion Gap BUN Creatinine Est GFR (CKD-EPI)AfAm Est GFR (CKD-EPI)NonAf POC Glucometer 130 92 113 Random Glucose Calcium 10/21/19 10/21/19 06:45 12:26 Sodium 134 L Potassium 4.6 Chloride 103 Carbon Dioxide 24 Anion Gap 7 L BUN 17.3 Creatinine 0.4 L Est GFR (CKD-EPI)AfAm 162.79 Est GFR (CKD-EPI)NonAf 140.45 POC Glucometer 90 Random Glucose 95 Calcium 8.4 L Microbiology 10/15/19 08:22 Sputum - Oropharynx Suctioned Sputum Gram Stain - Final 10/15/19 08:22 Sputum - Oropharynx Suctioned Sputum Sputum Culture - Final Citrobacter Koseri Klebsiella Pneumoniae - Esbl Pseudomonas Aeruginosa 10/14/19 12:40 Blood - Peripheral Venous Blood Culture - Final NO GROWTH AFTER 5 DAYS INCUBATION 10/14/19 12:54 Blood - Peripheral Venous Blood Culture - Final NO GROWTH AFTER 5 DAYS INCUBATION 10/12/19 17:57 Blood - Peripheral Venous Blood Culture - Final NO GROWTH AFTER 5 DAYS INCUBATION 10/12/19 17:17 Blood - Peripheral Venous Blood Culture - Final Staph Hominis Sub Sp Hominis 10/15/19 04:00 Urine For Antigen Detection Legionella Antigen - Final 10/15/19 04:00 Urine For Antigen Detection Streptococcus pneumoniae Antigen (M - Final 10/12/19 23:00 Urine - Urine Clean Catch Urine Culture - Final NO GROWTH OBTAINED ASSESSMENT AND PLAN: 49 yom with PMHx of multiple intellectual disabilities, seizure, cerebral palsy , asthma, diaphragmatic hernia, diabetes insipidus, gastrostomy tube admitted with right multifocal pna and sepsis -Acute Right multifocal Pneumonia, suspect aspiration -Acute hypoxic respiratory failure -Sepsis -Acute urinary retention -constipation, resolved -Tube feed leak around PEG site -Coag neg staph bacteremia 1/2, suspect contamination -Cerebral palsy -Seizure disorder -Asthma -Diaphragmatic hernia -Diabetes Insipidus Plan: Failed voiding trial, re-insert hoffman. Continue ongoing bowel regimen Outpatient voiding trial and urology follow up, discussed with [facility]. Breathing stable, no new fevers. dc on levaquin. Off prednisone Scopoalmine patch Continue home anti-epileptics Dc back to [facility] with hoffman with urology follow up. Hoffman needs and follow up discussed with Sanjeev and patient accepted back.
--- NOTE | 2019-10-21 13:30 | DS ---
Physical Exam: SUBJECTIVE: Patient seen and examined OBJECTIVE: Vital Signs Period Temp Pulse Resp BP Sys/Harrison Pulse Ox Last 24 Hr 98.1 F-98.9 F 66-88 18-20 86-121/66-87 95-96 PHYSICAL EXAM GENERAL: awake HEAD: Normal with no signs of trauma. EYES: PERRL, EOMI, no scleral icterus EARS, NOSE, THROAT: Dry mucous membranes, thick secretions NECK: supple. trachea midline, no cervical lymphadenopathy LUNGS: coarse breath sounds bilaterally, no accessory muscle use HEART: Regular rate and rhythm, normal S1 and S2 without murmur, rub or gallop. ABDOMEN: Soft, nontender, not distended, normoactive bowel sounds. PEG tube in place with some seepage noted and surrounding erythema MUSCULOSKELETAL: contracted upper and lower extremities EXTREMITIES: 2+ pulses, warm, well-perfused. No peripheral edema. SKIN: Warm, dry LABS Laboratory Results - last 24 hr 10/20/19 10/20/19 10/21/19 17:08 23:11 05:25 Sodium Potassium Chloride Carbon Dioxide Anion Gap BUN Creatinine Est GFR (CKD-EPI)AfAm Est GFR (CKD-EPI)NonAf POC Glucometer 130 92 113 Random Glucose Calcium 10/21/19 10/21/19 06:45 12:26 Sodium 134 L Potassium 4.6 Chloride 103 Carbon Dioxide 24 Anion Gap 7 L BUN 17.3 Creatinine 0.4 L Est GFR (CKD-EPI)AfAm 162.79 Est GFR (CKD-EPI)NonAf 140.45 POC Glucometer 90 Random Glucose 95 Calcium 8.4 L HOSPITAL COURSE: Date of Admission:10/12/19 Date of Discharge: 10/21/19 49 y/o/m with PMHx of multiple intellectual disabilities, seizure, cerebral palsy, asthma, diaphragmatic hernia, diabetes insipidus, gastrostomy tube presenting from [facility] [place][note 2] with hypoxia. Admitted for sepsis 2/2 pneumonia. #Sepsis 2/2 aspiration PNA - Leukocytosis resolved - Chest CT on admission showing patchy infiltrate in right lung suggestive of aspiration pneumonia - Sputum Cx - non lactose fermenting GNB, lactose fermenting neg bacilli, presumptive Pseudomonas spec. - Started on Levaquin (10/19) - Continue Zosyn (started on 09/13) - Discontinued Vancomycin - ID consulted - Tylenol for fevers as needed - IVF - Steroids discontinued - Duonebs RTID - Chest PT, frequent suctioning ordered - patient likely aspirating on secretions as per Speech/Swallow eval - repeat Blood cx negative, legionella antigen negative #Urinary retention - D/C [facility] today - Urology consulted, appreciate recs - CT A/P noted #PEG tube leakage - leakage noted from PEG tube insertion site - GI consulted, patient has had similar issue in the past - PEG tube adjusted by GI #Hypothermia 2/2 sepsis - resolved #Hypoalbuminemia likely 2/2 malnutrition - Patient with PEG tube in place - continue feeds to goal #Hx of Seizures - Continue Keppra, phenobarbital #Prophylaxis - Lovenox #FEN - monitor and replace electrolytes as needed - continue feeds to goal #Disposition - stable for discharge to [facility] Minutes to complete discharge: 36 Discharge Summary Problems reviewed: Yes Reason For Visit: SEPSIS Current Active Problems Acute hypoxemic respiratory failure (Acute) Pneumonia (Acute) Sepsis (Acute) Asthma (Chronic) Cerebral palsy (Chronic) Condition: Improved - Instructions Diet, Activity, Other Instructions: You presented to the hospital with increased secretions and a productive cough and were found to have a pneumonia. You were treated for the pneumonia with antibiotics and steroids. You will be discharged with antibiotics as directed below. While in the hospital you were found to have urinary retention which required intermittent straight catheter and hoffman catheter to release urine. You will need further urology follow up to assess the cause of the urinary retention, until then we recommend intermittent straight catheter to relieve urine as needed. Medication Changes: 1. Continue taking Levaquin via GT tube for 4 more days. Follow up with the following physicians: 1. Please follow up with your primary care provider when you return back to [facility]. 2. Please follow up with a Urologist for further evaluation of your urinary retention, a referral has been included in your paperwork. Activity and Diet 1. You are being discharged back to [facility] for continuing care. 2. Recommend frequent suctioning to decrease the chance of aspiration. 3. Recommend intermittent straight catheter as needed for urinary retention. Continue all your other medications as prescribed Please return to the ER if you have any signs or symptoms of chest pain, shortness of breath, uncontrollable fever, chills, nausea, vomiting, numbness, tingling, or weakness in any part of your body, changes in vision, or slurred speech. Please return to the ER if symptoms persist, worsen, or new symptoms arise. Referrals: Jaguar Pace MD [Staff Physician] - Disposition: ASSISTED FACILITY - Home Medications Comprehensive Discharge Medication List: Ambulatory Orders Albuterol 0.083% Nebulizer Margarita [Ventolin 0.083% Nebulizer Soln -] 1 neb NEB BID 10/13/19 Albuterol 2.5/Ipratropium 0.5 [Duoneb -] 1 neb NEB Q4H 10/13/19 Bisacodyl Suppository [Dulcolax Suppository -] 10 mg RC PRN PRN 10/13/19 Calcium Citrate/Vitamin D3 [Calcium Cit 315-Vit D3 250 Cpt] 2 tab GT BID Clotrimazole [Lotrimin -] 1 applic TP BID 10/13/19 Diazepam Rectal Gel [Diastat Rectal Gel -] 10 mg RC PRN PRN 10/13/19 Famotidine [Pepcid -] 40 mg PO HS 10/13/19 Magnesium Hydrox 2400MG/30Ml [Milk of Magnesia -] 30 ml PO ACDIN 10/13/19 Multivit-Min/Ferrous Gluconate [Centrum Multivit-Mineral Liq] 15 ml GT DAILY Phenobarbital 16.2 mg GT BID 10/13/19 Phenobarbital 64.8 mg GT BID 10/13/19 Selenium Sulfide/Aloe Vera [Selsun Blue Moist 1% Shampoo] 207 ml TP WEEKLY 10/13 levETIRAcetam [levETIRAcetam ORAL SUSPENSION] 2.5 ml GT BID 10/13/19 Famotidine [Pepcid] 40 mg PEG HS oral.susp 10/21/19 Magnesium Hydrox 2400MG/30Ml [Milk of Magnesia -] 30 ml GT DAILY cup 10/21/19 levETIRAcetam [Keppra Oral Solution -] 250 mg GT BID cup 10/21/19 levoFLOXacin [Levaquin -] 250 mg PO DAILY 4 Days #14 tablet 10/21/19 This patient is new to me today: No Emergency Visit: Yes ED Registration Date: 10/12/19 Care time: The patient presented to the Emergency Department on the above date and was hospitalized for further evaluation of their emergent condition. - Discharge Referral Referred to [facility] No ATTENDING PHYSICIAN STATEMENT I saw and evaluated the patient. I reviewed the resident's note and discussed the case with the resident. I agree with the resident's findings and plan as documented. SUBJECTIVE: OBJECTIVE: ASSESSMENT AND PLAN:
--- NOTE | 2019-10-21 18:17 | DS ---
Physical Exam: SUBJECTIVE: Patient seen and examined. No acute events overnight. Patient sleeping during interview. Less secretions noted. OBJECTIVE: Vital Signs Period Temp Pulse Resp BP Sys/Harrison Pulse Ox Last 24 Hr 98.2 F-98.9 F 66-101 18-20 103-121/69-87 95-96 PHYSICAL EXAM GENERAL: awake HEAD: Normal with no signs of trauma. EYES: PERRL, EOMI, no scleral icterus EARS, NOSE, THROAT: Dry mucous membranes NECK: supple. trachea midline, no cervical lymphadenopathy LUNGS: clear to auscultation B/L, no accessory muscle use HEART: Regular rate and rhythm, normal S1 and S2 without murmur, rub or gallop. ABDOMEN: Soft, nontender, not distended, normoactive bowel sounds. PEG tube in place with some seepage noted and surrounding erythema MUSCULOSKELETAL: contracted upper and lower extremities EXTREMITIES: 2+ pulses, warm, well-perfused. No peripheral edema. SKIN: Warm, dry LABS Laboratory Results - last 24 hr 10/20/19 10/21/19 10/21/19 23:11 05:25 06:45 Sodium 134 L Potassium 4.6 Chloride 103 Carbon Dioxide 24 Anion Gap 7 L BUN 17.3 Creatinine 0.4 L Est GFR (CKD-EPI)AfAm 162.79 Est GFR (CKD-EPI)NonAf 140.45 POC Glucometer 92 113 Random Glucose 95 Calcium 8.4 L 10/21/19 10/21/19 12:26 17:42 Sodium Potassium Chloride Carbon Dioxide Anion Gap BUN Creatinine Est GFR (CKD-EPI)AfAm Est GFR (CKD-EPI)NonAf POC Glucometer 90 131 Random Glucose Calcium HOSPITAL COURSE: Date of Admission:10/12/19 Date of Discharge: 10/21/19 49 y/o/m with PMHx of multiple intellectual disabilities, seizure, cerebral palsy, asthma, diaphragmatic hernia, diabetes insipidus, gastrostomy tube presenting from [facility] with hypoxia. Admitted for sepsis 2/2 pneumonia. Patient had a Chest CT on admission showing patchy infiltrate in right lung suggestive of aspiration pneumonia. Started on Zosyn initially and Levaquin was added in addition. Patient completed a short course of Prednisone and duonebs were given RQID with improvement in respiratory status. Patient seen by speech/ swallow and determined to likely be aspirating on secretions. Patient noted to have urinary retention, straight cathed multiple times as he failed TOV. CT AP and bladder U/S completed without any evidence of obstruction. Patient sent back to [facility] with hoffman in place and directions to follow up with Urology for further workup. Discharged on 4 more days of Levaquin. While admitted patient's peg tube was noted to be leaking, seen by GI with PEG tube repositioned. Patient stable for discharge back to [facility]. Minutes to complete discharge: 36 Discharge Summary Problems reviewed: Yes Reason For Visit: SEPSIS Current Active Problems Acute hypoxemic respiratory failure (Acute) Pneumonia (Acute) Sepsis (Acute) Asthma (Chronic) Cerebral palsy (Chronic) Condition: Stable - Instructions Diet, Activity, Other Instructions: You presented to the hospital with increased secretions and a productive cough and were found to have a pneumonia. You were treated for the pneumonia with antibiotics and steroids. On admission chest CT was done which showed infiltrates suspicious for pneumonia. You will be discharged with antibiotics as directed below. While in the hospital you were found to have urinary retention which required intermittent straight catheter and hoffman catheter to release urine. You will need further urology follow up to assess the cause of the urinary retention. You are being discharged with a hoffman catheter in place, we recommend keeping it in place until you follow up with a urologist within 1 week. You had an abdomen/pelvis CT performed while in the hospital which did not show any cause for urinary retention but did show moderate fecal retention. An ultrasound of your bladder was performed which also did not show any cause for retention. Medication Changes: 1. Continue taking Levaquin via GT tube for 4 more days. Follow up with the following physicians: 1. Please follow up with your primary care provider when you return back to [facility]. 2. Please follow up with a Urologist within 1 week for further evaluation of your urinary retention, a referral has been included in your paperwork if you do not have a urologist. Care instructions: 1. You are being discharged back to [facility] for continuing care. 2. Recommend frequent suctioning to decrease the chance of aspiration. 3. You are being discharged with a hoffman catheter in place due to urinary retention. It is important to follow up with a urologist within one week for further recommendations and voiding trial. 4. Avoid excessive traction on PEG Tube. Keep external bolster flush against the abdominal wall and do not place dressings under it. Continue all your other medications as prescribed Please return to the ER if you have any signs or symptoms of chest pain, shortness of breath, uncontrollable fever, chills, nausea, vomiting, numbness, tingling, or weakness in any part of your body, changes in vision, or slurred speech. Please return to the ER if symptoms persist, worsen, or new symptoms arise. Referrals: Jaguar Pace MD [Staff Physician] - Zelalem Fermin MD [Staff Physician] - Disposition: LONGTERM FACILITY - Home Medications Comprehensive Discharge Medication List: Ambulatory Orders Albuterol 0.083% Nebulizer Margarita [Ventolin 0.083% Nebulizer Soln -] 1 neb NEB BID 10/13/19 Albuterol 2.5/Ipratropium 0.5 [Duoneb -] 1 neb NEB Q4H 10/13/19 Bisacodyl Suppository [Dulcolax Suppository -] 10 mg RC PRN PRN 10/13/19 Calcium Citrate/Vitamin D3 [Calcium Cit 315-Vit D3 250 Cpt] 2 tab GT BID Clotrimazole [Lotrimin -] 1 applic TP BID 10/13/19 Diazepam Rectal Gel [Diastat Rectal Gel -] 10 mg RC PRN PRN 10/13/19 Famotidine [Pepcid -] 40 mg PO HS 10/13/19 Magnesium Hydrox 2400MG/30Ml [Milk of Magnesia -] 30 ml PO ACDIN 10/13/19 Multivit-Min/Ferrous Gluconate [Centrum Multivit-Mineral Liq] 15 ml GT DAILY Phenobarbital 16.2 mg GT BID 10/13/19 Phenobarbital 64.8 mg GT BID 10/13/19 Selenium Sulfide/Aloe Vera [Selsun Blue Moist 1% Shampoo] 207 ml TP WEEKLY 10/13 levETIRAcetam [levETIRAcetam ORAL SUSPENSION] 2.5 ml GT BID 10/13/19 Famotidine [Pepcid] 40 mg PEG HS oral.susp 10/21/19 Magnesium Hydrox 2400MG/30Ml [Milk of Magnesia -] 30 ml GT DAILY cup 10/21/19 levETIRAcetam [Keppra Oral Solution -] 250 mg GT BID cup 10/21/19 levoFLOXacin [Levaquin -] 250 mg PO DAILY #4 tablet 10/21/19 This patient is new to me today: No Emergency Visit: Yes ED Registration Date: 10/12/19 Care time: The patient presented to the Emergency Department on the above date and was hospitalized for further evaluation of their emergent condition. Critical Care patient: No - Discharge Referral Referred to [facility] Med P.C.: No ATTENDING PHYSICIAN STATEMENT I saw and evaluated the patient. I reviewed the resident's note and discussed the case with the resident. I agree with the resident's findings and plan as documented. SUBJECTIVE: OBJECTIVE: ASSESSMENT AND PLAN:
[2019-10-21] MEDS ORDERED: ACETAMINOPHEN 325 MG TABLET (FP) PO ONE (18:48)
[2019-10-21 18:49] VITALS: BP 111/63; PULSE 93; TEMP 99.4
== END 2019-10-21 19:07 | disposition home or self-care (01) | DRG 720 ==
LOC: JER 16:21 → JERBED 20:02 → J4S 10-13 21:26
PROVIDERS: ADMIT Internal Medicine; ATTEND Hospitalist
DX: A41.9 Sepsis, unspecified organism (principal); R68.0 Hypothermia, not associated with low environmental temperature; G80.9 Cerebral palsy, unspecified; F73 Profound intellectual disabilities; G80.0 Spastic quadriplegic cerebral palsy; E46 Unspecified protein-calorie malnutrition; E23.2 Diabetes insipidus; E88.09 Other disorders of plasma-protein metabolism, not elsewhere classified; K94.23 Gastrostomy malfunction; J69.0 Pneumonitis due to inhalation of food and vomit; J96.01 Acute respiratory failure with hypoxia; R33.9 Retention of urine, unspecified; J45.909 Unspecified asthma, uncomplicated; D72.829 Elevated white blood cell count, unspecified; K59.00 Constipation, unspecified; K44.9 Diaphragmatic hernia without obstruction or gangrene
CPT/HCPCS: 36415; 71045-TC-FY; 71250-TC; 74176-TC; 76856-TC; 80048; 80053; 81003; 82803; 82962; 83605; 84100; 84484; 85025; 85027; 85610; 85730; 87040; 87070; 87086; 87186; 87205; 87804; 87899; 93005; 93010; 94640; 97162-GP; 99285-25; J1644; J7030

== ENCOUNTER 2022-03-31 16:29 | Inpatient (IN) | payer OTHER ==
[2022-03-31 16:53] VITALS: BMI 25.0
[2022-03-31] MEDS ORDERED: SODIUM CHLORIDE 1,361 ML IV ONE (16:59)
[2022-03-31] MEDS ORDERED: ACETAMINOPHEN 1000 MG/100 ML BAG IVPB ONE (17:20)
[2022-03-31] MEDS ORDERED: VANCOMYCIN 1 GM in D5W (PRE-DOCKED) 1,000 MG/250 ML IVPB ONE (19:00)
[2022-03-31 19:12] LABS: VENOUS BASE EXCESS 0.4 mmol/L (-2-2); VENOUS O2 SATURATION 88.6 % (70-80); VENOUS PCO2 39.3 mmHg (38-52); VENOUS PH 7.418 (7.310-7.410)
[2022-03-31 19:25] LABS: HEMATOCRIT 41.4 % (35.4-49); LYMPH % 3.2 % (8-40); MCH 34.3 pg (25.7-33.7); MCHC 33.7 g/dl (32.0-35.9); MEAN CELL VOLUME 101.6 fl (80-96); MEAN PLT VOLUME 9.4 fl (7.5-11.1); MONO % 6.6 % (3.8-10.2); NEUT % 89.5 % (42.8-82.8); PLATELET COUNT 380 10^3/uL (134-434); RBC 4.07 M/mm3 (4.00-5.60); RDW 13.2 % (11.9-15.9); WHITE BLOOD COUNT 8.4 K/mm3 (4.0-10.0)
[2022-03-31 19:26] LABS: BASO % 0.1 % (0-2.0); EOS % 0.6 % (0-4.5)
[2022-03-31] MEDS ORDERED: VANCOMYCIN 1 GRAM (PRE-DOCKED) 1,000 MG/250 ML BAG IVPB ONE (19:32)
[2022-03-31] MEDS ORDERED: ACETAMINOPHEN INJECTION 100 ML IVPB ONE (19:32)
[2022-03-31 19:43] LABS: CHLORIDE 98 mmol/L (98-107); SODIUM 129 mmol/L (136-145)
[2022-03-31 19:45] LABS: ALBUMIN 2.9 g/dl (3.4-5.0); CALCIUM 9.3 mg/dL (8.5-10.1); CO2 26 mmol/L (21-32); GLUCOSE,RANDOM 74 mg/dL (74-106)
[2022-03-31 19:46] LABS: BLOOD UREA NITROGEN 12.7 mg/dL (7-18)
[2022-03-31 19:49] LABS: CREATININE 0.5 mg/dL (0.55-1.3)
[2022-03-31 19:50] LABS: BILIRUBIN,TOTAL 0.4 mg/dL (0.2-1)
[2022-03-31 19:51] LABS: ALK PHOS 178 U/L (45-117)
[2022-03-31 20:12] LABS: ANION GAP 5 MMOL/L (8-16); SGOT/AST 115 U/L (15-37); SGPT/ALT 43 U/L (13-61)
[2022-03-31] MEDS ORDERED: DEXAMETHASONE SOD PHOSPHATE 10 MG/1 ML VIAL IVPUSH ONE (20:53)
[2022-03-31] MEDS ORDERED: DEXAMETHASONE SOD PHOSPHATE 10 MG/1 ML VIAL ONE (21:08)
[2022-03-31 22:10] LABS: INR 1.15 (0.83-1.09); PROTHROMBIN TIME (PATIENT) 13.3 SEC (9.7-13.0)
[2022-03-31 22:12] LABS: ACTIVATED PTT 33.6 SECONDS (25.2-36.5)
[2022-03-31 22:19] LABS: CALCIUM 8.5 mg/dL (8.5-10.1)
[2022-03-31 22:20] LABS: BLOOD UREA NITROGEN 11.5 mg/dL (7-18)
[2022-03-31 22:23] LABS: CREATININE 0.5 mg/dL (0.55-1.3)
[2022-03-31] MEDS ORDERED: LORazepam 2 MG/ML SDV VIAL IVPUSH PRN (22:27)
[2022-03-31] MEDS ORDERED: BISACODYL 10 MG SUPP.RECT RC PRN (22:27)
[2022-03-31] MEDS ORDERED: ALBUTEROL SO4 HFA INHALER IH PRN (22:30)
[2022-03-31] MEDS ORDERED: PHENOBARBITAL 16.2 MG GT SCH (22:30)
[2022-03-31 22:35] LABS: PHOSPHOROUS 3.1 mg/dL (2.5-4.9)
[2022-04-01] MEDS ORDERED: ACETAMINOPHEN 1000 MG/100 ML BAG IVPB PRN (00:14)
[2022-04-01] MEDS: PHENobarbital 20 MG/5 ML UNIT-DOSE CUP GT SCH ×3 (00:33→22:50)
[2022-04-01] MEDS: levETIRAcetam 500 MG/5 ML ORAL SOLUTION (UNIT-DOSE CUPS) GT SCH ×3 (00:33→22:50)
[2022-04-01] MEDS ORDERED: guaiFENesin 200 MG/10 ML 10 ML UNIT-DOSE CUPS PO PRN (08:30)
[2022-04-01] MEDS ORDERED: CLOTRIMAZOLE 1%TOPICAL SOLUTION 30 ML BOTTLE TP SCH (10:00)
[2022-04-01] MEDS ORDERED: REMDESIVIR 200 MG in SODIUM CHLORIDE 250 ML IVPB ONE (10:30)
[2022-04-01] MEDS ORDERED: PHENobarbital 20 MG/5 ML UNIT-DOSE CUP ONE (10:56)
[2022-04-01] MEDS ORDERED: DEXAMETHASONE SOD PHOSPHATE 10 MG/1 ML VIAL ONE (10:56)
[2022-04-01] MEDS ORDERED: ENOXAPARIN NA (PORCINE) 40 MG/0.4 ML DISP.SYRIN SQ ONE (10:57)
[2022-04-01] MEDS: MULTIVIT-MINERALS ORAL LIQUID GT SCH (11:24)
[2022-04-01] MEDS: NYSTATIN POWDER 100,000 UNITS/GM - 15 GM TOPICAL POWDER TP SCH ×2 (11:26→22:50)
[2022-04-01] MEDS: DEXAMETHASONE SOD PHOSPHATE 10 MG/1 ML VIAL IVPB SCH (11:26)
[2022-04-01] MEDS: ENOXAPARIN NA (PORCINE) 40 MG/0.4 ML DISP.SYRIN SQ SCH (11:26)
[2022-04-01] MEDS: FAMOTIDINE 40 MG/5 ML ORAL SUSPENSION GT SCH ×2 (11:26→22:50)
[2022-04-01] MEDS: ZINC OXIDE 20% TOPICAL OINTMENT 30 GM TUBE TP SCH ×2 (11:27→22:50)
[2022-04-01 13:43] LABS: HEMATOCRIT 35.4 % (35.4-49)
[2022-04-01 13:45] LABS: HEMOGLOBIN 11.8 GM/dL (11.7-16.9); MCH 33.9 pg (25.7-33.7); MCHC 33.4 g/dl (32.0-35.9); MEAN CELL VOLUME 101.5 fl (80-96); PLATELET COUNT 289 10^3/uL (134-434); RBC 3.49 M/mm3 (4.00-5.60); WHITE BLOOD COUNT 15.7 K/mm3 (4.0-10.0)
[2022-04-01] MEDS ORDERED: diazePAM RECTAL GEL 10 MG KIT (PRE-CALIBRATED) RC PRN (13:56)
[2022-04-01 14:04] LABS: CALCIUM 8.7 mg/dL (8.5-10.1)
[2022-04-01 14:05] LABS: ALBUMIN 2.6 g/dl (3.4-5.0); BLOOD UREA NITROGEN 13.6 mg/dL (7-18); MAGNESIUM 1.9 mg/dL (1.8-2.4)
[2022-04-01 14:07] LABS: PHOSPHOROUS 3.7 mg/dL (2.5-4.9)
[2022-04-01 14:08] LABS: CREATININE 0.4 mg/dL (0.55-1.3)
[2022-04-01 14:09] LABS: BILIRUBIN,TOTAL 0.2 mg/dL (0.2-1); TOT PROT 7.2 g/dl (6.4-8.2)
[2022-04-01] MEDS: TIOTROPIUM BROMIDE 2.5 MCG (SPIRIVA) RESPIMAT INHALER IH SCH (14:15)
[2022-04-01 14:55] LABS: ANISOCYTOSIS 1+; MACROCYTOSIS 1+
[2022-04-01] MEDS: SCOPOLAMINE HYDROBROMIDE 1 PATCH PATCH.TD72 TD SCH (19:55)
[2022-04-01] MEDS: MUPIROCIN 2% TOPICAL OINTMENT 22 GM TUBE TP SCH ×2 (19:55→22:50)
[2022-04-01] MEDS ORDERED: VANCOMYCIN 1 GM/200 ML PREMIX BAG IVPB SCH (20:00)
[2022-04-01] MEDS ORDERED: MAGNESIUM HYDROX 2400MG/30ML ORAL SUSPENSION 30 ML CUP ONE (22:01)
[2022-04-01] MEDS ORDERED: FAMOTIDINE 20 MG TABLET ONE (22:01)
[2022-04-01] MEDS: MAGNESIUM HYDROX 2400MG/30ML ORAL SUSPENSION 30 ML CUP GT SCH (22:50)
[2022-04-02] MEDS ORDERED: PIPERACILLIN/TAZOBACTAM 3.375 GM VIAL IVPB ONE ×2 (09:59→17:12)
[2022-04-02] MEDS ORDERED: DEXTROSE 5%-WATER - 50 ML IVPB ONE ×2 (09:59→17:12)
[2022-04-02] MEDS: PIPERACILLIN/TAZOB 3.375 GM 3.375 GM in DEXTROSE 5%-WATER - 50 ML IVPB SCH ×2 (10:11→17:16)
[2022-04-02] MEDS: ENOXAPARIN NA (PORCINE) 40 MG/0.4 ML DISP.SYRIN SQ SCH (10:11)
[2022-04-02] MEDS: DEXAMETHASONE SOD PHOSPHATE 10 MG/1 ML VIAL IVPB SCH (10:11)
[2022-04-02] MEDS: PHENobarbital 20 MG/5 ML UNIT-DOSE CUP GT SCH ×2 (10:11→22:44)
[2022-04-02] MEDS: MULTIVIT-MINERALS ORAL LIQUID GT SCH (10:12)
[2022-04-02] MEDS: FAMOTIDINE 40 MG/5 ML ORAL SUSPENSION GT SCH ×2 (10:12→22:43)
[2022-04-02] MEDS: levETIRAcetam 500 MG/5 ML ORAL SOLUTION (UNIT-DOSE CUPS) GT SCH ×2 (10:12→22:44)
[2022-04-02] MEDS: MUPIROCIN 2% TOPICAL OINTMENT 22 GM TUBE TP SCH ×2 (10:13→22:44)
[2022-04-02] MEDS: TIOTROPIUM BROMIDE 2.5 MCG (SPIRIVA) RESPIMAT INHALER IH SCH (10:15)
[2022-04-02] MEDS: NYSTATIN POWDER 100,000 UNITS/GM - 15 GM TOPICAL POWDER TP SCH ×2 (10:15→22:44)
[2022-04-02] MEDS: ZINC OXIDE 20% TOPICAL OINTMENT 30 GM TUBE TP SCH ×2 (10:15→22:45)
[2022-04-02] MEDS: REMDESIVIR 100 MG in SODIUM CHLORIDE 250 ML IVPB SCH (11:56)
[2022-04-02 12:18] LABS: HEMATOCRIT 36.1 % (35.4-49); HEMOGLOBIN 12.1 GM/dL (11.7-16.9); MCH 34.3 pg (25.7-33.7); MCHC 33.6 g/dl (32.0-35.9); MEAN CELL VOLUME 102.1 fl (80-96); MEAN PLT VOLUME 9.7 fl (7.5-11.1); PLATELET COUNT 221 10^3/uL (134-434); RBC 3.53 M/mm3 (4.00-5.60); WHITE BLOOD COUNT 4.6 K/mm3 (4.0-10.0)
[2022-04-02 12:37] LABS: CALCIUM 8.5 mg/dL (8.5-10.1)
[2022-04-02 12:38] LABS: ALBUMIN 2.6 g/dl (3.4-5.0); BLOOD UREA NITROGEN 22.4 mg/dL (7-18); MAGNESIUM 1.9 mg/dL (1.8-2.4)
[2022-04-02 12:41] LABS: CREATININE 0.4 mg/dL (0.55-1.3); PHOSPHOROUS 2.9 mg/dL (2.5-4.9)
[2022-04-02 12:43] LABS: BILIRUBIN,TOTAL 0.2 mg/dL (0.2-1)
[2022-04-02] MEDS ORDERED: VANCOMYCIN 1 GM/200 ML PREMIX BAG IVPB SCH (20:00)
[2022-04-02] MEDS: MAGNESIUM HYDROX 2400MG/30ML ORAL SUSPENSION 30 ML CUP GT SCH (22:43)
[2022-04-03] MEDS ORDERED: DEXTROSE 5%-WATER - 50 ML IVPB ONE ×3 (03:42→16:47)
[2022-04-03] MEDS ORDERED: PIPERACILLIN/TAZOBACTAM 3.375 GM VIAL IVPB ONE ×3 (03:42→16:47)
[2022-04-03] MEDS: PIPERACILLIN/TAZOB 3.375 GM 3.375 GM in DEXTROSE 5%-WATER - 50 ML IVPB SCH ×3 (04:18→17:23)
[2022-04-03] MEDS: REMDESIVIR 100 MG in SODIUM CHLORIDE 250 ML IVPB SCH (10:24)
[2022-04-03] MEDS: ENOXAPARIN NA (PORCINE) 40 MG/0.4 ML DISP.SYRIN SQ SCH (10:24)
[2022-04-03] MEDS: DEXAMETHASONE SOD PHOSPHATE 10 MG/1 ML VIAL IVPB SCH (10:24)
[2022-04-03] MEDS: MUPIROCIN 2% TOPICAL OINTMENT 22 GM TUBE TP SCH ×2 (10:25→21:54)
[2022-04-03] MEDS: FAMOTIDINE 40 MG/5 ML ORAL SUSPENSION GT SCH ×2 (10:26→21:53)
[2022-04-03] MEDS: levETIRAcetam 500 MG/5 ML ORAL SOLUTION (UNIT-DOSE CUPS) GT SCH ×2 (10:26→21:53)
[2022-04-03] MEDS: MULTIVIT-MINERALS ORAL LIQUID GT SCH (10:26)
[2022-04-03] MEDS: PHENobarbital 20 MG/5 ML UNIT-DOSE CUP GT SCH ×2 (10:27→21:54)
[2022-04-03] MEDS: NYSTATIN POWDER 100,000 UNITS/GM - 15 GM TOPICAL POWDER TP SCH ×2 (10:27→21:54)
[2022-04-03] MEDS: ZINC OXIDE 20% TOPICAL OINTMENT 30 GM TUBE TP SCH ×2 (10:27→21:54)
[2022-04-03] MEDS: TIOTROPIUM BROMIDE 2.5 MCG (SPIRIVA) RESPIMAT INHALER IH SCH (10:27)
[2022-04-03 11:05] LABS: HEMATOCRIT 35.4 % (35.4-49); MCH 34.5 pg (25.7-33.7); MCHC 33.9 g/dl (32.0-35.9); MEAN CELL VOLUME 101.7 fl (80-96); MEAN PLT VOLUME 9.6 fl (7.5-11.1); PLATELET COUNT 311 10^3/uL (134-434); RBC 3.48 M/mm3 (4.00-5.60); RDW 13.2 % (11.9-15.9); WHITE BLOOD COUNT 3.7 K/mm3 (4.0-10.0)
[2022-04-03 11:20] LABS: CHLORIDE 100 mmol/L (98-107); SODIUM 136 mmol/L (136-145)
[2022-04-03 11:22] LABS: CALCIUM 8.2 mg/dL (8.5-10.1)
[2022-04-03 11:23] LABS: ALBUMIN 2.5 g/dl (3.4-5.0); ANION GAP 6 MMOL/L (8-16); BLOOD UREA NITROGEN 17.8 mg/dL (7-18); CO2 30 mmol/L (21-32); GLUCOSE,RANDOM 103 mg/dL (74-106); MAGNESIUM 2.1 mg/dL (1.8-2.4)
[2022-04-03 11:26] LABS: CREATININE 0.4 mg/dL (0.55-1.3); PHOSPHOROUS 2.8 mg/dL (2.5-4.9); SGOT/AST 55 U/L (15-37); SGPT/ALT 52 U/L (13-61)
[2022-04-03 11:28] LABS: BILIRUBIN,TOTAL < 0.1 mg/dL (0.2-1); TOT PROT 6.5 g/dl (6.4-8.2)
[2022-04-03 11:29] LABS: ALK PHOS 149 U/L (45-117)
[2022-04-03] MEDS: MAGNESIUM HYDROX 2400MG/30ML ORAL SUSPENSION 30 ML CUP GT SCH (21:53)
[2022-04-04] MEDS ORDERED: PIPERACILLIN/TAZOBACTAM 3.375 GM VIAL IVPB ONE ×3 (00:42→16:52)
[2022-04-04] MEDS ORDERED: DEXTROSE 5%-WATER - 50 ML IVPB ONE ×3 (00:43→16:53)
[2022-04-04] MEDS: PIPERACILLIN/TAZOB 3.375 GM 3.375 GM in DEXTROSE 5%-WATER - 50 ML IVPB SCH ×3 (03:00→17:15)
[2022-04-04] MEDS: ENOXAPARIN NA (PORCINE) 40 MG/0.4 ML DISP.SYRIN SQ SCH (10:00)
[2022-04-04] MEDS: PHENobarbital 20 MG/5 ML UNIT-DOSE CUP GT SCH ×2 (10:00→22:33)
[2022-04-04] MEDS: DEXAMETHASONE SOD PHOSPHATE 10 MG/1 ML VIAL IVPB SCH (10:01)
[2022-04-04] MEDS: FAMOTIDINE 40 MG/5 ML ORAL SUSPENSION GT SCH ×2 (10:01→22:34)
[2022-04-04] MEDS: levETIRAcetam 500 MG/5 ML ORAL SOLUTION (UNIT-DOSE CUPS) GT SCH ×2 (10:02→22:33)
[2022-04-04] MEDS: REMDESIVIR 100 MG in SODIUM CHLORIDE 250 ML IVPB SCH (10:02)
[2022-04-04] MEDS: MULTIVIT-MINERALS ORAL LIQUID GT SCH (10:02)
[2022-04-04] MEDS: AMINO ACIDS/PROTEIN HYDROLYS 30 ML LIQUID.PKT GT SCH (10:03)
[2022-04-04] MEDS: NYSTATIN POWDER 100,000 UNITS/GM - 15 GM TOPICAL POWDER TP SCH ×2 (10:03→22:35)
[2022-04-04] MEDS: ZINC OXIDE 20% TOPICAL OINTMENT 30 GM TUBE TP SCH ×2 (10:03→22:33)
[2022-04-04] MEDS: TIOTROPIUM BROMIDE 2.5 MCG (SPIRIVA) RESPIMAT INHALER IH SCH (10:03)
[2022-04-04] MEDS: MUPIROCIN 2% TOPICAL OINTMENT 22 GM TUBE TP SCH ×2 (10:03→22:35)
[2022-04-04] MEDS: SCOPOLAMINE HYDROBROMIDE 1 PATCH PATCH.TD72 TD SCH (14:01)
[2022-04-04 15:29] LABS: HEMATOCRIT 38.2 % (35.4-49); MCH 34.3 pg (25.7-33.7); MCHC 33.9 g/dl (32.0-35.9); MEAN CELL VOLUME 101.2 fl (80-96); PLATELET COUNT 388 10^3/uL (134-434); RBC 3.78 M/mm3 (4.00-5.60); RDW 13.4 % (11.9-15.9); WHITE BLOOD COUNT 5.5 K/mm3 (4.0-10.0)
[2022-04-04 16:09] LABS: CHLORIDE 97 mmol/L (98-107); SODIUM 134 mmol/L (136-145)
[2022-04-04 16:13] LABS: CALCIUM 8.5 mg/dL (8.5-10.1); GLUCOSE,RANDOM 121 mg/dL (74-106)
[2022-04-04 16:14] LABS: ALBUMIN 2.6 g/dl (3.4-5.0); ANION GAP 5 MMOL/L (8-16); CO2 32 mmol/L (21-32); MAGNESIUM 2.1 mg/dL (1.8-2.4)
[2022-04-04 16:17] LABS: CREATININE 0.5 mg/dL (0.55-1.3); PHOSPHOROUS 2.8 mg/dL (2.5-4.9); SGOT/AST 40 U/L (15-37); SGPT/ALT 45 U/L (13-61)
[2022-04-04 16:18] LABS: BILIRUBIN,TOTAL < 0.1 mg/dL (0.2-1)
[2022-04-04 16:20] LABS: ALK PHOS 150 U/L (45-117)
[2022-04-04] MEDS: MAGNESIUM HYDROX 2400MG/30ML ORAL SUSPENSION 30 ML CUP GT SCH (22:39)
[2022-04-05] LABS: BILIRUBIN,DIRECT < 0.1 mg/dL (0.0-0.2)
[2022-04-05] MEDS ORDERED: PIPERACILLIN/TAZOBACTAM 3.375 GM VIAL IVPB ONE ×3 (01:04→16:40)
[2022-04-05] MEDS ORDERED: DEXTROSE 5%-WATER - 50 ML IVPB ONE ×3 (01:05→16:40)
[2022-04-05] MEDS: PIPERACILLIN/TAZOB 3.375 GM 3.375 GM in DEXTROSE 5%-WATER - 50 ML IVPB SCH ×3 (02:08→17:23)
[2022-04-05 06:46] LABS: HEMATOCRIT 37.7 % (35.4-49); HEMOGLOBIN 12.8 GM/dL (11.7-16.9); MCH 34.3 pg (25.7-33.7); MCHC 33.8 g/dl (32.0-35.9); MEAN CELL VOLUME 101.4 fl (80-96); MEAN PLT VOLUME 9.9 fl (7.5-11.1); PLATELET COUNT 265 10^3/uL (134-434); RBC 3.72 M/mm3 (4.00-5.60); RDW 13.2 % (11.9-15.9); WHITE BLOOD COUNT 5.2 K/mm3 (4.0-10.0)
[2022-04-05 07:09] LABS: CALCIUM 8.3 mg/dL (8.5-10.1)
[2022-04-05 07:10] LABS: ALBUMIN 2.5 g/dl (3.4-5.0); BLOOD UREA NITROGEN 14.1 mg/dL (7-18)
[2022-04-05 07:12] LABS: MAGNESIUM 1.9 mg/dL (1.8-2.4)
[2022-04-05 07:13] LABS: CREATININE 0.3 mg/dL (0.55-1.3); PHOSPHOROUS 2.8 mg/dL (2.5-4.9)
[2022-04-05 07:15] LABS: BILIRUBIN,TOTAL 0.3 mg/dL (0.2-1)
[2022-04-05 07:17] LABS: TOT PROT 6.5 g/dl (6.4-8.2)
[2022-04-05] MEDS: REMDESIVIR 100 MG in SODIUM CHLORIDE 250 ML IVPB SCH (09:44)
[2022-04-05] MEDS: DEXAMETHASONE SOD PHOSPHATE 10 MG/1 ML VIAL IVPB SCH (09:45)
[2022-04-05] MEDS: ENOXAPARIN NA (PORCINE) 40 MG/0.4 ML DISP.SYRIN SQ SCH (09:45)
[2022-04-05] MEDS: PHENobarbital 20 MG/5 ML UNIT-DOSE CUP GT SCH ×2 (09:45→21:38)
[2022-04-05] MEDS: AMINO ACIDS/PROTEIN HYDROLYS 30 ML LIQUID.PKT GT SCH (09:45)
[2022-04-05] MEDS: levETIRAcetam 500 MG/5 ML ORAL SOLUTION (UNIT-DOSE CUPS) GT SCH ×2 (09:46→21:38)
[2022-04-05] MEDS: MULTIVIT-MINERALS ORAL LIQUID GT SCH (09:46)
[2022-04-05] MEDS: FAMOTIDINE 40 MG/5 ML ORAL SUSPENSION GT SCH ×2 (09:46→21:38)
[2022-04-05] MEDS: NYSTATIN POWDER 100,000 UNITS/GM - 15 GM TOPICAL POWDER TP SCH ×2 (09:47→21:38)
[2022-04-05] MEDS: MUPIROCIN 2% TOPICAL OINTMENT 22 GM TUBE TP SCH ×2 (09:47→21:39)
[2022-04-05] MEDS: TIOTROPIUM BROMIDE 2.5 MCG (SPIRIVA) RESPIMAT INHALER IH SCH (09:47)
[2022-04-05] MEDS: ZINC OXIDE 20% TOPICAL OINTMENT 30 GM TUBE TP SCH ×2 (09:48→21:39)
[2022-04-05] MEDS: MAGNESIUM HYDROX 2400MG/30ML ORAL SUSPENSION 30 ML CUP GT SCH (21:38)
[2022-04-06] MEDS ORDERED: PIPERACILLIN/TAZOBACTAM 3.375 GM VIAL IVPB ONE ×3 (00:57→16:33)
[2022-04-06] MEDS ORDERED: DEXTROSE 5%-WATER - 50 ML IVPB ONE ×3 (00:57→16:33)
[2022-04-06] MEDS: PIPERACILLIN/TAZOB 3.375 GM 3.375 GM in DEXTROSE 5%-WATER - 50 ML IVPB SCH ×3 (01:17→17:02)
[2022-04-06 08:20] LABS: HEMATOCRIT 40.3 % (35.4-49); HEMOGLOBIN 13.4 GM/dL (11.7-16.9); MCH 33.7 pg (25.7-33.7); MCHC 33.4 g/dl (32.0-35.9); MEAN CELL VOLUME 100.9 fl (80-96); MEAN PLT VOLUME 9.2 fl (7.5-11.1); PLATELET COUNT 406 10^3/uL (134-434); RBC 3.99 M/mm3 (4.00-5.60); RDW 13.6 % (11.9-15.9); WHITE BLOOD COUNT 7.7 K/mm3 (4.0-10.0)
[2022-04-06 08:49] LABS: ALBUMIN 2.5 g/dl (3.4-5.0); CALCIUM 8.3 mg/dL (8.5-10.1); MAGNESIUM 2.1 mg/dL (1.8-2.4)
[2022-04-06 08:50] LABS: BLOOD UREA NITROGEN 17.7 mg/dL (7-18)
[2022-04-06 08:52] LABS: CREATININE 0.4 mg/dL (0.55-1.3); PHOSPHOROUS 2.8 mg/dL (2.5-4.9)
[2022-04-06 08:54] LABS: BILIRUBIN,TOTAL 0.3 mg/dL (0.2-1)
[2022-04-06] MEDS: levETIRAcetam 500 MG/5 ML ORAL SOLUTION (UNIT-DOSE CUPS) GT SCH ×2 (10:12→22:18)
[2022-04-06] MEDS: FAMOTIDINE 40 MG/5 ML ORAL SUSPENSION GT SCH ×2 (10:12→22:18)
[2022-04-06] MEDS: PHENobarbital 20 MG/5 ML UNIT-DOSE CUP GT SCH ×2 (10:14→22:17)
[2022-04-06] MEDS: MULTIVIT-MINERALS ORAL LIQUID GT SCH (10:14)
[2022-04-06] MEDS: ENOXAPARIN NA (PORCINE) 40 MG/0.4 ML DISP.SYRIN SQ SCH (10:15)
[2022-04-06] MEDS: AMINO ACIDS/PROTEIN HYDROLYS 30 ML LIQUID.PKT GT SCH (10:15)
[2022-04-06] MEDS: MUPIROCIN 2% TOPICAL OINTMENT 22 GM TUBE TP SCH ×2 (10:15→22:19)
[2022-04-06] MEDS: TIOTROPIUM BROMIDE 2.5 MCG (SPIRIVA) RESPIMAT INHALER IH SCH (10:15)
[2022-04-06] MEDS: NYSTATIN POWDER 100,000 UNITS/GM - 15 GM TOPICAL POWDER TP SCH ×2 (10:15→22:19)
[2022-04-06] MEDS: DEXAMETHASONE SOD PHOSPHATE 10 MG/1 ML VIAL IVPB SCH (10:16)
[2022-04-06] MEDS: ZINC OXIDE 20% TOPICAL OINTMENT 30 GM TUBE TP SCH ×2 (10:16→22:19)
[2022-04-06] MEDS: MAGNESIUM HYDROX 2400MG/30ML ORAL SUSPENSION 30 ML CUP GT SCH (22:18)
[2022-04-07] MEDS ORDERED: DEXTROSE 5%-WATER - 50 ML IVPB ONE ×3 (01:06→18:16)
[2022-04-07] MEDS ORDERED: PIPERACILLIN/TAZOBACTAM 3.375 GM VIAL IVPB ONE ×3 (01:06→18:16)
[2022-04-07] MEDS: PIPERACILLIN/TAZOB 3.375 GM 3.375 GM in DEXTROSE 5%-WATER - 50 ML IVPB SCH ×3 (01:52→19:06)
[2022-04-07 06:42] LABS: HEMATOCRIT 38.2 % (35.4-49); HEMOGLOBIN 12.9 GM/dL (11.7-16.9); MCH 34.4 pg (25.7-33.7); MCHC 33.9 g/dl (32.0-35.9); MEAN CELL VOLUME 101.7 fl (80-96); MEAN PLT VOLUME 9.1 fl (7.5-11.1); PLATELET COUNT 397 10^3/uL (134-434); RBC 3.76 M/mm3 (4.00-5.60); RDW 13.3 % (11.9-15.9); WHITE BLOOD COUNT 7.3 K/mm3 (4.0-10.0)
[2022-04-07 07:06] LABS: ALBUMIN 2.7 g/dl (3.4-5.0); CALCIUM 8.8 mg/dL (8.5-10.1); MAGNESIUM 2.2 mg/dL (1.8-2.4)
[2022-04-07 07:07] LABS: BLOOD UREA NITROGEN 17.5 mg/dL (7-18)
[2022-04-07 07:09] LABS: CREATININE 0.4 mg/dL (0.55-1.3); PHOSPHOROUS 3.7 mg/dL (2.5-4.9)
[2022-04-07 07:10] LABS: BILIRUBIN,TOTAL 0.3 mg/dL (0.2-1)
[2022-04-07] MEDS: ENOXAPARIN NA (PORCINE) 40 MG/0.4 ML DISP.SYRIN SQ SCH (09:52)
[2022-04-07] MEDS: AMINO ACIDS/PROTEIN HYDROLYS 30 ML LIQUID.PKT GT SCH (09:52)
[2022-04-07] MEDS: MULTIVIT-MINERALS ORAL LIQUID GT SCH (09:52)
[2022-04-07] MEDS: FAMOTIDINE 40 MG/5 ML ORAL SUSPENSION GT SCH ×2 (09:53→21:52)
[2022-04-07] MEDS: levETIRAcetam 500 MG/5 ML ORAL SOLUTION (UNIT-DOSE CUPS) GT SCH ×2 (09:53→21:52)
[2022-04-07] MEDS: PHENobarbital 20 MG/5 ML UNIT-DOSE CUP GT SCH ×4 (09:53→23:21)
[2022-04-07] MEDS: NYSTATIN POWDER 100,000 UNITS/GM - 15 GM TOPICAL POWDER TP SCH ×2 (09:55→21:53)
[2022-04-07] MEDS: TIOTROPIUM BROMIDE 2.5 MCG (SPIRIVA) RESPIMAT INHALER IH SCH (09:55)
[2022-04-07] MEDS: MUPIROCIN 2% TOPICAL OINTMENT 22 GM TUBE TP SCH ×2 (09:55→21:52)
[2022-04-07] MEDS: ZINC OXIDE 20% TOPICAL OINTMENT 30 GM TUBE TP SCH ×2 (09:55→21:53)
[2022-04-07] MEDS: SCOPOLAMINE HYDROBROMIDE 1 PATCH PATCH.TD72 TD SCH (14:24)
[2022-04-07] MEDS: MAGNESIUM HYDROX 2400MG/30ML ORAL SUSPENSION 30 ML CUP GT SCH (21:52)
[2022-04-08] MEDS ORDERED: DEXTROSE 5%-WATER - 50 ML IVPB ONE ×2 (00:36→07:59)
[2022-04-08] MEDS ORDERED: PIPERACILLIN/TAZOBACTAM 3.375 GM VIAL IVPB ONE ×2 (00:36→07:59)
[2022-04-08] MEDS: PIPERACILLIN/TAZOB 3.375 GM 3.375 GM in DEXTROSE 5%-WATER - 50 ML IVPB SCH ×2 (01:06→09:45)
[2022-04-08 07:18] LABS: HEMATOCRIT 36.8 % (35.4-49); HEMOGLOBIN 12.7 GM/dL (11.7-16.9); MCH 34.9 pg (25.7-33.7); MCHC 34.5 g/dl (32.0-35.9); MEAN CELL VOLUME 101.3 fl (80-96); MEAN PLT VOLUME 8.5 fl (7.5-11.1); PLATELET COUNT 457 10^3/uL (134-434); RBC 3.63 M/mm3 (4.00-5.60); RDW 13.2 % (11.9-15.9); WHITE BLOOD COUNT 6.3 K/mm3 (4.0-10.0)
[2022-04-08 07:36] LABS: CALCIUM 8.1 mg/dL (8.5-10.1)
[2022-04-08 07:37] LABS: ALBUMIN 2.4 g/dl (3.4-5.0); BLOOD UREA NITROGEN 18.1 mg/dL (7-18); MAGNESIUM 2.1 mg/dL (1.8-2.4)
[2022-04-08 07:40] LABS: CREATININE 0.4 mg/dL (0.55-1.3); PHOSPHOROUS 3.1 mg/dL (2.5-4.9)
[2022-04-08 07:41] LABS: BILIRUBIN,TOTAL 0.3 mg/dL (0.2-1); TOT PROT 6.5 g/dl (6.4-8.2)
[2022-04-08] MEDS: AMINO ACIDS/PROTEIN HYDROLYS 30 ML LIQUID.PKT GT SCH (08:23)
[2022-04-08] MEDS: ENOXAPARIN NA (PORCINE) 40 MG/0.4 ML DISP.SYRIN SQ SCH (09:44)
[2022-04-08] MEDS: FAMOTIDINE 40 MG/5 ML ORAL SUSPENSION GT SCH ×2 (09:45→23:25)
[2022-04-08] MEDS: levETIRAcetam 500 MG/5 ML ORAL SOLUTION (UNIT-DOSE CUPS) GT SCH ×2 (09:45→23:13)
[2022-04-08] MEDS: NYSTATIN POWDER 100,000 UNITS/GM - 15 GM TOPICAL POWDER TP SCH ×2 (09:46→23:14)
[2022-04-08] MEDS: MUPIROCIN 2% TOPICAL OINTMENT 22 GM TUBE TP SCH ×2 (09:46→23:15)
[2022-04-08] MEDS: ZINC OXIDE 20% TOPICAL OINTMENT 30 GM TUBE TP SCH ×2 (09:47→23:14)
[2022-04-08] MEDS: TIOTROPIUM BROMIDE 2.5 MCG (SPIRIVA) RESPIMAT INHALER IH SCH (09:47)
[2022-04-08] MEDS: PHENobarbital 20 MG/5 ML UNIT-DOSE CUP GT SCH ×2 (09:47→23:12)
[2022-04-08] MEDS: MULTIVIT-MINERALS ORAL LIQUID GT SCH (09:48)
[2022-04-08] MEDS ORDERED: ALBUTEROL SO4 HFA INHALER IH PRN (12:22)
[2022-04-08] MEDS ORDERED: BISACODYL 10 MG SUPP.RECT RC PRN (12:22)
[2022-04-08] MEDS ORDERED: guaiFENesin 200 MG/10 ML 10 ML UNIT-DOSE CUPS PO PRN (12:22)
[2022-04-08] MEDS ORDERED: diazePAM RECTAL GEL 10 MG KIT (PRE-CALIBRATED) RC PRN (12:22)
[2022-04-08] MEDS ORDERED: PIPERACILLIN/TAZOB 3.375 GM 3.375 GM in DEXTROSE 5%-WATER - 50 ML IVPB SCH (18:00)
[2022-04-08] MEDS: MAGNESIUM HYDROX 2400MG/30ML ORAL SUSPENSION 30 ML CUP GT SCH (23:12)
[2022-04-09] MEDS: AMINO ACIDS/PROTEIN HYDROLYS 30 ML LIQUID.PKT GT SCH (10:01)
[2022-04-09] MEDS: FAMOTIDINE 40 MG/5 ML ORAL SUSPENSION GT SCH ×2 (10:01→21:59)
[2022-04-09] MEDS: ENOXAPARIN NA (PORCINE) 40 MG/0.4 ML DISP.SYRIN SQ SCH (10:01)
[2022-04-09] MEDS: MULTIVIT-MINERALS ORAL LIQUID GT SCH (10:02)
[2022-04-09] MEDS: levETIRAcetam 500 MG/5 ML ORAL SOLUTION (UNIT-DOSE CUPS) GT SCH ×2 (10:02→21:56)
[2022-04-09] MEDS: TIOTROPIUM BROMIDE 2.5 MCG (SPIRIVA) RESPIMAT INHALER IH SCH (10:03)
[2022-04-09] MEDS: NYSTATIN POWDER 100,000 UNITS/GM - 15 GM TOPICAL POWDER TP SCH ×2 (10:03→21:59)
[2022-04-09] MEDS: PHENobarbital 20 MG/5 ML UNIT-DOSE CUP GT SCH ×2 (10:03→21:55)
[2022-04-09] MEDS: ZINC OXIDE 20% TOPICAL OINTMENT 30 GM TUBE TP SCH ×2 (10:03→22:00)
[2022-04-09] MEDS: MUPIROCIN 2% TOPICAL OINTMENT 22 GM TUBE TP SCH ×2 (10:03→22:00)
[2022-04-09] MEDS: MAGNESIUM HYDROX 2400MG/30ML ORAL SUSPENSION 30 ML CUP GT SCH (21:54)
[2022-04-10] MEDS ORDERED: ACETAMINOPHEN 650 MG/20.3 ML ORAL SOLUTION (CUPS) GT ONE (08:30)
[2022-04-10] MEDS: AMINO ACIDS/PROTEIN HYDROLYS 30 ML LIQUID.PKT GT SCH (08:39)
[2022-04-10 09:39] LABS: HEMATOCRIT 39.3 % (35.4-49); HEMOGLOBIN 13.7 GM/dL (11.7-16.9); MCH 35.4 pg (25.7-33.7); MEAN CELL VOLUME 101.1 fl (80-96); PLATELET COUNT 559 10^3/uL (134-434); RBC 3.88 M/mm3 (4.00-5.60); RDW 13.5 % (11.9-15.9); WHITE BLOOD COUNT 8.1 K/mm3 (4.0-10.0)
[2022-04-10 10:14] LABS: BLOOD UREA NITROGEN 21.3 mg/dL (7-18); CALCIUM 8.6 mg/dL (8.5-10.1)
[2022-04-10 10:17] LABS: CREATININE 0.6 mg/dL (0.55-1.3)
[2022-04-10] MEDS: levETIRAcetam 500 MG/5 ML ORAL SOLUTION (UNIT-DOSE CUPS) GT SCH ×2 (10:48→21:50)
[2022-04-10] MEDS: ENOXAPARIN NA (PORCINE) 40 MG/0.4 ML DISP.SYRIN SQ SCH (10:49)
[2022-04-10] MEDS: FAMOTIDINE 40 MG/5 ML ORAL SUSPENSION GT SCH ×2 (10:50→21:50)
[2022-04-10] MEDS: PHENobarbital 20 MG/5 ML UNIT-DOSE CUP GT SCH ×2 (10:57→21:50)
[2022-04-10] MEDS: ZINC OXIDE 20% TOPICAL OINTMENT 30 GM TUBE TP SCH ×2 (11:12→21:51)
[2022-04-10] MEDS: NYSTATIN POWDER 100,000 UNITS/GM - 15 GM TOPICAL POWDER TP SCH ×2 (11:13→21:51)
[2022-04-10] MEDS: TIOTROPIUM BROMIDE 2.5 MCG (SPIRIVA) RESPIMAT INHALER IH SCH (11:13)
[2022-04-10] MEDS: MUPIROCIN 2% TOPICAL OINTMENT 22 GM TUBE TP SCH ×2 (11:13→21:51)
[2022-04-10] MEDS: MULTIVIT-MINERALS ORAL LIQUID GT SCH (11:19)
[2022-04-10] MEDS ORDERED: TIGECYCLINE 100 MG in DEXTROSE 5%-WATER - 100 ML IVPB ONE (13:30)
[2022-04-10] MEDS: SCOPOLAMINE HYDROBROMIDE 1 PATCH PATCH.TD72 TD SCH (14:54)
[2022-04-10] MEDS: MAGNESIUM HYDROX 2400MG/30ML ORAL SUSPENSION 30 ML CUP GT SCH (21:50)
[2022-04-10] MEDS: TIGECYCLINE 50 MG in DEXTROSE 5%-WATER - 100 ML IVPB SCH (21:51)
[2022-04-10] MEDS ORDERED: ACETAMINOPHEN 1000 MG/100 ML BAG IVPB ONE (23:31)
[2022-04-11] MEDS ORDERED: ACETAMINOPHEN 1000 MG/100 ML BAG IVPB PRN (07:49)
[2022-04-11 07:58] LABS: BASO % 0.3 % (0-2.0); EOS % 0.1 % (0-4.5); HEMATOCRIT 37.4 % (35.4-49); HEMOGLOBIN 12.8 GM/dL (11.7-16.9); LYMPH % 17.5 % (8-40); MCH 34.8 pg (25.7-33.7); MCHC 34.4 g/dl (32.0-35.9); MONO % 16.6 % (3.8-10.2); NEUT % 65.5 % (42.8-82.8); PLATELET COUNT 544 10^3/uL (134-434); RDW 13.5 % (11.9-15.9); WHITE BLOOD COUNT 11.1 K/mm3 (4.0-10.0)
[2022-04-11 08:17] LABS: CALCIUM 8.3 mg/dL (8.5-10.1)
[2022-04-11 08:18] LABS: BLOOD UREA NITROGEN 38.5 mg/dL (7-18)
[2022-04-11 08:20] LABS: CREATININE 0.6 mg/dL (0.55-1.3)
[2022-04-11] MEDS: AMINO ACIDS/PROTEIN HYDROLYS 30 ML LIQUID.PKT GT SCH (10:31)
[2022-04-11] MEDS: PHENobarbital 20 MG/5 ML UNIT-DOSE CUP GT SCH ×2 (10:32→22:32)
[2022-04-11] MEDS: MULTIVIT-MINERALS ORAL LIQUID GT SCH (10:33)
[2022-04-11] MEDS: MUPIROCIN 2% TOPICAL OINTMENT 22 GM TUBE TP SCH ×2 (10:33→23:07)
[2022-04-11] MEDS: levETIRAcetam 500 MG/5 ML ORAL SOLUTION (UNIT-DOSE CUPS) GT SCH ×2 (10:33→22:35)
[2022-04-11] MEDS: ENOXAPARIN NA (PORCINE) 40 MG/0.4 ML DISP.SYRIN SQ SCH (10:34)
[2022-04-11] MEDS: TIGECYCLINE 50 MG in DEXTROSE 5%-WATER - 100 ML IVPB SCH ×2 (10:34→22:36)
[2022-04-11] MEDS: NYSTATIN POWDER 100,000 UNITS/GM - 15 GM TOPICAL POWDER TP SCH ×2 (10:35→22:36)
[2022-04-11] MEDS: TIOTROPIUM BROMIDE 2.5 MCG (SPIRIVA) RESPIMAT INHALER IH SCH (10:35)
[2022-04-11] MEDS: ZINC OXIDE 20% TOPICAL OINTMENT 30 GM TUBE TP SCH ×2 (10:36→22:36)
[2022-04-11] MEDS: FAMOTIDINE 40 MG/5 ML ORAL SUSPENSION GT SCH ×2 (11:11→22:36)
[2022-04-11] MEDS: MAGNESIUM HYDROX 2400MG/30ML ORAL SUSPENSION 30 ML CUP GT SCH (22:36)
[2022-04-12] MEDS: AMINO ACIDS/PROTEIN HYDROLYS 30 ML LIQUID.PKT GT SCH (09:55)
[2022-04-12] MEDS: TIGECYCLINE 50 MG in DEXTROSE 5%-WATER - 100 ML IVPB SCH ×2 (10:57→23:10)
[2022-04-12] MEDS: PHENobarbital 20 MG/5 ML UNIT-DOSE CUP GT SCH ×2 (10:58→23:10)
[2022-04-12] MEDS: levETIRAcetam 500 MG/5 ML ORAL SOLUTION (UNIT-DOSE CUPS) GT SCH ×2 (10:58→22:08)
[2022-04-12] MEDS: MUPIROCIN 2% TOPICAL OINTMENT 22 GM TUBE TP SCH ×2 (10:59→23:04)
[2022-04-12] MEDS: MULTIVIT-MINERALS ORAL LIQUID GT SCH (10:59)
[2022-04-12] MEDS: ENOXAPARIN NA (PORCINE) 40 MG/0.4 ML DISP.SYRIN SQ SCH (10:59)
[2022-04-12] MEDS: NYSTATIN POWDER 100,000 UNITS/GM - 15 GM TOPICAL POWDER TP SCH ×2 (10:59→22:09)
[2022-04-12] MEDS: TIOTROPIUM BROMIDE 2.5 MCG (SPIRIVA) RESPIMAT INHALER IH SCH (11:00)
[2022-04-12] MEDS: FAMOTIDINE 40 MG/5 ML ORAL SUSPENSION GT SCH ×2 (11:00→23:09)
[2022-04-12] MEDS: ZINC OXIDE 20% TOPICAL OINTMENT 30 GM TUBE TP SCH ×2 (11:00→23:10)
[2022-04-12 11:09] LABS: HEMATOCRIT 38.3 % (35.4-49); MCH 34.5 pg (25.7-33.7); MEAN CELL VOLUME 101.5 fl (80-96); MEAN PLT VOLUME 8.3 fl (7.5-11.1); PLATELET COUNT 558 10^3/uL (134-434); RBC 3.77 M/mm3 (4.00-5.60); RDW 13.8 % (11.9-15.9); WHITE BLOOD COUNT 15.5 K/mm3 (4.0-10.0)
[2022-04-12 11:40] LABS: ALBUMIN 2.6 g/dl (3.4-5.0); BLOOD UREA NITROGEN 40.2 mg/dL (7-18); CALCIUM 8.3 mg/dL (8.5-10.1)
[2022-04-12 11:43] LABS: CREATININE 0.5 mg/dL (0.55-1.3)
[2022-04-12 11:45] LABS: BILIRUBIN,TOTAL 0.9 mg/dL (0.2-1)
[2022-04-12] MEDS: ACETAMINOPHEN 1000 MG/100 ML BAG IVPB PRN ×2 (15:33→20:47)
[2022-04-12] MEDS: MAGNESIUM HYDROX 2400MG/30ML ORAL SUSPENSION 30 ML CUP GT SCH (23:09)
[2022-04-13 08:26] LABS: HEMATOCRIT 34.6 % (35.4-49); HEMOGLOBIN 12.1 GM/dL (11.7-16.9); MCH 35.3 pg (25.7-33.7); MCHC 34.9 g/dl (32.0-35.9); MEAN CELL VOLUME 101.1 fl (80-96); MEAN PLT VOLUME 8.1 fl (7.5-11.1); PLATELET COUNT 511 10^3/uL (134-434); RBC 3.42 M/mm3 (4.00-5.60); RDW 13.5 % (11.9-15.9); WHITE BLOOD COUNT 8.1 K/mm3 (4.0-10.0)
[2022-04-13 08:47] LABS: ALBUMIN 2.4 g/dl (3.4-5.0); BLOOD UREA NITROGEN 42.3 mg/dL (7-18)
[2022-04-13 08:50] LABS: CREATININE 0.6 mg/dL (0.55-1.3)
[2022-04-13 08:51] LABS: TOT PROT 6.4 g/dl (6.4-8.2)
[2022-04-13 08:53] LABS: BILIRUBIN,TOTAL 0.6 mg/dL (0.2-1)
[2022-04-13] MEDS: ACETAMINOPHEN 1000 MG/100 ML BAG IVPB PRN ×2 (09:50→23:37)
[2022-04-13] MEDS: PHENobarbital 20 MG/5 ML UNIT-DOSE CUP GT SCH ×2 (09:51→22:36)
[2022-04-13] MEDS: levETIRAcetam 500 MG/5 ML ORAL SOLUTION (UNIT-DOSE CUPS) GT SCH ×2 (09:52→22:36)
[2022-04-13] MEDS: AMINO ACIDS/PROTEIN HYDROLYS 30 ML LIQUID.PKT GT SCH (09:52)
[2022-04-13] MEDS: ENOXAPARIN NA (PORCINE) 40 MG/0.4 ML DISP.SYRIN SQ SCH (09:52)
[2022-04-13] MEDS: NYSTATIN POWDER 100,000 UNITS/GM - 15 GM TOPICAL POWDER TP SCH ×2 (10:19→22:37)
[2022-04-13] MEDS: MUPIROCIN 2% TOPICAL OINTMENT 22 GM TUBE TP SCH ×2 (10:20→22:37)
[2022-04-13] MEDS: ZINC OXIDE 20% TOPICAL OINTMENT 30 GM TUBE TP SCH ×2 (10:20→22:37)
[2022-04-13] MEDS: TIOTROPIUM BROMIDE 2.5 MCG (SPIRIVA) RESPIMAT INHALER IH SCH ×2 (10:42→12:10)
[2022-04-13] MEDS: FAMOTIDINE 40 MG/5 ML ORAL SUSPENSION GT SCH ×2 (11:54→22:37)
[2022-04-13] MEDS: MULTIVIT-MINERALS ORAL LIQUID GT SCH (11:54)
[2022-04-13] MEDS: TIGECYCLINE 50 MG in DEXTROSE 5%-WATER - 100 ML IVPB SCH (12:04)
[2022-04-13] MEDS: SCOPOLAMINE HYDROBROMIDE 1 PATCH PATCH.TD72 TD SCH (15:30)
[2022-04-13] MEDS ORDERED: DEXTROSE 5%-WATER 100 ML IVPB ONE (17:51)
[2022-04-13] MEDS ORDERED: MEROPENEM 500 MG VIAL (RESTRICTED TO ID) IVPB ONE (17:51)
[2022-04-13] MEDS: MEROPENEM 500 MG in DEXTROSE 5%-WATER 100 ML IVPB SCH (17:55)
[2022-04-13] MEDS: MAGNESIUM HYDROX 2400MG/30ML ORAL SUSPENSION 30 ML CUP GT SCH (22:36)
[2022-04-14] MEDS ORDERED: MEROPENEM 500 MG VIAL (RESTRICTED TO ID) IVPB ONE ×3 (01:54→18:19)
[2022-04-14] MEDS ORDERED: DEXTROSE 5%-WATER 100 ML IVPB ONE ×3 (01:54→18:19)
[2022-04-14] MEDS: MEROPENEM 500 MG in DEXTROSE 5%-WATER 100 ML IVPB SCH ×3 (02:07→18:22)
[2022-04-14 08:33] LABS: HEMATOCRIT 37.4 % (35.4-49); HEMOGLOBIN 12.7 GM/dL (11.7-16.9); MEAN CELL VOLUME 102.8 fl (80-96); MEAN PLT VOLUME 7.9 fl (7.5-11.1); PLATELET COUNT 503 10^3/uL (134-434); RBC 3.64 M/mm3 (4.00-5.60); RDW 13.8 % (11.9-15.9); WHITE BLOOD COUNT 9.9 K/mm3 (4.0-10.0)
[2022-04-14 08:58] LABS: CALCIUM 8.4 mg/dL (8.5-10.1)
[2022-04-14 08:59] LABS: ALBUMIN 2.7 g/dl (3.4-5.0)
[2022-04-14] MEDS: AMINO ACIDS/PROTEIN HYDROLYS 30 ML LIQUID.PKT GT SCH (09:00)
[2022-04-14] MEDS: ENOXAPARIN NA (PORCINE) 40 MG/0.4 ML DISP.SYRIN SQ SCH (09:01)
[2022-04-14] MEDS: PHENobarbital 20 MG/5 ML UNIT-DOSE CUP GT SCH ×2 (09:01→22:00)
[2022-04-14] MEDS: ACETAMINOPHEN 1000 MG/100 ML BAG IVPB PRN ×2 (09:02→15:40)
[2022-04-14 09:03] LABS: CREATININE 0.6 mg/dL (0.55-1.3)
[2022-04-14] MEDS: FAMOTIDINE 40 MG/5 ML ORAL SUSPENSION GT SCH ×2 (09:03→22:01)
[2022-04-14] MEDS: guaiFENesin 200 MG/10 ML 10 ML UNIT-DOSE CUPS GT PRN (09:03)
[2022-04-14] MEDS: MULTIVIT-MINERALS ORAL LIQUID GT SCH (09:03)
[2022-04-14 09:04] LABS: BILIRUBIN,TOTAL 0.6 mg/dL (0.2-1); TOT PROT 7.1 g/dl (6.4-8.2)
[2022-04-14] MEDS: levETIRAcetam 500 MG/5 ML ORAL SOLUTION (UNIT-DOSE CUPS) GT SCH ×2 (09:04→22:00)
[2022-04-14] MEDS: NYSTATIN POWDER 100,000 UNITS/GM - 15 GM TOPICAL POWDER TP SCH ×2 (09:05→22:00)
[2022-04-14] MEDS: ZINC OXIDE 20% TOPICAL OINTMENT 30 GM TUBE TP SCH ×2 (09:05→22:01)
[2022-04-14] MEDS: MUPIROCIN 2% TOPICAL OINTMENT 22 GM TUBE TP SCH ×2 (09:05→21:59)
[2022-04-14] MEDS: TIOTROPIUM BROMIDE 2.5 MCG (SPIRIVA) RESPIMAT INHALER IH SCH (09:05)
[2022-04-14] MEDS: MAGNESIUM HYDROX 2400MG/30ML ORAL SUSPENSION 30 ML CUP GT SCH (22:00)
[2022-04-15] MEDS ORDERED: DEXTROSE 5%-WATER 100 ML IVPB ONE ×3 (02:04→17:59)
[2022-04-15] MEDS ORDERED: MEROPENEM 500 MG VIAL (RESTRICTED TO ID) IVPB ONE ×3 (02:04→17:58)
[2022-04-15] MEDS: MEROPENEM 500 MG in DEXTROSE 5%-WATER 100 ML IVPB SCH ×3 (02:35→18:00)
[2022-04-15] MEDS: AMINO ACIDS/PROTEIN HYDROLYS 30 ML LIQUID.PKT GT SCH (08:20)
[2022-04-15 08:54] LABS: HEMATOCRIT 34.8 % (35.4-49); HEMOGLOBIN 11.9 GM/dL (11.7-16.9); MCH 34.8 pg (25.7-33.7); MCHC 34.1 g/dl (32.0-35.9); MEAN CELL VOLUME 102.1 fl (80-96); MEAN PLT VOLUME 8.2 fl (7.5-11.1); PLATELET COUNT 436 10^3/uL (134-434); RBC 3.41 M/mm3 (4.00-5.60); RDW 13.4 % (11.9-15.9); WHITE BLOOD COUNT 10.5 K/mm3 (4.0-10.0)
[2022-04-15 09:24] LABS: ALBUMIN 2.4 g/dl (3.4-5.0); BLOOD UREA NITROGEN 24.8 mg/dL (7-18)
[2022-04-15 09:27] LABS: CREATININE 0.4 mg/dL (0.55-1.3)
[2022-04-15 09:28] LABS: BILIRUBIN,TOTAL 0.5 mg/dL (0.2-1); TOT PROT 6.3 g/dl (6.4-8.2)
[2022-04-15] MEDS: MULTIVIT-MINERALS ORAL LIQUID GT SCH (10:27)
[2022-04-15] MEDS: levETIRAcetam 500 MG/5 ML ORAL SOLUTION (UNIT-DOSE CUPS) GT SCH ×2 (10:28→22:39)
[2022-04-15] MEDS: ENOXAPARIN NA (PORCINE) 40 MG/0.4 ML DISP.SYRIN SQ SCH (10:29)
[2022-04-15] MEDS: FAMOTIDINE 40 MG/5 ML ORAL SUSPENSION GT SCH ×2 (10:30→22:39)
[2022-04-15] MEDS: PHENobarbital 20 MG/5 ML UNIT-DOSE CUP GT SCH ×2 (10:32→22:38)
[2022-04-15] MEDS: NYSTATIN POWDER 100,000 UNITS/GM - 15 GM TOPICAL POWDER TP SCH ×2 (10:57→22:40)
[2022-04-15] MEDS: MUPIROCIN 2% TOPICAL OINTMENT 22 GM TUBE TP SCH ×2 (10:57→22:40)
[2022-04-15] MEDS: ZINC OXIDE 20% TOPICAL OINTMENT 30 GM TUBE TP SCH ×2 (10:57→22:41)
[2022-04-15] MEDS: TIOTROPIUM BROMIDE 2.5 MCG (SPIRIVA) RESPIMAT INHALER IH SCH (11:41)
[2022-04-15] MEDS: guaiFENesin 200 MG/10 ML 10 ML UNIT-DOSE CUPS GT PRN (22:39)
[2022-04-15] MEDS: MAGNESIUM HYDROX 2400MG/30ML ORAL SUSPENSION 30 ML CUP GT SCH (22:39)
[2022-04-16] MEDS ORDERED: DEXTROSE 5%-WATER 100 ML IVPB ONE ×3 (01:18→17:31)
[2022-04-16] MEDS ORDERED: MEROPENEM 500 MG VIAL (RESTRICTED TO ID) IVPB ONE (01:18)
[2022-04-16] MEDS: MEROPENEM 500 MG in DEXTROSE 5%-WATER 100 ML IVPB SCH ×2 (01:38→10:17)
[2022-04-16] MEDS ORDERED: MEROPENEM 1 GM VIAL (RESTRICTED TO ID) IVPB ONE ×2 (10:28→17:30)
[2022-04-16] MEDS ORDERED: ACETAMINOPHEN 1000 MG/100 ML BAG IVPB ONE (10:30)
[2022-04-16] MEDS: levETIRAcetam 500 MG/5 ML ORAL SOLUTION (UNIT-DOSE CUPS) GT SCH ×2 (10:34→23:06)
[2022-04-16] MEDS: PHENobarbital 20 MG/5 ML UNIT-DOSE CUP GT SCH ×2 (10:34→23:06)
[2022-04-16] MEDS: ENOXAPARIN NA (PORCINE) 40 MG/0.4 ML DISP.SYRIN SQ SCH (10:35)
[2022-04-16] MEDS: AMINO ACIDS/PROTEIN HYDROLYS 30 ML LIQUID.PKT GT SCH (10:35)
[2022-04-16] MEDS: MEROPENEM 1 GM in DEXTROSE 5%-WATER 100 ML IVPB SCH ×2 (10:35→17:43)
[2022-04-16] MEDS: FAMOTIDINE 40 MG/5 ML ORAL SUSPENSION GT SCH ×2 (10:37→23:06)
[2022-04-16] MEDS: MULTIVIT-MINERALS ORAL LIQUID GT SCH (10:38)
[2022-04-16] MEDS: ZINC OXIDE 20% TOPICAL OINTMENT 30 GM TUBE TP SCH ×2 (10:42→23:07)
[2022-04-16] MEDS: MUPIROCIN 2% TOPICAL OINTMENT 22 GM TUBE TP SCH ×2 (10:42→23:06)
[2022-04-16] MEDS: TIOTROPIUM BROMIDE 2.5 MCG (SPIRIVA) RESPIMAT INHALER IH SCH (10:42)
[2022-04-16] MEDS: NYSTATIN POWDER 100,000 UNITS/GM - 15 GM TOPICAL POWDER TP SCH ×2 (10:43→23:06)
[2022-04-16] MEDS: SCOPOLAMINE HYDROBROMIDE 1 PATCH PATCH.TD72 TD SCH (13:45)
[2022-04-16] MEDS ORDERED: ACETAMINOPHEN 650 MG/20.3 ML ORAL SOLUTION (CUPS) PO ONE (17:30)
[2022-04-16] MEDS ORDERED: ACETAMINOPHEN 500 MG TABLET (FP) PO ONE (17:30)
[2022-04-16] MEDS ORDERED: ACETAMINOPHEN 650 MG/20.3 ML ORAL SOLUTION (CUPS) GT ONE (17:30)
[2022-04-16] MEDS: MAGNESIUM HYDROX 2400MG/30ML ORAL SUSPENSION 30 ML CUP GT SCH (23:06)
[2022-04-17] MEDS ORDERED: DEXTROSE 5%-WATER 100 ML IVPB ONE ×3 (02:32→16:48)
[2022-04-17] MEDS ORDERED: MEROPENEM 1 GM VIAL (RESTRICTED TO ID) IVPB ONE ×3 (02:32→16:48)
[2022-04-17] MEDS: MEROPENEM 1 GM in DEXTROSE 5%-WATER 100 ML IVPB SCH ×3 (03:22→17:34)
[2022-04-17] MEDS: PHENobarbital 20 MG/5 ML UNIT-DOSE CUP GT SCH ×2 (10:00→23:30)
[2022-04-17] MEDS: MULTIVIT-MINERALS ORAL LIQUID GT SCH (10:00)
[2022-04-17] MEDS: AMINO ACIDS/PROTEIN HYDROLYS 30 ML LIQUID.PKT GT SCH (10:01)
[2022-04-17] MEDS: ENOXAPARIN NA (PORCINE) 40 MG/0.4 ML DISP.SYRIN SQ SCH (10:02)
[2022-04-17] MEDS: levETIRAcetam 500 MG/5 ML ORAL SOLUTION (UNIT-DOSE CUPS) GT SCH ×2 (10:02→23:30)
[2022-04-17] MEDS: FAMOTIDINE 40 MG/5 ML ORAL SUSPENSION GT SCH ×2 (11:00→23:30)
[2022-04-17] MEDS: NYSTATIN POWDER 100,000 UNITS/GM - 15 GM TOPICAL POWDER TP SCH ×2 (11:27→23:30)
[2022-04-17] MEDS: ZINC OXIDE 20% TOPICAL OINTMENT 30 GM TUBE TP SCH ×2 (11:27→23:30)
[2022-04-17] MEDS: MUPIROCIN 2% TOPICAL OINTMENT 22 GM TUBE TP SCH ×2 (11:27→23:30)
[2022-04-17] MEDS: TIOTROPIUM BROMIDE 2.5 MCG (SPIRIVA) RESPIMAT INHALER IH SCH (11:27)
[2022-04-17 15:59] LABS: BASO % 0.6 % (0-2.0); EOS % 1.2 % (0-4.5); HEMATOCRIT 32.1 % (35.4-49); HEMOGLOBIN 10.9 GM/dL (11.7-16.9); LYMPH % 16.3 % (8-40); MCH 34.9 pg (25.7-33.7); MCHC 33.9 g/dl (32.0-35.9); MEAN CELL VOLUME 103.1 fl (80-96); MEAN PLT VOLUME 8.7 fl (7.5-11.1); MONO % 11.9 % (3.8-10.2); PLATELET COUNT 375 10^3/uL (134-434); RBC 3.12 M/mm3 (4.00-5.60); RDW 13.7 % (11.9-15.9); WHITE BLOOD COUNT 10.3 K/mm3 (4.0-10.0)
[2022-04-17 16:20] LABS: CALCIUM 7.7 mg/dL (8.5-10.1)
[2022-04-17 16:21] LABS: ALBUMIN 2.3 g/dl (3.4-5.0); BLOOD UREA NITROGEN 21.5 mg/dL (7-18)
[2022-04-17 16:24] LABS: CREATININE 0.3 mg/dL (0.55-1.3)
[2022-04-17 16:25] LABS: BILIRUBIN,TOTAL 0.4 mg/dL (0.2-1); TOT PROT 6.1 g/dl (6.4-8.2)
[2022-04-17] MEDS: ACETAMINOPHEN 650 MG/20.3 ML ORAL SOLUTION (CUPS) GT PRN (19:33)
[2022-04-17] MEDS: MAGNESIUM HYDROX 2400MG/30ML ORAL SUSPENSION 30 ML CUP GT SCH (23:30)
[2022-04-18] MEDS ORDERED: MEROPENEM 1 GM VIAL (RESTRICTED TO ID) IVPB ONE ×3 (02:13→17:53)
[2022-04-18] MEDS ORDERED: DEXTROSE 5%-WATER 100 ML IVPB ONE ×3 (02:14→17:53)
[2022-04-18] MEDS: MEROPENEM 1 GM in DEXTROSE 5%-WATER 100 ML IVPB SCH ×3 (02:37→17:57)
[2022-04-18] MEDS ORDERED: ACETAMINOPHEN 1000 MG/100 ML BAG IVPB ONE ×2 (03:16→21:48)
[2022-04-18] MEDS: MUPIROCIN 2% TOPICAL OINTMENT 22 GM TUBE TP SCH ×2 (10:41→11:21)
[2022-04-18] MEDS: ZINC OXIDE 20% TOPICAL OINTMENT 30 GM TUBE TP SCH ×2 (10:41→11:21)
[2022-04-18] MEDS: NYSTATIN POWDER 100,000 UNITS/GM - 15 GM TOPICAL POWDER TP SCH ×2 (10:41→11:21)
[2022-04-18] MEDS: AMINO ACIDS/PROTEIN HYDROLYS 30 ML LIQUID.PKT GT SCH (11:19)
[2022-04-18] MEDS: FAMOTIDINE 40 MG/5 ML ORAL SUSPENSION GT SCH (11:20)
[2022-04-18] MEDS: PHENobarbital 20 MG/5 ML UNIT-DOSE CUP GT SCH (11:21)
[2022-04-18] MEDS: TIOTROPIUM BROMIDE 2.5 MCG (SPIRIVA) RESPIMAT INHALER IH SCH (11:21)
[2022-04-18] MEDS: MULTIVIT-MINERALS ORAL LIQUID GT SCH (11:22)
[2022-04-18] MEDS: levETIRAcetam 500 MG/5 ML ORAL SOLUTION (UNIT-DOSE CUPS) GT SCH (11:23)
[2022-04-18] MEDS: ENOXAPARIN NA (PORCINE) 40 MG/0.4 ML DISP.SYRIN SQ SCH (11:27)
[2022-04-18 12:04] LABS: ALBUMIN 2.2 g/dl (3.4-5.0); CALCIUM 7.7 mg/dL (8.5-10.1)
[2022-04-18 12:05] LABS: BLOOD UREA NITROGEN 19.9 mg/dL (7-18); MAGNESIUM 2.5 mg/dL (1.8-2.4)
[2022-04-18 12:07] LABS: CREATININE 0.3 mg/dL (0.55-1.3); PHOSPHOROUS 2.1 mg/dL (2.5-4.9)
[2022-04-18 12:10] LABS: BILIRUBIN,TOTAL 0.3 mg/dL (0.2-1); TOT PROT 5.9 g/dl (6.4-8.2)
[2022-04-18] MEDS ORDERED: NAPH,MB-DB/K PH,MBDB POWDER PACKET GT ONE ×2 (13:03→16:45)
[2022-04-18] MEDS: ACETAMINOPHEN 650 MG/20.3 ML ORAL SOLUTION (CUPS) GT PRN (14:01)
[2022-04-18] MEDS ORDERED: LACTATED RINGERS SOLUTION 1,000 ML/1,000 ML INFUS.BAG IV SCH (15:15)
[2022-04-19] MEDS ORDERED: MEROPENEM 1 GM VIAL (RESTRICTED TO ID) IVPB ONE ×3 (01:42→18:06)
[2022-04-19] MEDS ORDERED: DEXTROSE 5%-WATER 100 ML IVPB ONE ×3 (01:42→18:06)
[2022-04-19] MEDS: MEROPENEM 1 GM in DEXTROSE 5%-WATER 100 ML IVPB SCH ×3 (02:15→18:13)
[2022-04-19] MEDS: levETIRAcetam 500 MG/5 ML ORAL SOLUTION (UNIT-DOSE CUPS) GT SCH ×3 (07:49→23:34)
[2022-04-19] MEDS: MAGNESIUM HYDROX 2400MG/30ML ORAL SUSPENSION 30 ML CUP GT SCH ×2 (07:50→23:34)
[2022-04-19] MEDS: FAMOTIDINE 40 MG/5 ML ORAL SUSPENSION GT SCH ×3 (07:51→23:35)
[2022-04-19] MEDS: PHENobarbital 20 MG/5 ML UNIT-DOSE CUP GT SCH ×3 (07:52→23:34)
[2022-04-19 10:11] LABS: BASO % 0.4 % (0-2.0); EOS % 1.1 % (0-4.5); HEMATOCRIT 31.1 % (35.4-49); HEMOGLOBIN 10.7 GM/dL (11.7-16.9); LYMPH % 25.9 % (8-40); MCH 35.5 pg (25.7-33.7); MCHC 34.5 g/dl (32.0-35.9); MEAN CELL VOLUME 103.2 fl (80-96); MEAN PLT VOLUME 8.9 fl (7.5-11.1); MONO % 13.9 % (3.8-10.2); NEUT % 58.7 % (42.8-82.8); PLATELET COUNT 386 10^3/uL (134-434); RBC 3.01 M/mm3 (4.00-5.60); WHITE BLOOD COUNT 9.7 K/mm3 (4.0-10.0)
[2022-04-19] MEDS: AMINO ACIDS/PROTEIN HYDROLYS 30 ML LIQUID.PKT GT SCH (12:07)
[2022-04-19] MEDS: MULTIVIT-MINERALS ORAL LIQUID GT SCH (12:08)
[2022-04-19] MEDS: ENOXAPARIN NA (PORCINE) 40 MG/0.4 ML DISP.SYRIN SQ SCH (12:10)
[2022-04-19] MEDS: TIOTROPIUM BROMIDE 2.5 MCG (SPIRIVA) RESPIMAT INHALER IH SCH (12:24)
[2022-04-19] MEDS: NYSTATIN POWDER 100,000 UNITS/GM - 15 GM TOPICAL POWDER TP SCH ×2 (12:26→23:35)
[2022-04-19] MEDS: ZINC OXIDE 20% TOPICAL OINTMENT 30 GM TUBE TP SCH ×2 (12:27→23:36)
[2022-04-19] MEDS: VANCOMYCIN/WATER FOR INJ (PEG) 1,000 MG/200 ML BAG IVPB SCH ×2 (12:39→23:35)
[2022-04-19] MEDS: MUPIROCIN 2% TOPICAL OINTMENT 22 GM TUBE TP SCH ×2 (12:43→23:35)
[2022-04-19] MEDS: SCOPOLAMINE HYDROBROMIDE 1 PATCH PATCH.TD72 TD SCH (15:58)
[2022-04-19] MEDS ORDERED: LACTATED RINGERS SOLUTION 1,000 ML/1,000 ML INFUS.BAG IV SCH (17:15)
[2022-04-19] MEDS: LACTATED RINGERS SOLUTION 1,000 ML/1,000 ML INFUS.BAG IV SCH (17:58)
[2022-04-20] MEDS: MEROPENEM 1 GM in DEXTROSE 5%-WATER 100 ML IVPB SCH ×3 (03:00→17:48)
[2022-04-20] MEDS ORDERED: MEROPENEM 1 GM VIAL (RESTRICTED TO ID) IVPB ONE ×3 (03:49→17:31)
[2022-04-20] MEDS ORDERED: DEXTROSE 5%-WATER 100 ML IVPB ONE ×3 (03:50→17:32)
[2022-04-20] MEDS: AMINO ACIDS/PROTEIN HYDROLYS 30 ML LIQUID.PKT GT SCH (10:11)
[2022-04-20] MEDS: MULTIVIT-MINERALS ORAL LIQUID GT SCH (10:11)
[2022-04-20] MEDS: ENOXAPARIN NA (PORCINE) 40 MG/0.4 ML DISP.SYRIN SQ SCH (10:12)
[2022-04-20] MEDS: levETIRAcetam 500 MG/5 ML ORAL SOLUTION (UNIT-DOSE CUPS) GT SCH ×2 (10:12→21:55)
[2022-04-20] MEDS: VANCOMYCIN/WATER FOR INJ (PEG) 1,000 MG/200 ML BAG IVPB SCH ×2 (10:13→21:57)
[2022-04-20] MEDS: FAMOTIDINE 40 MG/5 ML ORAL SUSPENSION GT SCH ×2 (10:14→21:58)
[2022-04-20] MEDS: NYSTATIN POWDER 100,000 UNITS/GM - 15 GM TOPICAL POWDER TP SCH ×2 (10:15→21:56)
[2022-04-20] MEDS: TIOTROPIUM BROMIDE 2.5 MCG (SPIRIVA) RESPIMAT INHALER IH SCH (10:16)
[2022-04-20] MEDS: MUPIROCIN 2% TOPICAL OINTMENT 22 GM TUBE TP SCH ×2 (10:16→21:57)
[2022-04-20] MEDS: ZINC OXIDE 20% TOPICAL OINTMENT 30 GM TUBE TP SCH ×2 (10:16→21:56)
[2022-04-20] MEDS: PHENobarbital 20 MG/5 ML UNIT-DOSE CUP GT SCH ×2 (10:36→21:55)
[2022-04-20] MEDS: LACTATED RINGERS SOLUTION 1,000 ML/1,000 ML INFUS.BAG IV SCH (17:48)
[2022-04-20] MEDS: MAGNESIUM HYDROX 2400MG/30ML ORAL SUSPENSION 30 ML CUP GT SCH (21:56)
[2022-04-21] MEDS ORDERED: MEROPENEM 1 GM VIAL (RESTRICTED TO ID) IVPB ONE ×3 (02:31→18:20)
[2022-04-21] MEDS ORDERED: DEXTROSE 5%-WATER 100 ML IVPB ONE ×3 (02:31→18:21)
[2022-04-21] MEDS: MEROPENEM 1 GM in DEXTROSE 5%-WATER 100 ML IVPB SCH ×3 (02:40→18:22)
[2022-04-21 09:05] LABS: BASO % 0.5 % (0-2.0); EOS % 7.6 % (0-4.5); HEMATOCRIT 33.5 % (35.4-49); HEMOGLOBIN 11.5 GM/dL (11.7-16.9); LYMPH % 19.4 % (8-40); MCH 35.9 pg (25.7-33.7); MCHC 34.3 g/dl (32.0-35.9); MEAN CELL VOLUME 104.4 fl (80-96); MONO % 13.2 % (3.8-10.2); NEUT % 59.3 % (42.8-82.8); PLATELET COUNT 419 10^3/uL (134-434); RBC 3.21 M/mm3 (4.00-5.60); WHITE BLOOD COUNT 5.8 K/mm3 (4.0-10.0)
[2022-04-21 09:30] LABS: CALCIUM 8.1 mg/dL (8.5-10.1)
[2022-04-21 09:31] LABS: ALBUMIN 2.4 g/dl (3.4-5.0); BLOOD UREA NITROGEN 11.4 mg/dL (7-18); MAGNESIUM 2.5 mg/dL (1.8-2.4)
[2022-04-21 09:32] LABS: PHOSPHOROUS 2.3 mg/dL (2.5-4.9)
[2022-04-21 09:33] LABS: CREATININE 0.3 mg/dL (0.55-1.3)
[2022-04-21 09:34] LABS: BILIRUBIN,TOTAL 0.2 mg/dL (0.2-1); TOT PROT 6.2 g/dl (6.4-8.2)
[2022-04-21] MEDS: AMINO ACIDS/PROTEIN HYDROLYS 30 ML LIQUID.PKT GT SCH (11:32)
[2022-04-21] MEDS: levETIRAcetam 500 MG/5 ML ORAL SOLUTION (UNIT-DOSE CUPS) GT SCH ×2 (11:33→21:03)
[2022-04-21] MEDS: MULTIVIT-MINERALS ORAL LIQUID GT SCH (11:33)
[2022-04-21] MEDS: ENOXAPARIN NA (PORCINE) 40 MG/0.4 ML DISP.SYRIN SQ SCH (11:34)
[2022-04-21] MEDS: FAMOTIDINE 40 MG/5 ML ORAL SUSPENSION GT SCH ×2 (11:37→21:04)
[2022-04-21] MEDS: PHENobarbital 20 MG/5 ML UNIT-DOSE CUP GT SCH ×2 (11:38→21:03)
[2022-04-21] MEDS: NYSTATIN POWDER 100,000 UNITS/GM - 15 GM TOPICAL POWDER TP SCH ×2 (11:59→21:03)
[2022-04-21] MEDS: MUPIROCIN 2% TOPICAL OINTMENT 22 GM TUBE TP SCH ×2 (11:59→21:03)
[2022-04-21] MEDS: TIOTROPIUM BROMIDE 2.5 MCG (SPIRIVA) RESPIMAT INHALER IH SCH (12:00)
[2022-04-21] MEDS: ZINC OXIDE 20% TOPICAL OINTMENT 30 GM TUBE TP SCH ×2 (12:00→21:03)
[2022-04-21] MEDS: VANCOMYCIN 1 GRAM (PRE-DOCKED) 1,000 MG/250 ML BAG IVPB SCH ×2 (12:31→21:04)
[2022-04-21] MEDS: VANCOMYCIN/WATER FOR INJ (PEG) 1,000 MG/200 ML BAG IVPB SCH (12:42)
[2022-04-21] MEDS: LACTATED RINGERS SOLUTION 1,000 ML/1,000 ML INFUS.BAG IV SCH (18:24)
[2022-04-21] MEDS: MAGNESIUM HYDROX 2400MG/30ML ORAL SUSPENSION 30 ML CUP GT SCH (21:04)
[2022-04-22] MEDS ORDERED: DEXTROSE 5%-WATER 100 ML IVPB ONE ×3 (02:58→17:34)
[2022-04-22] MEDS ORDERED: MEROPENEM 1 GM VIAL (RESTRICTED TO ID) IVPB ONE ×3 (02:58→17:33)
[2022-04-22] MEDS: MEROPENEM 1 GM in DEXTROSE 5%-WATER 100 ML IVPB SCH ×3 (03:01→17:44)
[2022-04-22] MEDS: AMINO ACIDS/PROTEIN HYDROLYS 30 ML LIQUID.PKT GT SCH (08:44)
[2022-04-22] MEDS: MULTIVIT-MINERALS ORAL LIQUID GT SCH (09:35)
[2022-04-22] MEDS: levETIRAcetam 500 MG/5 ML ORAL SOLUTION (UNIT-DOSE CUPS) GT SCH ×2 (09:36→21:10)
[2022-04-22] MEDS: ENOXAPARIN NA (PORCINE) 40 MG/0.4 ML DISP.SYRIN SQ SCH (09:36)
[2022-04-22] MEDS: FAMOTIDINE 40 MG/5 ML ORAL SUSPENSION GT SCH ×2 (09:37→21:11)
[2022-04-22] MEDS: PHENobarbital 20 MG/5 ML UNIT-DOSE CUP GT SCH ×2 (09:38→21:11)
[2022-04-22] MEDS: VANCOMYCIN 1 GRAM (PRE-DOCKED) 1,000 MG/250 ML BAG IVPB SCH ×2 (09:38→12:14)
[2022-04-22] MEDS: NYSTATIN POWDER 100,000 UNITS/GM - 15 GM TOPICAL POWDER TP SCH ×2 (10:10→21:10)
[2022-04-22] MEDS: TIOTROPIUM BROMIDE 2.5 MCG (SPIRIVA) RESPIMAT INHALER IH SCH (10:11)
[2022-04-22] MEDS: ZINC OXIDE 20% TOPICAL OINTMENT 30 GM TUBE TP SCH ×2 (10:11→21:14)
[2022-04-22] MEDS: MUPIROCIN 2% TOPICAL OINTMENT 22 GM TUBE TP SCH ×2 (10:11→21:10)
[2022-04-22] MEDS: SCOPOLAMINE HYDROBROMIDE 1 PATCH PATCH.TD72 TD SCH (14:18)
[2022-04-22] MEDS ORDERED: NAPH,MB-DB/K PH,MBDB POWDER PACKET GT ONE (17:36)
[2022-04-22] MEDS: MAGNESIUM HYDROX 2400MG/30ML ORAL SUSPENSION 30 ML CUP GT SCH (21:10)
[2022-04-23] MEDS ORDERED: MEROPENEM 1 GM VIAL (RESTRICTED TO ID) IVPB ONE ×3 (02:18→16:25)
[2022-04-23] MEDS ORDERED: DEXTROSE 5%-WATER 100 ML IVPB ONE ×2 (02:18→10:54)
[2022-04-23] MEDS: MEROPENEM 1 GM in DEXTROSE 5%-WATER 100 ML IVPB SCH ×3 (02:52→17:58)
[2022-04-23] MEDS: ACETAMINOPHEN 650 MG/20.3 ML ORAL SOLUTION (CUPS) GT PRN (03:26)
[2022-04-23 09:41] LABS: BASO % 0.4 % (0-2.0); EOS % 2.9 % (0-4.5); HEMATOCRIT 33.3 % (35.4-49); LYMPH % 15.2 % (8-40); MCHC 33.1 g/dl (32.0-35.9); MEAN CELL VOLUME 105.8 fl (80-96); MEAN PLT VOLUME 9.8 fl (7.5-11.1); MONO % 10.5 % (3.8-10.2); RBC 3.14 M/mm3 (4.00-5.60)
[2022-04-23 09:46] LABS: WHITE BLOOD COUNT 12.5 K/mm3 (4.0-10.0)
[2022-04-23 10:28] LABS: CALCIUM 7.8 mg/dL (8.5-10.1)
[2022-04-23 10:29] LABS: ALBUMIN 2.1 g/dl (3.4-5.0); MAGNESIUM 2.6 mg/dL (1.8-2.4)
[2022-04-23 10:32] LABS: CREATININE 0.2 mg/dL (0.55-1.3); PHOSPHOROUS 2.3 mg/dL (2.5-4.9)
[2022-04-23 10:33] LABS: TOT PROT 5.6 g/dl (6.4-8.2)
[2022-04-23 10:34] LABS: BILIRUBIN,TOTAL 0.2 mg/dL (0.2-1)
[2022-04-23] MEDS: levETIRAcetam 500 MG/5 ML ORAL SOLUTION (UNIT-DOSE CUPS) GT SCH ×2 (11:07→21:43)
[2022-04-23] MEDS: PHENobarbital 20 MG/5 ML UNIT-DOSE CUP GT SCH ×2 (11:07→21:43)
[2022-04-23] MEDS: ENOXAPARIN NA (PORCINE) 40 MG/0.4 ML DISP.SYRIN SQ SCH (11:07)
[2022-04-23] MEDS: NYSTATIN POWDER 100,000 UNITS/GM - 15 GM TOPICAL POWDER TP SCH ×2 (11:08→21:45)
[2022-04-23] MEDS: AMINO ACIDS/PROTEIN HYDROLYS 30 ML LIQUID.PKT GT SCH (11:08)
[2022-04-23] MEDS: MUPIROCIN 2% TOPICAL OINTMENT 22 GM TUBE TP SCH ×2 (11:08→21:45)
[2022-04-23] MEDS: FAMOTIDINE 40 MG/5 ML ORAL SUSPENSION GT SCH ×2 (11:09→21:45)
[2022-04-23] MEDS: TIOTROPIUM BROMIDE 2.5 MCG (SPIRIVA) RESPIMAT INHALER IH SCH (11:10)
[2022-04-23] MEDS: ZINC OXIDE 20% TOPICAL OINTMENT 30 GM TUBE TP SCH ×2 (11:10→22:33)
[2022-04-23 11:23] LABS: ANISOCYTOSIS 1+; MACROCYTOSIS 1+; PLATELET ESTIMATE NORMAL; TARGET CELLS 1+
[2022-04-23] MEDS: MULTIVIT-MINERALS ORAL LIQUID GT SCH (13:41)
[2022-04-23] MEDS ORDERED: SODIUM PHOSPHATE - 30 MM in DEXTROSE 5%-WATER - 500 ML IVPB ONE (13:42)
[2022-04-23] MEDS ORDERED: VANCOMYCIN 1 GM in D5W (PRE-DOCKED) 1,000 MG/250 ML IVPB SCH (13:45)
[2022-04-23] MEDS ORDERED: VANCOMYCIN 750 MG in DEXTROSE 5%-WATER - 150 ML IVPB SCH (14:00)
[2022-04-23] MEDS: VANCOMYCIN/WATER FOR INJ (PEG) 750 MG/150 ML BAG IVPB SCH (16:07)
[2022-04-23] MEDS: MAGNESIUM HYDROX 2400MG/30ML ORAL SUSPENSION 30 ML CUP GT SCH (21:43)
[2022-04-24] MEDS ORDERED: MEROPENEM 1 GM VIAL (RESTRICTED TO ID) IVPB ONE ×3 (01:59→18:06)
[2022-04-24] MEDS ORDERED: DEXTROSE 5%-WATER 100 ML IVPB ONE ×3 (01:59→18:07)
[2022-04-24] MEDS: MEROPENEM 1 GM in DEXTROSE 5%-WATER 100 ML IVPB SCH ×3 (02:27→18:20)
[2022-04-24] MEDS: VANCOMYCIN/WATER FOR INJ (PEG) 750 MG/150 ML BAG IVPB SCH ×2 (03:00→14:14)
[2022-04-24] MEDS: PHENobarbital 20 MG/5 ML UNIT-DOSE CUP GT SCH ×3 (08:57→22:52)
[2022-04-24] MEDS: AMINO ACIDS/PROTEIN HYDROLYS 30 ML LIQUID.PKT GT SCH (08:58)
[2022-04-24] MEDS: levETIRAcetam 500 MG/5 ML ORAL SOLUTION (UNIT-DOSE CUPS) GT SCH ×3 (08:58→22:52)
[2022-04-24] MEDS: ENOXAPARIN NA (PORCINE) 40 MG/0.4 ML DISP.SYRIN SQ SCH ×2 (08:58→11:11)
[2022-04-24] MEDS: MULTIVIT-MINERALS ORAL LIQUID GT SCH (08:59)
[2022-04-24] MEDS: FAMOTIDINE 40 MG/5 ML ORAL SUSPENSION GT SCH ×2 (08:59→22:52)
[2022-04-24] MEDS: ZINC OXIDE 20% TOPICAL OINTMENT 30 GM TUBE TP SCH ×2 (09:01→22:57)
[2022-04-24] MEDS: MUPIROCIN 2% TOPICAL OINTMENT 22 GM TUBE TP SCH ×2 (09:01→22:56)
[2022-04-24] MEDS: NYSTATIN POWDER 100,000 UNITS/GM - 15 GM TOPICAL POWDER TP SCH ×2 (09:01→22:57)
[2022-04-24] MEDS: TIOTROPIUM BROMIDE 2.5 MCG (SPIRIVA) RESPIMAT INHALER IH SCH (09:01)
[2022-04-24 10:54] LABS: BASO % 0.5 % (0-2.0); HEMATOCRIT 34.3 % (35.4-49); HEMOGLOBIN 11.5 GM/dL (11.7-16.9); LYMPH % 15.7 % (8-40); MCH 35.4 pg (25.7-33.7); MCHC 33.6 g/dl (32.0-35.9); MEAN CELL VOLUME 105.4 fl (80-96); MEAN PLT VOLUME 9.1 fl (7.5-11.1); MONO % 12.6 % (3.8-10.2); NEUT % 69.2 % (42.8-82.8); PLATELET COUNT 475 10^3/uL (134-434); RBC 3.25 M/mm3 (4.00-5.60); RDW 16.5 % (11.9-15.9); WHITE BLOOD COUNT 8.7 K/mm3 (4.0-10.0)
[2022-04-24 11:18] LABS: CALCIUM 8.2 mg/dL (8.5-10.1)
[2022-04-24 11:19] LABS: ALBUMIN 2.1 g/dl (3.4-5.0); BLOOD UREA NITROGEN 14.9 mg/dL (7-18); MAGNESIUM 2.6 mg/dL (1.8-2.4)
[2022-04-24 11:22] LABS: CREATININE 0.3 mg/dL (0.55-1.3); PHOSPHOROUS 2.5 mg/dL (2.5-4.9)
[2022-04-24 11:23] LABS: BILIRUBIN,TOTAL 0.3 mg/dL (0.2-1); TOT PROT 5.9 g/dl (6.4-8.2)
[2022-04-24] MEDS: ACETAMINOPHEN 650 MG/20.3 ML ORAL SOLUTION (CUPS) GT PRN (14:20)
[2022-04-24] MEDS: MAGNESIUM HYDROX 2400MG/30ML ORAL SUSPENSION 30 ML CUP GT SCH (22:52)
[2022-04-25] MEDS ORDERED: MEROPENEM 1 GM VIAL (RESTRICTED TO ID) IVPB ONE ×4 (02:33→17:09)
[2022-04-25] MEDS ORDERED: DEXTROSE 5%-WATER 100 ML IVPB ONE ×3 (02:33→17:09)
[2022-04-25] MEDS: MEROPENEM 1 GM in DEXTROSE 5%-WATER 100 ML IVPB SCH ×3 (02:58→17:18)
[2022-04-25] MEDS: VANCOMYCIN/WATER FOR INJ (PEG) 750 MG/150 ML BAG IVPB SCH ×2 (04:33→15:37)
[2022-04-25] MEDS: AMINO ACIDS/PROTEIN HYDROLYS 30 ML LIQUID.PKT GT SCH (07:59)
[2022-04-25] MEDS: MULTIVIT-MINERALS ORAL LIQUID GT SCH (10:12)
[2022-04-25] MEDS: levETIRAcetam 500 MG/5 ML ORAL SOLUTION (UNIT-DOSE CUPS) GT SCH ×2 (10:12→22:33)
[2022-04-25] MEDS: ENOXAPARIN NA (PORCINE) 40 MG/0.4 ML DISP.SYRIN SQ SCH (10:12)
[2022-04-25] MEDS: FAMOTIDINE 40 MG/5 ML ORAL SUSPENSION GT SCH ×2 (10:13→22:34)
[2022-04-25] MEDS: PHENobarbital 20 MG/5 ML UNIT-DOSE CUP GT SCH ×2 (10:14→22:34)
[2022-04-25 10:19] LABS: BASO % 0.7 % (0-2.0); EOS % 3.5 % (0-4.5); HEMATOCRIT 34.9 % (35.4-49); HEMOGLOBIN 11.8 GM/dL (11.7-16.9); LYMPH % 18.2 % (8-40); MCH 35.5 pg (25.7-33.7); MCHC 33.6 g/dl (32.0-35.9); MEAN CELL VOLUME 105.6 fl (80-96); MEAN PLT VOLUME 8.5 fl (7.5-11.1); MONO % 14.3 % (3.8-10.2); NEUT % 63.3 % (42.8-82.8); PLATELET COUNT 542 10^3/uL (134-434); RBC 3.31 M/mm3 (4.00-5.60); RDW 16.4 % (11.9-15.9); WHITE BLOOD COUNT 9.3 K/mm3 (4.0-10.0)
[2022-04-25] MEDS: ZINC OXIDE 20% TOPICAL OINTMENT 30 GM TUBE TP SCH ×2 (10:24→22:34)
[2022-04-25] MEDS: NYSTATIN POWDER 100,000 UNITS/GM - 15 GM TOPICAL POWDER TP SCH ×2 (10:24→22:34)
[2022-04-25] MEDS: MUPIROCIN 2% TOPICAL OINTMENT 22 GM TUBE TP SCH ×2 (10:24→22:34)
[2022-04-25] MEDS: TIOTROPIUM BROMIDE 2.5 MCG (SPIRIVA) RESPIMAT INHALER IH SCH (10:25)
[2022-04-25 10:55] LABS: ALBUMIN 2.2 g/dl (3.4-5.0); BLOOD UREA NITROGEN 16.1 mg/dL (7-18); MAGNESIUM 2.5 mg/dL (1.8-2.4)
[2022-04-25 10:58] LABS: CREATININE 0.3 mg/dL (0.55-1.3); PHOSPHOROUS 1.9 mg/dL (2.5-4.9)
[2022-04-25 11:09] LABS: BILIRUBIN,TOTAL 0.2 mg/dL (0.2-1)
[2022-04-25] MEDS: SCOPOLAMINE HYDROBROMIDE 1 PATCH PATCH.TD72 TD SCH (14:52)
[2022-04-25] MEDS: COLLAGENASE CLOSTRIDIUM HIST. 30 GRAMS TUBE TP SCH (14:53)
[2022-04-25] MEDS ORDERED: SODIUM PHOSPHATE - 30 MM in SODIUM CHLORIDE 500 ML IVPB ONE (17:00)
[2022-04-25] MEDS: MAGNESIUM HYDROX 2400MG/30ML ORAL SUSPENSION 30 ML CUP GT SCH (22:33)
[2022-04-26] MEDS ORDERED: DEXTROSE 5%-WATER 100 ML IVPB ONE ×3 (01:24→17:29)
[2022-04-26] MEDS ORDERED: MEROPENEM 1 GM VIAL (RESTRICTED TO ID) IVPB ONE ×3 (01:24→17:29)
[2022-04-26] MEDS: MEROPENEM 1 GM in DEXTROSE 5%-WATER 100 ML IVPB SCH ×3 (01:27→17:13)
[2022-04-26] MEDS: VANCOMYCIN/WATER FOR INJ (PEG) 750 MG/150 ML BAG IVPB SCH ×2 (02:13→15:34)
[2022-04-26 09:06] LABS: BASO % 0.4 % (0-2.0); EOS % 5.7 % (0-4.5); HEMATOCRIT 33.4 % (35.4-49); HEMOGLOBIN 11.4 GM/dL (11.7-16.9); LYMPH % 24.5 % (8-40); MCH 36.1 pg (25.7-33.7); MCHC 34.1 g/dl (32.0-35.9); MEAN CELL VOLUME 106.1 fl (80-96); MEAN PLT VOLUME 8.1 fl (7.5-11.1); MONO % 14.8 % (3.8-10.2); NEUT % 54.6 % (42.8-82.8); PLATELET COUNT 598 10^3/uL (134-434); RBC 3.15 M/mm3 (4.00-5.60); RDW 16.4 % (11.9-15.9); WHITE BLOOD COUNT 7.2 K/mm3 (4.0-10.0)
[2022-04-26 09:30] LABS: ALBUMIN 2.2 g/dl (3.4-5.0); BLOOD UREA NITROGEN 15.1 mg/dL (7-18); MAGNESIUM 2.4 mg/dL (1.8-2.4)
[2022-04-26 09:33] LABS: CREATININE 0.2 mg/dL (0.55-1.3); PHOSPHOROUS 3.2 mg/dL (2.5-4.9)
[2022-04-26 09:34] LABS: TOT PROT 5.8 g/dl (6.4-8.2)
[2022-04-26 09:35] LABS: BILIRUBIN,TOTAL 0.3 mg/dL (0.2-1)
[2022-04-26] MEDS: AMINO ACIDS/PROTEIN HYDROLYS 30 ML LIQUID.PKT GT SCH (10:41)
[2022-04-26] MEDS: levETIRAcetam 500 MG/5 ML ORAL SOLUTION (UNIT-DOSE CUPS) GT SCH ×2 (10:41→21:59)
[2022-04-26] MEDS: PHENobarbital 20 MG/5 ML UNIT-DOSE CUP GT SCH ×2 (10:41→21:58)
[2022-04-26] MEDS: NYSTATIN POWDER 100,000 UNITS/GM - 15 GM TOPICAL POWDER TP SCH ×2 (10:42→21:59)
[2022-04-26] MEDS: ENOXAPARIN NA (PORCINE) 40 MG/0.4 ML DISP.SYRIN SQ SCH (10:42)
[2022-04-26] MEDS: FAMOTIDINE 40 MG/5 ML ORAL SUSPENSION GT SCH ×2 (10:42→22:11)
[2022-04-26] MEDS: MUPIROCIN 2% TOPICAL OINTMENT 22 GM TUBE TP SCH ×2 (10:42→21:59)
[2022-04-26] MEDS: MULTIVIT-MINERALS ORAL LIQUID GT SCH (10:42)
[2022-04-26] MEDS: ZINC OXIDE 20% TOPICAL OINTMENT 30 GM TUBE TP SCH ×2 (10:43→22:00)
[2022-04-26] MEDS: TIOTROPIUM BROMIDE 2.5 MCG (SPIRIVA) RESPIMAT INHALER IH SCH (10:43)
[2022-04-26] MEDS: COLLAGENASE CLOSTRIDIUM HIST. 30 GRAMS TUBE TP SCH (12:40)
[2022-04-26] MEDS: MAGNESIUM HYDROX 2400MG/30ML ORAL SUSPENSION 30 ML CUP GT SCH (22:00)
[2022-04-26] MEDS: ACETAMINOPHEN 650 MG/20.3 ML ORAL SOLUTION (CUPS) GT PRN (22:00)
[2022-04-27] MEDS ORDERED: MEROPENEM 1 GM VIAL (RESTRICTED TO ID) IVPB ONE ×3 (02:26→18:09)
[2022-04-27] MEDS ORDERED: DEXTROSE 5%-WATER 100 ML IVPB ONE ×3 (02:27→18:10)
[2022-04-27] MEDS: MEROPENEM 1 GM in DEXTROSE 5%-WATER 100 ML IVPB SCH ×4 (02:30→18:11)
[2022-04-27] MEDS: VANCOMYCIN 750 MG in DEXTROSE 5%-WATER - 250 ML IVPB SCH ×2 (03:45→14:38)
[2022-04-27] MEDS: AMINO ACIDS/PROTEIN HYDROLYS 30 ML LIQUID.PKT GT SCH (08:01)
[2022-04-27 09:27] LABS: BASO % 0.6 % (0-2.0); EOS % 4.7 % (0-4.5); HEMATOCRIT 33.3 % (35.4-49); HEMOGLOBIN 11.3 GM/dL (11.7-16.9); LYMPH % 16.6 % (8-40); MCH 35.9 pg (25.7-33.7); MCHC 33.8 g/dl (32.0-35.9); MEAN PLT VOLUME 8.1 fl (7.5-11.1); MONO % 14.1 % (3.8-10.2); PLATELET COUNT 608 10^3/uL (134-434); RBC 3.14 M/mm3 (4.00-5.60); RDW 16.5 % (11.9-15.9); WHITE BLOOD COUNT 8.4 K/mm3 (4.0-10.0)
[2022-04-27 09:36] LABS: ALBUMIN 2.2 g/dl (3.4-5.0); BLOOD UREA NITROGEN 15.1 mg/dL (7-18); CALCIUM 8.1 mg/dL (8.5-10.1)
[2022-04-27 09:37] LABS: MAGNESIUM 2.5 mg/dL (1.8-2.4)
[2022-04-27 09:39] LABS: CREATININE 0.2 mg/dL (0.55-1.3); PHOSPHOROUS 2.2 mg/dL (2.5-4.9)
[2022-04-27 09:40] LABS: BILIRUBIN,TOTAL 0.3 mg/dL (0.2-1)
[2022-04-27 10:25] LABS: ANISOCYTOSIS 1+; MACROCYTOSIS 1+
[2022-04-27] MEDS: PHENobarbital 20 MG/5 ML UNIT-DOSE CUP GT SCH ×2 (10:34→21:36)
[2022-04-27] MEDS: MULTIVIT-MINERALS ORAL LIQUID GT SCH (10:34)
[2022-04-27] MEDS: FAMOTIDINE 40 MG/5 ML ORAL SUSPENSION GT SCH ×2 (10:34→21:40)
[2022-04-27] MEDS: levETIRAcetam 500 MG/5 ML ORAL SOLUTION (UNIT-DOSE CUPS) GT SCH ×2 (10:35→21:36)
[2022-04-27] MEDS: ENOXAPARIN NA (PORCINE) 40 MG/0.4 ML DISP.SYRIN SQ SCH (10:35)
[2022-04-27] MEDS: COLLAGENASE CLOSTRIDIUM HIST. 30 GRAMS TUBE TP SCH (10:37)
[2022-04-27] MEDS: TIOTROPIUM BROMIDE 2.5 MCG (SPIRIVA) RESPIMAT INHALER IH SCH (10:38)
[2022-04-27] MEDS: ZINC OXIDE 20% TOPICAL OINTMENT 30 GM TUBE TP SCH ×2 (10:39→21:37)
[2022-04-27] MEDS: NYSTATIN POWDER 100,000 UNITS/GM - 15 GM TOPICAL POWDER TP SCH ×2 (10:39→21:37)
[2022-04-27] MEDS: MUPIROCIN 2% TOPICAL OINTMENT 22 GM TUBE TP SCH ×2 (10:39→21:37)
[2022-04-27] MEDS ORDERED: INSULIN (NOVOLOG) ASPART 100 UNITS/ML 10ML VIAL ONE (11:09)
[2022-04-27] MEDS ORDERED: SODIUM PHOSPHATE - 30 MM in SODIUM CHLORIDE 500 ML IVPB ONE (19:00)
[2022-04-27] MEDS: MAGNESIUM HYDROX 2400MG/30ML ORAL SUSPENSION 30 ML CUP GT SCH (21:35)
[2022-04-28] MEDS ORDERED: MEROPENEM 1 GM VIAL (RESTRICTED TO ID) IVPB ONE ×3 (01:27→18:20)
[2022-04-28] MEDS ORDERED: DEXTROSE 5%-WATER 100 ML IVPB ONE ×3 (01:27→18:20)
[2022-04-28] MEDS: MEROPENEM 1 GM in DEXTROSE 5%-WATER 100 ML IVPB SCH ×3 (03:00→18:41)
[2022-04-28] MEDS: VANCOMYCIN 750 MG in DEXTROSE 5%-WATER - 250 ML IVPB SCH ×2 (03:00→16:34)
[2022-04-28] MEDS: AMINO ACIDS/PROTEIN HYDROLYS 30 ML LIQUID.PKT GT SCH (08:39)
[2022-04-28 09:09] LABS: BASO % 0.4 % (0-2.0); EOS % 4.2 % (0-4.5); HEMATOCRIT 31.9 % (35.4-49); HEMOGLOBIN 11.2 GM/dL (11.7-16.9); LYMPH % 19.8 % (8-40); MCH 37.3 pg (25.7-33.7); MCHC 35.2 g/dl (32.0-35.9); MEAN CELL VOLUME 105.8 fl (80-96); MEAN PLT VOLUME 7.7 fl (7.5-11.1); MONO % 12.8 % (3.8-10.2); NEUT % 62.8 % (42.8-82.8); PLATELET COUNT 582 10^3/uL (134-434); RBC 3.01 M/mm3 (4.00-5.60); RDW 16.6 % (11.9-15.9); WHITE BLOOD COUNT 7.1 K/mm3 (4.0-10.0)
[2022-04-28 09:18] LABS: CALCIUM 8.4 mg/dL (8.5-10.1)
[2022-04-28 09:19] LABS: ALBUMIN 2.1 g/dl (3.4-5.0); BLOOD UREA NITROGEN 12.6 mg/dL (7-18); MAGNESIUM 2.6 mg/dL (1.8-2.4)
[2022-04-28 09:21] LABS: BILIRUBIN,TOTAL 0.3 mg/dL (0.2-1)
[2022-04-28 09:22] LABS: CREATININE 0.2 mg/dL (0.55-1.3); PHOSPHOROUS 3.4 mg/dL (2.5-4.9)
[2022-04-28 09:24] LABS: TOT PROT 5.8 g/dl (6.4-8.2)
[2022-04-28] MEDS: levETIRAcetam 500 MG/5 ML ORAL SOLUTION (UNIT-DOSE CUPS) GT SCH ×2 (10:39→21:43)
[2022-04-28] MEDS: MULTIVIT-MINERALS ORAL LIQUID GT SCH (10:39)
[2022-04-28] MEDS: ENOXAPARIN NA (PORCINE) 40 MG/0.4 ML DISP.SYRIN SQ SCH (10:40)
[2022-04-28] MEDS: FAMOTIDINE 40 MG/5 ML ORAL SUSPENSION GT SCH ×2 (10:40→21:44)
[2022-04-28] MEDS: ZINC OXIDE 20% TOPICAL OINTMENT 30 GM TUBE TP SCH ×2 (10:41→22:11)
[2022-04-28] MEDS: TIOTROPIUM BROMIDE 2.5 MCG (SPIRIVA) RESPIMAT INHALER IH SCH (10:41)
[2022-04-28] MEDS: NYSTATIN POWDER 100,000 UNITS/GM - 15 GM TOPICAL POWDER TP SCH ×2 (10:42→22:12)
[2022-04-28] MEDS: PHENobarbital 20 MG/5 ML UNIT-DOSE CUP GT SCH ×2 (10:42→21:44)
[2022-04-28] MEDS: MUPIROCIN 2% TOPICAL OINTMENT 22 GM TUBE TP SCH ×2 (10:42→22:12)
[2022-04-28] MEDS: COLLAGENASE CLOSTRIDIUM HIST. 30 GRAMS TUBE TP SCH (13:46)
[2022-04-28] MEDS: SCOPOLAMINE HYDROBROMIDE 1 PATCH PATCH.TD72 TD SCH (16:29)
[2022-04-28] MEDS: MAGNESIUM HYDROX 2400MG/30ML ORAL SUSPENSION 30 ML CUP GT SCH (21:44)
[2022-04-29] MEDS ORDERED: MEROPENEM 1 GM VIAL (RESTRICTED TO ID) IVPB ONE ×3 (01:59→16:23)
[2022-04-29] MEDS ORDERED: DEXTROSE 5%-WATER 100 ML IVPB ONE ×3 (01:59→16:23)
[2022-04-29] MEDS: MEROPENEM 1 GM in DEXTROSE 5%-WATER 100 ML IVPB SCH ×3 (02:36→18:07)
[2022-04-29] MEDS: VANCOMYCIN 750 MG in DEXTROSE 5%-WATER - 250 ML IVPB SCH ×2 (02:40→15:18)
[2022-04-29] MEDS: ENOXAPARIN NA (PORCINE) 40 MG/0.4 ML DISP.SYRIN SQ SCH (10:02)
[2022-04-29] MEDS: levETIRAcetam 500 MG/5 ML ORAL SOLUTION (UNIT-DOSE CUPS) GT SCH ×2 (10:02→22:44)
[2022-04-29] MEDS: PHENobarbital 20 MG/5 ML UNIT-DOSE CUP GT SCH ×2 (10:02→22:43)
[2022-04-29] MEDS: AMINO ACIDS/PROTEIN HYDROLYS 30 ML LIQUID.PKT GT SCH (10:03)
[2022-04-29] MEDS: FAMOTIDINE 40 MG/5 ML ORAL SUSPENSION GT SCH ×2 (10:03→22:44)
[2022-04-29] MEDS: MULTIVIT-MINERALS ORAL LIQUID GT SCH (10:03)
[2022-04-29 11:20] LABS: ALBUMIN 2.2 g/dl (3.4-5.0)
[2022-04-29 11:21] LABS: BLOOD UREA NITROGEN 12.4 mg/dL (7-18); CREATININE 0.3 mg/dL (0.55-1.3); MAGNESIUM 2.5 mg/dL (1.8-2.4)
[2022-04-29 11:22] LABS: CALCIUM 7.9 mg/dL (8.5-10.1); TOT PROT 5.9 g/dl (6.4-8.2)
[2022-04-29 11:23] LABS: PHOSPHOROUS 2.8 mg/dL (2.5-4.9)
[2022-04-29 11:24] LABS: BILIRUBIN,TOTAL 0.2 mg/dL (0.2-1)
[2022-04-29] MEDS: TIOTROPIUM BROMIDE 2.5 MCG (SPIRIVA) RESPIMAT INHALER IH SCH (11:28)
[2022-04-29] MEDS: MUPIROCIN 2% TOPICAL OINTMENT 22 GM TUBE TP SCH ×2 (11:29→22:58)
[2022-04-29] MEDS: COLLAGENASE CLOSTRIDIUM HIST. 30 GRAMS TUBE TP SCH (11:29)
[2022-04-29] MEDS: NYSTATIN POWDER 100,000 UNITS/GM - 15 GM TOPICAL POWDER TP SCH ×2 (11:29→22:58)
[2022-04-29] MEDS: ZINC OXIDE 20% TOPICAL OINTMENT 30 GM TUBE TP SCH ×2 (11:32→22:58)
[2022-04-29 12:10] LABS: BASO % 0.2 % (0-2.0); EOS % 2.7 % (0-4.5); HEMATOCRIT 32.5 % (35.4-49); HEMOGLOBIN 11.1 GM/dL (11.7-16.9); LYMPH % 17.9 % (8-40); MCH 36.1 pg (25.7-33.7); MCHC 34.1 g/dl (32.0-35.9); MEAN PLT VOLUME 7.9 fl (7.5-11.1); MONO % 12.9 % (3.8-10.2); NEUT % 66.3 % (42.8-82.8); PLATELET COUNT 570 10^3/uL (134-434); RBC 3.06 M/mm3 (4.00-5.60); RDW 16.6 % (11.9-15.9); WHITE BLOOD COUNT 8.3 K/mm3 (4.0-10.0)
[2022-04-29] MEDS: MAGNESIUM HYDROX 2400MG/30ML ORAL SUSPENSION 30 ML CUP GT SCH (22:44)
[2022-04-30] MEDS ORDERED: DEXTROSE 5%-WATER 100 ML IVPB ONE ×3 (02:20→17:21)
[2022-04-30] MEDS ORDERED: MEROPENEM 1 GM VIAL (RESTRICTED TO ID) IVPB ONE ×3 (02:20→17:21)
[2022-04-30] MEDS: MEROPENEM 1 GM in DEXTROSE 5%-WATER 100 ML IVPB SCH ×3 (02:50→17:34)
[2022-04-30] MEDS: VANCOMYCIN 750 MG in DEXTROSE 5%-WATER - 250 ML IVPB SCH (02:52)
[2022-04-30] MEDS: AMINO ACIDS/PROTEIN HYDROLYS 30 ML LIQUID.PKT GT SCH (09:00)
[2022-04-30] MEDS: PHENobarbital 20 MG/5 ML UNIT-DOSE CUP GT SCH ×2 (11:17→22:29)
[2022-04-30] MEDS: levETIRAcetam 500 MG/5 ML ORAL SOLUTION (UNIT-DOSE CUPS) GT SCH ×2 (11:18→22:30)
[2022-04-30] MEDS: ENOXAPARIN NA (PORCINE) 40 MG/0.4 ML DISP.SYRIN SQ SCH (11:18)
[2022-04-30] MEDS: MULTIVIT-MINERALS ORAL LIQUID GT SCH (11:19)
[2022-04-30] MEDS: MUPIROCIN 2% TOPICAL OINTMENT 22 GM TUBE TP SCH ×2 (12:18→22:30)
[2022-04-30] MEDS: ZINC OXIDE 20% TOPICAL OINTMENT 30 GM TUBE TP SCH ×2 (12:18→22:30)
[2022-04-30] MEDS: FAMOTIDINE 40 MG/5 ML ORAL SUSPENSION GT SCH ×2 (12:19→22:29)
[2022-04-30] MEDS: TIOTROPIUM BROMIDE 2.5 MCG (SPIRIVA) RESPIMAT INHALER IH SCH (12:19)
[2022-04-30] MEDS: NYSTATIN POWDER 100,000 UNITS/GM - 15 GM TOPICAL POWDER TP SCH ×2 (12:19→22:30)
[2022-04-30] MEDS: COLLAGENASE CLOSTRIDIUM HIST. 30 GRAMS TUBE TP SCH (12:20)
[2022-04-30] MEDS: MAGNESIUM HYDROX 2400MG/30ML ORAL SUSPENSION 30 ML CUP GT SCH (22:29)
[2022-04-30] MEDS: ACETAMINOPHEN 650 MG/20.3 ML ORAL SOLUTION (CUPS) GT PRN (22:30)
[2022-05-01] MEDS ORDERED: MEROPENEM 1 GM VIAL (RESTRICTED TO ID) IVPB ONE ×2 (00:25→10:23)
[2022-05-01] MEDS ORDERED: DEXTROSE 5%-WATER 100 ML IVPB ONE ×2 (00:25→10:23)
[2022-05-01] MEDS: MEROPENEM 1 GM in DEXTROSE 5%-WATER 100 ML IVPB SCH ×2 (01:08→11:14)
[2022-05-01 07:13] VITALS: BP 108/53
[2022-05-01] MEDS: PHENobarbital 20 MG/5 ML UNIT-DOSE CUP GT SCH (10:20)
[2022-05-01] MEDS: levETIRAcetam 500 MG/5 ML ORAL SOLUTION (UNIT-DOSE CUPS) GT SCH (10:20)
[2022-05-01] MEDS: ENOXAPARIN NA (PORCINE) 40 MG/0.4 ML DISP.SYRIN SQ SCH (10:20)
[2022-05-01] MEDS: FAMOTIDINE 40 MG/5 ML ORAL SUSPENSION GT SCH (10:21)
[2022-05-01] MEDS: MULTIVIT-MINERALS ORAL LIQUID GT SCH (10:21)
[2022-05-01] MEDS: AMINO ACIDS/PROTEIN HYDROLYS 30 ML LIQUID.PKT GT SCH (10:21)
[2022-05-01] MEDS: MUPIROCIN 2% TOPICAL OINTMENT 22 GM TUBE TP SCH (10:21)
[2022-05-01] MEDS: ZINC OXIDE 20% TOPICAL OINTMENT 30 GM TUBE TP SCH (10:22)
[2022-05-01] MEDS: TIOTROPIUM BROMIDE 2.5 MCG (SPIRIVA) RESPIMAT INHALER IH SCH (10:22)
[2022-05-01] MEDS: NYSTATIN POWDER 100,000 UNITS/GM - 15 GM TOPICAL POWDER TP SCH (10:22)
[2022-05-01] MEDS: COLLAGENASE CLOSTRIDIUM HIST. 30 GRAMS TUBE TP SCH (10:22)
[2022-05-01] MEDS: ACETAMINOPHEN 650 MG/20.3 ML ORAL SOLUTION (CUPS) GT PRN (10:38)
[2022-05-01 12:19] VITALS: PULSE 72; TEMP 98.8
== END 2022-05-01 13:35 | DRG 720 ==
LOC: JER 16:29 → JERBED 20:50 → J4W 04-02 01:14 → J8W 04-08 11:16
PROVIDERS: ADMIT Internal Medicine; ATTEND Internal Medicine
PROC: XW033E5 Introduction of Remdesivir Anti-infective into Peripheral Vein, Percutaneous Approach, New Technology Group 5 (ICD-10-PCS; principal; 2022-04-01)
DX: A41.89 Other specified sepsis (principal); J96.01 Acute respiratory failure with hypoxia; U07.1 COVID-19; J12.82 Pneumonia due to coronavirus disease 2019; J15.1 Pneumonia due to Pseudomonas; R53.2 Functional quadriplegia; E87.1 Hypo-osmolality and hyponatremia; G80.0 Spastic quadriplegic cerebral palsy; G40.909 Epilepsy, unspecified, not intractable, without status epilepticus; J98.11 Atelectasis; K21.9 Gastro-esophageal reflux disease without esophagitis; K44.9 Diaphragmatic hernia without obstruction or gangrene; E23.2 Diabetes insipidus; Q67.5 Congenital deformity of spine; R00.0 Tachycardia, unspecified; R50.9 Fever, unspecified; D72.829 Elevated white blood cell count, unspecified; R64 Cachexia; Z68.25 Body mass index [BMI] 25.0-25.9, adult; J45.909 Unspecified asthma, uncomplicated; Z20.1 Contact with and (suspected) exposure to tuberculosis; B95.7 Other staphylococcus as the cause of diseases classified elsewhere
CPT/HCPCS: 0241U-QW; 36415; 70486-TC; 71045-TC-FY; 71250-TC; 74018-TC-FY; 74178-TC; 76705-TC; 80048; 80053; 80076; 82550; 82553; 82803; 82962; 83605; 83735; 84100; 84132; 84484; 85025; 85027; 85610; 85730; 86140; 86480; 87040; 87070; 87077; 87081; 87086; 87116; 87186; 87205; 87206; 87556; 93005; 93010; 93970-TC; 99291; C9399; C9803-CS; G0480; J1100; J3243; Q9967; U0003; U0005

== ENCOUNTER 2022-05-27 11:49 | Inpatient (IN) | payer OTHER ==
[2022-05-27 13:32] LABS: BASO % 0.1 % (0-2.0); EOS % 0.9 % (0-4.5); HEMATOCRIT 40.6 % (35.4-49); HEMOGLOBIN 13.6 GM/dL (11.7-16.9); LYMPH % 3.8 % (8-40); MCH 34.8 pg (25.7-33.7); MCHC 33.4 g/dl (32.0-35.9); MEAN CELL VOLUME 104.1 fl (80-96); MEAN PLT VOLUME 9.7 fl (7.5-11.1); MONO % 3.9 % (3.8-10.2); NEUT % 91.3 % (42.8-82.8); PLATELET COUNT 374 10^3/uL (134-434); RDW 15.3 % (11.9-15.9); WHITE BLOOD COUNT 22.4 K/mm3 (4.0-10.0)
[2022-05-27 13:49] LABS: CHLORIDE 101 mmol/L (98-107); SODIUM 133 mmol/L (136-145)
[2022-05-27 13:50] LABS: BLOOD UREA NITROGEN 15.8 mg/dL (7-18); CALCIUM 9.3 mg/dL (8.5-10.1); CO2 26 mmol/L (21-32); GLUCOSE,RANDOM 102 mg/dL (74-106)
[2022-05-27 13:53] LABS: CREATININE 0.5 mg/dL (0.55-1.3)
[2022-05-27] MEDS ORDERED: SODIUM CHLORIDE 0.9% 500 ML INFUS.BAG IV ONE (13:53)
[2022-05-27] MEDS ORDERED: VANCOMYCIN 1 GM in D5W (PRE-DOCKED) 1,000 MG/250 ML IVPB ONE (13:53)
[2022-05-27 13:55] LABS: BILIRUBIN,TOTAL 0.3 mg/dL (0.2-1); TOT PROT 8.7 g/dl (6.4-8.2)
[2022-05-27] MEDS ORDERED: PIPERACILLIN/TAZOB 4.5 GM 4.5 GM in DEXTROSE 5%-WATER 100 ML IVPB ONE (13:55)
[2022-05-27 13:56] LABS: ALK PHOS 150 U/L (45-117)
[2022-05-27 13:57] LABS: ANION GAP 7 MMOL/L (8-16); SGOT/AST 117 U/L (15-37); SGPT/ALT 39 U/L (13-61)
[2022-05-27 14:17] LABS: ANISOCYTOSIS 1+; MACROCYTOSIS 1+; TEAR DROP CELLS 2+
[2022-05-27] MEDS ORDERED: PIPERACILLIN/TAZOB 4.5 GM 4.5 GM/100 ML BAG IVPB ONE (14:33)
[2022-05-27] MEDS ORDERED: VANCOMYCIN/WATER FOR INJ (PEG) 1,000 MG/200 ML BAG IVPB ONE (14:34)
[2022-05-27 14:47] LABS: EPI CELLS 23 /uL (0-25.1); HYALINE CASTS 18 /uL (0-3.1); PH,URINE >= 9.0 (5.0-8.0); URINE APPEARANCE TURBID; URINE BACTERIA 80 /uL (0-1359); URINE BILIRUBIN NEGATIVE (NEGATIVE); URINE COLOR YELLOW; URINE GLUCOSE (UA) NEGATIVE (NEGATIVE); URINE KETONE NEGATIVE (NEGATIVE); URINE LEUK ESTERASE 1+ (NEGATIVE); URINE NITRITE NEGATIVE (NEGATIVE); URINE PROTEIN TRACE (NEGATIVE); URINE RBC 501 /uL (0-23.9); URINE UROBILINOGEN 0.2 mg/dL (0.2-1.0); URINE WBC 32 /uL (0-25.8)
[2022-05-27 15:15] LABS: CALCIUM 8.8 mg/dL (8.5-10.1)
[2022-05-27 15:16] LABS: BLOOD UREA NITROGEN 14.9 mg/dL (7-18)
[2022-05-27 15:19] LABS: CREATININE 0.4 mg/dL (0.55-1.3)
[2022-05-27 15:23] LABS: URINE CRYSTALS PRESENT /hpf
[2022-05-27] MEDS ORDERED: VANCOMYCIN 750 MG in DEXTROSE 5%-WATER - 150 ML IVPB SCH ×2 (16:15→16:30)
[2022-05-27] MEDS ORDERED: ACETAMINOPHEN 650 MG/20.3 ML ORAL SOLUTION (CUPS) GT PRN (17:00)
[2022-05-27] MEDS ORDERED: MEROPENEM 1 GM VIAL (RESTRICTED TO ID) IVPB ONE (19:46)
[2022-05-27] MEDS ORDERED: FAMOTIDINE 20 MG TABLET ONE (19:46)
[2022-05-27] MEDS ORDERED: ALBUTEROL SO4 HFA INHALER IH ONE (19:47)
[2022-05-27] MEDS ORDERED: PHENobarbital 20 MG/5 ML UNIT-DOSE CUP ONE (19:47)
[2022-05-27] MEDS ORDERED: MAGNESIUM HYDROX 2400MG/30ML ORAL SUSPENSION 30 ML CUP ONE (19:47)
[2022-05-27] MEDS ORDERED: ALBUTEROL SO4 2.5/IPRATROPIUM 0.5 INH SOL 3 ML VIAL.NEB. NEB SCH (20:00)
[2022-05-27] MEDS: MEROPENEM 1 GM in DEXTROSE 5%-WATER 100 ML IVPB SCH (20:04)
[2022-05-27] MEDS: ALBUTEROL SO4 HFA INHALER IH SCH (20:17)
[2022-05-27] MEDS: FAMOTIDINE 40 MG/5 ML ORAL SUSPENSION GT SCH (21:03)
[2022-05-27] MEDS: levETIRAcetam 500 MG/5 ML ORAL SOLUTION (UNIT-DOSE CUPS) GT SCH (21:03)
[2022-05-27] MEDS: PHENobarbital 20 MG/5 ML UNIT-DOSE CUP GT SCH (21:03)
[2022-05-27] MEDS: MAGNESIUM HYDROX 2400MG/30ML ORAL SUSPENSION 30 ML CUP GT SCH (21:03)
[2022-05-27] MEDS: CALCIUM 500MG/VIT-D 200 UNITS COMBO TABLET (FP) GT SCH (21:03)
[2022-05-27] MEDS ORDERED: PATIENT'S OWN MEDICATION (NON-FORMULARY) (Phenobarbital [Phenobarbital] 64.8 MG Tablet) GT SCH (22:00)
[2022-05-27] MEDS ORDERED: PHENOBARBITAL 16.2 MG GT SCH (22:00)
[2022-05-28] MEDS: MEROPENEM 1 GM in DEXTROSE 5%-WATER 100 ML IVPB SCH ×4 (01:41→16:24)
[2022-05-28] MEDS: VANCOMYCIN/WATER FOR INJ (PEG) 750 MG/150 ML BAG IVPB SCH ×2 (02:53→16:18)
[2022-05-28] MEDS ORDERED: MULTIVIT-MINERALS ORAL LIQUID GT SCH (10:00)
[2022-05-28] MEDS: CALCIUM 500MG/VIT-D 200 UNITS COMBO TABLET (FP) GT SCH (10:13)
[2022-05-28] MEDS: PHENobarbital 20 MG/5 ML UNIT-DOSE CUP GT SCH ×3 (10:14→22:34)
[2022-05-28] MEDS: FAMOTIDINE 40 MG/5 ML ORAL SUSPENSION GT SCH (10:14)
[2022-05-28] MEDS: ENOXAPARIN NA (PORCINE) 40 MG/0.4 ML DISP.SYRIN SQ SCH (10:15)
[2022-05-28] MEDS: levETIRAcetam 500 MG/5 ML ORAL SOLUTION (UNIT-DOSE CUPS) GT SCH ×2 (10:46→22:34)
[2022-05-28] MEDS: ALBUTEROL SO4 HFA INHALER IH SCH ×4 (14:33→22:35)
[2022-05-28] MEDS: DEXTROSE 5%-0.45% SALINE 1,000 ML IV SCH (15:38)
[2022-05-28] MEDS: VANCOMYCIN 750 MG in DEXTROSE 5%-WATER - 150 ML IVPB SCH ×2 (16:23→16:24)
[2022-05-28 17:14] LABS: BASO % 0.7 % (0-2.0); EOS % 20.2 % (0-4.5); HEMATOCRIT 38.8 % (35.4-49); HEMOGLOBIN 13.1 GM/dL (11.7-16.9); MCH 35.3 pg (25.7-33.7); MCHC 33.7 g/dl (32.0-35.9); MEAN CELL VOLUME 104.8 fl (80-96); MEAN PLT VOLUME 9.9 fl (7.5-11.1); MONO % 12.5 % (3.8-10.2); NEUT % 46.6 % (42.8-82.8); PLATELET COUNT 291 10^3/uL (134-434); RDW 14.9 % (11.9-15.9); WHITE BLOOD COUNT 3.8 K/mm3 (4.0-10.0)
[2022-05-28 17:33] LABS: CALCIUM 8.7 mg/dL (8.5-10.1)
[2022-05-28 17:34] LABS: ALBUMIN 2.8 g/dl (3.4-5.0); BLOOD UREA NITROGEN 16.1 mg/dL (7-18); MAGNESIUM 2.2 mg/dL (1.8-2.4)
[2022-05-28 17:37] LABS: CREATININE 0.3 mg/dL (0.55-1.3)
[2022-05-28 17:39] LABS: BILIRUBIN,TOTAL 0.1 mg/dL (0.2-1); TOT PROT 6.9 g/dl (6.4-8.2)
[2022-05-28 18:31] LABS: ANISOCYTOSIS 1+; MACROCYTOSIS 0; TARGET CELLS 1+
[2022-05-28] MEDS: MEROPENEM 500 MG in DEXTROSE 5%-WATER 100 ML IVPB SCH (18:46)
[2022-05-28] MEDS: MAGNESIUM HYDROX 2400MG/30ML ORAL SUSPENSION 30 ML CUP GT SCH (22:34)
[2022-05-28] MEDS: ASCORBIC ACID 500 MG TABLET (FP) PO SCH (22:35)
[2022-05-29] MEDS: MEROPENEM 500 MG in DEXTROSE 5%-WATER 100 ML IVPB SCH ×3 (01:37→18:28)
[2022-05-29] MEDS: ALBUTEROL SO4 HFA INHALER IH SCH ×3 (08:13→16:16)
[2022-05-29] MEDS: ENOXAPARIN NA (PORCINE) 40 MG/0.4 ML DISP.SYRIN SQ SCH (09:47)
[2022-05-29] MEDS: PHENobarbital 20 MG/5 ML UNIT-DOSE CUP GT SCH ×2 (09:47→22:30)
[2022-05-29] MEDS: MULTIVITAMINS (DAILY MVI) TABLET (FP) PO SCH (09:48)
[2022-05-29] MEDS: ASCORBIC ACID 500 MG TABLET (FP) PO SCH ×2 (09:48→22:30)
[2022-05-29] MEDS: levETIRAcetam 500 MG/5 ML ORAL SOLUTION (UNIT-DOSE CUPS) GT SCH ×2 (09:48→22:30)
[2022-05-29] MEDS: ZINC SULFATE 220 MG CAPSULE (FP) PO SCH (09:48)
[2022-05-29] MEDS: DEXTROSE 5%-0.45% SALINE 1,000 ML IV SCH (10:49)
[2022-05-29] MEDS: POLYETHYLENE GLYCOL (HEALTHYLAX) 3350 17 GM PACKET GT SCH (22:30)
[2022-05-30] MEDS: MEROPENEM 500 MG in DEXTROSE 5%-WATER 100 ML IVPB SCH ×3 (01:15→18:05)
[2022-05-30] MEDS: DEXTROSE 5%-0.45% SALINE 1,000 ML IV SCH ×3 (01:15→20:40)
[2022-05-30] MEDS: ENOXAPARIN NA (PORCINE) 30 MG/0.3 ML DISP.SYRIN SQ SCH (10:28)
[2022-05-30] MEDS: PHENobarbital 20 MG/5 ML UNIT-DOSE CUP GT SCH ×2 (10:28→22:06)
[2022-05-30] MEDS: levETIRAcetam 500 MG/5 ML ORAL SOLUTION (UNIT-DOSE CUPS) GT SCH ×2 (10:28→22:06)
[2022-05-30] MEDS: POLYETHYLENE GLYCOL (HEALTHYLAX) 3350 17 GM PACKET GT SCH ×2 (10:28→22:06)
[2022-05-30] MEDS: MULTIVITAMINS (DAILY MVI) TABLET (FP) PO SCH (10:29)
[2022-05-30] MEDS: ASCORBIC ACID 500 MG TABLET (FP) PO SCH ×2 (10:29→22:06)
[2022-05-30] MEDS: ZINC SULFATE 220 MG CAPSULE (FP) PO SCH (10:29)
[2022-05-30] MEDS: FAMOTIDINE 40 MG/5 ML ORAL SUSPENSION PEG SCH (10:32)
[2022-05-30] MEDS: methylPREDNISolone NA SUCC 40 MG/1 ML VIAL IVPUSH SCH ×2 (16:03→18:05)
[2022-05-30] MEDS ORDERED: MONTELUKAST NA 5 MG TAB.CHEW PO SCH (22:00)
[2022-05-31] MEDS: methylPREDNISolone NA SUCC 40 MG/1 ML VIAL IVPUSH SCH ×3 (02:28→18:31)
[2022-05-31] MEDS: MEROPENEM 500 MG in DEXTROSE 5%-WATER 100 ML IVPB SCH ×3 (02:28→18:31)
[2022-05-31] MEDS: ASCORBIC ACID 500 MG TABLET (FP) PO SCH ×2 (09:37→22:17)
[2022-05-31] MEDS: ZINC SULFATE 220 MG CAPSULE (FP) PO SCH (09:37)
[2022-05-31] MEDS: PHENobarbital 20 MG/5 ML UNIT-DOSE CUP GT SCH ×2 (09:37→22:16)
[2022-05-31] MEDS: MULTIVITAMINS (DAILY MVI) TABLET (FP) PO SCH (09:37)
[2022-05-31] MEDS: FAMOTIDINE 40 MG/5 ML ORAL SUSPENSION PEG SCH (09:37)
[2022-05-31] MEDS: levETIRAcetam 500 MG/5 ML ORAL SOLUTION (UNIT-DOSE CUPS) GT SCH ×2 (09:37→22:16)
[2022-05-31] MEDS: POLYETHYLENE GLYCOL (HEALTHYLAX) 3350 17 GM PACKET GT SCH ×2 (09:37→22:16)
[2022-05-31] MEDS: ENOXAPARIN NA (PORCINE) 30 MG/0.3 ML DISP.SYRIN SQ SCH (09:38)
[2022-05-31] MEDS: DEXTROSE 5%-0.45% SALINE 1,000 ML IV SCH ×2 (12:05→18:31)
[2022-05-31 17:03] LABS: BASO % 0.3 % (0-2.0); HEMATOCRIT 37.6 % (35.4-49); HEMOGLOBIN 12.7 GM/dL (11.7-16.9); LYMPH % 12.6 % (8-40); MCH 35.1 pg (25.7-33.7); MCHC 33.8 g/dl (32.0-35.9); MEAN CELL VOLUME 103.9 fl (80-96); MONO % 2.8 % (3.8-10.2); NEUT % 84.3 % (42.8-82.8); PLATELET COUNT 302 10^3/uL (134-434); RBC 3.62 M/mm3 (4.00-5.60); RDW 14.7 % (11.9-15.9); WHITE BLOOD COUNT 8.4 K/mm3 (4.0-10.0)
[2022-05-31 17:21] LABS: CALCIUM 8.8 mg/dL (8.5-10.1)
[2022-05-31 17:22] LABS: ALBUMIN 2.8 g/dl (3.4-5.0); BLOOD UREA NITROGEN 10.8 mg/dL (7-18)
[2022-05-31 17:25] LABS: BILIRUBIN,TOTAL 0.2 mg/dL (0.2-1); CREATININE 0.3 mg/dL (0.55-1.3)
[2022-05-31 17:27] LABS: TOT PROT 6.9 g/dl (6.4-8.2)
[2022-06-01] MEDS: MEROPENEM 500 MG in DEXTROSE 5%-WATER 100 ML IVPB SCH ×3 (02:44→17:04)
[2022-06-01] MEDS: methylPREDNISolone NA SUCC 40 MG/1 ML VIAL IVPUSH SCH (02:45)
[2022-06-01 09:57] LABS: ALBUMIN 2.7 g/dl (3.4-5.0)
[2022-06-01 10:00] LABS: BILIRUBIN,TOTAL 0.2 mg/dL (0.2-1); CREATININE 0.3 mg/dL (0.55-1.3)
[2022-06-01 12:27] LABS: BASO % 0.4 % (0-2.0); EOS % 0.5 % (0-4.5); HEMATOCRIT 37.4 % (35.4-49); HEMOGLOBIN 12.7 GM/dL (11.7-16.9); LYMPH % 34.6 % (8-40); MCH 35.3 pg (25.7-33.7); MEAN CELL VOLUME 103.9 fl (80-96); MEAN PLT VOLUME 10.4 fl (7.5-11.1); NEUT % 53.5 % (42.8-82.8); PLATELET COUNT 274 10^3/uL (134-434); RDW 14.7 % (11.9-15.9); WHITE BLOOD COUNT 5.6 K/mm3 (4.0-10.0)
[2022-06-01] MEDS: PHENobarbital 20 MG/5 ML UNIT-DOSE CUP GT SCH ×2 (12:39→22:00)
[2022-06-01] MEDS: ENOXAPARIN NA (PORCINE) 30 MG/0.3 ML DISP.SYRIN SQ SCH (12:40)
[2022-06-01] MEDS: levETIRAcetam 500 MG/5 ML ORAL SOLUTION (UNIT-DOSE CUPS) GT SCH ×2 (12:41→22:01)
[2022-06-01] MEDS: MULTIVITAMINS (DAILY MVI) TABLET (FP) PO SCH (12:43)
[2022-06-01] MEDS: ASCORBIC ACID 500 MG TABLET (FP) PO SCH ×2 (12:43→22:01)
[2022-06-01] MEDS: ZINC SULFATE 220 MG CAPSULE (FP) PO SCH (12:43)
[2022-06-01] MEDS: FAMOTIDINE 40 MG/5 ML ORAL SUSPENSION PEG SCH (12:43)
[2022-06-01] MEDS: POLYETHYLENE GLYCOL (HEALTHYLAX) 3350 17 GM PACKET GT SCH ×2 (12:43→22:01)
[2022-06-01 14:22] VITALS: BMI 24.7
[2022-06-01] MEDS: DEXTROSE 5%-0.45% SALINE 1,000 ML IV SCH (17:03)
[2022-06-02] MEDS: MEROPENEM 500 MG in DEXTROSE 5%-WATER 100 ML IVPB SCH ×3 (02:24→17:26)
[2022-06-02] MEDS: ENOXAPARIN NA (PORCINE) 30 MG/0.3 ML DISP.SYRIN SQ SCH (10:22)
[2022-06-02] MEDS: PHENobarbital 20 MG/5 ML UNIT-DOSE CUP GT SCH ×2 (10:24→22:25)
[2022-06-02] MEDS: COLLAGENASE CLOSTRIDIUM HIST. 30 GRAMS TUBE TP SCH (10:25)
[2022-06-02] MEDS: DEXTROSE 5%-0.45% SALINE 1,000 ML IV SCH ×2 (10:25→17:24)
[2022-06-02] MEDS: FAMOTIDINE 40 MG/5 ML ORAL SUSPENSION PEG SCH (10:27)
[2022-06-02] MEDS: levETIRAcetam 500 MG/5 ML ORAL SOLUTION (UNIT-DOSE CUPS) GT SCH ×2 (10:27→22:25)
[2022-06-02] MEDS: ASCORBIC ACID 500 MG TABLET (FP) PO SCH ×2 (10:28→22:28)
[2022-06-02] MEDS: POLYETHYLENE GLYCOL (HEALTHYLAX) 3350 17 GM PACKET GT SCH ×2 (10:28→22:25)
[2022-06-02] MEDS: ZINC SULFATE 220 MG CAPSULE (FP) PO SCH (10:28)
[2022-06-02] MEDS: MULTIVITAMINS (DAILY MVI) TABLET (FP) PO SCH (10:28)
[2022-06-02 16:02] LABS: BASO % 0.3 % (0-2.0); EOS % 4.6 % (0-4.5); HEMATOCRIT 37.1 % (35.4-49); HEMOGLOBIN 12.7 GM/dL (11.7-16.9); LYMPH % 45.2 % (8-40); MCH 35.5 pg (25.7-33.7); MCHC 34.1 g/dl (32.0-35.9); MEAN CELL VOLUME 104.1 fl (80-96); MEAN PLT VOLUME 11.2 fl (7.5-11.1); MONO % 12.6 % (3.8-10.2); NEUT % 37.3 % (42.8-82.8); PLATELET COUNT 274 10^3/uL (134-434); RBC 3.57 M/mm3 (4.00-5.60); RDW 14.9 % (11.9-15.9); WHITE BLOOD COUNT 8.5 K/mm3 (4.0-10.0)
[2022-06-02 16:20] LABS: CALCIUM 8.7 mg/dL (8.5-10.1)
[2022-06-02 16:21] LABS: BLOOD UREA NITROGEN 4.6 mg/dL (7-18)
[2022-06-02 16:24] LABS: CREATININE 0.2 mg/dL (0.55-1.3)
[2022-06-03] MEDS: MEROPENEM 500 MG in DEXTROSE 5%-WATER 100 ML IVPB SCH ×2 (01:45→10:30)
[2022-06-03] MEDS: DEXTROSE 5%-0.45% SALINE 1,000 ML IV SCH (06:34)
[2022-06-03] MEDS ORDERED: MULTIVIT-MINERALS ORAL LIQUID GT SCH (10:00)
[2022-06-03] MEDS: POLYETHYLENE GLYCOL (HEALTHYLAX) 3350 17 GM PACKET GT SCH (10:30)
[2022-06-03] MEDS: ENOXAPARIN NA (PORCINE) 30 MG/0.3 ML DISP.SYRIN SQ SCH (10:31)
[2022-06-03] MEDS: PHENobarbital 20 MG/5 ML UNIT-DOSE CUP GT SCH (10:31)
[2022-06-03] MEDS: levETIRAcetam 500 MG/5 ML ORAL SOLUTION (UNIT-DOSE CUPS) GT SCH (10:31)
[2022-06-03] MEDS: ZINC SULFATE 220 MG CAPSULE (FP) PO SCH (10:31)
[2022-06-03] MEDS: ASCORBIC ACID 500 MG TABLET (FP) PO SCH (10:31)
[2022-06-03] MEDS: COLLAGENASE CLOSTRIDIUM HIST. 30 GRAMS TUBE TP SCH (10:32)
[2022-06-03] MEDS: FAMOTIDINE 40 MG/5 ML ORAL SUSPENSION PEG SCH (10:32)
[2022-06-03] MEDS ORDERED: AMINO ACIDS/PROTEIN HYDROLYS 30 ML LIQUID.PKT GT SCH (10:45)
[2022-06-03 14:19] VITALS: BP 120/79; PULSE 73; RESP 18; TEMP 97.4
[2022-06-03 14:49] LABS: HEMATOCRIT 40.8 % (35.4-49); HEMOGLOBIN 13.8 GM/dL (11.7-16.9); MCH 35.1 pg (25.7-33.7); MCHC 33.8 g/dl (32.0-35.9); MEAN PLT VOLUME 11.2 fl (7.5-11.1); PLATELET COUNT 291 10^3/uL (134-434); RBC 3.92 M/mm3 (4.00-5.60); RDW 14.5 % (11.9-15.9); WHITE BLOOD COUNT 10.4 K/mm3 (4.0-10.0)
[2022-06-03 15:14] LABS: CALCIUM 8.7 mg/dL (8.5-10.1)
[2022-06-03 15:15] LABS: BLOOD UREA NITROGEN 5.3 mg/dL (7-18)
[2022-06-03 15:18] LABS: CREATININE 0.2 mg/dL (0.55-1.3)
== END 2022-06-03 17:45 | disposition home or self-care (01) | DRG 137 ==
LOC: JER 11:49 → JERBED 13:57 → J5S 05-28 00:03 → J6S 06-01 17:59 → UNDODISIN 06-03 14:33
PROVIDERS: ADMIT Internal Medicine
PROC: 3E0G76Z Introduction of Nutritional Substance into Upper GI, Via Natural or Artificial Opening (ICD-10-PCS; principal; 2022-05-27)
DX: J69.0 Pneumonitis due to inhalation of food and vomit (principal); J96.01 Acute respiratory failure with hypoxia; U07.1 COVID-19; E23.2 Diabetes insipidus; L89.329 Pressure ulcer of left buttock, unspecified stage; R53.2 Functional quadriplegia; G80.0 Spastic quadriplegic cerebral palsy; G40.909 Epilepsy, unspecified, not intractable, without status epilepticus; I34.0 Nonrheumatic mitral (valve) insufficiency; K21.9 Gastro-esophageal reflux disease without esophagitis; K94.29 Other complications of gastrostomy; Y83.8 Other surgical procedures as the cause of abnormal reaction of the patient, or of later complication, without mention of misadventure at the time of the procedure
CPT/HCPCS: 0241U-QW; 36415; 71045-TC-FY; 74019-TC-FY; 80048; 80053; 81003; 82962; 83735; 84100; 85025; 85027; 86682; 87040; 87070; 87077; 87086; 87186; 87205; 93005; 93010; 99285-25; C9803-CS; U0003; U0005

== ENCOUNTER 2024-05-11 18:26 | Inpatient (IN) | payer OTHER ==
[2024-05-11 21:23] LABS: INR 1.19 (0.83-1.09); PROTHROMBIN TIME (PATIENT) 13.4 SEC (9.7-13.0)
[2024-05-11 21:26] LABS: ACTIVATED PTT 39.3 SECONDS (25.2-36.5)
[2024-05-11 21:28] LABS: HEMATOCRIT 42.2 % (35.4-49); HEMOGLOBIN 14.6 GM/dL (11.7-16.9); MCH 35.3 pg (25.7-33.7); MCHC 34.5 g/dl (32.0-35.9); MEAN CELL VOLUME 102.3 fl (80-96); MEAN PLT VOLUME 8.8 fl (7.5-11.1); PLATELET COUNT 355 10^3/uL (134-434); RBC 4.13 M/mm3 (4.00-5.60); RDW 13.5 % (11.9-15.9); WHITE BLOOD COUNT 19.1 K/mm3 (4.0-10.0)
[2024-05-11 21:38] LABS: BLOOD UREA NITROGEN 24.4 mg/dL (7-18); CALCIUM 9.2 mg/dL (8.5-10.1)
[2024-05-11 21:39] LABS: ALBUMIN 3.5 g/dl (3.4-5.0)
[2024-05-11 21:42] LABS: CREATININE 0.4 mg/dL (0.55-1.3)
[2024-05-11 21:43] LABS: BILIRUBIN,TOTAL 0.3 mg/dL (0.2-1); TOT PROT 7.6 g/dl (6.4-8.2)
[2024-05-11] MEDS ORDERED: PIPERACILLIN/TAZOB 4.5 GM 4.5 GM/100 ML BAG IVPB ONE (21:57)
[2024-05-11] MEDS: PIPERACILLIN/TAZOB 4.5 GM 4.5 GM in DEXTROSE 5%-WATER 100 ML IVPB ONE (22:00)
[2024-05-11 22:17] LABS: PLATELET ESTIMATE ADEQUATE
[2024-05-11 22:22] LABS: VENOUS BASE EXCESS -1.5 mmol/L (-2-2); VENOUS O2 SATURATION 82.6 % (70-80); VENOUS PCO2 36.1 mmHg (38-52); VENOUS PH 7.412 (7.310-7.410)
[2024-05-11] MEDS ORDERED: VANCOMYCIN 1 GRAM (PRE-DOCKED) 1,000 MG/250 ML BAG IVPB ONE (22:24)
[2024-05-11] MEDS: VANCOMYCIN 1,000 MG in DEXTROSE 5%-WATER - 250 ML IVPB ONE (22:35)
[2024-05-11] MEDS: ALBUTEROL SO4 2.5/IPRATROPIUM 0.5 INH SOL 3 ML VIAL.NEB. NEB SCH (23:00)
[2024-05-12] MEDS: SODIUM CHLORIDE 0.9% 500 ML INFUS.BAG IV ONE (00:26)
[2024-05-12] MEDS ORDERED: ALBUTEROL SO4 2.5/IPRATROPIUM 0.5 INH SOL 3 ML VIAL.NEB. NEB PRN (02:20)
[2024-05-12] MEDS ORDERED: PATIENT'S OWN MEDICATION (NON-FORMULARY) (Diazepam [Valtoco] 10 MG/0.1 ML Spray) IN PRN (03:27)
[2024-05-12 04:20] LABS: N-TERMINAL BNP 58.5 pg/ml (5-125)
[2024-05-12] MEDS ORDERED: PIPERACILLIN/TAZOB 4.5 GM 4.5 GM/100 ML BAG IVPB ONE ×3 (04:56→14:49)
[2024-05-12] MEDS: PIPERACILLIN/TAZOB 4.5 GM 4.5 GM in DEXTROSE 5%-WATER 100 ML IVPB SCH (05:49)
[2024-05-12] MEDS: SODIUM CHLORIDE 250 ML IV STA (05:50)
[2024-05-12 05:58] LABS: EPI CELLS 15 /uL (0-25.1); HYALINE CASTS 1 /uL (0-3.1); PH,URINE 6.5 (5.0-8.0); URINE APPEARANCE TURBID; URINE BACTERIA 6 /uL (0-1359); URINE BILIRUBIN NEGATIVE (NEGATIVE); URINE COLOR DK YELLOW; URINE GLUCOSE (UA) NEGATIVE (NEGATIVE); URINE KETONE 2+ (NEGATIVE); URINE LEUK ESTERASE TRACE (NEGATIVE); URINE NITRITE NEGATIVE (NEGATIVE); URINE PROTEIN 1+ (NEGATIVE); URINE RBC 2032 /uL (0-23.9); URINE UROBILINOGEN 0.2 mg/dL (0.2-1.0); URINE WBC 25 /uL (0-25.8)
[2024-05-12] MEDS: levETIRAcetam 500 MG/5 ML ORAL SOLUTION (UNIT-DOSE CUPS) GT SCH (06:30)
[2024-05-12] MEDS ORDERED: INSULIN ASPART SLIDING SCALE (NOVOLOG) 1 VIAL SQ SCH (07:00)
[2024-05-12 07:17] LABS: ALBUMIN 3.1 g/dl (3.4-5.0); BILIRUBIN,TOTAL 0.5 mg/dL (0.2-1); BLOOD UREA NITROGEN 23.4 mg/dL (7-18); CALCIUM 8.4 mg/dL (8.5-10.1); CREATININE 0.5 mg/dL (0.55-1.3); PHOSPHOROUS 3.1 mg/dL (2.5-4.9); POTASSIUM 4.9 mmol/L (3.5-5.1); TOT PROT 7.1 g/dl (6.4-8.2)
[2024-05-12 07:19] LABS: N-TERMINAL BNP 333.5 pg/ml (5-125)
[2024-05-12] MEDS ORDERED: PHENobarbital 30 MG TABLET ONE ×3 (07:53→22:37)
[2024-05-12] MEDS: PHENobarbital 30 MG TABLET GT SCH (08:17)
[2024-05-12] MEDS ORDERED: VANCOMYCIN 1,000 MG in DEXTROSE 5%-WATER - 250 ML IVPB SCH (10:00)
[2024-05-12] MEDS: APIXABAN 5 MG TABLET GT SCH (10:42)
[2024-05-12] MEDS: FAMOTIDINE 20 MG/2.5 ML ORAL LIQUID GT SCH (10:42)
[2024-05-12] MEDS: SODIUM CHLORIDE 1 GM TABLET GT SCH (10:42)
[2024-05-12] MEDS: SCOPOLAMINE HYDROBROMIDE 1 PATCH PATCH.TD72 TD SCH (12:05)
[2024-05-12] MEDS: D5-1/2NS+10 MEQ KCL - 10 MEQ/1,000 ML INFUS.BAG IV SCH (12:17)
[2024-05-12] MEDS ORDERED: FAMOTIDINE 20 MG TABLET ONE (22:37)
[2024-05-12] MEDS ORDERED: APIXABAN 5 MG TABLET ONE (22:37)
[2024-05-12] MEDS ORDERED: MAGNESIUM HYDROX 2400MG/30ML ORAL SUSPENSION 30 ML CUP ONE (22:37)
[2024-05-12] MEDS ORDERED: DOXYCYCLINE HYCLATE 100 MG VIAL ONE (23:31)
[2024-05-12] MEDS: DOXYCYCLINE INJECTION 100 MG in DEXTROSE 5%-WATER 100 ML IVPB SCH (23:41)
[2024-05-13] MEDS: MAGNESIUM HYDROX 2400MG/30ML ORAL SUSPENSION 30 ML CUP PO SCH (00:17)
[2024-05-13] MEDS: PHENobarbital 30 MG TABLET GT SCH (00:17)
[2024-05-13] MEDS ORDERED: PIPERACILLIN/TAZOB 4.5 GM 4.5 GM in DEXTROSE 5%-WATER 100 ML IVPB SCH (03:00)
[2024-05-13] MEDS ORDERED: PIPERACILLIN/TAZOB 4.5 GM 4.5 GM/100 ML BAG IVPB ONE (03:01)
[2024-05-13] MEDS: PIPERACILLIN/TAZOB 4.5 GM 4.5 GM in DEXTROSE 5%-WATER 100 ML IVPB SCH (03:13)
[2024-05-13] MEDS: SODIUM CHLORIDE 1,000 ML IV STA (03:32)
[2024-05-13 08:10] LABS: BASO % 0.2 % (0-2.0); EOS % 3.2 % (0-4.5); HEMATOCRIT 36.7 % (35.4-49); HEMOGLOBIN 12.4 GM/dL (11.7-16.9); MCH 35.5 pg (25.7-33.7); MCHC 33.7 g/dl (32.0-35.9); MEAN CELL VOLUME 105.3 fl (80-96); MEAN PLT VOLUME 9.1 fl (7.5-11.1); MONO % 6.5 % (3.8-10.2); NEUT % 82.1 % (42.8-82.8); PLATELET COUNT 270 10^3/uL (134-434); RBC 3.48 M/mm3 (4.00-5.60); WHITE BLOOD COUNT 9.3 K/mm3 (4.0-10.0)
[2024-05-13 08:44] LABS: ALBUMIN 2.6 g/dl (3.4-5.0); BLOOD UREA NITROGEN 17.4 mg/dL (7-18)
[2024-05-13 08:46] LABS: BILIRUBIN,TOTAL 0.2 mg/dL (0.2-1); TOT PROT 5.9 g/dl (6.4-8.2)
[2024-05-13 08:47] LABS: CREATININE 0.3 mg/dL (0.55-1.3)
[2024-05-13 16:22] VITALS: BMI 28.3
[2024-05-13] MEDS: SODIUM CHLORIDE 0.9% 500 ML INFUS.BAG IV ONE (19:02)
[2024-05-14 09:07] LABS: BASO % 0.2 % (0-2.0); EOS % 2.7 % (0-4.5); HEMATOCRIT 36.4 % (35.4-49); HEMOGLOBIN 12.5 GM/dL (11.7-16.9); LYMPH % 12.6 % (8-40); MCHC 34.4 g/dl (32.0-35.9); MEAN CELL VOLUME 104.5 fl (80-96); MEAN PLT VOLUME 9.1 fl (7.5-11.1); NEUT % 73.5 % (42.8-82.8); PLATELET COUNT 287 10^3/uL (134-434); RBC 3.48 M/mm3 (4.00-5.60); RDW 13.8 % (11.9-15.9); WHITE BLOOD COUNT 9.3 K/mm3 (4.0-10.0)
[2024-05-14 09:29] LABS: POTASSIUM 3.9 mmol/L (3.5-5.1)
[2024-05-14 09:32] LABS: ALBUMIN 2.5 g/dl (3.4-5.0); BLOOD UREA NITROGEN 10.2 mg/dL (7-18)
[2024-05-14 09:35] LABS: CREATININE 0.3 mg/dL (0.55-1.3)
[2024-05-14 09:36] LABS: BILIRUBIN,TOTAL 0.4 mg/dL (0.2-1); TOT PROT 6.2 g/dl (6.4-8.2)
[2024-05-14] MEDS: ALBUTEROL SO4 2.5/IPRATROPIUM 0.5 INH SOL 3 ML VIAL.NEB. NEB SCH (12:02)
[2024-05-14] MEDS: methylPREDNISolone NA SUCC 40 MG/1 ML VIAL IVPUSH SCH (12:37)
[2024-05-15 08:17] LABS: BASO % 0.2 % (0-2.0); EOS % 1.3 % (0-4.5); HEMATOCRIT 37.9 % (35.4-49); HEMOGLOBIN 13.1 GM/dL (11.7-16.9); LYMPH % 14.6 % (8-40); MCH 35.9 pg (25.7-33.7); MCHC 34.4 g/dl (32.0-35.9); MEAN CELL VOLUME 104.2 fl (80-96); MEAN PLT VOLUME 8.7 fl (7.5-11.1); MONO % 11.3 % (3.8-10.2); NEUT % 72.6 % (42.8-82.8); PLATELET COUNT 288 10^3/uL (134-434); RBC 3.64 M/mm3 (4.00-5.60); RDW 13.8 % (11.9-15.9); WHITE BLOOD COUNT 9.3 K/mm3 (4.0-10.0)
[2024-05-15 08:25] LABS: POTASSIUM 3.7 mmol/L (3.5-5.1)
[2024-05-15 08:36] LABS: CALCIUM 8.2 mg/dL (8.5-10.1)
[2024-05-15 08:37] LABS: ALBUMIN 2.5 g/dl (3.4-5.0); BLOOD UREA NITROGEN 6.7 mg/dL (7-18)
[2024-05-15 08:40] LABS: CREATININE 0.4 mg/dL (0.55-1.3)
[2024-05-15 08:41] LABS: BILIRUBIN,TOTAL 0.3 mg/dL (0.2-1); TOT PROT 6.4 g/dl (6.4-8.2)
[2024-05-15] MEDS: AMINO ACIDS 4.25%/D5W 1,000 ML IV SCH (11:42)
[2024-05-16 08:55] LABS: BASO % 0.2 % (0-2.0); EOS % 0.6 % (0-4.5); HEMATOCRIT 40.5 % (35.4-49); HEMOGLOBIN 14.1 GM/dL (11.7-16.9); LYMPH % 23.2 % (8-40); MCH 35.7 pg (25.7-33.7); MCHC 34.8 g/dl (32.0-35.9); MEAN CELL VOLUME 102.6 fl (80-96); MONO % 14.4 % (3.8-10.2); NEUT % 61.6 % (42.8-82.8); PLATELET COUNT 319 10^3/uL (134-434); RBC 3.95 M/mm3 (4.00-5.60); RDW 13.8 % (11.9-15.9); WHITE BLOOD COUNT 9.4 K/mm3 (4.0-10.0)
[2024-05-16 09:27] LABS: ALBUMIN 2.6 g/dl (3.4-5.0); BLOOD UREA NITROGEN 13.4 mg/dL (7-18); CALCIUM 7.9 mg/dL (8.5-10.1)
[2024-05-16 09:30] LABS: CREATININE 0.4 mg/dL (0.55-1.3)
[2024-05-16 09:31] LABS: MAGNESIUM 2.1 mg/dL (1.8-2.4)
[2024-05-16 09:32] LABS: BILIRUBIN,TOTAL 0.8 mg/dL (0.2-1); TOT PROT 6.8 g/dl (6.4-8.2)
[2024-05-16] MEDS: PANTOPRAZOLE SODIUM 40 MG VIAL IVPUSH SCH (11:07)
[2024-05-16] MEDS: ZINC OXIDE 20% TOPICAL OINTMENT 30 GM TUBE TP SCH (13:51)
[2024-05-16] MEDS ORDERED: ACETAMINOPHEN 1000 MG/100 ML BAG IVPB PRN (16:03)
[2024-05-17 03:03] LABS: PH,URINE 7.5 (5.0-8.0); URINE APPEARANCE CLEAR; URINE BILIRUBIN NEGATIVE (NEGATIVE); URINE COLOR YELLOW; URINE GLUCOSE (UA) NEGATIVE (NEGATIVE); URINE KETONE TRACE (NEGATIVE); URINE LEUK ESTERASE NEGATIVE (NEGATIVE); URINE NITRITE NEGATIVE (NEGATIVE); URINE PROTEIN NEGATIVE (NEGATIVE); URINE UROBILINOGEN 0.2 mg/dL (0.2-1.0)
[2024-05-17 09:28] LABS: BASO % 0.1 % (0-2.0); EOS % 0.5 % (0-4.5); HEMATOCRIT 40.7 % (35.4-49); HEMOGLOBIN 14.2 GM/dL (11.7-16.9); LYMPH % 19.2 % (8-40); MCH 35.7 pg (25.7-33.7); MEAN CELL VOLUME 102.1 fl (80-96); MEAN PLT VOLUME 8.6 fl (7.5-11.1); MONO % 13.9 % (3.8-10.2); NEUT % 66.3 % (42.8-82.8); PLATELET COUNT 361 10^3/uL (134-434); RBC 3.98 M/mm3 (4.00-5.60); RDW 13.8 % (11.9-15.9); WHITE BLOOD COUNT 11.9 K/mm3 (4.0-10.0)
[2024-05-17 09:52] LABS: POTASSIUM 4.8 mmol/L (3.5-5.1)
[2024-05-17 09:59] LABS: ALBUMIN 2.5 g/dl (3.4-5.0); BLOOD UREA NITROGEN 15.5 mg/dL (7-18); CALCIUM 8.2 mg/dL (8.5-10.1); MAGNESIUM 2.2 mg/dL (1.8-2.4)
[2024-05-17 10:02] LABS: CREATININE 0.4 mg/dL (0.55-1.3)
[2024-05-17 10:04] LABS: BILIRUBIN,TOTAL 0.6 mg/dL (0.2-1); TOT PROT 7.2 g/dl (6.4-8.2)
[2024-05-17] MEDS: OXYBUTYNIN CHLORIDE 5 MG TABLET NGT SCH (10:18)
[2024-05-18 08:14] LABS: BASO % 0.2 % (0-2.0); EOS % 0.6 % (0-4.5); HEMATOCRIT 37.1 % (35.4-49); HEMOGLOBIN 13.1 GM/dL (11.7-16.9); LYMPH % 24.5 % (8-40); MCHC 35.3 g/dl (32.0-35.9); MEAN PLT VOLUME 8.2 fl (7.5-11.1); MONO % 13.4 % (3.8-10.2); NEUT % 61.3 % (42.8-82.8); PLATELET COUNT 399 10^3/uL (134-434); RBC 3.64 M/mm3 (4.00-5.60); RDW 13.7 % (11.9-15.9); WHITE BLOOD COUNT 10.8 K/mm3 (4.0-10.0)
[2024-05-18 08:29] LABS: POTASSIUM 3.5 mmol/L (3.5-5.1)
[2024-05-18 08:31] LABS: ALBUMIN 2.6 g/dl (3.4-5.0); CALCIUM 8.3 mg/dL (8.5-10.1)
[2024-05-18 08:32] LABS: BLOOD UREA NITROGEN 15.1 mg/dL (7-18); MAGNESIUM 2.2 mg/dL (1.8-2.4)
[2024-05-18 08:35] LABS: CREATININE 0.3 mg/dL (0.55-1.3)
[2024-05-18 08:37] LABS: BILIRUBIN,TOTAL 0.3 mg/dL (0.2-1); TOT PROT 6.4 g/dl (6.4-8.2)
[2024-05-19 09:55] LABS: BASO % 0.1 % (0-2.0); EOS % 0.2 % (0-4.5); HEMATOCRIT 39.2 % (35.4-49); HEMOGLOBIN 13.9 GM/dL (11.7-16.9); MCHC 35.4 g/dl (32.0-35.9); MEAN CELL VOLUME 101.8 fl (80-96); MEAN PLT VOLUME 8.1 fl (7.5-11.1); MONO % 12.4 % (3.8-10.2); NEUT % 73.3 % (42.8-82.8); PLATELET COUNT 486 10^3/uL (134-434); RBC 3.85 M/mm3 (4.00-5.60); RDW 13.9 % (11.9-15.9); WHITE BLOOD COUNT 10.8 K/mm3 (4.0-10.0)
[2024-05-19 10:14] LABS: POTASSIUM 3.6 mmol/L (3.5-5.1)
[2024-05-19 10:21] LABS: ALBUMIN 2.8 g/dl (3.4-5.0); BLOOD UREA NITROGEN 19.1 mg/dL (7-18); CALCIUM 8.4 mg/dL (8.5-10.1); MAGNESIUM 2.3 mg/dL (1.8-2.4)
[2024-05-19 10:24] LABS: CREATININE 0.3 mg/dL (0.55-1.3)
[2024-05-19 11:32] LABS: BILIRUBIN,TOTAL 0.4 mg/dL (0.2-1)
[2024-05-20] MEDS: PHENobarbital 30 MG TABLET GT ONE (01:11)
[2024-05-20] MEDS: PHENobarbital 30 MG TABLET GT SCH (05:33)
[2024-05-20 09:50] LABS: BASO % 0.2 % (0-2.0); EOS % 0.2 % (0-4.5); HEMATOCRIT 40.7 % (35.4-49); HEMOGLOBIN 14.3 GM/dL (11.7-16.9); LYMPH % 14.4 % (8-40); MCH 35.8 pg (25.7-33.7); MCHC 35.2 g/dl (32.0-35.9); MEAN CELL VOLUME 101.7 fl (80-96); MEAN PLT VOLUME 7.8 fl (7.5-11.1); MONO % 14.3 % (3.8-10.2); NEUT % 70.9 % (42.8-82.8); PLATELET COUNT 538 10^3/uL (134-434); RBC 4.01 M/mm3 (4.00-5.60); RDW 13.9 % (11.9-15.9); WHITE BLOOD COUNT 13.1 K/mm3 (4.0-10.0)
[2024-05-20 10:12] LABS: POTASSIUM 3.7 mmol/L (3.5-5.1)
[2024-05-20 10:19] LABS: CALCIUM 8.6 mg/dL (8.5-10.1)
[2024-05-20 10:21] LABS: ALBUMIN 2.9 g/dl (3.4-5.0)
[2024-05-20 10:22] LABS: BLOOD UREA NITROGEN 26.1 mg/dL (7-18); TOT PROT 7.4 g/dl (6.4-8.2)
[2024-05-20 10:23] LABS: BILIRUBIN,TOTAL 0.4 mg/dL (0.2-1); CREATININE 0.4 mg/dL (0.55-1.3)
[2024-05-20 10:31] LABS: MAGNESIUM 2.3 mg/dL (1.8-2.4)
[2024-05-21] MEDS: ACETAMINOPHEN 650 MG/20.3 ML ORAL SOLUTION (CUPS) GT ONE (06:41)
[2024-05-21 08:16] LABS: POTASSIUM 3.7 mmol/L (3.5-5.1)
[2024-05-21 08:20] LABS: BASO % 0.2 % (0-2.0); EOS % 0.1 % (0-4.5); HEMATOCRIT 37.9 % (35.4-49); LYMPH % 9.9 % (8-40); MCH 35.4 pg (25.7-33.7); MCHC 34.2 g/dl (32.0-35.9); MEAN CELL VOLUME 103.5 fl (80-96); MEAN PLT VOLUME 8.1 fl (7.5-11.1); MONO % 12.5 % (3.8-10.2); NEUT % 77.3 % (42.8-82.8); PLATELET COUNT 503 10^3/uL (134-434); RBC 3.66 M/mm3 (4.00-5.60); RDW 13.9 % (11.9-15.9); WHITE BLOOD COUNT 13.7 K/mm3 (4.0-10.0)
[2024-05-21 08:23] LABS: CALCIUM 8.5 mg/dL (8.5-10.1)
[2024-05-21 08:24] LABS: ALBUMIN 2.7 g/dl (3.4-5.0); BLOOD UREA NITROGEN 29.4 mg/dL (7-18); MAGNESIUM 2.2 mg/dL (1.8-2.4)
[2024-05-21 08:27] LABS: CREATININE 0.5 mg/dL (0.55-1.3)
[2024-05-21 08:28] LABS: BILIRUBIN,TOTAL 0.3 mg/dL (0.2-1); TOT PROT 6.8 g/dl (6.4-8.2)
[2024-05-21] MEDS: BISACODYL 10 MG SUPP.RECT PR ONE (10:52)
[2024-05-21 13:37] LABS: EPI CELLS 17 /uL (0-25.1); HYALINE CASTS 6 /uL (0-3.1); PH,URINE 6.5 (5.0-8.0); URINE APPEARANCE CLOUDY; URINE BACTERIA 11 /uL (0-1359); URINE BILIRUBIN NEGATIVE (NEGATIVE); URINE COLOR DK YELLOW; URINE GLUCOSE (UA) NEGATIVE (NEGATIVE); URINE KETONE 2+ (NEGATIVE); URINE LEUK ESTERASE NEGATIVE (NEGATIVE); URINE NITRITE NEGATIVE (NEGATIVE); URINE PROTEIN 1+ (NEGATIVE); URINE RBC 587 /uL (0-23.9); URINE WBC 28 /uL (0-25.8)
[2024-05-21] MEDS: PIPERACILLIN/TAZOB 4.5 GM 4.5 GM in DEXTROSE 5%-WATER 100 ML IVPB SCH (17:08)
[2024-05-22] MEDS: levETIRAcetam 500 MG/5 ML INJECTION VIAL IVPB ONE (09:00)
[2024-05-22] MEDS: DEXTROSE 5%-NORMAL SALINE 1,000 ML IV SCH (10:44)
[2024-05-22 11:02] LABS: BASO % 0.5 % (0-2.0); HEMATOCRIT 40.1 % (35.4-49); HEMOGLOBIN 13.6 GM/dL (11.7-16.9); LYMPH % 8.6 % (8-40); MEAN CELL VOLUME 103.1 fl (80-96); MEAN PLT VOLUME 7.8 fl (7.5-11.1); MONO % 7.9 % (3.8-10.2); PLATELET COUNT 525 10^3/uL (134-434); RBC 3.89 M/mm3 (4.00-5.60); RDW 14.1 % (11.9-15.9); WHITE BLOOD COUNT 13.4 K/mm3 (4.0-10.0)
[2024-05-22 11:23] LABS: POTASSIUM 3.9 mmol/L (3.5-5.1)
[2024-05-22 11:27] LABS: ALBUMIN 2.7 g/dl (3.4-5.0); CALCIUM 8.8 mg/dL (8.5-10.1)
[2024-05-22 11:28] LABS: BLOOD UREA NITROGEN 33.1 mg/dL (7-18); MAGNESIUM 2.2 mg/dL (1.8-2.4)
[2024-05-22 11:31] LABS: CREATININE 0.4 mg/dL (0.55-1.3)
[2024-05-22 11:32] LABS: BILIRUBIN,TOTAL 0.4 mg/dL (0.2-1)
[2024-05-22] MEDS: VANCOMYCIN/WATER FOR INJ (PEG) 1,000 MG/200 ML BAG IVPB ONE (17:20)
[2024-05-23 07:54] LABS: BASO % 0.2 % (0-2.0); EOS % 0.1 % (0-4.5); HEMATOCRIT 37.8 % (35.4-49); HEMOGLOBIN 13.1 GM/dL (11.7-16.9); MCH 35.7 pg (25.7-33.7); MCHC 34.5 g/dl (32.0-35.9); MEAN CELL VOLUME 103.6 fl (80-96); MEAN PLT VOLUME 7.4 fl (7.5-11.1); MONO % 8.3 % (3.8-10.2); NEUT % 83.4 % (42.8-82.8); PLATELET COUNT 521 10^3/uL (134-434); RBC 3.65 M/mm3 (4.00-5.60); RDW 14.2 % (11.9-15.9); WHITE BLOOD COUNT 9.8 K/mm3 (4.0-10.0)
[2024-05-23 08:10] LABS: POTASSIUM 3.6 mmol/L (3.5-5.1)
[2024-05-23 08:17] LABS: CALCIUM 9.1 mg/dL (8.5-10.1)
[2024-05-23 08:18] LABS: ALBUMIN 2.7 g/dl (3.4-5.0); MAGNESIUM 2.4 mg/dL (1.8-2.4)
[2024-05-23 08:22] LABS: CREATININE 0.4 mg/dL (0.55-1.3)
[2024-05-23 08:23] LABS: BILIRUBIN,TOTAL 0.4 mg/dL (0.2-1); TOT PROT 6.8 g/dl (6.4-8.2)
[2024-05-23] MEDS: BISACODYL 10 MG SUPP.RECT PR PRN (09:15)
[2024-05-23] MEDS: ACETAMINOPHEN 1000 MG/100 ML BAG IVPB PRN (09:22)
[2024-05-23] MEDS ORDERED: DEXTROSE 5%-NORMAL SALINE 1,000 ML IV SCH (09:30)
[2024-05-23] MEDS: levETIRAcetam 500 MG/5 ML INJECTION VIAL IVPB SCH (10:00)
[2024-05-23] MEDS: AMINO ACIDS 4.25%/D5W 1,000 ML IV SCH (10:04)
[2024-05-23] MEDS: NYSTATIN 100,000 UNIT/GM TOPICAL CREAM 15 GM TUBE TP SCH (14:38)
[2024-05-23] MEDS: VANCOMYCIN/WATER FOR INJ (PEG) 1,000 MG/200 ML BAG IVPB SCH (17:54)
[2024-05-24 09:37] LABS: BASO % 0.8 % (0-2.0); EOS % 0.4 % (0-4.5); HEMATOCRIT 37.5 % (35.4-49); HEMOGLOBIN 12.8 GM/dL (11.7-16.9); LYMPH % 18.3 % (8-40); MCH 35.3 pg (25.7-33.7); MCHC 34.2 g/dl (32.0-35.9); MEAN CELL VOLUME 103.2 fl (80-96); MEAN PLT VOLUME 7.6 fl (7.5-11.1); MONO % 14.7 % (3.8-10.2); NEUT % 65.8 % (42.8-82.8); PLATELET COUNT 517 10^3/uL (134-434); RBC 3.63 M/mm3 (4.00-5.60); RDW 14.1 % (11.9-15.9); WHITE BLOOD COUNT 7.7 K/mm3 (4.0-10.0)
[2024-05-24 09:56] LABS: POTASSIUM 3.4 mmol/L (3.5-5.1)
[2024-05-24 09:58] LABS: CALCIUM 8.9 mg/dL (8.5-10.1)
[2024-05-24 09:59] LABS: ALBUMIN 2.7 g/dl (3.4-5.0); BLOOD UREA NITROGEN 29.9 mg/dL (7-18); MAGNESIUM 2.1 mg/dL (1.8-2.4)
[2024-05-24 10:01] LABS: CREATININE 0.4 mg/dL (0.55-1.3)
[2024-05-24 10:03] LABS: BILIRUBIN,TOTAL 0.3 mg/dL (0.2-1); TOT PROT 6.8 g/dl (6.4-8.2)
[2024-05-24] MEDS: AMPICILLIN - 2 GM in SODIUM CHLORIDE 100 ML IVPB SCH (17:12)
[2024-05-24] MEDS: AMINO ACIDS 4.25%/D5W 1,000 ML IV SCH (18:07)
[2024-05-24] MEDS: BISACODYL 10 MG SUPP.RECT PR SCH (18:08)
[2024-05-25 08:33] LABS: BASO % 0.2 % (0-2.0); EOS % 0.5 % (0-4.5); HEMATOCRIT 38.2 % (35.4-49); HEMOGLOBIN 12.6 GM/dL (11.7-16.9); LYMPH % 16.8 % (8-40); MCH 34.7 pg (25.7-33.7); MCHC 33.1 g/dl (32.0-35.9); MEAN CELL VOLUME 104.8 fl (80-96); MEAN PLT VOLUME 8.2 fl (7.5-11.1); MONO % 11.5 % (3.8-10.2); PLATELET COUNT 446 10^3/uL (134-434); RBC 3.65 M/mm3 (4.00-5.60); RDW 14.4 % (11.9-15.9); WHITE BLOOD COUNT 8.8 K/mm3 (4.0-10.0)
[2024-05-25 08:49] LABS: POTASSIUM 3.3 mmol/L (3.5-5.1)
[2024-05-25 08:53] LABS: CALCIUM 8.4 mg/dL (8.5-10.1)
[2024-05-25 08:54] LABS: ALBUMIN 2.5 g/dl (3.4-5.0); BLOOD UREA NITROGEN 24.8 mg/dL (7-18); MAGNESIUM 2.3 mg/dL (1.8-2.4)
[2024-05-25 08:57] LABS: CREATININE 0.4 mg/dL (0.55-1.3)
[2024-05-25 08:58] LABS: BILIRUBIN,TOTAL 0.3 mg/dL (0.2-1)
[2024-05-25 08:59] LABS: TOT PROT 6.5 g/dl (6.4-8.2)
[2024-05-25] MEDS: METOCLOPRAMIDE HCL 10 MG/10 ML UNIT DOSE CUP GT SCH (10:46)
[2024-05-25] MEDS: POTASSIUM CHLORIDE ORAL LIQUID 20 MEQ/15 ML PO ONE (10:46)
[2024-05-25] MEDS: levETIRAcetam 500 MG/5 ML ORAL SOLUTION (UNIT-DOSE CUPS) GT SCH (11:24)
[2024-05-25] MEDS: TAMSULOSIN HCL 0.4 MG CAP PO ONE (17:50)
[2024-05-26] MEDS: TAMSULOSIN HCL 0.4 MG CAP PO SCH (09:11)
[2024-05-26] MEDS: SODIUM CHLORIDE 1,000 ML IV SCH (15:20)
[2024-05-26] MEDS: METOCLOPRAMIDE HCL 10 MG/10 ML UNIT DOSE CUP GT SCH (21:51)
[2024-05-27 08:31] LABS: BASO % 0.2 % (0-2.0); EOS % 3.5 % (0-4.5); HEMATOCRIT 35.9 % (35.4-49); LYMPH % 17.4 % (8-40); MCH 35.3 pg (25.7-33.7); MCHC 33.5 g/dl (32.0-35.9); MEAN CELL VOLUME 105.5 fl (80-96); MEAN PLT VOLUME 8.4 fl (7.5-11.1); MONO % 9.5 % (3.8-10.2); NEUT % 69.4 % (42.8-82.8); PLATELET COUNT 397 10^3/uL (134-434); RDW 14.3 % (11.9-15.9); WHITE BLOOD COUNT 8.7 K/mm3 (4.0-10.0)
[2024-05-27 08:44] LABS: POTASSIUM 3.7 mmol/L (3.5-5.1)
[2024-05-27 08:50] LABS: BLOOD UREA NITROGEN 15.9 mg/dL (7-18); CALCIUM 8.2 mg/dL (8.5-10.1); MAGNESIUM 2.1 mg/dL (1.8-2.4)
[2024-05-27 08:51] LABS: ALBUMIN 2.4 g/dl (3.4-5.0)
[2024-05-27 08:52] LABS: CREATININE 0.2 mg/dL (0.55-1.3)
[2024-05-27 08:54] LABS: BILIRUBIN,TOTAL 0.3 mg/dL (0.2-1); TOT PROT 5.7 g/dl (6.4-8.2)
[2024-05-28 07:19] VITALS: RESP 18
[2024-05-28 08:25] LABS: BASO % 0.2 % (0-2.0); HEMOGLOBIN 12.3 GM/dL (11.7-16.9); LYMPH % 26.1 % (8-40); MCH 35.2 pg (25.7-33.7); MCHC 34.3 g/dl (32.0-35.9); MEAN CELL VOLUME 102.8 fl (80-96); MONO % 10.5 % (3.8-10.2); NEUT % 60.2 % (42.8-82.8); PLATELET COUNT 398 10^3/uL (134-434); RDW 14.4 % (11.9-15.9); WHITE BLOOD COUNT 8.8 K/mm3 (4.0-10.0)
[2024-05-28 08:32] LABS: POTASSIUM 3.6 mmol/L (3.5-5.1)
[2024-05-28 08:34] LABS: ALBUMIN 2.5 g/dl (3.4-5.0); CALCIUM 8.5 mg/dL (8.5-10.1)
[2024-05-28 08:35] LABS: BLOOD UREA NITROGEN 8.8 mg/dL (7-18)
[2024-05-28 08:38] LABS: CREATININE 0.2 mg/dL (0.55-1.3)
[2024-05-28 08:39] LABS: BILIRUBIN,TOTAL 0.3 mg/dL (0.2-1); TOT PROT 6.1 g/dl (6.4-8.2)
[2024-05-28 09:01] VITALS: BP 133/65; PULSE 66; TEMP 98.1
== END 2024-05-28 13:50 | disposition home health service (06) | DRG 720 ==
LOC: JER 18:26 → JERBED 23:31 → J7W 05-13 05:19
PROVIDERS: ADMIT Internal Medicine; ATTEND Nurse Practitioner Acute Care
DX: A41.9 Sepsis, unspecified organism (principal); J69.0 Pneumonitis due to inhalation of food and vomit; J96.01 Acute respiratory failure with hypoxia; L97.909 Non-pressure chronic ulcer of unspecified part of unspecified lower leg with unspecified severity; G80.0 Spastic quadriplegic cerebral palsy; E88.9 Metabolic disorder, unspecified; G40.909 Epilepsy, unspecified, not intractable, without status epilepticus; J45.909 Unspecified asthma, uncomplicated; K94.23 Gastrostomy malfunction; K59.00 Constipation, unspecified; R33.9 Retention of urine, unspecified
CPT/HCPCS: 0241U-QW; 36415; 71045-TC-FY; 71250-TC; 74018-TC-FY; 76775-TC; 80053; 81003; 82803; 82962; 83605; 83735; 83880; 84100; 84484; 85025; 85610; 85730; 86850; 86900; 86901; 87040; 87070; 87081; 87086; 87186; 87205; 87635; 93005; 93010; 93306-TC; 93970-TC; 94640; 94761; 99285-25; J0131